=== PATIENT | female | born 1995 ===

== ENCOUNTER 2021-11-07 18:52 | Emergency (ER) | payer OTHER, SELFPAY ==
[2021-11-07 19:34] VITALS: BP 131/85; PULSE 82; RESP 17; TEMP 36.9; O2SAT 100
--- NOTE | 2021-11-07 19:34 | PC.NURSE ---
covid swab sent to lab
[2021-11-07 19:36] LABS: Add Urine Microscopic? YES; Appearance Urine Clear (Clear); Bilirubin Urine Negative (Negative); Blood Urine 1+ (Negative); Glucose Urine UA Negative (Negative); Ketones Urine Negative (Negative); Leukocyte Esterase Ur Negative LEU/UL (Negative); Nitrate Urine Negative (Negative); Protein Urine Negative (Negative); Specific Grav Ur <= 1.005 (1.010-1.020); Urobilinogen Urine 0.2 mg/dL (0.2-1.0); pH Urine 6.5 (5.0-8.0)
[2021-11-07 19:37] LABS: Color Urine Colorless (Yellow)
[2021-11-07 19:48] LABS: Basophils Absolute Auto 0.05 K/mm3 (0.00-0.10); Eosinophils Absolute Auto 0.07 K/mm3 (0.02-0.50); Eosinophils Percent Auto 1.4 % (1.0-6.0); Hematocrit 39.6 % (35.0-49.0); Hemoglobin 13.2 g/dL (12.0-15.0); Immature Granulocyte Absolute 0.01 K/mm3 (0.00-0.00); Immature Granulocyte Percent A 0.2 % (0.0-0.0); Lymphocytes Absolute Auto 1.52 K/mm3 (1.10-4.50); Lymphocytes Percent Auto 30.8 % (18.0-42.0); Mean Corpuscular HGB Conc 33.3 g/dL (32.0-36.0); Mean Corpuscular Hemoglobin 30.8 pg (27.0-31.0); Mean Corpuscular Volume 92.5 fL (78.0-102.0); Mean Platelet Volume 9.5 fl (9.2-11.8); Monocytes Percent Auto 8.1 % (2.0-11.0); Neutrophils Absolute Auto 2.9 K/mm3 (1.7-7.2); Neutrophils Percent Auto 58.5 % (50.0-70.0); Platelet Count Result 197 K/mm3 (150-420); Red Blood Count 4.28 M/mm3 (4.20-5.40); Red Cell Distribution Width 12.5 % (11.6-14.4); White Blood Count 4.9 K/mm3 (4.8-10.8)
[2021-11-07 19:53] LABS: RBC Urine None seen /hpf (0-2); Squamous Epithelial Cell Urine Rare /hpf (Few)
[2021-11-07 20:04] LABS: Alanine Aminotransferase 19 U/L (14-59); Albumin Level 4.4 g/dL (3.4-5.0); Alkaline Phosphatase 48 U/L (46-116); Anion Gap 11 mmol/L (8-16); Aspartate Amino Transferase 12 U/L (15-37); Bilirubin,Total 1.5 mg/dL (0.00-1.00); Blood Urea Nitrogen 9 mg/dL (7-18); Calcium 9.1 mg/dL (8.5-10.1); Carbon Dioxide 28 mmol/L (21-32); Chloride 102 mmol/L (98-108); Estimated CRCL calculation 71 ml/min; Estimated Glomerular Filt Rate > 60; Glucose 112 mg/dL (70-99); Magnesium 2.3 mg/dL (1.8-2.4); Osmolality Calculated 291 mOsm/kg (285-295); Potassium 3.5 mmol/L (3.5-5.1); Sodium 141 mmol/L (136-145)
--- NOTE | 2021-11-07 20:06 | ED.GENADULT ---
HPI - General Adult General Chief complaint: Allergic Reaction Stated complaint: allergic reaction Source: patient and RN notes reviewed Mode of arrival: ambulatory Limitations: no limitations History of Present Illness HPI narrative: Patient states that last week she had gone to another hospital and been diagnosed with the urinary tract infection. She said that she began having some problems with the antibiotic Macrobid almost immediately. She thought she was having allergic reaction 2 days ago she went back to the emergency room was given some hydroxyzine stop the antibiotic at that time they did a urinalysis which did not show evidence of anymore urinary tract infection. Patient is continued to have some chills, feels like she has generalized confusion, and some abdominal fullness. MD complaint: Medication reaction Onset (ago): day(s) (1) Treatments prior to arrival: other ( Benadryl) Related Data Home Medications Medication Instructions Recorded Confirmed hydroxyzine HCl 50 mg PO BID 11/07/21 11/07/21 Allergies Allergy/AdvReac Type Severity Reaction Status Date / Time nitrofurantoin Allergy Mild Itching Verified 11/07/21 19:45 azithromycin Allergy Unknown Skin Verified 11/07/21 19:44 Reaction ibuprofen Allergy Unknown Skin Verified 11/07/21 19:44 Reaction sulfite Allergy Unknown Skin Verified 11/07/21 19:44 Reaction Review of Systems Review of Systems: All systems reviewed & are unremarkable except as noted in HPI and below Respiratory: Respiratory: Denies cough and Denies dyspnea Gastrointestinal: Gastrointestinal: Denies diarrhea, Denies nausea and Denies vomiting Genitourinary: Genitourinary: Denies nocturia and Denies dysuria PMFSH Surgical History Surgical History (Updated 11/07/21 @ 20:08 by Robin Franco MD) History of section Social History Social History (Updated 11/07/21 @ 20:08 by Robin Franco MD) Smoking status: Never smoker Alcohol intake: current Alcohol use details: Occasional Substance use: never Exam Const: General: healthy appearing, no acute distress and alert Nutritional Appearance: well nourished and thin Orientation/consciousness: patient oriented x3 Other: Nurse in room during examination. HENMT: Head: normal to inspection Ears: external ears normal General nose exam: Normal external nose present Mouth: Yes moist mucous membranes Eyes: Conjunctivae: conjunctivae normal Pupils: Equal, round and reactive pupils present EOM: EOMs intact bilaterally Neck: Neck: normal visual inspection Resp: Effort & Inspection: normal respiratory effort Auscultation: clear to auscultation bilaterally Cardio: Rate: regular rate Rhythm: regular rhythm GI: GI Palp: Yes Soft to palpation and Yes Tenderness to palpation present (GI) ( Mild tenderness in the lower abdomen no rebound no guarding.) Auscultation: normal bowel sounds Back/Spine/Pelvis: Back: no CVA tenderness Cervical Spine: cervical ROM normal Thoracic/Lumbar Spine: thoraco-lumbar ROM normal Skin: General skin exam: normal color Rashes: no rashes Neuro: General: patient oriented x3, moves all extremities, no meningeal signs, no focal motor deficits and CN's II-XI intact bilaterally Speech: normal speech Gait exam (Neuro): Normal gait present Extrem: General: normal to inspection and no clubbing, cyanosis or edema Psych: Appearance: grossly normal and well kempt Mental Status: mental status grossly normal Affect: normal affect Attitude: cooperative Thought content: Yes Normal thought content present Course Vital Signs Vital signs: Vital Signs Temperature 36.9 C 11/07/21 19:34 Pulse Rate 82 11/07/21 19:34 Respiratory Rate 17 11/07/21 19:34 Blood Pressure 131/85 11/07/21 19:34 Pulse Oximetry 100 11/07/21 19:34 Temperature 36.9 C 11/07/21 19:34 Pulse Rate 75 11/07/21 20:58 Respiratory Rate 17 11/07/21 20:58 Blood Pressure 126/84 0
[2021-11-07 20:09] LABS: SARS-CoV-2 RNA PCR Positive (Negative)
[2021-11-07 20:12] LABS: CRP < 0.5 mg/dL (0.0-0.9)
[2021-11-07 20:58] VITALS: BP 126/84; PULSE 75; RESP 17; O2SAT 100
== END 2021-11-07 21:00 | disposition home or self-care (01) ==
PROVIDERS: Emergency Provider Emergency Medicine
DX: U07.1 COVID-19 (principal)
CPT/HCPCS: 36415; 80053; 81001; 83605; 83735; 85025; 86140; 99282; 99283; C9803; U0003; U0005

== ENCOUNTER 2024-10-06 14:41 | Emergency (ER) | payer OTHER, SELFPAY ==
[2024-10-06 14:43] VITALS: BP 127/80; PULSE 71; RESP 20; TEMP 36.9; O2SAT 100
[2024-10-06 14:58] VITALS: PULSE 66; RESP 20; O2SAT 99
[2024-10-06 15:00] VITALS: PULSE 69; RESP 20; O2SAT 100
[2024-10-06 15:01] VITALS: BP 110/71; PULSE 74; RESP 21; O2SAT 100
--- NOTE | 2024-10-06 15:09 | ED_ITS ---
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 The patient has been having increased anxiety over the last few hours and worries about throwing her into SVT. Currently heart rate is 71 with a blood pressure 127/80 otherwise there is no chest pain no shortness of breath no palpitations no fever chills. complaint: anxiety Onset (ago): hour(s) Severity: moderate Quality: intermittent Related Data Home Medications ?Medication ?Instructions ?Recorded ?Confirmed ?Last Taken ?Type hydroxyzine HCl 50 mg tablet 50 mg PO BID 11/07/21 11/07/21 11/07/21 08:00 History Allergies Allergy/AdvReac Type Severity Reaction Status Date / Time nitrofurantoin Allergy Mild Itching Verified 11/07/21 19:45 azithromycin Allergy Unknown Skin Verified 11/07/21 19:44 Reaction ibuprofen Allergy Unknown Skin Verified 11/07/21 19:44 Reaction sulfite Allergy Unknown Skin Verified 11/07/21 19:44 Reaction Review of Systems Review of Systems: All systems reviewed & are unremarkable except as noted in HPI and below PMFSH Surgical History Surgical History History of section Social History Social History Smoking status: Never smoker Alcohol intake: current Alcohol use details: Occasional Substance use: never Substance use type: does not use Exam Const: General: healthy appearing Nutritional Appearance: well nourished Orientation/consciousness: patient oriented x3 Limitations: no limitations HENMT: Head: normal to inspection Neck: Neck: normal visual inspection, no lymphadenopathy and no meningeal signs Chest: Chest palpation & inspection: normal inspection of the chest Resp: Effort & Inspection: normal respiratory effort Auscultation: clear to auscultation bilaterally Cardio: Rate: regular rate Rhythm: regular rhythm GI: GI Palp: Yes Soft to palpation Auscultation: normal bowel sounds Neuro: General: patient oriented x3, moves all extremities and no meningeal signs Extrem: General: normal to inspection Psych: Affect: Anxious affect present Course Course Emergency Course: patient with history of SVT currently in sinus rhythm with heart rate of 71 feels anxious and administered a dose of 0.5mg PO Xanax. Vital Signs Vital signs: Vital Signs Temperature 36.9 C 10/06/24 14:43 Pulse Rate 71 10/06/24 14:43 Respiratory Rate 20 10/06/24 14:43 Blood Pressure 127/80 10/06/24 14:43 Pulse Oximetry 100 10/06/24 14:43 Oxygen Delivery Room Air 10/06/24 14:43 Temperature 36.9 C 10/06/24 14:43 Pulse Rate 71 10/06/24 14:43 Respiratory Rate 20 10/06/24 14:43 Blood Pressure 127/80 10/06/24 14:43 Pulse Oximetry 100 10/06/24 14:43 Oxygen Delivery Room Air 10/06/24 14:43 Critical Care Time Critical Care Time Critical Care Time: No Discharge Plan Discharge Clinical Impression: Acute anxiety Patient Disposition: Home, Self-Care Condition: Stable Instructions: Antibiotic Form, Anxiety (ED) Additional Instructions: Advised medication as prescribed and follow with primary within a week for further evaluation and treatment. Patient Language: Maltese Prescriptions: New alprazolam [Xanax] 0.5 mg tablet 0.5 mg PO BID PRN (Reason: anxiety) Qty: 20 0RF No Action hydroxyzine HCl 50 mg Tablet 50 mg PO BID Follow-up/Referrals: UNKNOWN,DOCTOR [Primary Care Provider] - Time of Disposition: 15:14
[2024-10-06 15:16] VITALS: BP 118/66; PULSE 66; RESP 17
[2024-10-06 15:17] VITALS: PULSE 72; RESP 14; O2SAT 100
[2024-10-06] MEDS: ALPRAZolam (*CRX) 0.5 MG TABLET PO (15:18)
[2024-10-07 00:06] LABS: Glucose Point of Care 89 mg/dl (65-105)
--- OUTSIDE RECORDS SUMMARY | 2024-10-13 22:40 | XMS_ITS | Encounter Summary ---
Author Organization [facility] Address [address] [place] [address]. [place], [place] [address] [place] [address] Care Team Providers Care Aviation Project Manager Name Role Phone Oscar Edwards MD Primary Care Provider [phone] Encounter Details Date Type Department Care Team (Latest Contact Info) Description 06/10/2024 Travel Social History Tobacco Use Types Packs/Day Years Used Date Smoking Tobacco: Never Smokeless Tobacco: Never Comments:counseled by Dr Jimena trujillo Alcohol Use Standard Drinks/Week Comments Never 0 (1 standard drink = 0.6 oz pur e alcohol) PHQ-2 Answer Date Recorded Patient Health Questionnaire-2 Score 0 04/11/2023 Comments No Sex and Gender Information Value Date Recorded Sex Assigned at Not on file Legal Sex Female 5:53 PM CLOSING SPECIALIST Gender Identity Not on file Sexual Orientation Not on file documented as of this encounter Plan of Treatment Upcoming Encounters Date Type Department Care Team (Late st Contact Info) Description 11/02/2024 8:00 AM CLOSING SPECIALIST Office Visit [facility] Multispecialty Care - [place] [address] [address] [place] [address] Oscar Edwards MD [address] [place] [address] 06/25/2025 9:00 AM CDT [facility] [address] [address] Elisha Kim PA 3 [facility] [address] [place] [address] documented as of this encounter Visit Diagnoses Not on filedocumented in this encounter Additional Health Concerns Infection Onset Date Last Indicated Resolved Time COVID-19 Rule Out 06/10/2024 06/10/2024 06/10/2024 11:58 AM CDT COVID-19 Confirmed 06/10/2024 06/10/2024 12:32 AM CDT Assessment Noted Time PHQ-9 Depression Total Score: 0 04/11/20 23 2:41 PM CDT documented as of this encounter Care Teams Aviation Project Manager Relationship Specialty Start Date End Date Oscar Edwards MD [address] [facility] [address] [place] [address] PCP - General INTERNAL MEDICINE 04/28/22 documented as of this encounter
--- OUTSIDE RECORDS SUMMARY | 2024-10-13 22:40 | XMS_ITS | Encounter Summary ---
Author Organization [facility] Address [address] [place] [address]. [place], [place] [address] [place] [address] Care Team Providers Care Patron Attendant Name Role Phone Oscar Edwards MD Primary Care Provider [phone] Reason for Visit * Reason Onset Date Comments Appointment Request 04/02/2024 Encounter Details Date Type Department Care Team (Late st Contact Info) Description 04/02/2024 Telephone [facility] Multispecialty Care - [place] [address] [address] [place] [address] Oscar Edwards MD [address] [place] [address] [address] [place] [address] Appointment Request Social History Tobacco Use Types Packs/Day Years Used Date Smoking Tobacco: Never Smokeless Tobacco: Never Comments:counseled by Dr Jimena trujillo Alcohol Use Standard Drinks/Week Comments Never 0 (1 standard drink = 0.6 oz pur e alcohol) PHQ-2 Answer Date Recorded Patient Health Questionnaire-2 Score 0 04/11/2023 Comments Yes Sex and Gender Information Value Date Recorded Sex Assigned at Not on file 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 You at [facility] with HCG Levels checked first and that doctor has no opening, she would like to be seen today. documented in this encounter Plan of Treatment Upcoming Encounters Date Type Department Care Team (Late st Contact Info) Description 11/02/2024 8:00 AM INSTRUCTOR TRAINER CANINE SERVICE Office Visit [facility] Multispecialty Care - [place] [address] [address] [address] [place] [address] Oscar Edwards MD [address] [address] 06/25/2025 9:00 AM CDT Office Visit [facility], [address] [place] [address] Elisha Kim PA [address] [facility] [address] [place] [address] documented as of this encounter Visit Diagnoses Not on filedocumented in this encounter Additional Health Concerns Assessment Noted Time PHQ-9 Depression Total Score: 0 04/11/20 23 2:41 PM CDT documented as of this encounter Care Teams Patron Attendant Relationship Specialty Start Date End Date Oscar Edwards MD [address] [place] [address] PCP - General INTERNAL MEDICINE 04/28/22 documented as of this encounter
--- OUTSIDE RECORDS SUMMARY | 2024-10-13 22:40 | XMS_ITS | Encounter Summary ---
Author Organization [facility] Address [address] [place] [address]. [place], [place] [address] [place] [address] Care Team Providers Care School Coordinator Name Role Phone Oscar Edwards MD Primary Care Provider Encounter Details Date Type Department Care Team (Late st Contact Info) Description 05/09/2024 MyCKIHEITAIt Message Enc [facility] Medical [facility] Multispecialty Care - [place] [address] [address] [place], [place] [id number] Oscar Edwards MD [address] [place] [address] [address] [place], [place] [id number] U.T.I Social History Tobacco Use Types Packs/Day Years [...] on file Legal Sex Female 5:53 PM BELTING CUTTER Gender Identity Not on file Sexual Orientation Not on file documented as of this encounter Progress Notes * Karyn Naranjo MA - 05/09/2024 1:15 PM CDTFrom: Opal Swenson To: Dr. Oscar Edwards Sent: 05/09/2024 11:16 AM CDT Subject: U.T.I Hello, I finished my 3 day antibiotics for a UTI and am still feeling some burning pain this morning when peeing.. Thank you, Opal [phone] documented in this encounter Plan of Treatment Upcoming Encounters Date Type Department Care Team (Late st Contact Info) Description 11/02/2024 8:00 AM BELTING CUTTER Office Visit [facility] Multispecialty Care - [place] [address] [address] [address] [place] [address] Oscar Edwards MD [address] [place] [address] 06/25/2025 9:00 AM CDT Office Visit [facility] [address] [place] [address] Elisha Kim PA 3 [facility] [address] [place] [address] documented as of this encounter Visit Diagnoses Not on filedocumented in this encounter Additional Health Concerns Infection Onset Date Last Indicated Resolved Time COVID-19 Rule Out 06/10/2024 06/10/2024 06/10/2024 11:58 AM CDT COVID-19 Confirmed 06/10/2024 06/10/2024 12:32 AM CDT Assessment Noted Time PHQ-9 Depression Total Score: 0 04/11/20 23 2:41 PM CDT documented as of this encounter Care Teams School Coordinator Relationship Specialty Start Date End Date Oscar Edwards MD [address] [place] [address] PCP - General INTERNAL MEDICINE 04/28/22 documented as of this encounter
--- OUTSIDE RECORDS SUMMARY | 2024-10-13 22:40 | XMS_ITS | Encounter Summary ---
Author Organization [facility] Address [address] [place] [address]. [place], [place] [address] [place] [address] Care Team Providers Care Machine Tool Technology Instructor Name Role Phone Oscar Edwards MD Primary Care Provider [phone] Reason for Visit * Reason Onset Date Comments Follow Up Call 04/29/2023 Encounter Details Date Type Department Care Team (Late st Contact Info) Description 04/29/2023 Telephone [facility] Multispecialty Care - [place] [address] [address] [place] [address] Oscar Edwards MD [address] [place] [address] [address] [place], [place] [id number] Follow Up Call Social History Tobacco Use Types Packs/Day Years [...] on file Legal Sex Female 5:53 PM DOOR ATTENDANT Gender Identity Not on file Sexual Orientation Not on file documented as of this encounter Progress Notes * Oscar Edwards MD - 04/29/2023 5:01 PM CDT Please call and schedule patient around May 29 2023 for your annual physical. Please come fasting during that visit. Thanks. documented in this encounter Plan of Treatment Upcoming Encounters Date Type Department Care Team (Late st Contact Info) Description 11/02/2024 8:00 AM DOOR ATTENDANT Office Visit [facility] Multispecialty Care - [place] [address] [address] [place] [address] [place] [address] [place] [address] 06/25/2025 9:00 AM CDT Office Visit [facility], [address] [place] [address] Elisha Kim PA 3 [facility] [address] [place] [address] documented as of this encounter Visit Diagnoses Not on filedocumented in this encounter Additional Health Concerns Assessment Noted Time PHQ-9 Depression Total Score: 0 04/11/20 23 2:41 PM CDT documented as of this encounter Care Teams Machine Tool Technology Instructor Relationship Specialty [place] [address] [place] [address] PCP - General INTERNAL MEDICINE 04/28/22 documented as of this encounter
--- OUTSIDE RECORDS SUMMARY | 2024-10-13 22:40 | XMS_ITS | Encounter Summary ---
Author Organization [facility] Address [address] [place] [address]. [place], [place] [address] [place] [address] Care Team Providers Care R Programmer Name Role Phone Oscar Edwards MD Primary Care Provider [phone] Encounter Details Date Type Department Care Team (Latest Contact Info) Description 04/11/2023 Travel Social History Tobacco Use Types Packs/Day [...] on file Legal Sex Female 5:53 PM CYLINDER DYER Gender Identity Not on file Sexual Orientation Not on file documented as of this encounter Plan of Treatment Upcoming Encounters Date Type Department Care Team (Late st Contact Info) Description 11/02/2024 8:00 AM CYLINDER DYER Office Visit [facility] Multispecialty Care - [place] [address] [address] [address] [place] [address] Oscar Edwards MD [address] [place] [address] 06/25/2025 9:00 AM CDT Office Visit [facility], [address] [address] Elisha Kim PA [address] [facility] [address] [place] [address] documented as of this encounter Visit Diagnoses Not on filedocumented in this encounter Additional Health Concerns Assessment Noted Time PHQ-9 Depression Total Score: 0 04/11/20 23 2:41 PM CDT documented as of this encounter Care Teams R Programmer Relationship Specialty Start Date End Date Oscar Edwards MD [address] [facility] [address] [place] [address] PCP - General INTERNAL MEDICINE 04/28/22 documented as of this encounter
--- OUTSIDE RECORDS SUMMARY | 2024-10-13 22:40 | XMS_ITS | Encounter Summary ---
Author Organization [facility] Address [address] [place] [address]. [place], [place] [id number] [place] [address] Care Team Providers Care Ip Technology Transactions Attorney Name Role Phone Oscar Edwards MD Primary Care Provider [phone] Reason for Visit * Reason Comments Supraventricular Tachycardia * Consultation (Routine) - Closed Specialty Diagnoses / Procedures Referred By Ethel marquis Referred To Contact HEART & VASCULAR CARE / Cardiology Diagnoses SVT (supraventricular tachycardia) ([facility]) Procedures OFFICE/OUTPT VISIT,NEW,LEVL III OFFICE/OUTPT VISIT,NEW,LEVL IV OFFICE/OUTPT VISIT,NEW,LEVL V OFFICE/OUTPT VISIT,EST,LEVL III OFFICE/OUTPT VISIT,EST,LEVL IV OFFICE/OUTPT VISIT,EST,LEVL V Oscar Edwards MD [address] [facility] [address] [place] [address] Phone: tel: fax: [facility], [address] [address] Phone: tel: fax: Referral ID Status Reason Start Date Expiration Date V isits Requested Visits Authorized [id number] Closed Specialty Services 04/11/2023 05/11/2024 99 99 Encounter Details Date Type Department Care Team (Late st Contact Info) Description 06/02/2023 10:00 AM CDT Office Visit [facility], [facility] [address] [place], [place] [address] Jose Carlos Smith MD [facility]. 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 Gender Identity Not on file Sexual Orientation Not on file documented as of this encounter Last Filed Vital Signs Vital Sign Reading Time Taken Comments Blood Pressure 120/70 06/02/2023 10:14 AM CDT Pulse 69 06/02/2023 10:14 AM CDT Temperature - - Respiratory Rate - - Oxygen Saturation 100% 06/02/2023 10:14 AM CDT Inhaled Oxygen Concentration - - Weight 67.1 kg (148 lb) 06/02/2023 10:14 AM CDT Height 162.6 cm (5' 4 ) 06/02/2023 10:14 AM CDT Body Mass Index 25.4 06/02/2023 10:14 AM CDT documented in this encounter Progress Notes * Jose Carlos Smith MD - 06/02/2023 10:00 AM CDT Images from the original note were not included. [place], [place] [address] Cardiac Electrophysiology History and Physical Examination Patient name: Opal Monroy Referring Provider: Oscar Edwards MD Primary Care Provider: OSCAR EDWARDS MD Reason for Consultation: Reason for consultation diagnosis: SVT Chief Complaint: Palpitations History of Present Illness Opal Monroy is a 28-year-old female with a history of palpitations. She reports she has had events of palpitations about once a year. She reports she usually lays down and it resolves. She hadtried calling workers' compensation mediator and she did valsalva which resolved her last events. This was about 2 months. She has had symptoms since she was 7 years old but they usually spontaneously resolved. She did not goto the ER at this time. She has never needed ER visits for this. She feels light headedness, short of breath, and anxious with it. She notes usually events are very short (less than 10 minutes). She reports she even has had them during athletic events but after resting they resolve. She has no family history of arrhythmias. Sometimes she will cough and it will go away. Assessment and Plan Mrs. Monroy is a 28-year-old female here today for evaluation of palpitations. Palpitations: She has symptoms consistent with SVT. ECG shows no evidence of pre-excitation. We areawaiting her 30 day MCT for review, but without symptoms I suspect this will be unremarkable. Her recent echo showed no evidence of structural or valvular heart disease. Her symptoms are random and not frequent and self limiting. She is not feeling they have a great impact on her quality of life atpresent. I reviewed options of watchful waiting, an EP study and ablation, vs medical therapy. For now she will plan watchful waiting but if she has worsening symptoms she will let me know and we cango forward with an EP study and possible ablation. She understands to use vagal maneuvers to terminate events. We reviewed the EP study procedure and ablation procedure today and risks associated. Ifrohan continues watchful waiting we will follow up in a year. History Review of Systems Constitutional: Negative. HENT: Negative. Eyes: Negative. Respiratory: Negative. Cardiovascular: Negative. Gastrointestinal: Negative. Genitourinary: Negative. Musculoskeletal: Negative. Skin: Negative. Neurological: Negative. Endo/Heme/Allergies: Negative. Psychiatric/Behavioral: Negative. Current Problems: Patient Active Problem List Diagnosis Anxiety Depression Past Medical History: Past Medical History: Diagnosis Date Anxiety Depression Past Surgical History: Past Surgical History: Procedure Laterality Date SECTION Social History: Social History Tobacco Use Smoking status: Never Smokeless tobacco: Never Tobacco comments: counseled by Dr Edwards Vaping Use Vaping Use: Never used Substance Use Topics Alcohol use: Never Drug use: Never Family History: Family History Problem Relation Name Age of Onset No Known Problems Mother No Known Problems Father Allergies: Allergies Allergen Reactions Macrobid [Nitrofurantoin] Shortness of Breath bruising Z-Taras [Azithromycin] Other (see comment) Itchy hands, dizzy, generalized not feeling well Buspar [Buspirone] Other (see comment) Cold sweats, difficulty breathing Ibuprofen Hives Dexamethasone Eyes Water & Itch and Itching Current Medications: Patient's Medications New Prescriptions No medications on file Previous Medications No medications on file Modified Medications No medications on file Discontinued Medications AZELASTINE (ASTELIN) 0.1 % NASAL SPRAY 1 spray by Nasal route 2 (two) times daily. Use in each nostril as directed DICLOFENAC SODIUM (VOLTAREN) 1 % GEL Apply 4 g topically 4 (four) times daily. FLUTICASONE PROPIONATE (FLONASE) 50 MCG/ACT NASAL SPRAY 1 spray by Each Nostril route daily. Okay to substitute per insurance. Physical Exam Filed Vitals: 06/02/23 1014 BP: 120/70 Pulse: 69 SpO2: 100% Weight: 67.1 kg (148 lb) Height: 5' 4 (1.626 m) Physical Exam: In general, Ms. Monroy sitting in a chair in no acute distress. Appears stated age. Mucous membranes moist. No oropharyngeal exudates. Sclera anicteric. Neck is supple. Normal carotid upstroke. No carotid bruits. JVP is not elevated at 90 degrees. Cardiac exam reveals a regular rate and rhythm. Normal S1 and S2 without murmurs, rubs, gallops. Radial pulses are 2+. Lungs clear to auscultation bilaterally without wheezes, rales, or rhonchi. Abdomen is soft, nontender, and non distended with normoactive bowel sounds. There is no guarding or rebound tenderness. No abdominal bruit.There are no skin lesions or significant ecchymosis. No lower extremity edema. Her mood is normal with a normal affect and she is alert and oriented x 3. Relevant Data Reviewed: Labs: Lab Results Component Value Date/Time NA 139 07/26/2022 02:50 PM K 3.8 07/26/2022 02:50 PM CR 0.70 07/26/2022 02:50 PM AST 19 07/26/2022 02:50 PM ALT 20 07/26/2022 02:50 PM HGB 11.6 (L) 07/26/2022 02:50 PM HCT 35.5 (L) 07/26/2022 02:50 PM PLT 268 07/26/2022 02:50 PM WBC 7.4 07/26/2022 02:50 PM TSH 1.044 05/28/2022 08:22 AM Echo: 05/16/23: The left ventricular size is normal. The left ventricular systolic function is normal. Estimated left ventricular ejection fraction is 55-60%. Left ventricular diastolic function is normal. Wall motion appears normal in all segments. The right ventricular size is normal. Right ventricular systolic function is normal. No significant valvular abnormalities. EKG: NSR, RSR' Other Imaging: MD [facility] Cardiac Electrophysiology ; ext. 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 Office Visit [facility] - [place] [address] [address] [place] [address] Oscar Edwards MD [address] [place] [address] [address] [place] [address] 06/25/2025 9:00 AM CDT Office Visit [facility], [place] [address] [place] [address] Elisha Kim PA 3 [facility] [address] [place] [address] documented as of this encounter Procedures Procedure Name Priority Date/Time Associated Diagnosis Comments ELECTROCARDIOGRAM (NON MIDMARK ACQUIRED) Routine 06/02/2023 10:20 AM CDT SVT (supraventricular tachycardia) documented in this encounter Results * ELECTROCARDIOGRAM (06/02/2023 10:20 AM CDT) 06/02/2023 10:2 0 AM CDT Narrative [facility] - 06/02/2023 3:57 PM CDT ?[facility] [place] ? Test Date: ?2023-06-02 Pat Name: ? OPAL MONROY ? Department: ?? 112 ? Room: ? Gender: ? Female ? Cop: ?? : ?1995 ? Requested By: JOSE CARLOS SMITH Order Number: [id number] ?Reading MD: ?? Jose Carlos Smith ? Measurements Intervals ?[place] ? Rate: ? 66 ? P: ?69 GA: ? 139 ?QRS: ?57 QRSD: ? 104 ?T: ?34 QT: ? 375 ? QTc: ?394 ? Interpretive Statements SINUS RHYTHM WITH SINUS ARRHYTHMIA INCOMPLETE RIGHT BUNDLE BRANCH BLOCK MODERATE T-WAVE ABNORMALITY, CONSIDER ANTERIOR ISCHEMIA Procedure Note Jose Carlos Smith MD - 06/02/2023 [facility] Test Date: 2023-06-02 Pat Name: OPAL MONROY Department: 112 Room: Gender: Female Cop: : 1995 Requested By: JOSE CARLOS SMITH Order Number: [id number] Honey ANN: Jose Carlos Smith Measurements Intervals [place] Rate: 66 P: 69 GA: 139 QRS: 57 QRSD: 104 T: 34 QT: 375 QTc: 394 Interpretive Statements SINUS RHYTHM WITH SINUS ARRHYTHMIA INCOMPLETE RIGHT BUNDLE BRANCH BLOCK MODERATE T-WAVE ABNORMALITY, CONSIDER ANTERIOR ISCHEMIA us Jose Carlos Smith MD PROCEDURES-ORDERABLE NO JENA RGE Final Result [facility] documented in this encounter Visit Diagnoses Diagnosis SVT (supraventricular tachycardia) ([facility]/HCC)- Primary Other specified cardiac dysrhythmias documented in this encounter Additional Health Concerns Assessment Noted Time PHQ-9 Depression Total Score: 0 04/11/20 23 2:41 PM CDT documented as of this encounter Care Teams Ip Technology Transactions Attorney Relationship Specialty Start Date End Date Oscar Edwards MD [address] [address] PCP - General INTERNAL MEDICINE 04/28/22 documented as of this encounter
--- OUTSIDE RECORDS SUMMARY | 2024-10-13 22:40 | XMS_ITS | Encounter Summary ---
Author Organization [facility] Address [address] [place] [address]. [place], [place] [id number] [place] [address] Care Team Providers Care Mothers Helper Name Role Phone Oscar Edwards MD Primary Care Provider [phone] Encounter Details Date Type Department Care Team (Late Contact Info) Description 07/23/2022 [employer] [facility] [address] [place], [place] [id number] [employer], [facility] Provider Lab Social History Tobacco Use Types Packs/Day Years Used Date Smoking Tobacco: Never Smokeless Tobacco: Never Comments:counseled by Dr Jimena trujillo Alcohol Use Standard Drinks/Week Comments Never 0 (1 standard drink = 0.6 oz pur e alcohol) PHQ-2 Answer Date Recorded PHQ-2 Score - If the patient scores above 3, please move on to questions 3-9 2 06/25/2022 Comments No Sex and Gender Information Value Date Recorded Sex Assigned at Not on file 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 Office Visit [facility] - [place] [address] [address] [place] [address] Oscar Edwards MD [address] [facility] [address] [place] [address] 06/25/2025 9:00 AM CDT [facility] [place] [address] [place] [address] Elisha Kim PA 3 [facility] [address] [place], [place] [id number] documented as of this encounter Visit Diagnoses Not on filedocumented in this encounter Additional Health Concerns Infection Onset Date Last Indicated Resolved Time COVID-19 Rule Out 07/29/2022 07/29/2022 07/29/2022 9:34 PM CDT COVID-19 Rule Out 06/10/2024 06/10/2024 06/10/2024 11:58 AM CDT COVID-19 Confirmed 06/10/2024 06/10/2024 12:32 AM CDT Assessment Noted Time PHQ-9 Depression Total Score: 20 022 2:50 PM CDT documented as of this encounter Care Teams Mothers Helper Relationship Specialty Start Date End Date Oscar Edwards MD [facility] [address] PCP - General INTERNAL MEDICINE 04/28/22 documented as of this encounter
--- OUTSIDE RECORDS SUMMARY | 2024-10-13 22:40 | XMS_ITS | Encounter Summary ---
Author Organization [facility] Address [address] [place] [address]. [place], [place] [id number] [place] [address] Care Team Providers Care Finisher Accordion Name Role Phone Oscar Edwards MD Primary Care Provider [phone] Reason for Visit * Reason Comments Anxiety Depression Medication Pt is taking Buspar and it is making her to have night sweats and feeling nervous Encounter Details Date Type Department Care Team (Latest Contact Info) Description 09/07/2022 7:00 AM LOOSE HAND PACKER Office Visit [facility] - [place] [address] [address] [place], [place] [phone] Oscar Edwards MD [address] [place] [address] Anxiety; Depression; Medication (Pt is taking Buspar and it is making her to have night sweats and feeling nervous) Social History Tobacco Use Types Packs/Day Years Used Date Smoking Tobacco: Never Smokeless Tobacco: Never Tobacco Cessation:Counseling Given: Yes Comments:counseled by Dr Edwards Alcohol Use Standard Drinks/Week Comments Never 0 (1 standard drink = 0.6 oz pur e alcohol) PHQ-2 Answer Date Recorded PHQ-2 Score - If the patient scores above 3, please move on to questions 3-9 0 09/07/2022 Comments No Sex and Gender Information Value Date Recorded Sex Assigned at Not on file Legal Sex Female 5:53 PM LOOSE HAND PACKER Gender Identity Not on file Sexual Orientation Not on file COVID-19 Exposure Response Date Recorded In the last 10 days, have yo u been in contact with someone who was confirmed or suspected to have Coronavirus/COVID-19? No / Unsure 09/07/2022 6:50 AM LOOSE HAND PACKER documented as of this encounter Last Filed Vital Signs Vital Sign Reading Time Taken Comments Blood Pressure 108/82 09/07/2022 7:03 AM LOOSE HAND PACKER Pulse 82 09/07/2022 7:03 AM LOOSE HAND PACKER Temperature 37.4 ??C (99.3 ??F) 09/07/2022 7:03 AM CS T Respiratory Rate 18 09/07/2022 7:03 AM LOOSE HAND PACKER Oxygen Saturation 100% 09/07/2022 7:03 AM LOOSE HAND PACKER Inhaled Oxygen Concentration - - Weight 56.4 kg (124 lb 6.4 oz) 09/07/2022 7:03 A M LOOSE HAND PACKER Height 167.6 cm (5' 6 ) 09/07/2022 7:03 AM LOOSE HAND PACKER Body Mass Index 20.08 09/07/2022 7:03 AM LOOSE HAND PACKER documented in this encounter Patient Instructions * Patient Instructions* Oscar Edwards MD - 09/07/2022 7:00 AM LOOSE HAND PACKER Follow up in about 4 weeks for your next visit. Please take medications as directed. Please follow up with therapy: call [phone] to follow up on this referral. E HAND PACKER * Attachments The following attachments cannot be sent through Care Everywhere. * Panic Disorder Discharge Instructions (Sudanese) documented in this encounter Progress Notes * Oscar Edwards MD - 09/07/2022 7:00 AM CSTSummary: Follow-up notes Images from the original note were not included. Internal Medicine Outpatient Progress Note CC: Anxiety, Depression, and Medication (Pt is taking Buspar and it is making her to have night sweats and feeling nervous) HPI: Opal Swenson is a 27-year-old female who presents for follow-up for panic attack and uncontrolled generalized anxiety disorder with major depression. Patient has been seen on a couple of occasions for concerns about uncontrolled major depression with generalized anxiety disorder. Recent concerns for panic attack as patient was concerned about having cold sweats and difficulty breathing and a feeling as though there was something in her throat. Advised to discontinue BuSpar as this was a new medication recently started. Patient was encouraged to continue with fluoxetine and to go to the emergency room to be evaluated. Patient tells me she didnot go the ER however is feeling much better since discontinuing Buspar. She is currently on 40 mg daily of fluoxetine. Her symptoms are currently not optimally controlled. Previously was using clonazepam 0.5 mg daily for panic attacks however this was weaned off. She has a referral to therapy. Shecurrently does not follow routinely with psychiatry. Problem List Patient Active Problem List Diagnosis ??? Anxiety ??? Depression Past Medical History: Diagnosis Date ??? Anxiety ??? Depression Past Surgical History: Procedure Laterality Date ??? SECTION Family History Problem Relation Name Age of Onset ??? No Known Problems Mother ??? No Known Problems Father Social History Tobacco Use ??? Smoking status: Never ??? Smokeless tobacco: Never ??? Tobacco comments: counseled by Dr Edwards Vaping Use ??? Vaping Use: Never used Substance Use Topics ??? Alcohol use: Never ??? Drug use: Never Medications: Outpatient Medications Marked as Taking for the 09/07/22 encounter (Office Visit) with Oscar Edwards MD Medication Sig Dispense Refill ??? azelastine (ASTELIN) 0.1 % nasal spray 1 spray by Nasal route 2 (two) times daily. Use in each nostril as directed 30 mL 1 ??? FLUoxetine (PROZAC) 20 MG capsule Take 1 capsule (20 mg total) by mouth daily. Taking 60 mg total. 90 capsule 1 ??? FLUoxetine (PROZAC) 40 MG capsule Take 1 capsule (40 mg total) by mouth daily. Taking 60 mg total. 90 capsule 1 ??? fluticasone propionate (FLONASE) 50 MCG/ACT nasal spray 1 spray by Each Nostril route daily. Okay to substitute per insurance. 16 g 1 Allergies: Allergies Allergen Reactions ??? Macrobid [Nitrofurantoin] Shortness of Breath bruising ??? Z-Taras [Azithromycin] Other (see comment) Itchy hands, dizzy, generalized not feeling well ??? Buspar [Buspirone] Other (see comment) Cold sweats, difficulty breathing ??? Ibuprofen Hives ? ? Dexamethasone Eyes Water & Itch and Itching Review of Systems Constitutional: Negative for chills, diaphoresis, fever, malaise/fatigue and weight loss. HENT: Negative. Eyes: Negative. Respiratory: Negative. Cardiovascular: Negative for chest pain, palpitations, orthopnea, claudication, leg swelling and PND. Gastrointestinal: Negative. Genitourinary: Negative. Musculoskeletal: Negative. Psychiatric/Behavioral: Negative for depression, hallucinations, memory loss, substance abuse and suicidal ideas. The patient is nervous/anxious. The patient does not have insomnia. Objective: Filed Vitals: 09/07/22 0703 BP: 108/82 Pulse: 82 Resp: 18 Temp: 99.3 ??F (37.4 ??C) TempSrc: Temporal SpO2: 100% Weight: 56.4 kg (124 lb 6.4 oz) Height: 5' 6 (1.676 m) Body mass index is 20.08 kg/m??. General alert, cooperative, no distress HEENT EOM's intact. Oral mucosa normal. Nasal septum is midline. Neck Supple, symmetrical, trachea midline, no adenopathy, no thyromegaly, no JVD. Lungs No acute respiratory distress, no accessory muscle use, symmetric motion of the chest wall, lungs are clear to auscultation bilaterally, no wheezes or rales. Heart Regular rate and regular rhythm. S1, S2 normal. No murmurs. No rubs, clicks, or gallops. Abdomen Soft, non-tender, non-distended. Bowel sounds normal. No masses. No hepatomegaly appreciated. Extremities Extremities atraumatic, no cyanosis, 2+ pedal pulses, no edema Skin Skin color, texture, turgor normal. No rashes or lesions appreciated. Neurologic No focal deficits, motor strength is grossly normal and symmetric Psych Anxious but pleasant and calm MSK No synovitis, no bony tenderness, no joint effusions Lymph No cervical or supraclavicular adenopathy Assessment and Plan: Encounter Diagnose(s) ICD-10-CM ICD-9-CM SNOMED CT(R) 1. Severe episode of recurrent major depressive disorder, without psychotic features (CMS/HCC) F33.2 296.33 SEVERE RECURRENT MAJOR DEPRESSION WITHOUT PSYCHOTIC FEATURES FLUoxetine (PROZAC) 40 MG capsule FLUoxetine (PROZAC) 20 MG capsule 2. CHARLA (generalized anxiety disorder) F41.1 300.02 GENERALIZED ANXIETY DISORDER FLUoxetine (PROZAC)40 MG capsule FLUoxetine (PROZAC) 20 MG capsule 3. Panic attacks F41.0 300.01 PANIC ATTACK 1. Severe episode of recurrent major depressive disorder, without psychotic features (CMS/HCC) - not optimally controlled; has since discontinued Buspar and feeling much better - I personally reviewed PHQ-9 and CHARLA-7 scores with patient today and explained the meaning of patient's scores to patient. Patient is currently uncontrolled. I counseled for about 3 minutes on strategies including stress management, sleep hygiene, balanced diet, regular physical activity includingaerobic exercise, weight reduction, activity pacing, maintenance of overall health lifestyle, medication compliance and the need for close follow up. Comorbidities including depression, anxiety currently being managed. Active nonpharmacological therapies including supervised and graded exercise program as well as cognitive behavioral interventions discussed as well. Based on patient scores today,I have discussed with patient the plan as outlined below. - continue FLUoxetine (PROZAC) 40 MG capsule; Take 1 capsule (40 mg total) by mouth daily. Taking 60 mg total. Dispense: 90 capsule; Refill: 1 - add FLUoxetine (PROZAC) 20 MG capsule; Take 1 capsule (20 mg total) by mouth daily. Taking 60 mg total. Dispense: 90 capsule; Refill: 1 - follow up in 4 weeks 2. CHARLA (generalized anxiety disorder) - not optimally controlled; has since discontinued Buspar and feeling much better - I personally reviewed PHQ-9 and CHRALA-7 scores with patient today and explained the meaning of patient's scores to patient. Patient is currently uncontrolled. I counseled for about 3 minutes on strategies including stress management, sleep hygiene, balanced diet, regular physical activity includingaerobic exercise, weight reduction, activity pacing, maintenance of overall health lifestyle, medication compliance and the need for close follow up. Comorbidities including depression, anxiety currently being managed. Active nonpharmacological therapies including supervised and graded exercise program as well as cognitive behavioral interventions discussed as well. Based on patient scores today,I have discussed with patient the plan as outlined below. - continue FLUoxetine (PROZAC) 40 MG capsule; Take 1 capsule (40 mg total) by mouth daily. Taking 60 mg total. Dispense: 90 capsule; Refill: 1 - add FLUoxetine (PROZAC) 20 MG capsule; Take 1 capsule (20 mg total) by mouth daily. Taking 60 mg total. Dispense: 90 capsule; Refill: 1 - follow up in 4 weeks 3. Panic attacks - no longer having any episodes since discontinuing Buspar; close follow up Counseling given: Yes Tobacco comments: counseled by Dr Edwards I spent 30 minutes today reviewing the patient's medical record, obtaining history, performing an exam, ordering medications, tests, and/or procedures, documenting in the medical record, referring and/or communicating with other health care providers, counseling and educating the patient, reviewingand communicating test results and coordinating care. Side effects and less common but more severe adverse effects of recommended medical therapies were explained to the patient. Follow up office visit in 1 month. Requested MyChart or telephone follow up prn if symptoms change,worsen, or persist, or if side effect of treatment is experienced. DRAGON: This dictation was at least in part performed using [employer] and there may be some inherent flaws in this inspector wire products due to the nature of this program. Oscar Edwards MD Internal Medicine [facility], [facility]. E HAND PACKER documented in this encounter Plan of Treatment Upcoming Encounters Date Type Department Care Team (Late st Contact Info) Description 11/02/2024 8:00 AM LOOSE HAND PACKER Office Visit [facility] Multispecialty Care - [place] [address] [address] [place] [address] Oscar Edwards MD [address] [place] [address] 06/25/2025 9:00 AM CDT Office Visit [facility], [place] [address] [place], [place] [phone] Elisha Kim PA 3 [facility] [address] [place], [place] [phone] documented as of this encounter Visit Diagnoses Diagnosis Severe episode of recurrent major depressive disorder, without psychotic features ([facility])- Primary CHARLA (generalized anxiety disorder) Generalized anxiety disorder Panic attacks Panic disorder without agoraphobia documented in this encounter Additional Health Concerns Assessment Noted Time PHQ-9 Depression Total Score: 20 022 2:50 PM CDT documented as of this encounter Care Teams Finisher Accordion Relationship Specialty Start Date End Date Oscar Edwards MD [address] [address] PCP - General INTERNAL MEDICINE 04/28/22 documented as of this encounter
--- OUTSIDE RECORDS SUMMARY | 2024-10-13 22:40 | XMS_ITS | Encounter Summary ---
Author Organization [facility] Address [address] [place] [address]. [place], [place] [phone] [place] [address] Care Team Providers Care Bait Packer Name Role Phone Oscar Edwards MD Primary Care Provider [phone] Reason for Visit * Reason Comments Allied Health Visit Patient is here for a redraw Encounter Details Date Type Department Care Team (Latest Contact Info) Description 07/26/2022 3:00 PM CDT Allied Health/Nurse Visit [facility] Multispecialty Care - [place] [address] [address] [place], [place] [phone] Oscar Edwards MD [address] [place] [address] [address] [place], [place] [phone] Allied Health Visit (Patient is here for a redraw) Social History Tobacco Use Types Packs/Day Years [...] on file 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 No / Unsure 07/26/2022 2:28 PM CDT documented as of this encounter Progress Notes * Joan Macedo MA - 07/26/2022 3:00 PM CDT Patient is here for a lab draw documented in this encounter Plan of Treatment Upcoming Encounters Date Type Department Care Team (Late st Contact Info) Description 11/02/2024 8:00 AM POULTRY FARM LABORER Office Visit [facility] Multispecialty Care - [place] [address] [place] [address] [address] [place], [place] [phone] Oscar Edwards MD [address] [facility] [address] [place] [address] 06/25/2025 9:00 AM CDT Office Visit [facility] [place] [address] [place], [place] [phone] Elisha Kmi PA 3 [facility] [address] [place], [place] [phone] documented as of this encounter Procedures Procedure Name Priority Date/Time Associated Diagnosis Comments COMPREHENSIVE METABOLIC PANEL Routine 07/26/2022 2:50 PM CDT Hyperbilirubinemia CBC W/DIFF AUTOMATED Routine 07/26/2022 2:50 PM CDT Hyperbilirubinemia documented in this encounter Results * (ABNORMAL) COMPREHENSIVE METABOLIC PANEL (07/26/2022 2:50 PM CDT) SODIUM S/P/B 139 136 - 145 MMOL/L 07/26/2022 9:07 PM CDT [facility] SARAH TOLUCA POTASSIUM S/P/B 3.8 3.5 - 5.1 MMOL/L 07/26/2022 9:07 PM CDT [facility] CHLORIDE S/P/B 102 98 - 107 MMOL/L 07/26/2022 9:07 PM CDT -[facility] CO2 24.7 21 - 32 MMOL/L 07/26/2022 9:07 PM CDT -[facility] GLUCOSE 84 70 - 99 MG/DL 07/26/2022 9:07 PM CDT -[facility] BUN 7 7 - 18 MG/DL 07/26/2022 9:07 PM CDT [facility] CREATININE S/P/B 0.70 0.55 - 1.02 MG/DL 07/26/2022 9:07 PM T -[facility] CALCIUM S/P/B 8.9 8.4 - 10.5 MG/DL 07/26/2022 9:07 PM T [facility] BILIRUBIN TOTAL S/P/B 1.1(H) 0.2 - 1.0 MG/DL 07/26/2022 9:07 PM T [facility] ALKALINE PHOSPHATASE S/P/B 44 37 - 98 U/L 07/26/2022 9:07 PM CDT [facility] AST 19 15 - 37 U/L 07/26/2022 9:07 PM CDT -[facility] ALT 20 14 - 59 U/L 07/26/2022 9:07 PM CDT [facility] TOTAL PROTEIN S/P/B 7.5 6.4 - 8.2 G/DL 07/26/2022 9:07 PM T [facility] ALBUMIN S/P/B 4.4 3.4 - 5.0 G/DL 07/26/2022 9:07 PM T [facility] ANION GAP 12.3 5 - 15 MMOL/L 07/26/2022 9:07 PM CDT [facility] Comment:REFERENCE RANGE NOT ESTABLISHED OSMOLALITY (CALC) 285 MOSM/KG 10/10/2 022 9:07 PM CDT [facility] Comment:REFERENCE RANGE NOT ESTABLISHED GFR ESTIMATE >90 >90 ML/MIN/1. 73 M2 07/26/2022 9:07 PM CDT [facility] GFR NOTES GFR REFERENCE S: 07/26/2022 9:07 PM CDT [facility] Comment: THE ESTIMATED GFR IS CALCULATED USING THE 2020 CKD-EPI EQUATION. THE FOLLOWING CATEGORIES FOR GRADING RENAL FUNCTION ARE RECOMMENDED BY THE INTERNATIONAL SOCIETY OF NEPHROLOGY (KDIGO 2012 CLINICAL PRACTICE GUIDELINE). G1,NORMAL OR HIGH: >89 ml/min/1.73 m2 G2,MILDLY DECREASED: 60-89 ml/min/1.73 m2 G3A,MILDLY TO MODERATELY DECREASED: 45-59 ml/min/1.73 m2 G3B,MODERATELY TO SEVERELY DECREASED: 30-44 ml/min/1.73 m2 G4,SEVERELY DECREASED: 15-29 ml/min/1.73 m2 G5,KIDNEY FAILURE: <15 ml/min/1.73 m2 07/26/2022 2:50 PM CDT Oscar Edwards MD LABORATORY Final Result [facility] [address] [place] [address], * (ABNORMAL) CBC W/DIFF AUTOMATED (07/26/2022 2:50 PM CDT) WBC 7.4 4.0 - 10.8 x10'3/uL 07/26/2022 7:19 PM CDT [facility] RBC 4.26 4.10 - 5.40 x10'6/uL 07/26/2022 7:19 PM CDT [facility] HGB 11.6(L) 12.0 - 16.0 G/DL 07/26/2022 7:19 PM CDT [facility] HCT 35.5(L) 36.0 - 47.0 % 07/26/2022 7:19 PM CDT [facility] MCV 83.3 78.0 - 100.0 FL 07/26/2022 7:19 PM CDT [facility] MCH 27.2 27.0 - 31.0 PG 07/26/2022 7:19 PM CDT [facility] MCHC 32.7(L) 33.0 - 36.0 G/DL 07/26/2022 7:19 PM CDT [facility] RDW 14.0 11.5 - 14.5 % 07/26/2022 7:19 PM CDT [facility] PLT 268 150 - 350 x10'3/uL 07/26/2022 7:19 PM CDT [facility] MPV 9.6 7.4 - 10.4 FL 07/26/2022 7:19 PM CDT [facility] DIFFERENTIAL TYPE AUTOMATED DIFFERENTIAL 07/26/2022 7:20 PM CDT [facility] NEUTROPHILS % 68.8 % 07/26/2022 7:20 PM CDT [facility] LYMPHOCYTES % 25.4 % 07/26/2022 7:20 PM CDT [facility] MONOCYTES % 4.7 % 07/26/2022 7:20 PM CDT [facility] EOSINOPHILS % 0.5 % 07/26/2022 7:20 PM CDT [facility] BASOPHILS % 0.5 % 07/26/2022 7:20 PM CDT [facility] IMMATURE GRANS % 0.1 % 07/26/2022 7:20 PM CDT [facility] ABS. NEUTROPHILS 5.09 1.60 - 8.30 x10'3/uL 07/26/2022 7:20 PM CDT [facility] ABS. LYMPHOCYTES 1.88 0.80 - 4.70 x10'3/uL 07/26/2022 7:20 PM CDT [facility] ABS. MONOCYTES 0.35 0.00 - 1.50 x10'3/uL 07/26/2022 7:20 PM CDT -[facility] ABS. EOSINOPHILS 0.04 0.00 - 0.40 x10'3/uL 07/26/2022 7:20 PM CDT [facility] ABS. BASOPHILS 0.04 0.00 - 0.20 x10'3/uL 07/26/2022 7:20 PM CDT [facility] ABS. IMMATURE GRANULOCYTES 0.01 0.00 - 0.03 x10'3/uL 07/26/2022 7:20 PM CDT [facility] 07/26/2022 2:50 PM CDT Oscar Edwards MD LABORATORY Final Result Performing Organization Address City/State/[facility] Co de Phone Number [facility] [address] [place] [address], documented in this encounter Visit Diagnoses Diagnosis Hyperbilirubinemia- Primary Jaundice, unspecified, not of documented in this encounter Additional Health Concerns Assessment Noted Time PHQ-9 Depression Total Score: 022 2:50 PM CDT documented as of this encounter Care Teams Bait Packer Relationship Specialty Start Date End Date Oscar Edwards MD [address] [facility] [address] [place] [address] PCP - General INTERNAL MEDICINE 04/28/22 documented as of this encounter
--- OUTSIDE RECORDS SUMMARY | 2024-10-13 22:40 | XMS_ITS | Encounter Summary ---
Author Organization [facility] Address [address] [place] [address]. [place] [address] [place] [address] Care Team Providers Care Facility Rehab Director Name Role Phone Oscar Edwards MD Primary Care Provider [phone] Reason for Referral * Imaging (Emergency) - New Request Specialty Diagnoses / Procedures Referred By Ethel marquis Referred To Contact RADIOLOGY Procedures US OB TRANSVAG Tushar Mckay NP [address] [place] [address] Phone: tel: fax: Referral ID Status Reason Start Date Expiration Date V isits Requested Visits Authorized [id number] New Request 04/01/2024 04/01/2025 1 1 Reason for Visit * Reason Comments Vaginal Bleeding Encounter Details Date Type Department Care Team (Late st Contact Info) Description 04/01/2024 2:12 PM CDT - 04/01/2024 5:48 PM CDT Emergency [facility] Emergency Room [place], [place] [id number] Tushar Mckay NP [address] [place] [address] Vaginal Bleeding Discharge Disposition: Home or Self Care (Routine Discharge) Social History Tobacco Use Types Packs/Day Years [...] on file Legal Sex Female 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 Gender Identity Not on file Sexual Orientation Not on file documented as of this encounter Last Filed Vital Signs Vital Sign Reading Time Taken Comments Blood Pressure 104/72 04/01/2024 5:40 PM CDT Pulse 74 04/01/2024 5:40 PM CDT Temperature 36.8 ??C (98.3 ??F) 04/01/2024 1:43 PM CD T Respiratory Rate 16 04/01/2024 5:40 PM CDT Oxygen Saturation 100% 04/01/2024 5:40 PM CDT Inhaled Oxygen Concentration - - Weight 66.4 kg (146 lb 6.2 oz) 04/01/2024 1:43 P M CDT Height 167.6 cm (5' 6 ) 04/01/2024 1:43 PM CDT Body Mass Index 23.63 04/01/2024 1:43 PM CDT documented in this encounter Discharge Instructions * Discharge Instructions* Tushar Mckay NP - 04/01/2024 5:44 PM CDT Today you were seen in the emergency room for vaginal bleeding. Your hCG level was 1433. Your transvaginal ultrasound shows an intrauterine with a large subchorionic hemorrhage. This increases your risk for miscarriage. I recommend that you follow-up with [facility] in the next 24 to 48 hourswithout fail for repeat serial hCG testing. If your vaginal bleeding worsens, have worsened pain, or develop a fever please immediately return to the emergency room * Attachments The following attachments cannot be sent through Care Everywhere. * Bleeding In Early (Montenegrin) * Bleeding With (Montenegrin) * Threatened Miscarriage Discharge Instructions (Montenegrin) documented in this encounter ED Notes * Connie Jiang RN - 04/01/2024 4:30 PM CDT Pt returned from US at this time * Rachel Yo RN - 04/01/2024 4:00 PM CDT Pt transported to ultrasound * Tushar Mckay NP - 04/01/2024 1:50 PM CDT [place], [place] ER/CC Encounter Chief Complaint Chief Complaint Patient presents with Vaginal Bleeding History of Present Illness Patient ambulatory to the emergency room with complaints of vaginal bleeding. Patient states that she believes that she is approximately 6 weeks . Has not been seen by [facility]. Has not had confirmed intrauterine . States that this morning she noticed some pink spotting which is progressively darkened and now has small blood clots. State describes blood clots as marble sized. Does endorse some abdominal cramping. States feels similar to her period. Vaginal Bleeding Associated symptoms: abdominal pain Associated symptoms: no dyspareunia, no dysuria, no nausea and no vaginal discharge Medical History ALLERGIES: Review of patient's allergies indicates: Allergen Reactions Macrobid [Nitrofurantoin] Shortness of Breath bruising Z-Taras [Azithromycin] Other (see comment) Itchy hands, dizzy, generalized not feeling well Buspar [Buspirone] Other (see comment) Cold sweats, difficulty breathing Ibuprofen Hives Dexamethasone Eyes Water & Itch and Itching MEDICATIONS: Prior to Admission medications Not on File PAST MEDICAL HISTORY: Past Medical History: Diagnosis Date Anxiety Depression SVT (supraventricular tachycardia) ([facility]) PAST SURGICAL HISTORY: Past Surgical History: Procedure Laterality Date SECTION FAMILY HISTORY: Family History Problem Relation Name Age of Onset No Known Problems Mother No Known Problems Father SOCIAL HISTORY: Social History Tobacco Use Smoking status: Never Smokeless tobacco: Never Tobacco comments: counseled by Dr Edwards Vaping Use Vaping status: Never Used Substance Use Topics Alcohol use: Never Drug use: Never Review of Systems Review of Systems Constitutional: Negative. HENT: Negative. Eyes: Negative. Respiratory: Negative. Cardiovascular: Negative. Gastrointestinal: Positive for abdominal pain. Negative for abdominal distention, anal bleeding, blood in stool, constipation, diarrhea, nausea, rectal pain and vomiting. Endocrine: Negative. Genitourinary: Positive for vaginal bleeding. Negative for decreased urine volume, difficulty urinating, dyspareunia, dysuria, enuresis, flank pain, frequency, genital sores, hematuria, menstrual problem, pelvic pain, urgency, vaginal discharge and vaginal pain. Musculoskeletal: Negative. Skin: Negative. Allergic/Immunologic: Negative. Neurological: Negative. Hematological: Negative. Psychiatric/Behavioral: Negative. Physical Exam Filed Vitals: 04/01/24 1343 04/01/24 1500 04/01/24 1530 04/01/24 1740 BP: 102/80 108/66 107/61 104/72 Pulse: 87 83 80 74 Resp: 16 14 16 Temp: 98.3 ??F (36.8 ??C) TempSrc: Temporal SpO2: 100% 100% 100% 100% Weight: 66.4 kg (146 lb 6.2 oz) Height: 1.676 m (5' 6 ) Physical Exam Vitals and nursing note reviewed. Constitutional: General: She is not in acute distress. Appearance: Normal appearance. She is not ill-appearing or toxic-appearing. HENT: Head: Normocephalic and atraumatic. Right Ear: External ear normal. Left Ear: External ear normal. Nose: Nose normal. Mouth/Throat: Mouth: Mucous membranes are moist. Eyes: Extraocular Movements: Extraocular movements intact. Pupils: Pupils are equal, round, and reactive to light. Cardiovascular: Rate and Rhythm: Normal rate. Pulmonary: Effort: Pulmonary effort is normal. Breath sounds: Normal breath sounds. Abdominal: General: There is no distension. Palpations: Abdomen is soft. Musculoskeletal: General: No swelling or tenderness. Normal range of motion. Cervical back: Normal range of motion and neck supple. Skin: General: Skin is warm and dry. Capillary Refill: Capillary refill takes less than 2 seconds. Neurological: General: No focal deficit present. Mental Status: She is alert and oriented to person, place, and time. Psychiatric: Mood and Affect: Mood normal. Behavior: Behavior normal. Diagnostic Studies / Procedures ELECTROCARDIOGRAMS: No results found for this visit on 04/01/24. LABORATORY STUDIES: Results for orders placed or performed during the hospital encounter of 04/01/24 CBC W/DIFF AUTOMATED Result Value Ref Range WBC 7.11 4.5 - 11.0 x10'3/uL RBC 4.54 4.20 - 5.40 x10'6/uL HGB 12.8 12.0 - 16.0 G/DL HCT 39.1 38.0 - 48.0 % MCV 86.1 81.0 - 99.0 FL MCH 28.2 27.0 - 31.0 PG MCHC 32.7 32.0 - 36.0 G/DL RDW 13.2 11.5 - 14.5 % PLT 216 130 - 400 x10'3/uL MPV 9.8 9.3 - 12.2 FL DIFFERENTIAL TYPE AUTOMATED DIFFERENTIAL NEUTROPHILS 73.2 % LYMPHOCYTES 19.0 % MONOCYTES 6.2 % EOSINOPHILS 0.7 % BASOPHILS 0.6 % IMMATURE GRANS 0.3 % ABS. NEUTROPHILS 5.21 1.80 - 7.70 x10'3/uL ABS. LYMPHOCYTES 1.35 1.00 - 4.80 x10'3/uL ABS. MONOCYTES 0.44 0.24 - 0.86 x10'3/uL ABS. EOSINOPHILS 0.05 0.04 - 0.36 x10'3/uL ABS. BASOPHILS 0.04 0.01 - 0.08 x10'3/uL ABS. IMMATURE GRANULOCYTES 0.02 0.00 - 0.49 x10'3/uL COMPREHENSIVE METABOLIC PANEL Result Value Ref Range GLUCOSE 90 70 - 99 MG/DL BUN 8 7 - 18 MG/DL CREATININE S/P/B 0.75 0.55 - 1.02 MG/DL SODIUM S/P/B 139 136 - 145 MMOL/L POTASSIUM S/P/B 3.8 3.5 - 5.1 MMOL/L CHLORIDE S/P/B 109 (H) 100 - 108 MMOL/L CO2 26.1 21 - 32 MMOL/L CALCIUM S/P/B 8.6 8.5 - 10.1 MG/DL BILIRUBIN TOTAL S/P/B 1.4 (H) 0.2 - 1.2 MG/DL TOTAL PROTEIN S/P/B 7.2 6.4 - 8.2 G/DL ALBUMIN S/P/B 4.0 3.4 - 5.0 G/DL AST 15 15 - 37 U/L ALT 19 14 - 55 U/L ALKALINE PHOSPHATASE S/P/B 45 (L) 50 - 136 U/L ANION GAP 3.9 (L) 5 - 15 MMOL/L BUN CREATININE RATIO 10.7 6 - 26 A/G RATIO 1.2 1.0 - 2.0 RATIO GFR ESTIMATE >90 >90 ML/MIN/1.73 M2 URINALYSIS Result Value Ref Range Specimen Type URINE CLEAN CATCH COLOR (U) LIGHT YELLOW TRANSPARENCY CLEAR SPECIFIC GRAVITY (U) 1.008 1.001 - 1.030 U PH 6.5 5.0 - 9.0 LEUKOCYTES (U) NEGATIVE NEGATIVE NITRITES NEGATIVE NEGATIVE PROTEIN RANDOM (U) NEGATIVE <30 MG/DL GLUCOSE (U) NORMAL NORMAL MG/DL KETONES (U) NEGATIVE NEGATIVE MG/DL UROBILINOGEN NORMAL NORMAL MG/DL BILIRUBIN (U) NEGATIVE NEGATIVE MG/DL BLOOD (U) 3+ (A) NEGATIVE MUCUS RARE /LPF WBC/HPF 3 <6 /HPF RBC/HPF 5 <6 /HPF BACTERIA (U) RARE (A) NONE /HPF SQUAMOUS EPITHELIALS RARE /HPF HCG QUANTITATIVE SERUM Result Value Ref Range HCG QUANTITATIVE 1,433 MIU/ML BLOOD TYPING, ABO AND RH Result Value Ref Range ABO/RH A POSITIVE POCT urine Result Value Ref Range URINE HCG TEST POSITIVE (A) Internal Control: VALID IMAGING STUDIES US OB TRANSVAG Final Result by User, [id number] (04/01 1710) EXAMINATION: US OB TRANSVAG HISTORY: Vaginal bleeding DATE: 04/01/2024 4:01 PM COMPARISON: None TECHNIQUE: Sonographic evaluation of the pelvis via transvaginal approach FINDINGS: Uterus measures 9.2 x 5.4 x 6.6 cm. No uterine mass identified. There is a round fluid collection with decidual reaction in the endometrium consistent with early gestational sac, without yolk sac or pole. Mean sac diameter is 0.45 cm corresponding to estimated gestation age 5 weeks, 2 days, estimated due date 11/30/2024. This is less than expected by reported LMP date (10 weeks, 5 days), correlate clinically. There is a subchorionic hemorrhage, large correlation with gestational sac size (2.5 x 1.9 x 0.5 cm). Of note, the gestational sac appears mobile within the endometrium. This may be associated with higher risk of early failure. Recommend clinical follow-up with repeat beta-hCG testing and short-term follow-up imaging as clinically indicated. Cervix appears grossly unremarkable. Right ovary measures 3.0 x 1.8 x 1.7 cm and the left ovary measures 4.1 x 2.8 x 2.5 cm. There is a simple left ovarian cyst measuring 2.1 cm. No solid ovarian mass or adnexal gestational sac. No evidence of ovarian torsion. There is a small amount free pelvic fluid. IMPRESSION: 1. There is a small intrauterine gestational sac without yolk sac or pole. 2. Estimated gestational age by ultrasound 5 weeks, 2 days. 3. Large subchorionic hemorrhage. 4. Gestational sac appears mobile within the endometrium. 5. Recommend clinical correlation/follow-up, as above. 6. Free pelvic fluid. Referred By: Interpreted By: Celio Newell MD, 04/01/2024 4:56 PM ED Course / Medical Decision Making MDM Number of Diagnoses or Management Options Diagnosis management comments: I have spoken to the patient about signs and symptoms. Patient awarethat I have recommended serum lab work, testing. Patient comfortable with this plan. Transvaginal ultrasound contingent on hCG. Patient's serum lab work show no anemia. No metabolic derangement. Patient is Rh+. hCG 1433. Transvaginal ultrasound reveals small intrauterine gestational sac without yolk or pole estimated gestational age 5 weeks 2 days. There is a large subchorionic hemorrhage. These findings were discussed with the patient. She is aware that this puts her at risk for possible miscarriage. I have recommended following up with [facility] without fail for serial hCG and possible repeat transvaginal ultrasound Amount and/or Complexity of Data Reviewed Clinical lab tests: reviewed Tests in the radiology section of CPT??: reviewed Risk of Complications, Morbidity, and/or Mortality Presenting problems: moderate Diagnostic procedures: moderate Management options: moderate Patient Progress Patient progress: stable Medications - No data to display Clinical Impression Intrauterine (HHS/HCC) (Primary) Subchorionic hemorrhage (HHS/HCC) Threatened miscarriage (HHS/HCC) There are no discharge medications for this patient. Disposition: Discharge Follow-Up: Oscar Edwards MD [address] [address] Janel You, DO 1 [facility] [address] Tushar Mckay NP 04/01/2024 Tushar Mckay NP 04/01/24 1745 Cosigned by David Diaz MD at 04/04/2024 6:06 AM CDT * Angela Chan RN - 04/01/2024 1:46 PM CDT Patient to triage with c/o vaginal bleeding and cramping. with LMP January 15. Positive pregnancytest was March 14. Unsure of exact dates at this time but believes about 6 weeks. documented in this encounter Plan of Treatment Upcoming Encounters Date Type Department Care Team (Late st Contact Info) Description 11/02/2024 8:00 AM TAX COLLECTION COORDINATOR Office Visit [facility] [place] [address] [address] [place] [address] Oscar Edwards MD [address] [address] 06/25/2025 9:00 AM CDT Office Visit [facility] [place] [address] [place], [place] [id number] Elisha Kim PA 3 [facility] [address] [place], [place] [phone] documented as of this encounter Procedures Procedure Name Priority Date/Time Associated Diagnosis Comments US OB TRANSVAG STAT 04/01/2024 4:34 PM CDT HC URINALYSIS AUTO W/O MICRO STAT 04/01/2024 2:35 PM CDT COMPREHENSIVE METABOLIC PANEL STAT 04/01/2024 2:35 PM CDT HCG QUANT (SERUM)-CHORIONIC GONADOTROPIN STAT 04/01/2024 2:35 PM CDT HC BLOOD TYPING ABO STAT 04/01/2024 2 :35 PM CDT CBC W/DIFF AUTOMATED STAT 04/01/2024 2:35 PM CDT POCT URINE (BACK OFFICE) STAT 04/01/2024 2:29 PM CDT documented in this encounter Results * US OB TRANSVAG (04/01/2024 4:34 PM CDT) Anatomical Region Laterality Modality Abdomen, Pelvis Ultrasound 04/01/2024 4:56 PM CDT Impressions 04/01/2024 5:09 PM CDT IMPRESSION: 1. ??There is a small intrauterine gestational sac without yolk sac or pole. 2. ??Estimated gestational age by ultrasound 5 weeks, 2 days. 3. ??Large subchorionic hemorrhage. 4. ??Gestational sac appears mobile within the endometrium. 5. ??Recommend clinical correlation/follow-up, as above. 6. ??Free pelvic fluid. Referred By: ?? Interpreted By: Celio Newell MD, 04/01/2024 4:56 PM Narrative 04/01/2024 5:09 PM CDT EXAMINATION: US OB TRANSVAG HISTORY: Vaginal bleeding DATE: 04/01/2024 4:01 PM COMPARISON: None TECHNIQUE: Sonographic evaluation of the pelvis via transvaginal approach FINDINGS: Uterus measures 9.2 x 5.4 x 6.6 cm. ??No uterine mass identified. ??There is a round fluid collection with decidual reaction in the endometrium consistent with early gestational sac, without yolk sac or pole. ??Mean sac diameter is 0.45 cm corresponding to estimated gestation age 5 weeks, 2 days, estimated due date 11/30/2024. ??This is less than expected by reported LMP date (10 weeks, 5 days), correlate clinically. ??There is a subchorionic hemorrhage, large correlation with gestational sac size (2.5 x 1.9 x 0.5 cm). ??Of note, the gestational sac appears mobile within the endometrium. ??This may be associated with higher risk of early failure. ??Recommend clinical follow-up with repeat beta-hCG testing and short-term follow-up imaging as clinically indicated. ??Cervix appears grossly unremarkable. Right ovary measures 3.0 x 1.8 x 1.7 cm and the left ovary measures 4.1 x 2.8 x 2.5 cm. ??There is a simple left ovarian cyst measuring 2.1 cm. ??No solid ovarian mass or adnexal gestational sac. ??No evidence of ovarian torsion. ??There is a small amount free pelvic fluid. Procedure Note Celio Newell MD - 04/01/2024 EXAMINATION: US OB TRANSVAG HISTORY: Vaginal bleeding DATE: 04/01/2024 4:01 PM COMPARISON: None TECHNIQUE: Sonographic evaluation of the pelvis via transvaginalapproach FINDINGS: Uterus measures 9.2 x 5.4 x 6.6 cm. No uterine mass identified.There is a round fluid collection with decidual reaction in theendometrium consistent with early gestational sac, without yolk sac orfetal pole. Mean sac diameter is 0.45 cm corresponding to estimatedgestation age 5 weeks, 2 days, estimated due date 11/30/2024. This is lessthan expected by reported LMP date (10 weeks, 5 days), correlateclinically. There is a subchorionic hemorrhage, large correlation withgestational sac size (2.5 x 1.9 x 0.5 cm). Of note, the gestational sacappears mobile within the endometrium. This may be associated with higherrisk of early failure. Recommend clinical follow-up with repeatbeta-hCG testing and short-term follow-up imaging as clinically indicated.Cervix appears grossly unremarkable. Right ovary measures 3.0 x 1.8 x 1.7 cm and the left ovary measures 4.1 x2.8 x 2.5 cm. There is a simple left ovarian cyst measuring 2.1 cm. Nosolid ovarian mass or adnexal gestational sac. No evidence of ovariantorsion. There is a small amount free pelvic fluid. IMPRESSION: 1. There is a small intrauterine gestational sac without yolk sac orfetal pole. 2. Estimated gestational age by ultrasound 5 weeks, 2 days. 3. Large subchorionic hemorrhage. 4. Gestational sac appears mobile within the endometrium. 5. Recommend clinical correlation/follow-up, as above. 6. Free pelvic fluid. Referred By: Interpreted By: Celio Newell MD, 04/01/2024 4:56 PM Tushar Mckay NP ULTRASOUND Final Result * BLOOD TYPING, ABO AND RH (04/01/2024 2:35 PM CDT) Pathologist [facility] ABO/RH A POSITIVE 04/01/2024 3:05 PM CDT [facility] 04/01/2024 2:35 PM CDT Tushar Mckay NP BLOOD BANK TEST ORDERABLES Fin al Result [facility] [address] [place] [address], * HCG QUANTITATIVE SERUM (04/01/2024 2:35 PM CDT) HCG QUANTITATIVE 1,433 MIU/ML 04/01/20 3:19 PM CDT [facility] Comment: WEEKS OF ? REFERENCE RANGES Non- female ?< or = 2 ? 0.2 - 1 ? 5 - 50 ? 1 - 2 ? 50 - 500 ? 2 - 3 ? 100 - 5000 ? 3 - 4 ? 500 - 10,000 ? 4 - 5 ? 1000 - 50,000 ? 5 - 6 ? 10,000 - 100,000 ? 6 - 8 ? 15,000 - 200,000 ? 2 - 3 MONTHS ?10,000 - 100,000 04/01/2024 2:35 PM CDT Tushar Mckay [facility] LABORATORY Final Result Performing Organization Address City/State/[facility] de Phone Number [facility] [address] [place] [id number], * (ABNORMAL) URINALYSIS (04/01/2024 2:35 PM CDT) SPECIMEN TYPE URINE CLEAN CATCH 04/01/2024 2:25 PM CDT [facility] COLOR (U) LIGHT YELLOW 04/01/2024 2:41 PM CDT [facility] TRANSPARENCY CLEAR 04/01/2024 2:41 PM CDT [facility] SPECIFIC GRAVITY (U) 1.008 1.001 - 1.030 04/01/2024 2:41 PM CDT [facility] U PH 6.5 5.0 - 9.0 04/01/2024 2:41 PM CDT [facility] LEUKOCYTES (U) NEGATIVE NEGATIVE 04/01/2024 2:41 PM CDT [facility] NITRITES NEGATIVE NEGATIVE 04/01/2024 2:41 PM CDT [facility] PROTEIN RANDOM (U) NEGATIVE <30 MG/DL 04/01/2024 2:41 PM CDT [facility] GLUCOSE (U) NORMAL NORMAL MG/DL 04/01/2024 2:41 PM CDT [facility] KETONES MG/DL (U) NEGATIVE NEGATIVE MG/DL 04/01/2024 2:41 PM CDT [facility] UROBILINOGEN NORMAL NORMAL MG/DL 04/01/2024 2:41 PM CDT [facility] BILIRUBIN (U) NEGATIVE NEGATIVE MG/DL 04/01/2024 2:41 PM CDT [facility] BLOOD (U) 3+(A) NEGATIVE 04/01/2024 2:41 PM CDT [facility] MUCUS RARE /LPF 04/01/2024 2:41 PM CDT [facility] WBC/HPF 3 <6 /HPF 04/01/2024 2:41 PM CDT [facility] RBC/HPF 5 <6 /HPF 04/01/2024 2:41 PM CDT [facility] BACTERIA (U) RARE(A) NONE /HPF 04/01/2024 2:41 PM CDT [facility] SQUAMOUS EPITHELIALS RARE /HPF 04/01/2024 2:41 PM CDT [facility] URINE SPECIMEN OBTAINED BY CLEAN CATCH PROCEDURE / Unknown 04/01/2024 2:35 PM CDT us Tushar Mckay [employer] MACHINE [employer]ER URINE ORDERABLES Final Result [facility] [address] [place] [address], * (ABNORMAL) COMPREHENSIVE METABOLIC PANEL (04/01/2024 2:35 PM CDT) [facility] GLUCOSE 90 70 - 99 MG/DL 04/01/2024 3:04 PM CDT [facility] BUN 8 7 - 18 MG/DL 04/01/2024 3:04 PM CDT [facility] CREATININE S/P/B 0.75 0.55 - 1.02 MG/DL 04/01/2024 3:04 PM CDT [facility] SODIUM S/P/B 139 136 - 145 MMOL/L 04/01/2024 3:04 PM CDT [facility] POTASSIUM S/P/B 3.8 3.5 - 5.1 MMOL/L 04/01/2024 3:04 PM CDT [facility] CHLORIDE S/P/B 109(H) 100 - 108 MMOL/L 04/01/2024 3:04 PM CDT [facility] CO2 26.1 21 - 32 MMOL/L 04/01/2024 3:04 PM CDT [facility] CALCIUM S/P/B 8.6 8.5 - 10.1 MG/DL 04/01/2024 3:04 PM CDT [facility] BILIRUBIN TOTAL S/P/B 1.4(H) 0.2 - 1.2 MG/DL 04/01/2024 3:04 PM CDT [facility] Comment: THIS ASSAY IS NOT RECOMMENDED FOR PATIENTS UNDERGOING TREATMENT WITH ELTROMBOPAG DUE TO THE POTENTIAL FOR FALSELY ELEVATED RESULTS. TOTAL PROTEIN S/P/B 7.2 6.4 - 8.2 G/DL 04/01/2024 3:04 PM CDT [facility] ALBUMIN S/P/B 4.0 3.4 - 5.0 G/DL 04/01/2024 3:04 PM CDT [facility] AST 15 15 - 37 U/L 04/01/2024 3:04 PM CDT [facility] ALT 19 14 - 55 U/L 04/01/2024 3:04 PM CDT [facility] ALKALINE PHOSPHATASE S/P/B 45(L) 50 - 136 U/L 04/01/2024 3:04 PM CDT [facility] ANION GAP 3.9(L) 5 - 15 MMOL/L 04/01/2024 3:04 PM CDT [facility] BUN CREATININE RATIO 10.7 6 - 26 04/01/2024 3:04 PM CDT [facility] A/G RATIO 1.2 1.0 - 2.0 RATIO 04/01/2024 3:04 PM CDT [facility] GFR ESTIMATE >90 >90 ML/MIN/1.7 3 M2 04/01/2024 3:04 PM CDT [facility] Comment: NOTE: eGFR is not calculated for patients <18 years of age. This is an estimated GFR calculation using the new CKD EPI creatinine equation without race and so does not require a correction factor for race. This estimated GFR should not be used for calculating drug doses. 04/01/2024 2:35 PM CDT us Tushar Mckay NP LABORATORY Final Result [facility] [address] [place] [address], [place] [phone] * CBC W/DIFF AUTOMATED (04/01/2024 2:35 PM CDT) WBC 7.11 4.5 - 11.0 x10'3/uL 04/01/2024 2:42 PM CDT [facility] RBC 4.54 4.20 - 5.40 x10'6/uL 04/01/2024 2:42 PM CDT [facility] HGB 12.8 12.0 - 16.0 G/DL 04/01/2024 2:42 PM CDT [facility] HCT 39.1 38.0 - 48.0 % 04/01/2024 2:42 PM CDT [facility] MCV 86.1 81.0 - 99.0 FL 04/01/2024 2:42 PM CDT [facility] MCH 28.2 27.0 - 31.0 PG 04/01/2024 2:42 PM CDT [facility] MCHC 32.7 32.0 - 36.0 G/DL 04/01/2024 2:42 PM CDT [facility] RDW 13.2 11.5 - 14.5 % 04/01/2024 2:42 PM CDT [facility] PLT 216 130 - 400 x10'3/uL 04/01/2024 2:42 PM CDT [facility] MPV 9.8 9.3 - 12.2 FL 04/01/2024 2:42 PM CDT [facility] DIFFERENTIAL TYPE AUTOMATED DIFFERENTIAL 04/01/2024 2:42 PM CDT [facility] NEUTROPHILS % 73.2 % 04/01/2024 2:42 PM CDT [facility] LYMPHOCYTES % 19.0 % 04/01/2024 2:42 PM CDT [facility] MONOCYTES % 6.2 % 04/01/2024 2:42 PM CDT [facility] EOSINOPHILS 0.7 % 04/01/2024 2:42 PM CDT [facility] BASOPHILS 0.6 % 04/01/2024 2:42 PM CDT [facility] IMMATURE GRANS % 0.3 % 04/01/20 2:42 PM CDT [facility] ABS. NEUTROPHILS 5.21 1.80 - 7.70 x10'3/uL 04/01/2024 2:42 PM CDT [facility] ABS. LYMPHOCYTES 1.35 1.00 - 4.80 x10'3/uL 04/01/2024 2:42 PM CDT [facility] ABS. MONOCYTES 0.44 0.24 - 0.86 x10'3/uL 04/01/2024 2:42 PM CDT [facility] [facility] LAB ABS. EOSINOPHILS 0.05 0.04 - 0.36 x10'3/uL 04/01/2024 2:42 PM CDT [facility] ABS. BASOPHILS 0.04 0.01 - 0.08 x10'3/uL 04/01/2024 2:42 PM CDT [facility] LAB ABS. IMMATURE GRANULOCYTES 0.02 0.00 - 0.49 x10'3/uL 04/01/2024 2:42 PM CDT [facility] 04/01/2024 2:35 PM CDT us Tushar Mckay NP LABORATORY Final Result [facility] [address] [place] [address], * (ABNORMAL) POCT urine (04/01/2024 2:29 PM CDT) URINE HCG TEST POSITIVE(A ) Internal Control: VALID us Tushar Mckay NP POINT OF CARE TEST ORDERABLES Final Result documented in this encounter Visit Diagnoses Diagnosis Intrauterine (HHS/HCC)- Primary state, incidental Subchorionic hemorrhage (HHS/HCC) Other antepartum hemorrhage, unspecified as to episode of care Threatened miscarriage (HHS/HCC) Threatened , unspecified as to episode of care documented in this encounter Additional Health Concerns Assessment Noted Time PHQ-9 Depression Total Score: 0 04/11/20 23 2:41 PM CDT documented as of this encounter Care Teams Facility Rehab Director Relationship Specialty Start Date End Date Oscar Edwards MD [address] [address] PCP - General INTERNAL MEDICINE 04/28/22 documented as of this encounter
--- OUTSIDE RECORDS SUMMARY | 2024-10-13 22:40 | XMS_ITS | Encounter Summary ---
Author Organization [facility] Address Formerly [facility], [facility] [place] [address] [place] [address] Care Team Providers Care Plant Supervisor Name Role Phone Oscar Edwards MD Primary Care Provider [phone] Reason for Referral * Imaging (Emergency) - Closed Specialty Diagnoses / Procedures Referred By Ethel marquis Referred To Contact RADIOLOGY Diagnoses Acute pain of right knee Procedures MRI KNEE RT WO CON MRI KNEE RT WO CON Oscar Edwards MD [address] [address] Phone: tel: fax: Referral ID Status Reason Start Date Expiration Date Visits Re quested Visits Authorized [id number] Closed 09/15/2022 09/15/2023 1 1 X RAY DEVELOPER Reason for Visit * Reason Comments Knee Pain Right knee, with khoa e edema, having trouble bearing weight and standing for long periods of time Encounter Details Date Type Department Care Team (Latest Contact Info) Description 09/15/2022 7:40 AM X RAY DEVELOPER Office Visit [facility] Multispecialty Care - [place] [address] [address] [place] [address] Oscar Edwards MD [address] [address] Knee Pain (Right knee, with some edema, having trouble bearing weight and standing for long periods of time) Social History Tobacco Use Types Packs/Day Years [...] on file Legal Sex Female 5:53 PM X RAY DEVELOPER Gender Identity Not on file Sexual Orientation Not on file COVID-19 Exposure Response Date Recorded In the last 10 days, have yo u been in contact with someone who was confirmed or suspected to have Coronavirus/COVID-19? No / Unsure 09/15/2022 7:52 AM X RAY DEVELOPER documented as of this encounter Last Filed Vital Signs Vital Sign Reading Time Taken Comments Blood Pressure 119/75 09/15/2022 7:59 AM X RAY DEVELOPER Pulse 74 09/15/2022 7:59 AM X RAY DEVELOPER Temperature 36.3 ??C (97.4 ??F) 09/15/2022 7:59 AM CS T Respiratory Rate 18 09/15/2022 7:59 AM X RAY DEVELOPER Oxygen Saturation 100% 09/15/2022 7:59 AM X RAY DEVELOPER Inhaled Oxygen Concentration - - Weight 55.8 kg (123 lb) 09/15/2022 7:59 AM X RAY DEVELOPER Height 167.6 cm (5' 6 ) 09/15/2022 7:59 AM X RAY DEVELOPER Body Mass Index 19.85 09/15/2022 7:59 AM X RAY DEVELOPER documented in this encounter Progress Notes * Oscar Edwards MD - 09/15/2022 7:40 AM CSTSummary: Acute visit notes Images from the original note were not included. Internal Medicine Outpatient Progress Note CC: Knee Pain (Right knee, with some edema, having trouble bearing weight and standing for long periods of time) HPI: Opal Swenson is a 27-year-old female who presents for right knee pain that started a week agoafter patient accidentally twisted the right knee while climbing over a baby gate. She was carryingher toddler during that time. She did not hear any popping sounds but experienced a severe medial right knee pain which was excruciating in nature. Patient rated her pain as 10/10. She had difficultyambulating at the moment. She tried icing and resting the right knee however the next day, patient noticed pain was unbearable and went to the emergency room to be evaluated. An x-ray of the right knee done was unremarkable. Patient does not like to take NSAIDs and has not been using Tylenol with minimal improvement. She was also given tramadol however patient is concerned about side effects and not taking the pill. We discussed the use of Voltaren gel and spacing out when she takes her antidepressants and tramadol. Patient is agreeable to plan. Currently ambulating with crutches. Denies any r ecent falls. During the episode, patient denies any falls at that time as well. Today she rates herpain a 7/10. No numbness or tingling down the lower extremities. No swelling of the right lower extremity. She comes to today's visit with her and toddler. Problem List Patient Active Problem List Diagnosis [...] Outpatient Medications Marked as Taking for the 09/15/22 encounter (Office Visit) with Oscar Edwards MD Medication Sig Dispense Refill ??? azelastine (ASTELIN) 0.1 % nasal spray 1 spray by Nasal route 2 (two) times daily. Use in each nostril as directed 30 mL 1 ??? diclofenac sodium (VOLTAREN) 1 % gel Apply 4 g topically 4 (four) times daily. 150 g 1 ??? FLUoxetine (PROZAC) 20 MG capsule [...] and PND. Gastrointestinal: Negative. Genitourinary: Negative. Musculoskeletal: Positive for joint pain. Negative for back pain, falls, myalgias and neck pain. Neurological: Negative. Objective: Filed Vitals: 09/15/22 0759 BP: 119/75 Pulse: 74 Resp: 18 Temp: 97.4 ??F (36.3 ??C) TempSrc: Temporal SpO2: 100% Weight: 55.8 kg (123 lb) Height: 5' 6 (1.676 m) Body mass index is 19.85 kg/m??. General alert, cooperative, no distress HEENT [...] strength is grossly normal and symmetric Psych Normal mood and affect MSK right knee joint with very mild swelling notable on the medial aspect of the right knee. Tenderto touch. Difficulty with flexion and extension of the right knee joint. No warmth or erythema appreciated. Patient limping with ambulation. She did not bring her crutches today to her visit. Lymph No cervical or supraclavicular adenopathy Assessment and Plan: Encounter Diagnose(s) ICD-10-CM ICD-9-CM SNOMED CT(R) 1. Acute pain of right knee M25.561 719.46 PAIN OF KNEE REGION MRI KNEE RT WO CON MRI KNEE RT WO CON diclofenac sodium (VOLTAREN) 1 % gel 1. Acute pain of right knee - MRI KNEE RT WO CON; Future - MRI KNEE RT WO CON - diclofenac sodium (VOLTAREN) 1 % gel; Apply 4 g topically 4 (four) times daily. Dispense: 150 g; Refill: 1 -Difficulty with flexion and extension during exam. Mild to moderate tenderness on palpation of themedial aspect of the right knee joint. Patient limping with ambulation. Hip pain at today's visit is about 7/10. Patient encouraged to space out taking her antidepressants with her tramadol to limit drug interaction. Patient will continue with resting, icing and elevation of the affected limb. A stat MRI has been ordered and further recommendations pending results. She can continue with Tylenol and tramadol as directed. No NSAIDs for now given allergy-hives. Counseling given: Yes Tobacco comments: counseled by [...] medical therapies were explained to the patient. Requested MyChart or telephone follow up prn if symptoms change, worsen, or persist, or if side effect of treatment is experienced. DRAGON: This dictation was at least in part performed using [employer] and there may be some inherent flaws in this bar assistant due to the nature of this program. Oscar Edwards MD Internal Medicine [facility], [facility]. X RAY DEVELOPER documented in this encounter Plan of Treatment Upcoming Encounters Date Type Department Care Team (Late st Contact Info) Description 11/02/2024 8:00 AM X RAY DEVELOPER Office Visit [facility] Medical Group Multispecialty Care - [place] [id number] [facility] [address] [place] [address] Oscar Edwards MD 1188 [facility] [address] [place] [address] 06/25/2025 9:00 AM CDT Office Visit [facility] THREE [facility], [place] [place] [address] Elisha Kim PA 3 [facility] [address] [place] [address] documented as of this encounter Results * MRI KNEE RT WO CON (09/17/2022 8:52 AM X RAY DEVELOPER) Anatomical Region Laterality Modality Knee Magnetic Resonan ce 09/17/2022 9:10 AM X RAY DEVELOPER Impressions 09/17/2022 9:18 AM X RAY DEVELOPER IMPRESSION: 1. Partial-thickness insertional tearing of the abductor rosy tendon. 2. Small popliteal cyst. Ordered By: OSCAR EDWARDS Interpreted By: Adriel Armendariz DO, 09/17/2022 9:10 AM Narrative 09/17/2022 9:18 AM X RAY DEVELOPER EXAMINATION: MRI right knee without contrast EXAM DATE/TIME: 09/17/2022 8:19 AM REASON FOR EXAM: ??Right knee pain after twisting injury on September 09 with anterior and medial knee pain ?? COMPARISON: None. TECHNIQUE: Mutiplanar, multisequence MRI of the right knee was obtained without intravenous contrast. FINDINGS: MENISCI: The medial and lateral menisci are intact. LIGAMENTS: The anterior and posterior cruciate ligaments are intact. The medial collateral ligament is intact. The iliotibial band, lateral collateral ligament proper, biceps femoris tendon, and popliteus tendon are intact. ARTICULAR SURFACES AND BONE: There is no marrow signal abnormality to suggest acute fracture or contusion. There is mild thinning of articular cartilage in the posterior weightbearing zone of the lateral tibial plateau. Articular cartilage in the medial compartment and the lateral femoral condyle is preserved. There is mild to moderate thinning of articular cartilage along the patellar apex. EXTENSOR MECHANISM: The distal quadriceps and patellar tendons are intact. No evidence is seen to suggest gross disruption of the medial or lateral patellar retinacula. ADDITIONAL FINDINGS: There is fluid surrounding the distal insertional fibers of the abductor rosy tendon, reflecting partial thickness insertional tearing. There is associated mild edema in the superior portion of the popliteal fossa. There is trace joint fluid that extends posteromedially into a small popliteal cyst. Procedure Note Adriel Armendariz, DO - 09/17/2022 EXAMINATION: MRI right knee without contrast EXAM DATE/TIME: 09/17/2022 8:19 AM REASON FOR EXAM: Right knee pain after twisting injury on September 09with anterior and medial knee pain COMPARISON: None. TECHNIQUE: Mutiplanar, multisequence MRI of the right knee was obtainedwithout intravenous contrast. FINDINGS: MENISCI: The medial and lateral menisci are intact. LIGAMENTS: The anterior and posterior cruciate ligaments are intact. The medialcollateral ligament is intact. The iliotibial band, lateral collateralligament proper, biceps femoris tendon, and popliteus tendon are intact. ARTICULAR SURFACES AND BONE: There is no marrow signal abnormality to suggest acute fracture orcontusion. There is mild thinning of articular cartilage in the posteriorweightbearing zone of the lateral tibial plateau. Articular cartilage inthe medial compartment and the lateral femoral condyle is preserved. Thereis mild to moderate thinning of articular cartilage along the patellarapex. EXTENSOR MECHANISM: The distal quadriceps and patellar tendons are intact. No evidence is seento suggest gross disruption of the medial or lateral patellarretinacula. ADDITIONAL FINDINGS: There is fluid surrounding the distal insertional fibers of the abductormagnus tendon, reflecting partial thickness insertional tearing. There isassociated mild edema in the superior portion of the popliteal fossa.There is trace joint fluid that extends posteromedially into a smallpopliteal cyst. IMPRESSION: 1. Partial-thickness insertional tearing of the abductor rosy tendon. 2. Small popliteal cyst. Ordered By: OSCAR EDWARDS Interpreted By: Adriel Armendariz DO, 09/17/2022 9:10 AM Oscar Edwards MD MRI Final Result documented in this encounter Visit Diagnoses Diagnosis Acute pain of right knee- Primary Acute pain of right knee documented in this encounter Additional Health Concerns Assessment Noted Time PHQ-9 Depression Total Score: 20 022 2:50 PM CDT documented as of this encounter Care Teams Plant Supervisor Relationship Specialty Start Date End Date Oscar Edwards MD [address] [address] PCP - General INTERNAL MEDICINE 04/28/22 documented as of this encounter
--- OUTSIDE RECORDS SUMMARY | 2024-10-13 22:40 | XMS_ITS | Encounter Summary ---
Author Organization [facility] Address [address] [place] [address]. [place], [place] [address] [place] [address] Care Team Providers Care Registered Midwife Name Role Phone Oscar Edwards MD Primary Care Provider [phone] Reason for Visit * Reason Onset Date Comments Holter Monitor 04/22/2023 * Imaging (Routine) - Closed Specialty Diagnoses / Procedures Referred By Contac t Referred To Contact Diagnoses SVT (supraventricular tachycardia) ([facility]HCC [facility]) Postural dizziness with presyncope Procedures CLINIC - OUTPATIENT EVENT RECORDER (ECG) UP TO 30 DAYS COMPLETE (Holter) Oscar Edwards MD 1188 [facility] [address] [place] [address] Phone: tel: fax: [facility] [address] [address] Phone: tel: fax: Referral ID Status Reason Start Date Expiration Date Visits Re quested Visits Authorized [id number] Closed 04/12/2023 04/12/2024 1 1 Encounter Details Date Type Department Care Team (Late st Contact Info) Description 04/22/2023 6:45 AM CDT Telephone [facility] THREE [facility], [address] [address] Oscar Edwards MD 1181 [facility] [address] [place] [address] Holter Monitor Social History Tobacco Use Types Packs/Day Years [...] on file Legal Sex Female 5:53 PM 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 Charges will be reversed upon returnof device to [facility] [phone] Ext [phone]. Thank You. * Therese Prasad Safety Belt Installer - 04/22/2023 3:32 PM CDTSummary: SHIPPED MAIL 30d EM / SVT / DR EDWARDS / TO READ / add indira - tw 30 DAYS SHIPPED BRIDGE AND ELECTRODES SENT [id number] / [id number] RETURN [id number] documented in this encounter Plan of Treatment Upcoming Encounters Date Type Department Care Team (Late st Contact Info) Description 11/02/2024 8:00 AM NEWSPAPER ILLUSTRATOR Office Visit [facility] Medical Group Multispecialty Care - [place] [address] [address] [place] [address] Oscar Edwards MD 1188 [facility] [address] [place] [address] 06/25/2025 9:00 AM CDT Office Visit [facility] THREE [facility], [address] [place] [address] Elisha Kim PA 3 [facility] [address] [place] [address] documented as of this encounter Procedures Procedure Name Priority Date/Time Associated Diagnosis Comments EVENT RECORDER (ECG) UP TO 30 DAYS COMPLETE Routine 06/10/2023 1:02 PM CDT SVT (supraventricular tachycardia) Postural dizziness with presyncope documented in this encounter Results * CLINIC - OUTPATIENT EVENT RECORDER (ECG) UP TO 30 DAYS COMPLETE (Holter) (06/10/2023 1:02 PM CDT) Impressions [facility] - 06/10/2023 1:02 PM CDT [place], [place] ??[address] MOBILE CARDIAC OFFICE SUPPORT REPORT Patient Name: Opal Swenson : 1995 Shift Supervisor Film Processing Date: 04/23/2023 End Date: 05/22/2020. Performed At: ??[place], [place] Interpreting Environmental Service Aide: ?? Angel Gutiérrez MD PCP: OSCAR EDWARDS MD Ordering Provider:OSCAR EDWARDS MD INDICATION: Supraventricular tachycardia DURATION OF MONITORIN days NUMBER OF TRANSMISSIONS: 79 (13 auto transmissions, 66 manual, 0 periodic) INTERPRETATION: A 30-day mobile cardiac turn out analyzed. Interpretable data was 16 days, 23 hours and 47 minutes (58% of monitoring period). The baseline rhythm was normal sinus rhythm. There was not atrial fibrillation or atrial flutter observed. . A minimum heart rate was 46 bpm on 04/24/2023 at 4:38 AM. A maximum heart rate in sinus rhythm was 149 bpm on 05/07/2023 at 11:39 AM. There were no pauses observed. The manual triggered episodes for shortness of breath and feeling faint generally correlated with sinus rhythm. ??Events for palpitations and increase in cough and also correlate with sinus rhythm. ??The auto triggered episodes were for sinus bradycardia, premature ventricular contractions, premature supraventricular contractions, sinus tachycardia, and brief nonsustained supraventricular runs. ??The overall ventricular ectopy burden was low at less than 1% of total QRS complexes. CONCLUSION: 30-day mobile cardiac telemetry was with symptom correlation to generally sinus rhythm. ??There were no sustained arrhythmias observed. Interpreting Environmental Service Aide: ?? Dr. Angel Gutiérrez us Oscar Edwards MD CV VASCULAR ORDERABLES Final Res ult [facility] documented in this encounter Visit Diagnoses Diagnosis SVT (supraventricular tachycardia) (CMS/HCC HHS/HCC) Other specified cardiac dysrhythmias Postural dizziness with presyncope documented in this encounter Additional Health Concerns Assessment Noted Time PHQ-9 Depression Total Score: 0 04/11/20 23 2:41 PM CDT documented as of this encounter Care Teams Registered Midwife Relationship Specialty Start Date End Date Oscar Edwards MD [address] [facility] [address] [place] [address] PCP - General INTERNAL MEDICINE 04/28/22 documented as of this encounter
--- OUTSIDE RECORDS SUMMARY | 2024-10-13 22:40 | XMS_ITS | Encounter Summary ---
Author Organization [facility] Address [address] [place] [address]. [place], [place] [address] [place] [address] Care Team Providers Care Tip Cementer Name Role Phone Oscar Edwards MD Primary Care Provider [phone] Reason for Visit * Reason Onset Date Comments Reschedule 10/13/2022 Encounter Details Date Type Department Care Team (Late st Contact Info) Description 10/13/2022 Telephone [facility] Medical [facility] Multispecialty Care - [place] [address] [address] [place] [address] Oscar Edwards MD [address] [place] [address] [address] [place], [place] [id number] Reschedule Social History Tobacco Use Types Packs/Day Years [...] on file Legal Sex Female 5:53 PM SEAT COVERER Gender Identity Not on file Sexual Orientation Not on file COVID-19 Exposure Response Date Recorded In the last 10 days, have yo u been in contact with someone who was confirmed or suspected to have Coronavirus/COVID-19? No / Unsure 09/17/2022 7:33 AM SEAT COVERER documented as of this encounter Progress Notes * Dede Cruz - 10/13/2022 8:36 AM CST Called pt and no answer and pt vm is full will try to call back tomorrow COVERER documented in this encounter Plan of Treatment Upcoming Encounters Date Type Department Care Team (Late st Contact Info) Description 11/02/2024 8:00 AM SEAT COVERER Office Visit [facility] Medical Group Multispecialty Care [place] [address] [address] [place] [address] Oscar Edwards MD [address] [place] [address] 06/25/2025 9:00 AM CDT [facility] [place] [address] [place] [address] Elisha Kim PA 3 [facility] [address] [place] [address] documented as of this encounter Visit Diagnoses Not on filedocumented in this encounter Additional Health Concerns Assessment Noted Time PHQ-9 Depression Total Score: 20 022 2:50 PM CDT documented as of this encounter Care Teams Tip Cementer Relationship Specialty Start Date End Date Oscar Edwards MD [address] [place] [address] PCP - General INTERNAL MEDICINE 04/28/22 documented as of this encounter
--- OUTSIDE RECORDS SUMMARY | 2024-10-13 22:40 | XMS_ITS | Encounter Summary ---
Author Organization [facility] Address [address] [place] [address]. 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 No / Unsure 07/21/2022 2:06 PM CDT documented as of this encounter Medications at Time of Discharge amoxicillin (AMOXIL) 875 MG tabletIndication s:Acute maxillary sinusitis, recurrence not specified Take 1 tablet (875 mg total) by mouth 2 (two) times daily for 5 days. 10 tablet 07/21/2022 2 azelastine (ASTELIN) 0.1 % nasal sprayIndications :Acute maxillary sinusitis, recurrence not specified 1 spray by Nasal route 2 (two) times daily. Use in each nostril as directed 30 mL 1 07/21/2022 3 clonazePAM (KLONOPIN) 0.5 MG tabletIndication s:CHARLA (generalized anxiety disorder) Take 1 tablet (0.5 mg total) by mouth daily as needed for Anxiety. FOR ANXIETY 10 tablet 06/25/2022 2 FLUoxetine (PROZAC) 40 MG capsuleIndicatio ns:Severe episode of recurrent major depressive disorder, without psychotic features ([facility]/HCC [facility]/HCC),CHARLA (generalized anxiety disorder) Take 1 capsule (40 mg total) by mouth daily. 30 capsule 3 06/25/2022 2 fluticasone propionate (FLONASE) 50 MCG/ACT nasal sprayIndications :Acute maxillary sinusitis, recurrence not specified 1 spray by Each Nostril route daily. Okay to substitute per insurance. 16 g 1 07/22/2022 3 documented as of this encounter Plan of Treatment Upcoming Encounters Date Type Department Care Team (Late st Contact Info) Description 11/02/2024 8:00 AM VALVE PIPE IRRIGATOR Office Visit [facility] [place] [address] [place] [address] [address] [place] [address] [place] [address] [place] [address] [address] [place] [address] 06/25/2025 9:00 AM CDT [facility] [address] [address] Elisha Kim PA [address] [facility] [address] [place] [address] documented as of this encounter Procedures Procedure Name Priority Date/Time Associated Diagnosis Comments RETICULOCYTE CT, AUTO Routine 07/22/2022 9:49 AM CDT Abnormal urine color Hyperbilirubinemia documented in this encounter Results * RETICULOCYTE CT, AUTO (07/22/2022 9:49 AM CDT) RETICULOCYTE COUNT 0.8 0.8 - 2.1 % 07/22/2022 10:30 AM CDT [facility] ABSOLUTE RETICULOCYTE 0.04 0.02 - 0.10 x10'6/uL 07/22/2022 10:30 AM CDT [facility] IMMATURE RETIC FRACTION 6.9 3.0 - 15.9 % 07/22/2022 10:30 AM CDT [facility] RETIC HGB 28.9 28.0 - 35.0 PG 07/22/2022 10:30 AM CDT [facility] 07/22/2022 9:49 AM CDT Oscar Edwards MD LABORATORY Final Result [facility] [address] [facility] [address], documented in this encounter Visit Diagnoses Diagnosis Abnormal urine color Other urinary problems Hyperbilirubinemia Jaundice, unspecified, not of documented in this encounter Additional Health Concerns Assessment Noted Time PHQ-9 Depression Total Score: 20 022 2:50 PM CDT documented as of this encounter Care Teams Photonics Engineering Technician Relationship Specialty Start Date End Date Oscar Edwards MD [address] [facility] [address] [place] [address] PCP - General INTERNAL MEDICINE 04/28/22 documented as of this encounter
--- OUTSIDE RECORDS SUMMARY | 2024-10-13 22:40 | XMS_ITS | Encounter Summary ---
Author Organization [facility] Address [address] [place] [address]. [place], [place] [address] [place] [address] Care Team Providers Care Provider Relations Consultant Name Role Phone Oscar Edwards MD Primary Care Provider [phone] Reason for Visit * Reason Onset Date Comments Record Request 05/31/2022 Encounter Details Date Type Department Care Team (Late st Contact Info) Description 05/31/2022 Telephone [facility] Care - [place] [address] [address] [place] [address] Oscar Edwards MD [address] [place] [address] [address] [place], [place] [id number] Record Request Social History Tobacco Use Types Packs/Day Years Used Date Smoking Tobacco: Never Smokeless Tobacco: Never Comments:counseled by Dr Jimena trujillo Alcohol Use Standard Drinks/Week Comments Never 0 (1 standard drink = 0.6 oz pur e alcohol) PHQ-2 Answer Date Recorded PHQ-2 Score - If the patient scores above 3, please move on to questions 3-9 0 05/28/2022 Comments No Sex and Gender Information Value Date Recorded Sex Assigned at Not on file Legal Sex Female 5:53 PM RESOURCE MANAGER Gender Identity Not on file Sexual Orientation Not on file COVID-19 Exposure Response Date Recorded In the last 10 days, have yo u been in contact with someone who was confirmed or suspected to have Coronavirus/COVID-19? No / Unsure 05/28/2022 7:50 AM CDT documented as of this encounter Progress Notes * Jennifer Giron MA - 06/01/2022 12:25 PM CDT Received and sent to PCP * Jennifer Giron MA - 05/31/2022 2:59 PM CDT I have faxed [facility] for Tdap documented in this encounter Plan of Treatment Upcoming Encounters Date Type Department Care Team (Late st Contact Info) Description 11/02/2024 8:00 AM RESOURCE MANAGER Office Visit [facility] - [place] [address] [address] [place] [address] Oscar Edwards MD [address] [place] [address] 06/25/2025 9:00 AM CDT Office Visit [facility] [address] [place] [address] Elisha Kim PA 3 [facility] [address] [place] [address] documented as of this encounter Visit Diagnoses Not on filedocumented in this encounter Additional Health Concerns Assessment Noted Time PHQ-9 Depression Total Score: 20 022 2:50 PM CDT documented as of this encounter Care Teams Provider Relations Consultant Relationship Specialty Start Date End Date Oscar Edwards MD [address] [place] [address] PCP - General INTERNAL MEDICINE 04/28/22 documented as of this encounter
--- OUTSIDE RECORDS SUMMARY | 2024-10-13 22:40 | XMS_ITS | Encounter Summary ---
Author Organization [facility] Address [address] [place] [address]. [place] [address] [place] [address] Care Team Providers Care Turn Sewer Name Role Phone Oscar Edwards MD Primary Care Provider [phone] Reason for Visit * Reason Comments Exposure Coronavirus (Covid-19) Encounter Details Date Type Department Care Team (Latest Contact Info) Description 06/10/2024 11:38 AM CDT - 06/10/2024 12:18 PM T Hospital Encounter [facility] [address] [place], [place] [id number] Regan Cueto PA [address] [place] [address] Exposure Coronavirus (Covid-19) Discharge Disposition: Home or Self Care (Routine [...] on file Legal Sex Female 5:53 PM 411 DIRECTORY ASSISTANCE OPERATOR Gender Identity Not on file Sexual Orientation Not on file documented as of this encounter Last Filed Vital Signs Vital Sign Reading Time Taken Comments Blood Pressure 106/85 06/10/2024 11:42 AM CDT Pulse 86 06/10/2024 11:42 AM CDT Temperature 36.9 ??C (98.5 ??F) 06/10/2024 11:42 AM C DT Respiratory Rate 18 06/10/2024 11:42 AM CDT Oxygen Saturation 100% 06/10/2024 11:42 AM CDT Inhaled Oxygen Concentration - - Weight 68 kg (150 lb) 06/10/2024 11:42 AM CDT Height 167.6 cm (5' 6 ) 06/10/2024 11:42 AM CDT Body Mass Index 24.21 06/10/2024 11:42 AM CDT documented in this encounter Discharge Instructions * Discharge Instructions* CODY Vieyra - 06/10/2024 12:17 PM CDT Please self quarantine yourself and any close contacts for at least 5 days from day of onset. Treat your symptoms with plenty of rest, hydration (lots of water) and tylenol or motrin for fever and body aches. You can be around others on day 6 (since onset of symptoms) AND you haven't had a fever for at least 24hrs (without fever reducing medication) AND your other symptoms are improving You should wear a mask around others for day 6-10. With COVID: Most people do well with COVID (especially if up to date on vaccinations). If you feel worse especially if you feel short of breath (cannot walk to bathroom without feeling very winded) then please return to the ER. https://www.cdc.gov/coronavirus/2019-ncov/index.html * Attachments The following attachments cannot be sent through Care Everywhere. * COVID-19 Discharge Instructions (Malaysian) documented in this encounter Medications at Time of Discharge vitamin, low iron, 27-0.8 MG tablet Take 1 tablet by mouth daily. documented as of this encounter ED Notes * CODY Vieyra - 06/10/2024 11:51 AM CDT [place] HISTORICAL INFORMATION Primary Care Doctor: OSCAR EDWARDS MD Patient information was obtained primarily from the patient, nursing notes, History/Exam limitations: None Provider at Bedside Date/Time Event User Comments 06/10/24 1151 Provider at Bedside Assessing Patient REGAN CUETO -- CHIEF COMPLAINT Exposure Coronavirus (Covid-19) HPI Opal Swenson is a 29-year-old female who presents to the [facility] care for fever, stuffy and rhinorrhea x 3 days. Pt's son had covid recently. PAST MEDICAL HISTORY Past Medical History: Diagnosis Date Anxiety Depression SVT (supraventricular tachycardia) ([facility]/HCC [facility]) Negative unless otherwise noted SURGICAL HISTORY Past Surgical History: Procedure Laterality Date SECTION Negative unless otherwise noted CURRENT MEDICATIONS No current facility-administered medications for this encounter. Current Outpatient Medications: vitamin, low iron, 27-0.8 MG tablet, Take 1 tablet by mouth daily., Disp: , Rfl: ALLERGIES Review of patient's allergies indicates: Allergen Reactions Macrobid [Nitrofurantoin] Shortness of Breath bruising Z-Taras [Azithromycin] Other (see comment) Itchy hands, dizzy, generalized not feeling well Buspar [Buspirone] Other (see comment) Cold sweats, difficulty breathing Ibuprofen Hives Dexamethasone Eyes Water & Itch and Itching FAMILY HISTORY Family History Problem Relation Name Age of Onset No Known Problems Mother No Known Problems Father SOCIAL HISTORY Social History Tobacco Use Smoking status: Never Smokeless tobacco: Never Tobacco comments: counseled by Dr Edwards Vaping Use Vaping status: Never Used Substance Use Topics Alcohol use: Never Drug use: Never Negative unless otherwise noted REVIEW OF SYSTEMS See HPI. All other systems reviewed and negative PHYSICAL EXAM VITAL SIGNS: Filed Vitals: 06/10/24 1142 BP: 106/85 Pulse: 86 Resp: 18 Temp: 98.5 ??F (36.9 ??C) TempSrc: Oral SpO2: 100% Weight: 68 kg (150 lb) Height: 1.676 m (5' 6 ) Constitutional: Well developed, Well nourished, No acute distress, Non-toxic appearance. HENT: Normocephalic, Atraumatic, Bilateral external ears normal, Oropharynx moist, No oral exudates, Nose normal. Eyes: PERRL, EOMI, Conjunctiva normal, No discharge. Neck- Normal range of motion, No tenderness, Supple, No stridor. Respiratory: Normal breath sounds, No respiratory distress. Cardiovascular: Normal heart rate, Normal rhythm GI: nd Musculoskeletal: Intact distal pulses, No edema, No tenderness, No cyanosis, No clubbing. Good range of motion in all major joints. No tenderness to palpation or major deformities noted Back- No tenderness. Integument: Warm, Dry, No erythema, No rash. Lymphatic: No lymphadenopathy noted. Neurologic: Alert & oriented x 3 Psychiatric: Affect normal, Judgment normal, Mood normal. Pulse Oximetry Interpretation Saturation: 100% Oxygen Delivery: room air Interpretation: normal Laboratory tests ordered and reviewed: Results for orders placed or performed during the hospital encounter of 06/10/24 RAPID STREP A Specimen: THROAT Result Value Ref Range Specimen Type THROAT RAPID STREP TEST NEGATIVE NEGATIVE CORONAVIRUS (COVID 19) Specimen: NASAL Result Value Ref Range CORONAVIRUS SARS COV 2 RNA POSITIVE (AA) NEGATIVE Specimen Type NASAL ED COURSE & MEDICAL DECISION MAKING Pertinent Labs & Imaging studies reviewed. (See chart for details) Pt presents with flu or flu like virus, possibly COVID. Pt would like to swabbed so a swab was performed. Pt looks well; afebrile and nontoxic looking. Cardiopulmonary exam benign. The rest of physical exam is also benign. Vital signs grossly within normal limits. Pt ambulated in the department without significant desaturation thus I consider discharge disposition reasonable. We discussed symptomatic tx of symptoms including anti-pyretics and hydration. During my encounter I used personal protective equipment. I spoke with pt about return precautions including increasing dyspnea uncontrollable fever or change in mental status. ? Disposition Discussion: Diagnostic tests were reviewed and questions answered. Diagnosis, care plan and treatment options were discussed. The patient understand instructions and will follow up as directed. DATE: 06/10/2024 3:52 PM PATIENT: Opal Swenson Discharge Clinical Impressions: SNOMED CT(R) 1. COVID-19 COVID-19 Discharge Medication List as of 06/10/2024 12:17 PM CODY Vieyra PA 06/10/24 1552 Cosigned by Jackie Cisneros MD at 06/18/2024 9:45 PM CDT * Miquel Ramos RN - 06/10/2024 11:41 AM CDT Patient to with c/o fever, stuffy/runny nose, cough, onset 3 days ago. Son had covid a week ago. documented in this encounter Plan of Treatment Upcoming Encounters Date Type Department Care Team (Late st Contact Info) Description 11/02/2024 8:00 AM 411 DIRECTORY ASSISTANCE OPERATOR Office Visit [facility] Care - [place] [address] [address] [place] [address] [place] [address] [place] [address] [address] [place] [address] 06/25/2025 9:00 AM CDT Office Visit [facility] [address] [place], [place] [phone] Elisha Kim PA 3 [facility] [address] [place] [address] documented as of this encounter Procedures Procedure Name Priority Date/Time Associated Diagnosis Comments CORONAVIRUS (COVID 19) STAT 06/10/2024 11:45 AM CDT RAPID STREP A STAT 06/10/2024 11:45 AM CDT documented in this encounter Results * (ABNORMAL) CORONAVIRUS (COVID 19) (06/10/2024 11:45 AM CDT) CORONAVIRUS SARS COV 2 RNA POSITIVE( AA) NEGATIVE 06/10/2024 11:58 AM CDT [facility] Comment: THE ID NOW COVID-19 2.0 TEST HAS BEEN AUTHORIZED BY THE FDA UNDER EAU FOR USE BY AUTHORIZED LABORATORIES. PERFORMED BY NUCLEIC ACID AMPLIFICATION FOR MOLECULAR QUALITATIVE DETECTION OF SARS-COV-2. Successful Call: C19M called 06/10/2024 11:58 AM to REGAN CUETO PA ( /REGAN CUETO PA) by [phone]. SPECIMEN TYPE NASAL 06/10/2024 11:46 AM CDT [facility] NASAL STRUCTURE / Unknown 06/10/2024 11:45 AM CDT us Regan ROSS MICROBIOLOGY - GENERAL [place] [address], * RAPID STREP A (06/10/2024 11:45 AM CDT) SPECIMEN TYPE THROAT 06/10/2024 11:46 AM CDT [facility] RAPID STREP TEST NEGATIVE NEGATIVE 06/10/2024 11:57 AM CDT [facility] STRUCTURE OF ANTERIOR PORTION OF NECK / Unknown 06/10/2024 11:45 AM CDT us Regan ROSS MICROBIOLOGY - GENERAL ORD [place] [address], documented in this encounter Visit Diagnoses Diagnosis COVID-19- Primary documented in this encounter Additional Health Concerns Infection Onset Date Last Indicated Resolved Time COVID-19 Rule Out 06/10/2024 06/10/2024 06/10/2024 11:58 AM CDT COVID-19 Confirmed 06/10/2024 06/10/2024 12:32 AM CDT Assessment Noted Time PHQ-9 Depression Total Score: 0 04/11/20 23 2:41 PM CDT documented as of this encounter Care Teams Turn Sewer Relationship Specialty Start Date End Date Oscar Edwards MD [address] [address] PCP - General INTERNAL MEDICINE 04/28/22 documented as of this encounter
--- OUTSIDE RECORDS SUMMARY | 2024-10-13 22:40 | XMS_ITS | Encounter Summary ---
Author Organization [facility] Address [address] [place] [address]. [place], [place] [address] [place] [address] Care Team Providers Care Coping Machine Operator Name Role Phone Oscar Edwards MD Primary Care Provider [phone] Encounter Details Date Type Department Care Team (Latest Contact Info) Description 11/01/2023 Travel Social History Tobacco Use Types Packs/Day [...] on file Legal Sex Female 5:53 PM BOOTH MANAGER Gender Identity Not on file Sexual Orientation Not on file documented as of this encounter Plan of Treatment Upcoming Encounters Date Type Department Care Team (Late st Contact Info) Description 11/02/2024 8:00 AM BOOTH MANAGER Office Visit [facility] - [place] [address] [address] [place] [address] Oscar Edwards MD [address] [place] [address] 06/25/2025 9:00 AM CDT [facility] [address] [address] Elisha Kim PA [address] [facility] [address] [place] [address] documented as of this encounter Visit Diagnoses Not on filedocumented in this encounter Additional Health Concerns Assessment Noted Time PHQ-9 Depression Total Score: 0 04/11/20 23 2:41 PM CDT documented as of this encounter Care Teams Coping Machine Operator Relationship Specialty Start Date End Date Oscar Edwards MD [address] [facility] [address] [place] [address] PCP - General INTERNAL MEDICINE 04/28/22 documented as of this encounter
--- OUTSIDE RECORDS SUMMARY | 2024-10-13 22:40 | XMS_ITS | Encounter Summary ---
Author Organization [facility] Address [address] [place] [address]. [place] [address] [place] [address] Care Team Providers Care Senior Center Director Name Role Phone Oscar Edwards MD Primary Care Provider [phone] Encounter Details Date Type Department Care Team (Latest Contact Info) Description 09/11/2022 Scan HEALTH INFO SRVCS Scanned, Doc Med Group Social History Tobacco Use Types Packs/Day Years [...] on file Legal Sex Female 5:53 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 PULLER Gender Identity Not on file Sexual Orientation Not on file COVID-19 Exposure Response Date Recorded In the last 10 days, have yo u been in contact with someone who was confirmed or suspected to have Coronavirus/COVID-19? No / Unsure 09/17/2022 7:33 AM WAREHOUSE PULLER documented as of this encounter Plan of Treatment Upcoming Encounters Date Type Department Care Team (Late st Contact Info) Description 11/02/2024 8:00 AM WAREHOUSE PULLER Office Visit [facility] Mult[facility]pec[facility] Care - [address] [place] [address] Oscar Edwards MD [address] [facility] [address] [place] [address] 06/25/2025 9:00 AM CDT Office Visit [facility] [place] [place] [address] Elisha Kim PA 3 [facility] [address] [place] [address] documented as of this encounter Visit Diagnoses Not on filedocumented in this encounter Additional Health Concerns Assessment Noted Time PHQ-9 Depression Total Score: 20 022 2:50 PM CDT documented as of this encounter Care Teams Senior Center Director Relationship Specialty Start Date End Date Oscar Edwards MD [address] [facility] [address] [place] [address] PCP - General INTERNAL MEDICINE 04/28/22 documented as of this encounter
--- OUTSIDE RECORDS SUMMARY | 2024-10-13 22:40 | XMS_ITS | Clinical Summary ---
Author Organization [facility] Address [address] [place] [address]. [place] [address] [place] [address] Care Team Providers Care Scarfer Name Role Phone Oscar Edwards MD Primary Care Provider [phone] Allergies Active Allergy Reactions Criticality Noted Date Comments Buspirone Other (see comment) 09/07/2022 Cold sweats, difficulty breathing Dexamethasone Eyes Water & Itch,Itching Low 01/25/2022 Ibuprofen Hives 11/04/2021 Nitrofurantoin Shortness of Breath High 01/22/2022 bruising Azithromycin Other (see comment) High 11/04/2021 Itchy hands, dizzy, generalized not feeling well Medications vitamin, low iron, 27-0.8 MG tablet Take 1 tablet by mouth daily. Active Active Problems Problem Noted Date Diagnosed Date Anxiety Depression Encounters Date Type Department Care Team Description 10/06/2024 Scan HEALTH INFO SRVCS Scanned, [facility] Lab (SCAN) from Last 3 Months Immunizations Name Administration Dates Next Due Dtap (Acel-Immune) 03/21/1998 Dtp (Generic) 1993,1993,1993 Dtp/Hib (Tetramune) 04/26/1994 Fluzone 6 Months+ Quad (0.5 mL Prefilled Syringe) 11/01/2023,08/24/2022 HPV4 (Gardasil) 01/06/2011,08/24/2010,05/18/2010 Hepatitis B Pediatric 1993,1993,1993 Hib (Generic) 1993,1993,1993 MMR (MMRII) 03/21/1998,04/26/1994 Meningococcal (Generic) 05/10/2007 Polio Opv (Generic) 03/21/1998, 4,1993,03/20 Tdap (Adacel) 11/06/2020 Tdap (Generic) 05/10/2007 Family History Medical History Relation Comments No Known Problems Father No Known Problems Mother Relation Status Comments Father Mother Social History Tobacco Use Types Packs/Day Years [...] on file Legal Sex Female 5:53 PM WATER PUMP SERVICER Gender Identity Not on file Sexual Orientation Not on file Last Filed Vital Signs Vital Sign Reading Time Taken Comments Blood Pressure 124/72 06/19/2024 9:03 AM CDT Pulse 74 06/19/2024 9:03 AM CDT Temperature 36.9 ??C (98.5 ??F) 06/10/2024 11:42 AM C DT Respiratory Rate 18 06/10/2024 11:42 AM CDT Oxygen Saturation 99% 06/19/2024 9:03 AM CDT Inhaled Oxygen Concentration - - Weight 69.1 kg (152 lb 6.4 oz) 06/19/2024 9:03 A M CDT Height 167.6 cm (5' 6 ) 06/19/2024 9:03 AM CDT Body Mass Index 24.6 06/19/2024 9:03 AM CDT Plan of Treatment Upcoming Encounters Date Type Department Care Team (Late st Contact Info) Description 11/02/2024 8:00 AM WATER PUMP SERVICER Office Visit [facility] Multispecialty Care - [place] [address] [address] [address] [place] [address] [place] [address] [place] [address] [address] [place] [address] 06/25/2025 9:00 AM CDT Office Visit [facility] THREE [facility], [place] [place] [address] Elisha Kim PA 3 [facility] [address] [place], [place] [address] Health Maintenance Due Date Last Done Comments COVID-19 Vaccine ( season) 2024 Influenza Adult (#1) 2024 11/01/2023, 08/24/20 Annual Physical 11/01/2024 11/01/2023, 05/28/2022 Cervical Cancer Screening Pap Smear (Age 21 to 29) Every 3 Years 06/25/2025 06/25/2022 Cervical Cancer Screening 06/25/2025 DTaP, Tdap and Td Vaccines (7 - Td or Tdap) 11/06/2030 11/06/2020, 05/10/2007, 03/21/1998, Additional history exists Hepatitis B Vaccines Completed 1993, 1993, 1993 Meningococcal Vaccine Aged Out 05/10/2007 No brigitte karely eligible based on patient's age to complete this topic HPV Vaccines Completed 01/06/2011, 05/2010, 05/18/2010 Hepatitis C Completed 05/28/2022 Pneumococcal Vaccine: Pediatrics (0 to 5 Years) and At-Risk Patients (6 to 64 Years) Aged Out No longer eligible based on patient's age to complete this topic RSV Immunizations Under 20 Months Aged Out No longer eligible based on patient's age to complete this topic Procedures Procedure Name Priority Date/Time Associated Diagnosis Comments OUTSIDE LAB (SCAN ORDER) 10/06/2024 CYTOPATH CERV/VAG THIN LAYER Routine 06/25/2022 7:46 AM CDT HEPATITIS C ANTIBODY Routine 05/28/2022 8:22 AM CDT Annual physical exam General medical exam Encounter for hepatitis C screening test for low risk patient from Last 3 Months or Most Recently Relevant to Health Maintenance Results * OUTSIDE LAB (SCAN ORDER) (10/06/2024) 10/06/2024 us [facility] Scanned SCANNING Final Resu lt * Cytopath Cerv/Vag Thin Layer (06/25/2022 7:46 AM CDT) THIN PREP PAP ? [facility] ?[address] ?[place] [address] ? Department of Pathology ? Pathology Report ? CERVICAL/VAGINAL PAP SMEAR REPORT Name: OPAL MONROY ? Age: 3 1995 (Age: 27) ?Location: [facility] Sex: F ?Collected Date: 06/25/2022 Hospital #: [id number] ?Date Received: 06/28/2022 Date Reported: 06/30/2022 Provider: OSCAR EDWARDS MD INTERPRETATION CERVICAL/ENDOCERVI BHAVESH: ? SATISFACTORY FOR EVALUATION. ENDOCERVICAL/TRANS FORMATION ZONE COMPONENT ABSENT. ? NEGATIVE FOR INTRAEPITHELIAL LESION OR MALIGNANCY. Electronically Signed Out By MOISÉS Chaves (ASCP) CLINICAL HISTORY Z12.4 SCREENING PAP TEST ThinPrep Pap Test with HR HPV testing in patient > 21 years with ASC-US diagnosis. Date of Last Menstrual Period: ? 06/14/22 Menstrual Status: Regular SPECIMEN SUBMITTED CERVICAL/ENDOCERVI BHAVESH ?Specimen Received:1 Thin Prep Vial, Image Assisted Pap (SMD) ? Please note: The Pap smear is not a diagnostic test. ??It is a screening test. ??Negative results on combined screening (Pap test and HPV-DNA) have a high negative predictive value (99.1-100 percent) for cervical cancer. ??The pap test is not effective in detecting cervical adenocarcinoma. [facility] 06/25/2022 7:46 AM CDT 06/28/2022 7:46 AM CDT Comment:CERVICAL/ENDOCERVICA L us Oscar Edwards MD PATHOLOGY/CYTOLOGY ORDERABLES Fi nal Result [facility] [address] [place] [address], * HEPATITIS C ANTIBODY (05/28/2022 8:22 AM CDT) HEPATITIS C AB NON-REACTI VE NON-REACT ROXANE 05/28/2022 6:27 PM CDT [facility] Comment: ANTIBODIES TO HCV NOT DETECTED. DOES NOT EXCLUDE THE POSSIBILITY OF EXPOSURE TO HCV. 05/28/2022 8:22 AM CDT Oscar Edwards MD LABORATORY Final Result [facility] [address] [place] [address], [place] [phone] [id number] from Last 3 Months or Most Recently Relevant to Health Maintenance Insurance [employer] Care Teams Scarfer Relationship Specialty Start Date End Date Oscar Edwards MD [address] [facility] [address] [place] [address] PCP - General INTERNAL MEDICINE 04/28/22
--- OUTSIDE RECORDS SUMMARY | 2024-10-13 22:40 | XMS_ITS | Encounter Summary ---
Author Organization [facility] Address [address] [place] [address]. [place], [place] [address] [place] [address] Care Team Providers Care Lift Driver Name Role Phone Oscar Edwards MD Primary Care Provider [phone] Reason for Visit * Reason Onset Date Comments Medication 07/22/2022 Encounter Details Date Type Department Care Team (Late st Contact Info) Description 07/22/2022 Telephone [facility] Medical Group Multispecialty Care - [place] [address] [address] [address] [place] [address] Oscar Edwards MD [address] [place] [address] [address] [place], [place] [phone] Medication Social History Tobacco Use Types Packs/Day Years [...] on file Legal Sex Female 5:53 PM CLINICAL DATA ASSOCIATE Gender Identity Not on file Sexual Orientation [...] st Contact Info) Description 11/02/2024 8:00 AM CLINICAL DATA ASSOCIATE Office Visit [facility] Medical [facility] Multispecialty Care - [place] [address] [address] [address] [place] [address] Oscar Edwards MD [address] [address] 06/25/2025 9:00 AM CDT Office Visit [facility] [address] [facility], [address] [place] [address] Elisha Kim PA 3 [facility] [address] [place] [address] documented as of this encounter Visit Diagnoses Diagnosis Acute maxillary sinusitis, recurrence not specified- Primary documented in this encounter Additional Health Concerns Assessment Noted Time PHQ-9 Depression Total Score: 20 022 2:50 PM CDT documented as of this encounter Care Teams Lift Driver Relationship Specialty Start Date End Date Oscar Edwards MD [address] [place] [address] PCP - General INTERNAL MEDICINE 04/28/22 documented as of this encounter
--- OUTSIDE RECORDS SUMMARY | 2024-10-13 22:40 | XMS_ITS | Encounter Summary ---
Author Organization [facility] Address [address] [place] [address]. [place], [place] [address] [place] [address] Care Team Providers Care Housemaid Name Role Phone Oscar Edwards MD Primary Care Provider [phone] Reason for Referral * Imaging (Routine) - Closed Specialty Diagnoses / Procedures Referred By Contyas t Referred To Contact Diagnoses SVT (supraventricular tachycardia) ([facility]) Postural dizziness with presyncope Procedures CLINIC - OUTPATIENT EVENT RECORDER (ECG) UP TO 30 DAYS COMPLETE (Holter) Oscar Edwards MD [address] [facility] [address] [place] [address] Phone: tel: fax: [facility] [place] [facility] [address] [address] Phone: tel: fax: Referral ID Status Reason Start Date Expiration Date Visits Re quested Visits Authorized [id number] Closed 04/12/2023 04/12/2024 1 1 Encounter Details Date Type Department Care Team (Late st Contact Info) Description 04/12/2023 Orders Only [facility] THREE [facility], [address] [address] Oscar Edwards MD [address] [address] Social History Tobacco Use Types Packs/Day Years [...] on file 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 Gender Identity Not on file Sexual Orientation Not on file documented as of this encounter Plan of Treatment Upcoming Encounters Date Type Department Care Team (Late st Contact Info) Description 11/02/2024 8:00 AM SIGNWRITER Office Visit [facility] Multispecialty Care - [place] [address] [address] [place] [address] Oscar Edwards MD [address] [place] [address] 06/25/2025 9:00 AM CDT Office Visit [facility], [address] [place] [address] Elisha Kim PA 3 [facility] [address] [place] [address] documented as of this encounter Results * CLINIC - OUTPATIENT EVENT RECORDER (ECG) UP TO 30 DAYS COMPLETE (Holter) (06/10/2023 1:02 PM CDT) Impressions [facility] - 06/10/2023 1:02 PM CDT [place], [place] ??[address] MOBILE CARDIAC PRE BILLING CLINICIAN REPORT Patient Name: Opal Swenson : 1995 Translator Interpreter Date: 04/23/2023 End Date: 05/22/2020. Performed At: ??[facility], [place], [place] Interpreting Reduction Furnace Operator Helper: ?? Angel Gutiérrez MD PCP: OSCAR EDWARDS MD Ordering Provider:OSCAR EDWARDS MD INDICATION: Supraventricular tachycardia DURATION OF MONITORIN days NUMBER OF TRANSMISSIONS: 79 (13 auto transmissions, 66 manual, 0 periodic) INTERPRETATION: A 30-day mobile cardiac slot floor attendant analyzed. Interpretable data was 16 days, 23 [...] ??There were no sustained arrhythmias observed. Interpreting Reduction Furnace Operator Helper: ?? Dr. Angel Gutiérrez us Oscar Edwards MD CV VASCULAR ORDERABLES Final Res ult [facility] documented in this encounter Visit Diagnoses Diagnosis SVT (supraventricular tachycardia) ([facility])- Primary Other specified cardiac dysrhythmias Postural dizziness with presyncope SVT (supraventricular tachycardia) ([facility]) Other specified cardiac dysrhythmias Postural dizziness with presyncope documented in this encounter Additional Health Concerns Assessment Noted Time PHQ-9 Depression Total Score: 0 04/11/20 23 2:41 PM CDT documented as of this encounter Care Teams Housemaid Relationship Specialty Start Date End Date Oscar Edwards MD 1188 [facility] [address] [place] [address] PCP - General INTERNAL MEDICINE 04/28/22 documented as of this encounter
--- OUTSIDE RECORDS SUMMARY | 2024-10-13 22:40 | XMS_ITS | Encounter Summary ---
Author Organization [facility] Address [address] [place] [address]. 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 No / Unsure 07/29/2022 4:08 PM CDT documented as of this encounter Plan of Treatment Upcoming Encounters Date Type Department Care Team (Late Contact Info) Description 11/02/2024 8:00 AM CRIPPLE WORKER Office Visit [facility] [place] [address] [place] [address] [address] [place] [address] Oscar Edwards MD 1188 [facility] [address] [place] [address] 06/25/2025 9:00 AM CDT Office Visit [facility] [facility] [place] [place] [address] Elisha Kim PA 3 [facility] [address] [place] [address] documented as of this encounter Visit Diagnoses [...] documented as of this encounter Care Teams Ear Specialist Relationship Specialty Start Date End Date Oscar Edwards MD [facility] [address] [address] PCP - General INTERNAL MEDICINE 04/28/22 documented as of this encounter
--- OUTSIDE RECORDS SUMMARY | 2024-10-13 22:40 | XMS_ITS | Encounter Summary ---
Author Organization [facility] Address [address] [place] [address]. [place], [place] [address] [place] [address] Care Team Providers Care Underground Conduit Installer Name Role Phone Oscar Edwards MD Primary Care Provider Reason for Visit * Reason Onset Date Comments MRI/CT Orders 09/15/2022 Encounter Details Date Type Department Care Team (Late st Contact Info) Description 09/15/2022 Telephone [facility] Group Multispecialty Care - [place] [address] [address] [place] [address] Oscar Edwards MD [address] [place] [address] 157 [place] [address] MRI/CT Orders Social History Tobacco Use Types Packs/Day Years [...] file Legal Sex Female 5:53 PM POULTRY DEBEAKER Gender Identity Not on file Sexual Orientation Not on file COVID-19 Exposure Response Date Recorded In the last 10 days, have yo u been in contact with someone who was confirmed or suspected to have Coronavirus/COVID-19? No / Unsure 09/15/2022 7:52 AM POULTRY DEBEAKER documented as of this encounter Progress Notes * Mirtha Whitney MA - 09/15/2022 8:41 AM CST Pt's vmbox full on mobile phone. LVM on pt's home # of stat mri knee appt on Monday 09/17 at 745am, arrive 730am at [facility]. Provided radiology ph# [phone] if pt needs to r/s due to transportation. Requested pt to call/send [employer] message confirming she recvd my message. TRY DEBEAKER documented in this encounter Plan of Treatment Upcoming Encounters Date Type Department Care Team (Late st Contact Info) Description 11/02/2024 8:00 AM POULTRY DEBEAKER Office Visit [facility] Group Multispecialty Care - [place] [address] [address] [place] [address] Oscar Edwards MD [address] [place] [address] 06/25/2025 9:00 AM CDT Office Visit [facility] THREE [facility], [place] [place] [address] Elisha Kim PA 3 [facility] [address] [place] [address] documented as of this encounter Visit Diagnoses Not on filedocumented in this encounter Additional Health Concerns Assessment Noted Time PHQ-9 Depression Total Score: 20 022 2:50 PM CDT documented as of this encounter Care Teams Underground Conduit Installer Relationship Specialty Start Date End Date Oscar Edwards MD [address] [place] [address] PCP - General INTERNAL MEDICINE 04/28/22 documented as of this encounter
--- OUTSIDE RECORDS SUMMARY | 2024-10-13 22:40 | XMS_ITS | Encounter Summary ---
Author Organization [facility] Address [address] [place] [address]. [place], [place] [address] [place] [address] Care Team Providers Care Analytic Manager Name Role Phone Oscar Edwards MD Primary Care Provider [phone] Encounter Details Date Type Department Care Team (Latest Contact Info) Description 04/03/2024 [employer] [facility] [place] [place] [address] Oscar Edwards MD [address] [place] [address] SUBMARINE CABLE EQUIPMENT TECHNICIAN Pelvic Ultrasound Social History Tobacco Use Types Packs/Day Years [...] on file Legal Sex Female 5:53 PM THIRD LOADER Gender Identity Not on file Sexual Orientation Not on file documented as of this encounter Plan of Treatment Upcoming Encounters Date Type Department Care Team (Late st Contact Info) Description 11/02/2024 8:00 AM THIRD LOADER [facility] - [address] [place] [address] Oscar Edwards MD 1188 [facility] 157 [place] [address] 06/25/2025 9:00 AM CDT Office Visit [facility] THREE [facility], [address] [place] [address] Elisha Kim PA 3 [facility] [address] [place] [address] documented as of this encounter Visit Diagnoses Not on filedocumented in this encounter Additional Health Concerns Infection Onset Date Last Indicated Resolved Time COVID-19 Rule Out 06/10/2024 06/10/2024 06/10/2024 11:58 AM CDT COVID-19 Confirmed 06/10/2024 06/10/2024 12:32 AM CDT Assessment Noted Time PHQ-9 Depression Total Score: 0 04/11/20 23 2:41 PM CDT documented as of this encounter Care Teams Analytic Manager Relationship Specialty Start Date End Date Oscar Edwards MD 1188 [facility] [address] [place] [address] PCP - General INTERNAL MEDICINE 04/28/22 documented as of this encounter
--- OUTSIDE RECORDS SUMMARY | 2024-10-13 22:40 | XMS_ITS | Encounter Summary ---
Author Organization [facility] Address [address] [place] [address]. [place], [place] [address] [place] [address] Care Team Providers Care Corporate Driver Name Role Phone Oscar Edwards MD Primary Care Provider [phone] Reason for Visit * Reason Onset Date Comments Medication 07/22/2022 Encounter Details Date Type Department Care Team (Late st Contact Info) Description 07/22/2022 Telephone [facility] Group Multispecialty Care - [place] [address] [address] [place] [address] Oscar Edwards MD [address] [place] [address] [address] [place], [place] [id number] Medication Social History Tobacco Use Types Packs/Day [...] on file Legal Sex Female 5:53 PM VP PRODUCTION Gender Identity Not on file Sexual Orientation Not on file COVID-19 Exposure Response Date Recorded In the last 10 days, have yo u been in contact with someone who was confirmed or suspected to have Coronavirus/COVID-19? No / Unsure 07/21/2022 2:06 PM CDT documented as of this encounter Progress Notes * Oscar Edwards MD - 07/22/2022 7:42 PM CDT Mometasone nasal spray sent. documented in this encounter Plan of Treatment Upcoming Encounters Date Type Department Care Team (Late st Contact Info) Description 11/02/2024 8:00 AM VP PRODUCTION Office Visit [facility] Group Multispecialty Care - [place] [address] [address] [place] [address] Oscar Edwards MD [address] [address] 06/25/2025 9:00 AM CDT Office Visit [facility] [facility] [place] [address] [place] [address] Elisha Kim PA 3 [facility] [address] [place] [address] documented as of this encounter Visit Diagnoses Diagnosis Acute maxillary sinusitis, recurrence not specified- Primary documented in this encounter Additional Health Concerns Assessment Noted Time PHQ-9 Depression Total Score: 20 022 2:50 PM CDT documented as of this encounter Care Teams Corporate Driver Relationship Specialty [place] [address] [place] [address] PCP - General INTERNAL MEDICINE 04/28/22 documented as of this encounter
--- OUTSIDE RECORDS SUMMARY | 2024-10-13 22:40 | XMS_ITS | Encounter Summary ---
Author Organization [facility] Address [address] [place] [address]. [place], [place] [address] [place] [address] Care Team Providers Care Field Checker Name Role Phone Oscar Edwards MD Primary Care Provider [phone] Reason for Visit * Reason Onset Date Comments Medication Problem 07/22/2022 Encounter Details Date Type Department Care Team (Late st Contact Info) Description 07/22/2022 Telephone [facility] Medical Group Multispecialty Care - [place] [address] [address] [place] [address] Oscar Edwards MD [address] [place] [address] [address] [place], [place] [id number] Medication Problem Social History Tobacco Use Types Packs/Day Years [...] on file 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 No / Unsure 07/21/2022 2:06 PM CDT documented as of this encounter Progress Notes * Mirtha Whitney MA - 07/22/2022 3:05 PM CDT [facility] Fluticasone 50mcg nasal spray is not covered by patient ins plan. Preferred alternative is Mometasone. Message sent to pcp to review and change if appropriate documented in this encounter Plan of Treatment Upcoming Encounters Date Type Department Care Team (Late st Contact Info) Description 11/02/2024 8:00 AM SHEAR OPERATOR Office Visit [facility] Medical Group Multispecialty Care - [place] [address] [address] [place] [address] Oscar Edwards MD [address] [place] [address] 06/25/2025 9:00 AM CDT Office Visit [facility] [facility] [place] [address] [place], [place] [phone] Elisha Kim PA 3 [facility] [address] [place] [address] documented as of this encounter Visit Diagnoses Not on filedocumented in this encounter Additional Health Concerns Assessment Noted Time PHQ-9 Depression Total Score: 20 022 2:50 PM CDT documented as of this encounter Care Teams Field Checker Relationship Specialty Start Date End Date Oscar Edwards MD [address] [place] [id number] PCP - General INTERNAL MEDICINE 04/28/22 documented as of this encounter
--- OUTSIDE RECORDS SUMMARY | 2024-10-13 22:40 | XMS_ITS | Encounter Summary ---
Author Organization [facility] Address [address] [place] [address]. [place], [place] [id number] [place] [id number] Care Team Providers Care Layer Up Name Role Phone Oscar Edwards MD Primary Care Provider Encounter Details Date Type Department Care Team (Latest Contact Info) Description 04/02/2024 - 04/02/2024 11:59 PM T Hospital Encounter [facility] [address] [place] [address] [place] [address] [address] [place], [place] [id number] Discharge Disposition: Home or Self Care (Routine [...] on file Legal Sex Female 5:53 PM INDOOR LANDSCAPER/GARDENER Gender Identity Not on file Sexual Orientation Not on file documented as of this encounter Plan of Treatment Upcoming Encounters Date Type Department Care Team (Late st Contact Info) Description 11/02/2024 8:00 AM INDOOR LANDSCAPER/GARDENER Office Visit [facility] [place] [address] [place] [address] [address] [place] [address] Oscar Edwards MD [address] [facility] [address] [place] [address] 06/25/2025 9:00 AM CDT Office Visit Jasiel Meehan-[place] [facility] [place] [address] [place] [address] Elisha Kim PA [address] [facility] [address] [place] [address] documented as of this encounter Visit Diagnoses Not on filedocumented in this encounter Additional Health Concerns Assessment Noted Time PHQ-9 Depression Total Score: 0 04/11/20 23 2:41 PM CDT documented as of this encounter Care Teams Layer Up Relationship Specialty Start Date End Date Oscar Edwards MD [address] [facility] [address] [place] [address] PCP - General INTERNAL MEDICINE 04/28/22 documented as of this encounter
--- OUTSIDE RECORDS SUMMARY | 2024-10-13 22:40 | XMS_ITS | Encounter Summary ---
Author Organization [facility] Address [address] [place] [address]. [place], [place] [address] [place] [id number] Care Team Providers Care Senior Linux Engineer Name Role Phone Oscar Edwards MD Primary Care Provider [phone] Reason for Referral * Consultation (Routine) - Closed Specialty Diagnoses / Procedures Referred By Ethel marquis Referred To Contact OBGYN Diagnoses Women's annual routine gynecological examination Procedures OFFICE/OUTPATIENT NEW LOW MDM 30-44 MINUTES OFFICE/OUTPT VISIT,NEW,LEVL IV OFFICE/OUTPT VISIT,NEW,LEVL V OFFICE/OUTPT VISIT,EST,LEVL III OFFICE/OUTPT VISIT,EST,LEVL IV OFFICE/OUTPT VISIT,EST,LEVL V Oscar Edwards MD [address] [address] Phone: tel: fax: [place] [address] Phone: tel: fax: Referral ID Status Reason Start Date Expiration Date V isits Requested Visits Authorized [id number] Closed Specialty Services 11/01/2023 11/30/2024 99 99 TRUCTION OR LEAK GANG LABORER Reason for Visit * Reason Comments Physical Encounter Details Date Type Department Care Team (Late Contact Info) Description 11/01/2023 9:00 AM CONSTRUCTION OR LEAK GANG LABORER Office Visit [facility] Multispecialty Care - [place] [address] [facility] [address] [place] [address] Oscar Edwards MD [address] [facility] [address] [place] [address] Physical Social History Tobacco Use Types Packs/Day Years [...] on file Legal Sex Female 5:53 PM CONSTRUCTION OR LEAK GANG LABORER Gender Identity Not on file Sexual Orientation Not on file documented as of this encounter Last Filed Vital Signs Vital Sign Reading Time Taken Comments Blood Pressure 118/80 11/01/2023 9:26 AM CONSTRUCTION OR LEAK GANG LABORER Pulse 89 11/01/2023 9:26 AM CONSTRUCTION OR LEAK GANG LABORER Temperature 36.9 ??C (98.5 ??F) 11/01/2023 9:26 AM CS T Respiratory Rate 16 11/01/2023 9:26 AM CONSTRUCTION OR LEAK GANG LABORER Oxygen Saturation - - Inhaled Oxygen Concentration - - Weight 65.8 kg (145 lb) 11/01/2023 9:26 AM CONSTRUCTION OR LEAK GANG LABORER Height 162.6 cm (5' 4 ) 11/01/2023 9:26 AM CONSTRUCTION OR LEAK GANG LABORER Body Mass Index 24.89 11/01/2023 9:26 AM CONSTRUCTION OR LEAK GANG LABORER documented in this encounter Patient Instructions * Patient Instructions* Oscar Edwards MD - 11/01/2023 9:00 AM CONSTRUCTION OR LEAK GANG LABORER Follow up in one year for your physical- come fasting. See me sooner if needed for an acute visit. TRUCTION OR LEAK GANG LABORER * Attachments The following attachments cannot be sent through Care Everywhere. * Yearly Physical for Adults (Zambian) documented in this encounter Progress Notes * Oscar Edwards MD - 11/01/2023 9:00 AM CSTSummary: Annual physical notes Images from the original note were not included. ANNUAL PHYSICAL NOTES Encounter Date: 11/01/2023 Chief Complaint: 28-year-old female presents for Physical . The patient is being seen for a health maintenance evaluation. She has a history of supraventricular tachycardia for which patient has undergone a cardiac event monitor and an echocardiogram. Resultsshowed normal left ventricular size with left ventricular systolic function normal with ejection fraction of 55 to 60%. The left ventricular diastolic function was also normal. Wall motion normal in a ll segments. No valvular abnormalities reported.. Currently follows with cardiology. Her next appointment with cardiology is in May 2024. Currently patient reports she is doing well with no concerns at this time. She did have an episode where she needed to perform the Valsalva maneuver in July 2023 and symptoms resolved immediately. No chest pain or shortness of breath. Fasting for labs today. No chronic fatigue. She also has underlining depression with generalized anxiety disorder. Previously was on fluoxetineand has been off medications since November 2022. Currently patient not on any medications. Doing well. No suicidal thoughts or intentions to harm. She comes to today's visit with her and son. She is planning on getting again and working towards it. No concerns at this time. She is interested in establishing with a PATIENT FINANCIAL SERVICES COORDINATOR. Up-to-date with her Pap smear. General Health: good Dental Health: Sees dentist regularly Vision Health: Wears glasses Hearing Health: No hearing problems Immunizations Needed: Influenza and COVID Weight: Normal BMI Body mass index is 24.89 kg/m??. Physical Activity: Acitve lifestyle Cervical Cancer Screening: up to date Breast Cancer Screening: none Colorectal Cancer Screening: None Metabolic Screening: Patient needs to be screened today. HCV Screening: done PHQ-9 Screening Score: PHQ-9: 09/07/2022 7:33 AM 04/11/2023 2:41 PM PHQ2/PHQ 9 DEPRESSION SCREEN QUESTIONAIRE Little interest or pleasure in doing things Not at all Feeling down, depressed, or hopeless Not at all Patient Health Questionnaire-2 Score 0 Trouble falling or staying asleep, or sleeping too much Not at all Feeling tired or having little energy Not at all Poor appetite or overeating Not at all Feeling bad about yourself - or that you are a failure or have let yourself or your family down Notat all Trouble concentrating on things, such as reading the newspaper or watching television Not at all Moving or speaking so slowly that other people could have noticed? Or the opposite - being so fidgety or restless that you have been moving around a lot more than usual. Not at all Thoughts that you would be better off or hurting yourself in some way Not at all Patient Health Questionnaire-9 Score 0 LITTLE INTEREST OR PLEASURE IN DOING THINGS 0-Not at All FEELING DOWN, DEPRESSSED,OR HOPELESS 0-Not at All PHQ2 DEPRESSION TOTAL SCORE 0 IF YOU CHECKED OFF ANY PROBLEMS Somewhat difficult CHARLA-7 (Generalized Anxiety Disorder) Screening 09/07/2022 7:00 AM 04/11/2023 2:41 PM CHARLA-7 Feeling nervous, anxious, or on edge 0 Not being able to stop or control worrying 0 Worrying too much about different things 0 Trouble relaxing 0 Being so restless that it is hard to sit still 0 Becoming easily annoyed or irritable 0 Feeling afraid as if something awful might happen 0 CHARLA-7 Total Score 0 Feeling nervous, anxious and on edge 2 - more than half the days Not being able to stop or control worrying 2 - more than half the days Worrying too much about different things 2 - more than half the days Trouble Relaxing 2 - more than half the days Being so restless that it's hard to sit still 2 - more than half the days Becoming easily annoyed or irritable 2 - more than half the days Feeling afraid as if something awful might happen 3 - nearly every day Total Score 15 If you checked off any problems, how difficult have those problems made it for you to do your work take care of things at home or get along with other people? very difficult Smoking Status: History Smoking Status Never Smokeless Tobacco Never Patient does not meet criteria for Low Dose CT screening Sleep Apnea Risk Factors: None Review of Systems Constitutional: Negative for activity change, appetite change, chills, fatigue, fever and unexpected weight change. HENT: Negative for congestion, hearing loss, mouth sores, postnasal drip, rhinorrhea, sinus pressure, sinus pain, sore throat, tinnitus and voice change. Eyes: Negative for pain, discharge, redness, itching and visual disturbance. Respiratory: Negative for cough, chest tightness, shortness of breath and wheezing. Cardiovascular: Negative for chest pain, palpitations and leg swelling. Gastrointestinal: Negative for abdominal distention, abdominal pain, blood in stool, constipation, diarrhea, nausea and vomiting. Genitourinary: Negative for decreased urine volume, difficulty urinating, dysuria, flank pain, frequency, hematuria and urgency. Musculoskeletal: Negative for arthralgias, back pain, gait problem, joint swelling and myalgias. Skin: Negative for pallor, rash and wound. Neurological: Negative for dizziness, tremors, syncope, weakness, light- headedness and headaches. Hematological: Negative for adenopathy. Does not bruise/bleed easily. Psychiatric/Behavioral: Negative for agitation, behavioral problems, confusion, decreased concentration, dysphoric mood, hallucinations, self-injury, sleep disturbance and suicidal ideas. The patientis not nervous/anxious and is not hyperactive. Patient Active Problem List Diagnosis Anxiety Depression Past Medical History: Diagnosis Date Anxiety Depression Past Surgical History: Procedure Laterality Date SECTION Family History Problem Relation Name Age of Onset No Known Problems Mother No Known Problems Father Social History Socioeconomic History Marital status: Spouse name: Not on file Number of children: Not on file Years of education: Not on file Highest education level: Not on file Occupational History Not on file Tobacco Use Smoking status: Never Smokeless tobacco: Never Tobacco comments: counseled by Dr Edwards Vaping Use Vaping Use: Never used Substance and Sexual Activity Alcohol use: Never Drug use: Never Sexual activity: Yes Partners: Male control/protection: None Other Topics Concern Not on file Social History Narrative Not on file Social Determinants of Health Financial Resource Strain: Not on file Food Insecurity: Not on file Transportation Needs: Not on file Physical Activity: Not on file Stress: Not on file Social Connections: Not on file Intimate Partner Violence: Not on file Housing Stability: Not on file Immunization History Administered Date(s) Administered Dtap (Acel-Immune) 03/21/1998 Dtp (Generic) 1993, 1993, 1993 Dtp/Hib (Tetramune) 04/26/1994 Fluzone 6 Months+ Quad (0.5 mL Prefilled Syringe) 08/24/2022 HPV4 (Gardasil) 05/18/2010, 08/24/2010, 01/06/2011 Hepatitis B Pediatric 1993, 1993, 1993 Hib (Generic) 1993, 1993, 1993 MMR (MMRII) 04/26/1994, 03/21/1998 Meningococcal (Generic) 05/10/2007 Polio Opv (Generic) 1993, 1993, 04/26/1994, 03/21/1998 Tdap (Adacel) 11/06/2020 Tdap (Generic) 05/10/2007 No current outpatient medications on file. No current facility-administered medications for this visit. No current outpatient medications on file prior to visit. No current facility-administered medications on file prior to visit. Review of patient's allergies indicates: Allergen Reactions Macrobid [Nitrofurantoin] Shortness of Breath bruising Z-Taras [Azithromycin] Other (see comment) Itchy hands, dizzy, generalized not feeling well Buspar [Buspirone] Other (see comment) Cold sweats, difficulty breathing Ibuprofen Hives Dexamethasone Eyes Water & Itch and Itching Objective: Filed Vitals: 11/01/23 0926 BP: 118/80 Pulse: 89 Resp: 16 Temp: 98.5 ??F (36.9 ??C) TempSrc: Temporal Weight: 65.8 kg (145 lb) Height: 1.626 m (5' 4 ) Physical Exam Vitals and nursing note reviewed. Constitutional: General: She is not in acute distress. Appearance: She is not ill-appearing, toxic-appearing or diaphoretic. HENT: Head: Normocephalic and atraumatic. Right Ear: Tympanic membrane, ear canal and external ear normal. There is no impacted cerumen. Left Ear: Tympanic membrane, ear canal and external ear normal. There is no impacted cerumen. Nose: Nose normal. Mouth/Throat: Mouth: Mucous membranes are moist. Pharynx: Oropharynx is clear. No oropharyngeal exudate. Eyes: General: No scleral icterus. Right eye: No discharge. Left eye: No discharge. Conjunctiva/sclera: Conjunctivae normal. Pupils: Pupils are equal, round, and reactive to light. Neck: Thyroid: No thyromegaly. Vascular: No carotid bruit or JVD. Trachea: No tracheal deviation. Cardiovascular: Rate and Rhythm: Normal rate and regular rhythm. Pulses: Normal pulses. Heart sounds: Normal heart sounds. No murmur heard. Pulmonary: Effort: Pulmonary effort is normal. No respiratory distress. Breath sounds: Normal breath sounds. No stridor. No wheezing or rales. Chest: Chest wall: No tenderness. Abdominal: General: Bowel sounds are normal. There is no distension. Palpations: Abdomen is soft. There is no mass. Tenderness: There is no abdominal tenderness. There is no right CVA tenderness, left CVA tenderness, guarding or rebound. Hernia: No hernia is present. Musculoskeletal: General: No swelling, tenderness, deformity or signs of injury. Normal range of motion. Cervical back: Normal range of motion and neck supple. No rigidity or tenderness. Right lower leg: No edema. Left lower leg: No edema. Lymphadenopathy: Cervical: No cervical adenopathy. Skin: Coloration: Skin is not jaundiced or pale. Findings: No bruising, erythema, lesion or rash. Neurological: Mental Status: She is alert and oriented to person, place, and time. Cranial Nerves: No cranial nerve deficit. Sensory: No sensory deficit. Motor: No weakness or abnormal muscle tone. Coordination: Coordination normal. Gait: Gait is intact. Gait normal. Deep Tendon Reflexes: Reflexes are normal and symmetric. Reflexes normal. Psychiatric: Mood and Affect: Mood and affect normal. Behavior: Behavior normal. Thought Content: Thought content normal. Cognition and Memory: Memory normal. Judgment: Judgment normal. Assessment & Plan: Opal was seen today for physical. Diagnoses and all orders for this visit: Annual physical exam - Patient past medical, surgical, family history and social history updated. Allergies, immunizations and medications updated. Also did discuss healthy lifestyle including exercising, dietary changes and safe sexual practices as well as safe habits common to patient age group including wearing seat belt when transporting in a vehicle and limiting alcohol and avoiding smoking/second hand smoking. Patient will set up [employer] [facility] [employer]. Patient will fax over any remaining outside records that would be relevant to care provided. - URINALYSIS AUTO DIP - HEMOGLOBIN, GLYCOSYLATED; Future - TSH W/REFLEX; Future - LIPID PANEL; Future - COMPREHENSIVE METABOLIC PANEL; Future - CBC W/DIFF AUTOMATED; Future - VENIPUNC ARM DRAW General medical exam - Patient past medical, surgical, family history and social history updated. Allergies, immunizations and medications updated. Also did discuss healthy lifestyle including exercising, dietary changes and safe sexual practices as well as safe habits common to patient age group including wearing seat belt when transporting in a vehicle and limiting alcohol and avoiding smoking/second hand smoking. Patient will set up MyChart. Patient will fax over any remaining outside records that would be relevant to care provided. - URINALYSIS AUTO DIP - HEMOGLOBIN, GLYCOSYLATED; Future - TSH W/REFLEX; Future - LIPID PANEL; Future - COMPREHENSIVE METABOLIC PANEL; Future - CBC W/DIFF AUTOMATED; Future - VENIPUNC ARM DRAW Screening for diabetes mellitus - HEMOGLOBIN, GLYCOSYLATED; Future Screening for hyperlipidemia - LIPID PANEL; Future Screening for hypothyroidism - TSH W/REFLEX; Future Anxiety -No concerns. Doing well off medications. Monitor Severe episode of recurrent major depressive disorder, without psychotic features (HHS/HCC) (CMS/HCC) -No concerns. Doing well off medications. Monitor SVT (supraventricular tachycardia) -No concerns at this time. Not on any medications. Close follow-up with cardiology. Need for immunization against influenza - [53090] FLU VACC QUAD 6 MONTHS+ 0.5 ML (SINGLE DOSE SYRINGE FLUZONE, FLUARIX, FLULAVAL OR SINGLE DOSE VIAL FLUZONE) Women's annual routine gynecological examination - Ambulatory referral to Obstetrics/Gynecology (OTHER) I personally spent a total of 30 minutes on the day of the encounter. This includes eyhn-cl-aiyv and rcx-qmno-va-face time I provided on the day of the encounter & excludes time spent performing separately reportable services. DRAGON: This dictation was at least in part performed using [employer] and there may be some inherent flaws in this anode worker due to the nature of this program. MD Oscar NICHOLS MD Internal Medicine [facility], [facility]. TRUCTION OR LEAK GANG LABORER documented in this encounter Plan of Treatment Upcoming Encounters Date Type Department Care Team (Late st Contact Info) Description 11/02/2024 8:00 AM CONSTRUCTION OR LEAK GANG LABORER Office Visit [facility] Medical [facility] Multispecialty Care - [place] [address] [address] [place] [address] Oscar Edwards MD [address] [place] [address] [address] [place] [address] 06/25/2025 9:00 AM CDT Office Visit [facility] [place] [address] [place] [address] Elisha Kim PA [address] [facility] [address] [place] [address] Scheduled Referrals Name Type Priority Associated Diagnoses Orde r Schedule Ambulatory referral to Obstetrics/Gynecology (OTHER) Referral Routine Women's annual routine gynecological examination Ordered: 11/01/2023 documented as of this encounter Procedures Procedure Name Priority Date/Time Associated Diagnosis Comments TSH W/REFLEX Routine 11/01/2023 9:54 AM CONSTRUCTION OR LEAK GANG LABORER Annual physical exam General medical exam Screening for hypothyroidism HEMOGLOBIN, GLYCOSYLATED Routine 11/01/2023 9:54 AM CONSTRUCTION OR LEAK GANG LABORER Annual physical exam General medical exam Screening for diabetes mellitus COMPREHENSIVE METABOLIC PANEL Routine 11/01/2023 9:54 AM CONSTRUCTION OR LEAK GANG LABORER Annual physical exam General medical exam LIPID PANEL Routine 11/01/2023 9:54 AM CONSTRUCTION OR LEAK GANG LABORER Annual physical exam General medical exam Screening for hyperlipidemia CBC W/DIFF AUTOMATED Routine 11/01/2023 9:54 AM CONSTRUCTION OR LEAK GANG LABORER Annual physical exam General medical exam VENIPUNC ARM DRAW Routine 11/01/2023 9:4 3 AM CONSTRUCTION OR LEAK GANG LABORER Annual physical exam General medical exam URINALYSIS AUTO DIP Routine 11/01/2023 Annual physical exam General medical exam documented in this encounter Results * (ABNORMAL) CBC W/DIFF AUTOMATED (11/01/2023 9:54 AM CONSTRUCTION OR LEAK GANG LABORER) [facility] WBC 4.59 4.00 - 10.80 x10'3/uL 11/01/2023 3:54 PM CONSTRUCTION OR LEAK GANG LABORER [facility] RBC 4.63 4.10 - 5.40 x10'6/uL 11/01/2023 3:54 PM [facility] HGB 12.7 12.0 - 16.0 G/DL 11/01/2023 3:54 PM [facility] HCT 39.8 36.0 - 47.0 % 11/01/2023 3:54 PM [facility] MCV 86.0 78.0 - 100.0 FL 11/01/2023 3:54 PM [facility] MCH 27.4 27.0 - 31.0 PG 11/01/2023 3:54 PM [facility] MCHC 31.9(L) 33.0 - 36.0 G/DL 11/01/2023 3:54 PM [facility] RDW 14.4 11.5 - 14.5 % 11/01/2023 3:54 PM [facility] PLT 223 150 - 350 x10'3/uL 11/01/2023 3:54 PM [facility] MPV 10.8(H) 7.4 - 10.4 FL 11/01/2023 3:54 PM [facility] DIFFERENTIAL TYPE AUTOMATED DIFFERENTIAL 11/01/2023 3:54 PM [facility] NEUTROPHILS % 63.3 % 11/01/2023 3:54 PM [facility] LYMPHOCYTES % 26.8 % 11/01/2023 3:54 PM [facility] MONOCYTES % 8.3 % 11/01/2023 3:54 PM [facility] EOSINOPHILS % 0.7 % 11/01/2023 3:54 PM [facility] BASOPHILS % 0.7 % 11/01/2023 3:54 PM [facility] IMMATURE GRANS % 0.2 % 11/01/2023 3:54 PM [facility] ABS. NEUTROPHILS 2.91 1.60 - 8.30 x10'3/uL 11/01/2023 3:54 PM CONSTRUCTION OR LEAK GANG LABORER [facility] ABS. LYMPHOCYTES 1.23 0.80 - 4.70 x10'3/uL 11/01/2023 3:54 PM CONSTRUCTION OR LEAK GANG LABORER [facility] ABS. MONOCYTES 0.38 0.00 - 1.50 x10'3/uL 11/01/2023 3:54 PM CONSTRUCTION OR LEAK GANG LABORER [facility] ABS. EOSINOPHILS 0.03 0.00 - 0.40 x10'3/uL 11/01/2023 3:54 PM CONSTRUCTION OR LEAK GANG LABORER [facility] ABS. BASOPHILS 0.03 0.00 - 0.20 x10'3/uL 11/01/2023 3:54 PM CONSTRUCTION OR LEAK GANG LABORER [facility] ABS. IMMATURE GRANULOCYTES 0.01 0.00 - 0.03 x10'3/uL 11/01/2023 3:54 PM [facility] 11/01/2023 9:54 AM CONSTRUCTION OR LEAK GANG LABORER Oscar Edwards MD LABORATORY Final Result [facility] [address] [place] [address], * (ABNORMAL) COMPREHENSIVE METABOLIC PANEL (11/01/2023 9:54 AM CONSTRUCTION OR LEAK GANG LABORER) [facility] Signature SODIUM S/P/B 138 136 - 145 MMOL/L 11/01/2023 4:29 PM [facility] POTASSIUM S/P/B 4.0 3.5 - 5.1 MMOL/L 11/01/2023 4:29 PM [facility] CHLORIDE S/P/B 103 98 - 107 MMOL/L 11/01/2023 4:29 PM [facility] CO2 26.3 21 - 32 MMOL/L 11/01/2023 4:29 PM [facility] GLUCOSE 84 70 - 99 MG/DL 11/01/2023 4:29 PM [facility] BUN 11 7 - 18 MG/DL 11/01/2023 4:29 PM [facility] CREATININE S/P/B 0.77 0.55 - 1.02 MG/DL 11/01/2023 4:29 PM [facility] CALCIUM S/P/B 9.1 8.4 - 10.5 MG/DL 11/01/2023 4:29 PM [facility] BILIRUBIN TOTAL S/P/B 1.6(H) 0.2 - 1.0 MG/DL 11/01/2023 4:29 PM [facility] ALKALINE PHOSPHATASE S/P/B 40 37 - 98 U/L 11/01/2023 4:29 PM [facility] AST 13(L) 15 - 37 U/L 11/01/2023 4:29 PM [facility] ALT 17 14 - 59 U/L 11/01/2023 4:29 PM [facility] TOTAL PROTEIN S/P/B 7.2 6.4 - 8.2 G/DL 11/01/2023 4:29 PM [facility] ALBUMIN S/P/B 4.1 3.4 - 5.0 G/DL 11/01/2023 4:29 PM [facility] ANION GAP 8.7 5 - 15 MMOL/L 11/01/2023 4:29 PM [facility] Comment:REFERENCE RANGE NOT ESTABLISHED OSMOLALITY (CALC) 285 MOSM/KG 024 4:29 PM [facility] Comment:REFERENCE RANGE NOT ESTABLISHED GFR ESTIMATE >90 >90 ML/MIN/1. 73 M2 11/01/2023 4:29 PM [facility] GFR NOTES GFR REFERENCE S: 11/01/2023 4:29 PM [facility] Comment: THE ESTIMATED GFR IS CALCULATED USING [...] ml/min/1.73 m2 G5,KIDNEY FAILURE: <15 ml/min/1.73 m2 11/01/2023 9:54 AM CONSTRUCTION OR LEAK GANG LABORER Oscar Edwards MD LABORATORY Final Result [facility] [address] [place] [address], * LIPID PANEL (11/01/2023 9:54 AM CONSTRUCTION OR LEAK GANG LABORER) CHOLESTEROL 183 <200 MG/DL 11/01/2023 4:29 PM CONSTRUCTION OR LEAK GANG LABORER [facility] TRIGLYCERIDES 53 <150 MG/DL 11/01/2023 4:29 PM [facility] HDL 73 >40 MG/DL 11/01/2023 4:29 PM CONSTRUCTION OR LEAK GANG LABORER [facility] LDL-C 99 <100 MG/DL 11/01/2023 4:29 PM [facility] VLDL CALCULATION 11 5 - 28 MG/DL 11/01/2023 4:29 PM [facility] CHOL/HDL RATIO 2.5 0.0 - 4.0 11/01/2023 4:29 PM CONSTRUCTION OR LEAK GANG LABORER [facility] LDL/HDL 1.4 0.41 - 2.13 11/01/2023 4:29 PM [facility] NON HDL CHOLESTEROL 110 <140 MG/DL 11/01/2023 4:29 PM CONSTRUCTION OR LEAK GANG LABORER [facility] 11/01/2023 9:54 AM CONSTRUCTION OR LEAK GANG LABORER Oscar Edwards MD LABORATORY Final Result Performing Organization Address City/[facility]/ZIP Co de Phone Number [facility] [address] [place] [address], [place] [phone] * TSH W/REFLEX (11/01/2023 9:54 AM CONSTRUCTION OR LEAK GANG LABORER) TSH 2.870 0.358 - 3.740 uIU/ML 11/01/2023 4:29 PM CONSTRUCTION OR LEAK GANG LABORER [facility] 11/01/2023 9:54 AM CONSTRUCTION OR LEAK GANG LABORER Oscar Edwards MD LABORATORY Final Result Performing Organization Address [facility] Co de Phone Number [place] [id number] [place] [address], [place] [phone] * HEMOGLOBIN, GLYCOSYLATED (11/01/2023 9:54 AM CONSTRUCTION OR LEAK GANG LABORER) HGB A1C 4.6 4.5 - 6.2 % 11/01/2023 4:28 PM CONSTRUCTION OR LEAK GANG LABORER [facility] ESTIMATED AVG GLUCOSE 85 74 - 106 MG/DL 11/01/2023 4:28 PM CONSTRUCTION OR LEAK GANG LABORER [facility] 11/01/2023 9:54 AM CONSTRUCTION OR LEAK GANG LABORER Oscar Edwards MD LABORATORY Final Result Performing Organization Address [facility]/ZIP Co de Phone Number [facility] [address] [place] [address], * (ABNORMAL) URINALYSIS AUTO DIP (11/01/2023) COLOR (U) YELLOW YELLOW MG[address], [place] TRANSPARENCY CLEAR CLEAR MG[address], [place] GLUCOSE (U) NEGATIVE NEGATIVE MG/DL MG[address], [place] BILIRUBIN (U) NEGATIVE NEGATIVE MG-[address], [place] KETONES MG/DL (U) NEGATIVE NEGATIVE MG/DL MG-[address], [place] SPECIFIC GRAVITY (U) 1.025 1.001 - 1.035 MG-[address], [place] BLOOD (U) TRACE (Non Hemolyzed, Intact)(A) NEGATIVE MG-[address], [place] U PH 6.0 5.0 - 9.0 MG-[address], [place] PROTEIN (U) NEGATIVE NEGATIVE mg/dL MG-[address], [place] UROBILINOGEN 0.2 0.2 - 1.0 EU/dL = mg/dL MG-[address], [place] NITRITES NEGATIVE NEGATIVE MG/DL MG-[address], [place] LEUKOCYTES (U) NEGATIVE NEGATIVE MG-[address], [place] URINE SPECIMEN OBTAINED BY CLEAN CATCH PROCEDURE / Unknown 11/01/2023 Oscar Edwards MD URINE ORDERABLES Final Result [address], [facility] [address] [place] [address], documented in this encounter Visit Diagnoses Diagnosis Annual physical exam- Primary Routine general medical examination at a health care facility General medical exam Unspecified general medical examination Screening for diabetes mellitus Screening for hyperlipidemia Screening for lipoid disorders Screening for hypothyroidism Screening for thyroid disorder Anxiety Anxiety state, unspecified Severe episode of recurrent major depressive disorder, without psychotic features ([facility] HHS/HCC) SVT (supraventricular tachycardia) ([facility] HHS/[facility]) Other specified cardiac dysrhythmias Need for immunization against influenza Need for prophylactic vaccination and inoculation against influenza Women's annual routine gynecological examination documented in this encounter Additional Health Concerns Assessment Noted Time PHQ-9 Depression Total Score: 0 04/11/20 23 2:41 PM CDT documented as of this encounter Care Teams Senior Linux Engineer Relationship Specialty Start Date End Date Oscar Edwards MD [address] [facility] [address] [place] [address] PCP - General INTERNAL MEDICINE 04/28/22 documented as of this encounter
--- OUTSIDE RECORDS SUMMARY | 2024-10-13 22:40 | XMS_ITS | Encounter Summary ---
Author Organization [facility] Address [address] [place] [address]. [place], [place] [address] [place] [address] Care Team Providers Care Route Clerk Name Role Phone Oscar Edwards MD Primary Care Provider [phone] Reason for Referral * Consultation (Routine) - Closed Specialty Diagnoses / Procedures Referred By Ethel marquis Referred To Contact PSYCHOLOGY Diagnoses Severe episode of recurrent major depressive disorder, without psychotic features ([facility]/HCC [facility]) CHARLA (generalized anxiety disorder) Procedures OFFICE/OUTPT VISIT,NEW,LEVL III OFFICE/OUTPT VISIT,NEW,LEVL IV OFFICE/OUTPT VISIT,NEW,LEVL V OFFICE/OUTPT VISIT,EST,LEVL III OFFICE/OUTPT VISIT,EST,LEVL IV OFFICE/OUTPT VISIT,EST,LEVL V Oscar Edwards MD [address] [facility] [address] [place] [address] Phone: tel: fax: [facility] [address] [place] [address] Phone: tel: fax: Referral ID Status Reason Start Date Expiration Date V isits Requested Visits Authorized [id number] Closed Specialty Services 08/24/2022 09/23/2023 99 99 TRIC SYSTEM OPERATOR Reason for Visit * Reason Comments Anxiety Depression Encounter Details Date Type Department Care Team (Latest Contact Info) Description 08/24/2022 3:00 PM ELECTRIC SYSTEM OPERATOR Office Visit [facility] Multispecialty Care - [place] [address] [facility] [address] [place] [address] Oscar Edwards MD [address] [facility] [address] [place] [address] Anxiety; Depression Social History Tobacco Use Types Packs/Day Years Used Date Smoking Tobacco: Never Smokeless Tobacco: Never Tobacco Cessation:Counseling Given: Yes Comments:counseled by Dr Edwards Alcohol Use Standard Drinks/Week Comments Never 0 (1 standard drink = 0.6 oz pur e alcohol) PHQ-2 Answer Date Recorded PHQ-2 Score - If the patient scores above 3, please move on to questions 3-9 0 08/24/2022 Comments No Sex and Gender Information Value Date Recorded Sex Assigned at Not on file Legal Sex Female 5:53 PM ELECTRIC SYSTEM OPERATOR Gender Identity Not on file Sexual Orientation Not on file COVID-19 Exposure Response Date Recorded In the last 10 days, have yo u been in contact with someone who was confirmed or suspected to have Coronavirus/COVID-19? No / Unsure 08/24/2022 2:28 PM ELECTRIC SYSTEM OPERATOR documented as of this encounter Last Filed Vital Signs Vital Sign Reading Time Taken Comments Blood Pressure 101/73 08/24/2022 2:34 PM ELECTRIC SYSTEM OPERATOR Pulse 70 08/24/2022 2:34 PM ELECTRIC SYSTEM OPERATOR Temperature 36.9 ??C (98.4 ??F) 08/24/2022 2:34 PM CS T Respiratory Rate 18 08/24/2022 2:34 PM ELECTRIC SYSTEM OPERATOR Oxygen Saturation 99% 08/24/2022 2:34 PM ELECTRIC SYSTEM OPERATOR Inhaled Oxygen Concentration - - Weight 54.9 kg (121 lb) 08/24/2022 2:34 PM ELECTRIC SYSTEM OPERATOR Height 167.6 cm (5' 6 ) 08/24/2022 2:34 PM ELECTRIC SYSTEM OPERATOR Body Mass Index 19.53 08/24/2022 2:34 PM ELECTRIC SYSTEM OPERATOR documented in this encounter Patient Instructions * Patient Instructions* Oscar Edwards MD - 08/24/2022 3:00 PM ELECTRIC SYSTEM OPERATOR Follow up in 6 weeks for your next visit. TRIC SYSTEM OPERATOR * Attachments The following attachments cannot be sent through Care Everywhere. * Generalized Anxiety Disorder Discharge Instructions (Guatemalan) documented in this encounter Progress Notes * Oscar Edwards MD - 08/24/2022 3:00 PM CSTSummary: Follow up notes Images from the original note were not included. Internal Medicine Outpatient Progress Note CC: Anxiety and Depression HPI: Opal Swenson is a 27-year-old female who presents for follow-up for major depression and generalized anxiety disorder as well as panic attacks. Patient was seen on 06/25/2022 for follow-up for major depression and generalized anxiety disorder. ??During that visit, concerns for improving symptoms however not optimally controlled at that time. ??Her??doses of medications was adjusted and patient currently on fluoxetine 40 mg daily. ??She is nolonger using the clonazepam.??She currently does not follow routinely with therapy or with psychiatry. ??Currently reports her symptoms are getting better but finds herself worrying very often. ??No suicidal thoughts or ideations. ??Denies any concerns for juan, delusions or hallucinations. PHQ-9: Over the last two weeks, how often have you been bothered by any of the following problems? 06/25/2022 08/24/2022 LITTLE INTEREST OR PLEASURE IN DOING THINGS 1-Several Days 0-Not at All FEELING DOWN, DEPRESSSED,OR HOPELESS 1-Several Days 0-Not at All PHQ2 DEPRESSION TOTAL SCORE 2 0 TROUBLE FALLING OR STAYING ASLEEP OR SLEEPING TOO MUCH - - FEELING TIRED OR HAVING LITTLE ENERGY - - POOR APPETITE OR OVEREATING - - FEELING BAD ABOUT YOURSELF - - TROUBLE CONCENTRATING ON THINGS - - MOVING OR SPEAKING SO SLOWLY THAT OTHER PEOPLE COULD HAVE NOTICED - - THOUGHTS THAT YOU WOULD BE BETTER OFF - - DEPRESSION SCREENING TOTAL SCORE - - IF YOU CHECKED OFF ANY PROBLEMS - Somewhat difficult CHARLA-7 (Generalized Anxiety Disorder) Screening CHARLA-7 06/25/2022 08/24/2022 Feeling nervous, anxious and on edge 2 - more than half the days 1 - several days Not being able to stop or control worrying 2 - more than half the days 1 - several days Worrying too much about different things 2 - more than half the days 1 - several days Trouble Relaxing 1 - several days 1 - several days Being so restless that it's hard to sit still 1 - several days 1 - several days Becoming easily annoyed or irritable 0 - not at all 1 - several days Feeling afraid as if something awful might happen 2 - more than half the days 2 - more than half the days Total Score 10 8 If you checked off any problems, how difficult have those problems made it for you to do your work take care of things at home or get along with other people? somewhat difficult somewhat difficult Problem List There is no problem list on file for this patient. Past Medical History: Diagnosis Date ??? Anxiety ??? Depression Past Surgical History: Procedure Laterality Date ??? SECTION Family History Problem Relation Name Age of Onset ??? No Known Problems Mother ??? No Known Problems Father Social History Tobacco Use ??? Smoking status: Never Smoker ??? Smokeless tobacco: Never Used ??? Tobacco comment: counseled by Dr Edwards Vaping Use ??? Vaping Use: Never used Substance Use Topics ??? Alcohol use: Never ??? Drug use: Never Medications: Outpatient Medications Marked as Taking for the 08/24/22 encounter (Office Visit) with Oscar Edwards MD Medication Sig Dispense Refill ??? azelastine (ASTELIN) 0.1 % nasal spray 1 spray by Nasal route 2 (two) times daily. Use in each nostril as directed 30 mL 1 ??? busPIRone (BUSPAR) 15 MG tablet Take 1 tablet (15 mg total) by mouth 2 (two) times daily. 30 tablet 0 ??? [START ON 09/07/2022] busPIRone (BUSPAR) 30 MG tablet Take 1 tablet (30 mg total) by mouth 2 (two) times daily. 60 tablet 2 ??? FLUoxetine (PROZAC) 40 MG capsule Take 1 capsule (40 mg total) by mouth daily. 90 capsule 1 ??? fluticasone propionate (FLONASE) 50 MCG/ACT nasal spray 1 spray by Each Nostril route daily. Okay to substitute per insurance. 16 g 1 Allergies: Allergies Allergen Reactions ??? Macrobid [Nitrofurantoin] Shortness of Breath bruising ??? Z-Taras [Azithromycin] Other (see comment) Itchy hands, dizzy, generalized not feeling well ??? Ibuprofen Hives ? ? Dexamethasone Eyes Water & Itch and Itching Review of Systems Constitutional: Negative for chills, diaphoresis, fever, malaise/fatigue and weight loss. HENT: Negative. Eyes: Negative. Respiratory: Negative. Cardiovascular: Negative for chest pain, palpitations, orthopnea, claudication, leg swelling and PND. Gastrointestinal: Negative. Genitourinary: Negative. Musculoskeletal: Negative. Neurological: Negative. Psychiatric/Behavioral: Negative for depression, hallucinations, memory loss, substance abuse and suicidal ideas. The patient is nervous/anxious. The patient does not have insomnia. Objective: Filed Vitals: 08/24/22 1434 BP: 101/73 Pulse: 70 Resp: 18 Temp: 98.4 ??F (36.9 ??C) TempSrc: Temporal SpO2: 99% Weight: 54.9 kg (121 lb) Height: 5' 6 (1.676 m) Body mass index is 19.53 kg/m??. General alert, cooperative, no distress HEENT [...] is grossly normal and symmetric Psych Normal affect MSK No synovitis, no bony tenderness, no joint effusions Lymph No cervical or supraclavicular adenopathy Assessment and Plan: Encounter Diagnose(s) ICD-10-CM ICD-9-CM SNOMED CT(R) 1. Need for immunization against influenza Z23 V04.81 NEEDS INFLUENZA IMMUNIZATION [67188] FLU VACCQUAD 6 MONTHS+ 0.5 ML (SINGLE DOSE SYRINGE FLUZONE, FLUARIX, FLULAVAL OR SINGLE DOSE VIAL FLUZONE) 2. Severe episode of recurrent major depressive disorder, without psychotic features (CMS/HCC) F33.2 296.33 SEVERE RECURRENT MAJOR DEPRESSION WITHOUT PSYCHOTIC FEATURES Ambulatory Referral to Psychology FLUoxetine (PROZAC) 40 MG capsule 3. CHARLA (generalized anxiety disorder) F41.1 300.02 GENERALIZED ANXIETY DISORDER busPIRone (BUSPAR) 15 MG tablet busPIRone (BUSPAR) 30 MG tablet Ambulatory Referral to Psychology FLUoxetine (PROZAC) 40 MG capsule 1. Need for immunization against influenza - [85762] FLU VACC QUAD 6 MONTHS+ 0.5 ML (SINGLE DOSE SYRINGE FLUZONE, FLUARIX, FLULAVAL OR SINGLE DOSE VIAL FLUZONE) 2. Severe episode of recurrent major depressive disorder, without psychotic features (CMS/HCC) - controlled - I personally reviewed PHQ-9 and CHARLA-7 scores with patient today and explained the meaning of patient's scores to patient. Patient is currently controlled. I counseled for about 3 minutes on strategies including stress management, sleep hygiene, balanced diet, regular physical activity including aerobic exercise, weight reduction, activity pacing, maintenance of overall health lifestyle, medication compliance and the need for close follow up. Comorbidities including depression, anxiety currently being managed. Active nonpharmacological therapies including supervised and graded exercise program as well as cognitive behavioral interventions discussed as well. Based on patient scores today, Ihave discussed with patient the plan as outlined below. - Ambulatory Referral to Psychology - continue FLUoxetine (PROZAC) 40 MG capsule; Take 1 capsule (40 mg total) by mouth daily. Dispense: 90 capsule; Refill: 1 3. CHARLA (generalized anxiety disorder) - improving but not controlled; still continues to struggle with worrying - I personally reviewed PHQ-9 and CHARLA-7 [...] patient the plan as outlined below. - add busPIRone (BUSPAR) 15 MG tablet; Take 1 tablet (15 mg total) by mouth 2 (two) times daily. Dispense: 30 tablet; Refill: 0 -add busPIRone (BUSPAR) 30 MG tablet; Take 1 tablet (30 mg total) by mouth 2 (two) times daily. Dispense: 60 tablet; Refill: 2 - Ambulatory Referral to Psychology -continue FLUoxetine (PROZAC) 40 MG capsule; Take 1 capsule (40 mg total) by mouth daily. Dispense:90 capsule; Refill: 1 - follow up in 6 weeks. Counseling given: Yes Comment: counseled by Dr Edwards I spent 30 [...] was at least in part performed using [employer] and there may be some inherent flaws in this trust evaluation supervisor due to the nature of this program. Oscar Edwards MD Internal Medicine [facility], [facility]. TRIC SYSTEM OPERATOR documented in this encounter Plan of Treatment Upcoming Encounters Date Type Department Care Team (Late st Contact Info) Description 11/02/2024 8:00 AM ELECTRIC SYSTEM OPERATOR Office Visit [facility] Medical Group Multispecialty Care - [place] [address] [address] [place] [address] Oscar Edwards MD [address] [place] [address] [address] [place] [address] 06/25/2025 9:00 AM CDT Office Visit [facility] [address] Elisha Kim PA 3 [facility] [address] [place] [address] Scheduled Referrals Name Type Priority Associated Diagnoses Orde r Schedule Ambulatory Referral to Psychology Referral Routine Severe episode of recurrent major depressive disorder, without psychotic features ([facility]) CHARLA (generalized anxiety disorder) Ordered: 08/24/2022 documented as of this encounter Visit Diagnoses Diagnosis Need for immunization against influenza- Primary Need for prophylactic vaccination and inoculation against influenza Severe episode of recurrent major depressive disorder, without psychotic features ([facility]) CHARLA (generalized anxiety disorder) Generalized anxiety disorder documented in this encounter Additional Health Concerns Assessment Noted Time PHQ-9 Depression Total Score: 20 022 2:50 PM CDT documented as of this encounter Care Teams Route Clerk Relationship Specialty Start Date End Date Oscar Edwards MD [address] [address] PCP - General INTERNAL MEDICINE 04/28/22 documented as of this encounter
--- OUTSIDE RECORDS SUMMARY | 2024-10-13 22:40 | XMS_ITS | Encounter Summary ---
Author Organization [facility] Address [address] [place] [address]. [place], [place] [address] [place] [address] Care Team Providers Care Utility Sales Representative Name Role Phone Oscar Edwards MD Primary Care Provider [phone] Reason for Referral * Imaging (Emergency) - Closed Specialty Diagnoses / Procedures Referred By Ethel marquis Referred To Contact RADIOLOGY Diagnoses Acute pain of right knee Procedures MRI KNEE RT WO CON MRI KNEE RT WO CON Oscar Edwards MD [address] [address] Phone: tel: fax: Referral ID Status Reason Start Date Expiration Date Visits Re quested Visits Authorized [id number] Closed 09/15/2022 09/15/2023 1 1 ICULTURAL INTERNSHIP Reason for Visit * Imaging (Emergency) - Closed Specialty Diagnoses / Procedures Referred By Ethel marquis Referred To Contact RADIOLOGY Diagnoses Acute pain of right knee Procedures MRI KNEE RT WO CON MRI KNEE RT WO CON Oscar Edwards MD [address] [facility] [address] [place] [address] Phone: tel: fax: Referral ID Status Reason Start Date Expiration Date Visits Re quested Visits Authorized [id number] Closed 09/15/2022 09/15/2023 1 1 Encounter Details Date Type Department Care Team (Latest Contact Info) Description 09/17/2022 7:34 AM MULTICULTURAL INTERNSHIP - 09/17/2022 11:59 PM MULTICULTURAL INTERNSHIP Hospital Encounter [facility] [address] [place] [address] Oscar Edwards MD [address] [facility] [address] [place], [place] [id number] Discharge Disposition: Home or Self Care (Routine [...] on file Legal Sex Female 5:53 PM MULTICULTURAL INTERNSHIP Gender Identity Not on file Sexual Orientation Not on file COVID-19 Exposure Response Date Recorded In the last 10 days, have yo u been in contact with someone who was confirmed or suspected to have Coronavirus/COVID-19? No / Unsure 09/17/2022 7:33 AM MULTICULTURAL INTERNSHIP documented as of this encounter Medications at Time of Discharge azelastine (ASTELIN) 0.1 % nasal sprayIndications :Acute maxillary sinusitis, recurrence not specified 1 spray by Nasal route 2 (two) times daily. Use in each nostril as directed 30 mL 1 07/21/2022 3 diclofenac sodium (VOLTAREN) 1 % gelIndications:A cute pain of right knee Apply 4 g topically 4 (four) times daily. 150 g 1 09/15/2022 3 FLUoxetine (PROZAC) 20 MG capsuleIndicatio ns:Severe episode of recurrent major depressive disorder, without psychotic features (CMS/HCC HHS/HCC),CHARLA (generalized anxiety disorder) Take 1 capsule (20 mg total) by mouth daily. Taking 60 mg total. 90 capsule 1 09/07/2022 3 FLUoxetine (PROZAC) 40 MG capsuleIndicatio ns:Severe episode of recurrent major depressive disorder, without psychotic features (CMS/HCC HHS/HCC),CHARLA (generalized anxiety disorder) Take 1 capsule (40 mg total) by mouth daily. Taking 60 mg total. 90 capsule 1 09/07/2022 3 fluticasone propionate (FLONASE) 50 MCG/ACT nasal sprayIndications :Acute maxillary sinusitis, recurrence not specified 1 spray by Each Nostril route daily. Okay to substitute per insurance. 16 g 1 07/22/2022 3 documented as of this encounter Plan of Treatment Upcoming Encounters Date Type Department Care Team (Late st Contact Info) Description 11/02/2024 8:00 AM MULTICULTURAL INTERNSHIP Office Visit [facility] Multispecialty Care - [place] [address] [address] [place] [address] Oscar Edwards MD [address] [facility] [address] [place] [address] 06/25/2025 9:00 AM CDT Office Visit [facility] [address] [place], [place] [phone] Elisha Kim PA 3 [facility] [address] [place], [place] [id number] documented as of this encounter Procedures Procedure Name Priority Date/Time Associated Diagnosis Comments MRI KNEE RT WO CON STAT 09/17/2022 8: 52 AM MULTICULTURAL INTERNSHIP Acute pain of right knee documented in this encounter Results * MRI KNEE RT WO CON (09/17/2022 8:52 AM MULTICULTURAL INTERNSHIP) Anatomical Region Laterality Modality Knee Magnetic Resonan ce 09/17/2022 9:10 AM MULTICULTURAL INTERNSHIP Impressions 09/17/2022 9:18 AM MULTICULTURAL INTERNSHIP IMPRESSION: 1. Partial-thickness insertional tearing of the abductor rosy tendon. 2. Small popliteal cyst. Ordered By: OSCAR EDWARDS Interpreted By: Adriel Armendariz DO, 09/17/2022 9:10 AM Narrative 09/17/2022 9:18 AM MULTICULTURAL INTERNSHIP EXAMINATION: MRI right knee without contrast EXAM [...] a small popliteal cyst. Procedure Note Adriel Armendariz DO - 09/17/2022 EXAMINATION: MRI right knee [...] By: Adriel Armendariz DO, 09/17/2022 9:10 AM us Oscar Edwards MD MRI Final Result documented in this encounter Visit Diagnoses Diagnosis Acute pain of right knee documented in this encounter Additional Health Concerns Assessment Noted Time PHQ-9 Depression Total Score: 20 022 2:50 PM CDT documented as of this encounter Care Teams Utility Sales Representative Relationship Specialty Start Date End Date Oscar Edwards MD [address] [facility] [address] [place] [address] PCP - General INTERNAL MEDICINE 04/28/22 documented as of this encounter
--- OUTSIDE RECORDS SUMMARY | 2024-10-13 22:40 | XMS_ITS | Encounter Summary ---
Author Organization [facility] Address [address] [place] [address]. [place], [place] [address] [place] [address] Care Team Providers Care Hone Operator Name Role Phone Oscar Edwards MD Primary Care Provider [phone] Encounter Details Date Type Department Care Team (Latest Contact Info) Description 08/24/2022 Travel Social History Tobacco Use Types Packs/Day [...] on file Legal Sex Female 5:53 PM IDENTITY MANAGEMENT CONSULTANT Gender Identity Not on file Sexual Orientation Not on file COVID-19 Exposure Response Date Recorded In the last 10 days, have yo u been in contact with someone who was confirmed or suspected to have Coronavirus/COVID-19? No / Unsure 08/24/2022 2:28 PM IDENTITY MANAGEMENT CONSULTANT documented as of this encounter Plan of Treatment Upcoming Encounters Date Type Department Care Team (Late st Contact Info) Description 11/02/2024 8:00 AM IDENTITY MANAGEMENT CONSULTANT Office Visit [facility] Multispecialty Care - [place] [address] [address] [place] [address] Oscar Edwards MD [address] [place] [address] [address] [place] [address] 06/25/2025 9:00 AM CDT Office [facility] [address] [place] [address] Elisha Kim PA 3 [facility] [address] [place] [address] documented as of this encounter Visit Diagnoses Not on filedocumented in this encounter Additional Health Concerns Assessment Noted Time PHQ-9 Depression Total Score: 20 022 2:50 PM CDT documented as of this encounter Care Teams Hone Operator Relationship Specialty Start Date End Date Oscar Edwards MD [address] [facility] [address] [place] [address] PCP - General INTERNAL MEDICINE 04/28/22 documented as of this encounter
--- OUTSIDE RECORDS SUMMARY | 2024-10-13 22:40 | XMS_ITS | Encounter Summary ---
Author Organization [facility] Address [address] [place] [address]. [place], [place] [address] [place] [address] Care Team Providers Care Public Relations Consultant Name Role Phone Oscar Edwards MD Primary Care Provider [phone] Encounter Details Date Type Department Care Team (Latest Contact Info) Description 04/01/2024 Travel Social History Tobacco Use Types Packs/Day [...] on file Legal Sex Female 5:53 PM REGIONAL SALES TRAINER Gender Identity Not on file Sexual Orientation Not on file documented as of this encounter Plan of Treatment Upcoming Encounters Date Type Department Care Team (Late st Contact Info) Description 11/02/2024 8:00 AM REGIONAL SALES TRAINER Office Visit [facility] Multispecialty Care - [place] [address] [address] [place] [address] Oscar Edwards MD [address] [place] [address] 06/25/2025 9:00 AM CDT [facility] [address] [address] Elisha Kim PA 3 [facility] [address] [place] [address] documented as of this encounter Visit Diagnoses Not on filedocumented in this encounter Additional Health Concerns Assessment Noted Time PHQ-9 Depression Total Score: 0 04/11/20 23 2:41 PM CDT documented as of this encounter Care Teams Public Relations Consultant Relationship Specialty Start Date End Date Oscar Edwards MD [address] [facility] [address] [place] [address] PCP - General INTERNAL MEDICINE 04/28/22 documented as of this encounter
--- OUTSIDE RECORDS SUMMARY | 2024-10-13 22:40 | XMS_ITS | Encounter Summary ---
Author Organization [facility] Address [address] [place] [address]. [place], [place] [address] [place] [address] Care Team Providers Care Catheter Finisher And Inspector Name Role Phone Oscar Edwards MD Primary Care Provider [phone] Reason for Visit * Reason Comments Follow Up Dysuria Pt states it still b urns while urinating after completing Bactrim for 3 days Encounter Details Date Type Department Care Team (Latest Contact Info) Description 05/09/2024 1:00 PM CDT Telemedicine [facility] Medical Group Multispecialty Care - [place] [address] [address] [place], [place] [id number] Oscar Edwards MD [address] [place] [id number] Follow Up; Dysuria (Pt states it still moya while urinating after completing Bactrim for 3 days) Social History Tobacco Use Types Packs/Day Years [...] on file Legal Sex Female 5:53 PM FUEL MANAGEMENT 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 Gender Identity Not on file Sexual Orientation Not on file documented as of this encounter Last Filed Vital Signs Vital Sign Reading Time Taken Comments Blood Pressure 120/80 05/09/2024 1:10 PM CDT Pulse - - Temperature - - Respiratory Rate - - Oxygen Saturation - - Inhaled Oxygen Concentration - - Weight 68 kg (150 lb) 05/09/2024 1:10 PM CDT Height 167.6 cm (5' 6 ) 05/09/2024 1:10 PM CDT Body Mass Index 24.21 05/09/2024 1:10 PM CDT documented in this encounter Progress Notes * Oscar Edwards MD - 05/09/2024 1:00 PM CDTSummary: Acute visit notes TELE- VISIT NOTES Reason for Visit: Follow Up and Dysuria (Pt states it still moya while urinating after completing Bactrim for 3 days) History of Present Illness: Opal Swenson is a 29-year-old female here for telemedicine visit for concerns about ongoing urinary symptoms. According to patient, his symptoms started a couple of days ago which caused her to go to the urgent care to be seen. Initially was given cephalexin however due to urine culture showing Enterobacter cloacae complex which was resistant to initial antibiotic, antibiotic was subsequently changed to Bactrim. She has since completed 3 days of Bactrim with noimprovement. She was only given a 3-day supply. He will has ongoing pain with urination. No longer having blood in the urine. Denies any lower abdominal cramping. No flank pain or fever or chills. Comes in to discuss. Given that she recently had urine culture done, we will not get urine culture again at this time. She will complete a total of 7 days of antibiotics. Noted problem list as noted below. Patient Active Problem List Diagnosis Anxiety Depression I introduced and identified myself, received verbal consent from the patient to proceed with this video visit and made the patient aware that the same confidentiality and computer information systems instructor practices apply. The patient joined the video visit from Home. I completed the virtual visit from Office. The following clinical staff helped with this visit MA: Karyn Dc Total Time Spent in Minutes: 30 ROS: Review of Systems Constitutional: Negative for activity [...] stool, constipation, diarrhea, nausea and vomiting. Genitourinary: Positive for dysuria, frequency and urgency. Negative for decreased urine volume, difficulty urinating, flank pain and hematuria. Musculoskeletal: Negative for arthralgias, back pain, gait problem, joint swelling and myalgias. Skin: Negative for pallor, rash and wound. Neurological: Negative for dizziness, tremors, syncope, weakness, light- headedness and headaches. Hematological: Negative for adenopathy. Does not bruise/bleed easily. Psychiatric/Behavioral: Negative for agitation, behavioral problems, confusion, decreased concentration, hallucinations and sleep disturbance. The patient is not hyperactive. Medications: Current Outpatient Medications: vitamin, low iron, 27-0.8 MG tablet, Take 1 tablet by mouth daily., Disp: , Rfl: sulfamethoxazole-trimethoprim (BACTRIM DS) 800-160 MG tablet, Take 1 tablet by mouth 2 (two) times daily for 4 days., Disp: 8 tablet, Rfl: 0 cephALEXin (KEFLEX) 500 MG capsule, Take 1 capsule (500 mg total) by mouth 2 (two) times daily for 7 days. (Patient not taking: Reported on 05/09/2024), Disp: 14 capsule, Rfl: 0 Review of patient's allergies indicates: Allergen Reactions Macrobid [Nitrofurantoin] Shortness of Breath bruising Z-Taras [Azithromycin] Other (see comment) Itchy hands, dizzy, generalized not feeling well Buspar [Buspirone] Other (see comment) Cold sweats, difficulty breathing Ibuprofen Hives Dexamethasone Eyes Water & Itch and Itching Past Medical History: Diagnosis Date Anxiety Depression SVT (supraventricular tachycardia) ([facility]) Past Surgical History: Procedure Laterality Date SECTION Social History Socioeconomic History Marital status: Tobacco Use Smoking status: Never Smokeless tobacco: Never Tobacco comments: counseled by Dr Edwards Vaping Use Vaping status: Never Used Substance and Sexual Activity Alcohol use: Never Drug use: Never Sexual activity: Yes Partners: Male control/protection: None Family History Problem Relation Name Age of Onset No Known Problems Mother No Known Problems Father Family Status Relation Name Status Mother (Not Specified) Father (Not Specified) No partnership data on file Physical examination limited as visit done virtually. Diagnoses/Impression: 1. Acute cystitis without hematuria sulfamethoxazole-trimethoprim (BACTRIM DS) 800-160 MG tablet DISCONTINUED: sulfamethoxazole-trimethoprim (BACTRIM DS) 800-160 MG tablet DISCONTINUED: sulfamethoxazole-trimethoprim (BACTRIM DS) 800-160 MG tablet DISCONTINUED: sulfamethoxazole-trimethoprim (BACTRIM DS) 800-160 MG tablet 1. Acute cystitis without hematuria - sulfamethoxazole-trimethoprim (BACTRIM DS) 800-160 MG tablet; Take 1 tablet by mouth 2 (two) times daily for 4 days. Dispense: 8 tablet; Refill: 0 -Still with ongoing symptoms. Has since completed 3 days of antibiotics. Will give a total of 7 days of antibiotics at this time. Urine culture came back positive for enterobacteria cloacae. Sensitive to Bactrim. - Patient with +UA. No signs of pyelonephritis. Will treat with broad spectrum antibiotics and await sensitivities. Told if symptoms do not improve in 2-3 days to please return to clinic and if signsof pyelonephritis to please return to clinic. Orders Placed This Encounter DISCONTD: sulfamethoxazole-trimethoprim (BACTRIM DS) 800-160 MG tablet DISCONTD: sulfamethoxazole-trimethoprim (BACTRIM DS) 800-160 MG tablet DISCONTD: sulfamethoxazole-trimethoprim (BACTRIM DS) 800-160 MG tablet sulfamethoxazole-trimethoprim (BACTRIM DS) 800-160 MG tablet I personally spent a total of 30 minutes on the day of the encounter. This includes jqqe-tc-nwly and cok-svyg-uo-face time I provided on the day of the encounter & excludes time spent performing separately reportable services. OSCAR EDWARDS MD Referring Provider: No ref. provider found PCP: OSCAR EDWARDS MD documented in this encounter Plan of Treatment Upcoming Encounters Date Type Department Care Team (Late st Contact Info) Description 11/02/2024 8:00 AM FUEL MANAGEMENT HANDLER Office Visit [facility] Medical Group Multispecialty [address] [place] [address] Oscar Edwards MD [address] [address] 06/25/2025 9:00 AM CDT [facility] [facility], [address] [place] [address] Elisha Kim PA 3 [facility] [address] [place] [address] documented as of this encounter Visit Diagnoses Diagnosis Acute cystitis without hematuria- Primary Acute cystitis documented in this encounter Additional Health Concerns Assessment Noted Time PHQ-9 Depression Total Score: 0 04/11/20 23 2:41 PM CDT documented as of this encounter Care Teams Catheter Finisher And Inspector Relationship Specialty Start Date End Date Oscar Edwards MD [address] [place] [address] PCP - General INTERNAL MEDICINE 04/28/22 documented as of this encounter
--- OUTSIDE RECORDS SUMMARY | 2024-10-13 22:40 | XMS_ITS | Encounter Summary ---
Author Organization [facility] Address [address] [place] [address]. [place], [place] [address] [place] [address] Care Team Providers Care Zipper Setter Chainstitch Name Role Phone Oscar Edwards MD Primary Care Provider [phone] Encounter Details Date Type Department Care Team (Latest Contact Info) Description 09/17/2022 Travel Social History Tobacco Use Types Packs/Day [...] on file Legal Sex Female 5:53 PM PRIMARY CLASS TEACHER Gender Identity Not on file Sexual Orientation Not on file COVID-19 Exposure Response Date Recorded In the last 10 days, have yo u been in contact with someone who was confirmed or suspected to have Coronavirus/COVID-19? No / Unsure 09/17/2022 7:33 AM PRIMARY CLASS TEACHER documented as of this encounter Plan of Treatment Upcoming Encounters Date Type Department Care Team (Late st Contact Info) Description 11/02/2024 8:00 AM PRIMARY CLASS TEACHER Office Visit [facility] Medical Group Multispecialty Care - [place] [address] [address] [place] [address] Oscar Edwards MD [address] [place] [address] [address] [place] [address] 06/25/2025 9:00 AM CDT Office Visit [facility], [address] [place] [address] Elisha Kim PA 3 [facility] [address] [place] [address] documented as of this encounter Visit Diagnoses Not on filedocumented in this encounter Additional Health Concerns Assessment Noted Time PHQ-9 Depression Total Score: 20 022 2:50 PM CDT documented as of this encounter Care Teams Zipper Setter Chainstitch Relationship Specialty Start Date End Date Oscar Edwards MD [address] [facility] [address] [place] [address] PCP - General INTERNAL MEDICINE 04/28/22 documented as of this encounter
--- OUTSIDE RECORDS SUMMARY | 2024-10-13 22:40 | XMS_ITS | Encounter Summary ---
Author Organization [facility] Address [address] [place] [address]. [place], [place] [address] [place] [address] Care Team Providers Care Survey Research Professor Name Role Phone Oscar Edwards MD Primary Care Provider [phone] Encounter Details Date Type Department Care Team (Latest Contact Info) Description 06/02/2023 Travel Social History Tobacco Use Types Packs/Day [...] on file Legal Sex Female 5:53 PM DIRECTOR EDUCATION Gender Identity Not on file Sexual Orientation Not on file documented as of this encounter Plan of Treatment Upcoming Encounters Date Type Department Care Team (Late st Contact Info) Description 11/02/2024 8:00 AM DIRECTOR EDUCATION Office Visit [facility] Medical Group Multispecialty Care - [place] [address] [address] [place] [address] Oscar Edwards MD [address] [place] [address] 06/25/2025 9:00 AM CDT [facility] [address] [address] Elisha Kim PA 3 [facility] [address] [place] [address] documented as of this encounter Visit Diagnoses Not on filedocumented in this encounter Additional Health Concerns Assessment Noted Time PHQ-9 Depression Total Score: 0 04/11/20 23 2:41 PM CDT documented as of this encounter Care Teams Survey Research Professor Relationship Specialty Start Date End Date Oscar Edwards MD 118[address] [facility] [address] [place] [address] PCP - General INTERNAL MEDICINE 04/28/22 documented as of this encounter
--- OUTSIDE RECORDS SUMMARY | 2024-10-13 22:40 | XMS_ITS | Encounter Summary ---
Author Organization [facility] Address [address] [place] [address]. [place], [place] [address] [place] [address] Care Team Providers Care Wood Ski Maker Name Role Phone Oscar Edwards MD Primary Care Provider Encounter Details Date Type Department Care Team (Latest Contact Info) Description 09/15/2022 Travel Social History Tobacco Use Types Packs/Day [...] on file Legal Sex Female 5:53 PM ENERGY AND SUSTAINABILITY MANAGER Gender Identity Not on file Sexual Orientation Not on file COVID-19 Exposure Response Date Recorded In the last 10 days, have yo u been in contact with someone who was confirmed or suspected to have Coronavirus/COVID-19? No / Unsure 09/15/2022 7:52 AM ENERGY AND SUSTAINABILITY MANAGER documented as of this encounter Plan of Treatment Upcoming Encounters Date Type Department Care Team (Late st Contact Info) Description 11/02/2024 8:00 AM ENERGY AND SUSTAINABILITY MANAGER Office Visit [facility] Medical Group Multispecialty Care - [place] [address] [address] [place] [address] Oscar Edwards MD [address] [place] [address] [address] [place] [address] 06/25/2025 9:00 AM CDT Office Visit [facility], [address] [place] [address] Elisha Kim PA 3 [facility] [address] [place] [address] documented as of this encounter Visit Diagnoses Not on filedocumented in this encounter Additional Health Concerns Assessment Noted Time PHQ-9 Depression Total Score: 20 022 2:50 PM CDT documented as of this encounter Care Teams Wood Ski Maker Relationship Specialty Start Date End Date Oscar Edwards MD [address] [facility] [address] [place] [address] PCP - General INTERNAL MEDICINE 04/28/22 documented as of this encounter
--- OUTSIDE RECORDS SUMMARY | 2024-10-13 22:40 | XMS_ITS | Encounter Summary ---
Author Organization [facility] Address [address] [place] [address]. [place], [place] [address] [place] [address] Care Team Providers Care Analytical Chemistry Teacher Name Role Phone Oscar Edwards MD Primary Care Provider [phone] Reason for Referral * Consultation (Urgent) - Closed Specialty Diagnoses / Procedures Referred By Ethel marquis Referred To Contact ORTHOPAEDICS Diagnoses Injury of right knee, initial encounter Procedures OFFICE/OUTPT VISIT,NEW,LEVL III OFFICE/OUTPT VISIT,NEW,LEVL IV OFFICE/OUTPT VISIT,NEW,LEVL V OFFICE/OUTPT VISIT,EST,LEVL III OFFICE/OUTPT VISIT,EST,LEVL IV OFFICE/OUTPT VISIT,EST,LEVL V Oscar Edwards MD [address] [facility] [address] [place] [address] Phone: tel: fax: Jose Gurrola MD [address] [place] [address] Phone: tel: fax: Referral ID Status Reason Start Date Expiration Date V isits Requested Visits Authorized [id number] Closed Specialty Services 09/17/2022 10/19/2023 100 100 LLERY DESIGNER Reason for Visit * Reason Onset Date Comments Referral 09/17/2022 Encounter Details Date Type Department Care Team (Late st Contact Info) Description 09/17/2022 [facility]phone [facility] Department - [place] [address] [address] [place] [address] Oscar Edwards MD 118[address] [facility] [address] [place] [address] Referral Social History Tobacco Use Types Packs/Day Years [...] on file Legal Sex Female 5:53 PM JEWELLERY DESIGNER Gender Identity Not on file Sexual Orientation Not on file COVID-19 Exposure Response Date Recorded In the last 10 days, have yo u been in contact with someone who was confirmed or suspected to have Coronavirus/COVID-19? No / Unsure 09/17/2022 7:33 AM JEWELLERY DESIGNER documented as of this encounter Progress Notes * Oscar Edwards MD - 09/17/2022 7:22 PM CST I called and updated patient about MRI right knee done showing partial-thickness insertional tearing of the abductor rosy tendon. Urgent referral placed for patient to discuss next steps in management. Will hold off referral to physical therapy until patient sees orthopedics. For now, patient will use knee brace, rest, ice and elevation and avoid putting pressure on the right knee joint by using crutches. She cannot use NSAIDs due to adverse side effects. She will use Tylenol in the meantime for any pain. All questions answered. Oscar Edwards MD Internal Medicine [facility]. LLERY DESIGNER documented in this encounter Plan of Treatment Upcoming Encounters Date Type Department Care Team ([facility] Contact Info) Description 11/02/2024 8:00 AM JEWELLERY DESIGNER [facility] Emergency Department - [place] [address] [address] [place] [address] Oscar Edwards MD [address] [address] 06/25/2025 9:00 AM CDT Office Visit [facility] THREE [facility], [address] [place] [address] Eilsha Kim PA 3 [facility] [address] [place] [address] Scheduled Referrals Name Type Priority Associated Diagnoses Orde r Schedule Ambulatory referral to Orthopedics ([facility]) Referral Routine Injury of right knee, initial encounter Ordered: 09/17/2022 documented as of this encounter Visit Diagnoses Diagnosis Injury of right knee, initial encounter- Primary documented in this encounter Additional Health Concerns Assessment Noted Time PHQ-9 Depression Total Score: 20 022 2:50 PM CDT documented as of this encounter Care Teams Analytical Chemistry Teacher Relationship Specialty Start Date End Date Oscar Edwards MD [address] [place] [address] PCP - General INTERNAL MEDICINE 04/28/22 documented as of this encounter
--- OUTSIDE RECORDS SUMMARY | 2024-10-13 22:40 | XMS_ITS | Encounter Summary ---
Author Organization [facility] Address [address] [place] [address]. [place] [address] [place] [address] Care Team Providers Care Radon Inspector Name Role Phone Oscar Edwards MD Primary Care Provider [phone] Reason for Visit * Reason Comments Follow Up 1 year svt Encounter Details Date Type Department Care Team (Late st Contact Info) Description 06/19/2024 9:00 AM CDT Office Visit [facility] brigitte [facility] [address] [place], [place] [id number] Jose Carlos Smith MD [facility]. 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 Gender Identity Not on file Sexual Orientation Not on file documented as of this encounter Last Filed Vital Signs Vital Sign Reading Time Taken Comments Blood Pressure 124/72 06/19/2024 9:03 AM CDT Pulse 74 06/19/2024 9:03 AM CDT Temperature - - Respiratory Rate - - Oxygen Saturation 99% 06/19/2024 9:03 AM CDT Inhaled Oxygen Concentration - - Weight 69.1 kg (152 lb 6.4 oz) 06/19/2024 9:03 A M CDT Height 167.6 cm (5' 6 ) 06/19/2024 9:03 AM CDT Body Mass Index 24.6 06/19/2024 9:03 AM CDT documented in this encounter Progress Notes * Jose Carlos Smith MD - 06/19/2024 9:00 AM CDT Images from the original note were not included. [place], [place] [address] Cardiac Electrophysiology Outpatient Progress Note Patient name: Opal Monroy Primary Care Provider: OSCAR EDWARDS MD Chief Complaint: SVT follow up History of Present Illness Opal Monroy is a 29-year-old female with a history of palpitations. She reports she has had events of palpitations about once a year. She reports she usually lays down and it resolves. She hadtried calling mixing machine attendant and she did valsalva which resolved her last events. This was about 2 months. She has had symptoms since she was 7 years old but they usually spontaneously resolved. She reports about 4 events since her last visit here. They usually resolve after 15 minutes with vagal maneuvers. She is fatigued afterwards. She has had no ER visits. Assessment and Plan Mrs. Monroy is a 29-year-old female here today for follow up evaluation of palpitations. Palpitations: She has symptoms consistent with SVT. ECG shows no evidence of pre-excitation. Most recent monitoring last year without evidence of sustained arrhythmias at that time. No ER visits at present but symptoms a little more frequent. I did again review option of catheter ablation as a means for more definitive treatment and for improvement of quality of life. She will continue to contemplate this. For now continue watchful waiting. She will follow up in on year. History Review of Systems Constitutional: Negative. HENT: Negative. Eyes: Negative. Respiratory: Negative. Cardiovascular: Negative. Gastrointestinal: Negative. Genitourinary: Negative. Musculoskeletal: Negative. Skin: Negative. Neurological: Negative. Endo/Heme/Allergies: Negative. Psychiatric/Behavioral: Negative. Current Problems: Patient Active Problem List Diagnosis Anxiety Depression Past Medical History: Past Medical History: Diagnosis Date Anxiety Depression SVT (supraventricular tachycardia) ([facility]) Past Surgical History: Past Surgical History: Procedure Laterality Date SECTION Social History: Social History Tobacco Use Smoking status: Never Smokeless tobacco: Never Tobacco comments: counseled by Dr Edwards Vaping Use Vaping status: Never Used Substance Use Topics Alcohol use: Never Drug use: Never Family History: Family History Problem Relation Name Age of Onset No Known Problems Mother No Known Problems Father Allergies: Review of patient's allergies indicates: Allergen Reactions Macrobid [Nitrofurantoin] Shortness of Breath bruising Z-Taras [Azithromycin] Other (see comment) Itchy hands, dizzy, generalized not feeling well Buspar [Buspirone] Other (see comment) Cold sweats, difficulty breathing Ibuprofen Hives Dexamethasone Eyes Water & Itch and Itching Current Medications: Patient's Medications New Prescriptions No medications on file Previous Medications VITAMIN, LOW IRON, 27-0.8 MG TABLET Take 1 tablet by mouth daily. Modified Medications No medications on file Discontinued Medications No medications on file Physical Exam Filed Vitals: 06/19/24 0903 BP: 124/72 Pulse: 74 SpO2: 99% Weight: 69.1 kg (152 lb 6.4 oz) Height: 1.676 m (5' 6 ) Physical Exam: In general, Ms. Monroy sitting [...] Lab Results Component Value Date/Time NA 139 04/01/2024 02:35 PM K 3.8 04/01/2024 02:35 PM CR 0.75 04/01/2024 02:35 PM AST 15 04/01/2024 02:35 PM ALT 19 04/01/2024 02:35 PM HGB 12.8 04/01/2024 02:35 PM HCT 39.1 04/01/2024 02:35 PM PLT 216 04/01/2024 02:35 PM WBC 7.11 04/01/2024 02:35 PM TSH 2.870 11/01/2023 09:54 AM Echo: 05/16/23: The left ventricular size is normal. The left ventricular systolic function is normal. Estimated left ventricular ejection fraction is 55-60%. Left ventricular diastolic function is normal. Wall motion appears normal in all segments. The right ventricular size is normal. Right ventricular systolic function is normal. No significant valvular abnormalities. EKG: NSR, short KS Other Imaging: MD [facility] Cardiac Electrophysiology ; ext. [id number] 06/19/2024 9:27 AM documented in this encounter Plan of Treatment Upcoming Encounters Date Type Department Care Team (Late st Contact Info) Description 11/02/2024 8:00 AM APPLIANCE FIXER Office Visit [facility] Multispecialty Care - [place] [address] [address] [place] [address] Oscar Edwards MD [address] [place] [address] [address] [place] [address] 06/25/2025 9:00 AM CDT Office Visit [facility] THREE [facility], [place] [address] [place] [address] Elisha Kim PA 3 [facility] [address] [place] [address] documented as of this encounter Procedures Procedure Name Priority Date/Time Associated Diagnosis Comments ELECTROCARDIOGRAM (NON MIDMARK ACQUIRED) Routine 06/19/2024 9:09 AM CDT SVT (supraventricular tachycardia) ([facility]CC [facility]/HCC) documented in this encounter Results * ELECTROCARDIOGRAM (06/19/2024 9:09 AM CDT) 06/19/2024 9:09 AM CDT Narrative [facility] - 06/19/2024 10:38 PM CDT ?[facility] ? Test Date: ?2024-06-19 Pat Name: ? OPAL MONROY ? Department: ?? 112 ? Room: ? Gender: ? Female ? Manager Quality: ?? : ?1995 ? Requested By: JOSE CARLOS SMITH Order Number: [id number] ?Reading MD: ?? Jose Carlos Smith ? Measurements Intervals ?[place] ? Rate: ? 75 ? P: ?70 KS: ? 117 ?QRS: ?74 QRSD: ? 100 ?T: ?9 QT: ? 364 ? QTc: ?409 ? Interpretive Statements SINUS RHYTHM WITH SHORT KS INTERVAL NONSPECIFIC T-WAVE ABNORMALITY Procedure Note Jose Carlos Smith MD - 06/19/2024 [facility] Test Date: 2024-06-19 Pat Name: OPAL MONROY Department: 112 Room: Gender: Female Manager Quality: : 1995 Requested By: JOSE CARLOS SMITH Order Number: [id number] Honey ANN: Jose Carlos Smith Measurements Intervals [place] Rate: 75 P: 70 KS: 117 QRS: 74 QRSD: 100 T: 9 QT: 364 QTc: 409 Interpretive Statements SINUS RHYTHM WITH SHORT KS INTERVAL NONSPECIFIC T-WAVE ABNORMALITY Jose Carlos Smith MD PROCEDURES-ORDERABLE NO JENA RGE Final Result [facility] documented in this encounter Visit Diagnoses Diagnosis SVT (supraventricular tachycardia) ([facility])- Primary Other specified cardiac dysrhythmias documented in this encounter Additional Health Concerns Infection Onset Date Last Indicated Resolved Time COVID-19 Confirmed 06/10/2024 06/10/2024 4 12:32 AM CDT Assessment Noted Time PHQ-9 Depression Total Score: 0 04/11/20 23 2:41 PM CDT documented as of this encounter Care Teams Radon Inspector Relationship Specialty Start Date End Date Oscar Edwards MD [address] [facility] [address] [place] [address] PCP - General INTERNAL MEDICINE 04/28/22 documented as of this encounter
--- OUTSIDE RECORDS SUMMARY | 2024-10-13 22:40 | XMS_ITS | Encounter Summary ---
Author Organization [facility] Address [address] [place] [address]. [place], [place] [id number] [place] [address] Care Team Providers Care Electrical Line Mechanic Name Role Phone Oscar Edwards MD Primary Care Provider [phone] Reason for Visit * Reason Onset Date Comments Referral 08/05/2022 Encounter Details Date Type Department Care Team (Late st Contact Info) Description 08/05/2022 Telephone [facility] Medical Group Multispecialty Care - [place] [address] [address] [place] [address] Oscar Edwards MD [address] [place] [address] [address] [place], [place] [id number] Referral Social History Tobacco Use Types Packs/Day [...] file Legal Sex Female 5:53 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 No / Unsure 07/29/2022 4:08 PM CDT documented as of this encounter Progress Notes * Oscar Edwards MD - 08/05/2022 9:24 AM CDT Patient was recently seen at [facility] ER for RSV bronchitis, otitis media and cerumen impaction. Advised to follow up with PCP in one week for reevaluation. She already has a follow up appointment. Oscar Edwards MD Internal Medicine [facility] Medical [facility]. documented in this encounter Plan of Treatment Upcoming Encounters Date Type Department Care Team (Late st Contact Info) Description 11/02/2024 8:00 AM DIRECTOR STATE PHARMACY Office Visit [facility] Multispecialty Care - [place] [address] [address] [place] [address] Oscar Edwards MD [address] [place] [address] 06/25/2025 9:00 AM CDT Office Visit [facility] [facility] [place] [address] [place] [address] Elisha Kim PA 3 [facility] [address] [place] [address] documented as of this encounter Visit Diagnoses Not on filedocumented in this encounter Additional Health Concerns Assessment Noted Time PHQ-9 Depression Total Score: 20 022 2:50 PM CDT documented as of this encounter Care Teams Electrical Line Mechanic Relationship Specialty Start Date End Date Oscar Edwards MD [address] [place] [address] [address] [place] [address] PCP - General INTERNAL MEDICINE 04/28/22 documented as of this encounter
--- OUTSIDE RECORDS SUMMARY | 2024-10-13 22:40 | XMS_ITS | Encounter Summary ---
Author Organization [facility] Address [address] [place] [address]. [place], [place] [phone] [address] Care Team Providers Care Commercial Mortgage Broker Name Role Phone Oscar Edwards MD Primary Care Provider [phone] Encounter Details Date Type Department Care Team (Latest Contact Info) Description 12/05/2023 Travel Social History Tobacco Use Types Packs/Day [...] file Legal Sex Female 5:53 PM ELECTRIC RANGE ASSEMBLER Gender Identity Not on file Sexual Orientation Not on file documented as of this encounter Plan of Treatment Upcoming Encounters Date Type Department Care Team (Late st Contact Info) Description 11/02/2024 8:00 AM ELECTRIC RANGE ASSEMBLER Office Visit [facility] Medical Group Multispecialty Care - [place] [address] [address] [place] [address] Oscar Edwards MD [address] [place] [address] 06/25/2025 9:00 AM CDT [facility] [address] [address] Elisha Kim PA 3 [facility] [address] [place] [address] documented as of this encounter Visit Diagnoses Not on filedocumented in this encounter Additional Health Concerns Assessment Noted Time PHQ-9 Depression Total Score: 0 04/11/20 23 2:41 PM CDT documented as of this encounter Care Teams Commercial Mortgage Broker Relationship Specialty Start Date End Date Oscar Edwards MD [address] [facility] [address] [place] [address] PCP - General INTERNAL MEDICINE 04/28/22 documented as of this encounter
--- OUTSIDE RECORDS SUMMARY | 2024-10-13 22:40 | XMS_ITS | Encounter Summary ---
Author Organization [facility] Address [address] [place] [address]. [place], [place] [address] [place] [address] Care Team Providers Care Agricultural Research Engineer Name Role Phone Oscar Edwards MD Primary Care Provider [phone] Encounter Details Date Type Department Care Team (Latest Contact Info) Description 07/26/2022 Travel Social History Tobacco Use Types Packs/Day [...] on file Legal Sex Female 5:53 PM SECURITY OFFICER SUPERVISOR Gender Identity Not on file Sexual Orientation [...] st Contact Info) Description 11/02/2024 8:00 AM SECURITY OFFICER SUPERVISOR Office Visit [facility] Medical [facility] Multispecialty Care - [place] [address] [address] [place] [address] Oscar Edwards MD [address] [place] [address] [address] [place] [address] 06/25/2025 9:00 AM CDT Office Visit [facility] THREE [facility], [place] [address] [place] [address] Elisha Kim PA 3 [facility] [address] [place] [address] documented as of this encounter Visit Diagnoses Not on filedocumented in this encounter Additional Health Concerns Assessment Noted Time PHQ-9 Depression Total Score: 20 022 2:50 PM CDT documented as of this encounter Care Teams Agricultural Research Engineer Relationship Specialty Start Date End Date Oscar Edwards MD [address] [facility] [address] [place] [address] PCP - General INTERNAL MEDICINE 04/28/22 documented as of this encounter
--- OUTSIDE RECORDS SUMMARY | 2024-10-13 22:40 | XMS_ITS | Encounter Summary ---
Author Organization [facility] Address [address] [place] [address]. 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 [address] [place] [address] documented as of this encounter Visit Diagnoses Not on filedocumented in this encounter Additional Health Concerns Infection Onset Date Last Indicated Resolved Time COVID-19 Rule Out 06/10/2024 06/10/2024 06/10/2024 11:58 AM CDT COVID-19 Confirmed 06/10/2024 06/10/2024 12:32 AM CDT Assessment Noted Time PHQ-9 Depression Total Score: 20 022 2:50 PM CDT documented as of this encounter Care Teams Margarine Maker Relationship Specialty Start Date End Date Oscar Edwards MD [address] [place] [address] PCP - General INTERNAL MEDICINE 04/28/22 documented as of this encounter
--- OUTSIDE RECORDS SUMMARY | 2024-10-13 22:40 | XMS_ITS | Encounter Summary ---
Author Organization [facility] Address [address] [place] [address]. [place], [place] [address] [place] [address] Care Team Providers Care Expander Name Role Phone Oscar Edwards MD Primary Care Provider [phone] Reason for Visit * Reason Onset Date Comments Follow Up Call 06/03/2023 Encounter Details Date Type Department Care Team (Late st Contact Info) Description 06/03/2023 Telephone [facility] Medical Group Multispecialty Care - [place] [address] [address] [place] [address] Oscar Edwards MD [address] [place] [address] [address] [place] [address] Follow Up Call Social History Tobacco Use [...] on file Legal Sex Female 5:53 PM ROSE GRADING SUPERVISOR Gender Identity Not on file Sexual Orientation Not on file documented as of this encounter Progress Notes * Oscar Edwards MD - 06/03/2023 6:00 AM CDT Kindly call and schedule patient for her annual physical- please encourage her to come fasting thanks. documented in this encounter Plan of Treatment Upcoming Encounters Date Type Department Care Team (Late st Contact Info) Description 11/02/2024 8:00 AM ROSE GRADING SUPERVISOR Office Visit [facility] Medical Group Multispecialty Care - [place] [address] [address] [place] [address] Oscar Edwards MD [address] [address] 06/25/2025 9:00 AM CDT Office Visit [facility] THREE [facility], [place] [address] [place] [address] Elisha Kim PA 3 [facility] [address] [place] [address] documented as of this encounter Visit Diagnoses Not on filedocumented in this encounter Additional Health Concerns Assessment Noted Time PHQ-9 Depression Total Score: 0 04/11/20 23 2:41 PM CDT documented as of this encounter Care Teams Expander Relationship Specialty [place] [address] [place] [address] PCP - General INTERNAL MEDICINE 04/28/22 documented as of this encounter
--- OUTSIDE RECORDS SUMMARY | 2024-10-13 22:40 | XMS_ITS | Encounter Summary ---
Author Organization [facility] Address [address] [place] [address]. [place], [place] [address] [place] [address] Care Team Providers Care Adolescent Coordinator Name Role Phone Oscar Edwards MD Primary Care Provider [phone] Encounter Details Date Type Department Care Team (Latest Contact Info) Description 06/25/2022 Travel Social History Tobacco Use Types Packs/Day [...] on file Legal Sex Female 5:53 PM ELL TEACHER Gender Identity Not on file Sexual Orientation Not on file COVID-19 Exposure Response Date Recorded In the last 10 days, have yo u been in contact with someone who was confirmed or suspected to have Coronavirus/COVID-19? No / Unsure 06/25/2022 2:08 PM CDT documented as of this encounter Plan of Treatment Upcoming Encounters Date Type Department Care Team (Late st Contact Info) Description 11/02/2024 8:00 AM ELL TEACHER Office Visit [facility] Medical Group Multispecialty Care - [place] [address] [address] [place] [address] Oscar Edwards MD [address] [place] [address] [address] [place] [address] 06/25/2025 9:00 AM CDT Office Visit [facility] [place] [address] [facility], [place] [address] [place] [address] Elisha Kim PA 3 [facility] [address] [place] [address] documented as of this encounter Visit Diagnoses Not on filedocumented in this encounter Additional Health Concerns Assessment Noted Time PHQ-9 Depression Total Score: 20 022 2:50 PM CDT documented as of this encounter Care Teams Adolescent Coordinator Relationship Specialty Start Date End Date Oscar Edwards MD [address] [facility] [address] [place] [address] PCP - General INTERNAL MEDICINE 04/28/22 documented as of this encounter
--- OUTSIDE RECORDS SUMMARY | 2024-10-13 22:40 | XMS_ITS | Encounter Summary ---
Author Organization [facility] Address [address] [place] [address]. [place] [address] [place] [address] Care Team Providers Care Material Handler 2Nd Shift Name Role Phone Oscar Edwards MD Primary Care Provider [phone] Reason for Visit * Reason Comments Urinary Symptoms Encounter Details Date Type Department Care Team (Latest Contact Info) Description 05/04/2024 5:25 PM CDT - 05/04/2024 5:56 PM CDT Hospital Encounter [facility] [address] [place] [address] Jeri Carmen, DIVISION SALES MANAGER [address] [place] [address] Urinary Symptoms Discharge Disposition: Home or Self Care (Routine [...] on file Legal Sex Female 5:53 PM WELDER/FABRICATOR Gender Identity Not on file Sexual Orientation Not on file documented as of this encounter Last Filed Vital Signs Vital Sign Reading Time Taken Comments Blood Pressure 120/81 05/04/2024 5:30 PM CDT Pulse 73 05/04/2024 5:30 PM CDT Temperature 36.3 ??C (97.3 ??F) 05/04/2024 5:30 PM CD T Respiratory Rate 16 05/04/2024 5:30 PM CDT Oxygen Saturation 100% 05/04/2024 5:30 PM CDT Inhaled Oxygen Concentration - - Weight 68 kg (150 lb) 05/04/2024 5:30 PM CDT Height 167.6 cm (5' 6 ) 05/04/2024 5:30 PM CDT Body Mass Index 24.21 05/04/2024 5:30 PM CDT documented in this encounter Discharge Instructions * Discharge Instructions* DIAN Munguia - 05/04/2024 5:49 PM CDT Make sure you are drinking plenty of fluids. Avoid sugary drinks and excessive caffeine. I have sent your urine to the lab for a culture. If it grows back a bacteria that is not covered bythe antibiotic we have given you, we will call you and change her antibiotic at that time. * Attachments The following attachments cannot be sent through Care Everywhere. * Urinary Tract Infection Discharge Instructions, Adult (Greenlandic) documented in this encounter Medications at Time of Discharge vitamin, low iron, 27-0.8 MG tablet Take 1 tablet by mouth daily. cephALEXin (KEFLEX) 500 MG capsule Take 1 capsule (500 mg total) by mouth 2 (two) times daily for 7 days. 14 capsule 05/04/2024 05/11/2024 sulfamethoxazole- trimethoprim (BACTRIM DS) 800-160 MG tablet Take 1 tablet by mouth 2 (two) times daily for 3 days. 6 tablet 05/06/2024 05/09/2024 documented as of this encounter ED Notes * DIAN Munguia - 05/04/2024 5:36 PM CDT Chief Complaint Chief Complaint Patient presents with Urinary Symptoms History of Present Illness 29 y/o female with concerns for UTI. Pt with acute onset of dysuria, frequency, urgency. And blood in urine no fever, no back pain. Medical History ALLERGIES: Review of patient's allergies indicates: Allergen Reactions Macrobid [Nitrofurantoin] Shortness of Breath bruising Z-Taras [Azithromycin] Other (see comment) Itchy hands, dizzy, generalized not feeling well Buspar [Buspirone] Other (see comment) Cold sweats, difficulty breathing Ibuprofen Hives Dexamethasone Eyes Water & Itch and Itching MEDICATIONS: Prior to Admission medications Medication Sig Start Date End Date Taking? Authorizing Provider vitamin, low iron, 27-0.8 MG tablet Take 1 tablet by mouth daily. Yes Default History Genericprovider cephALEXin (KEFLEX) 500 MG capsule Take 1 capsule (500 mg total) by mouth 2 (two) times daily for 7days. 05/04/24 05/11/24 DIAN Munguia PAST MEDICAL HISTORY: Past Medical History: Diagnosis Date Anxiety Depression SVT (supraventricular tachycardia) ([facility]) PAST SURGICAL HISTORY: Past Surgical History: Procedure [...] Review of Systems Review of Systems Constitutional: Negative for chills, fatigue and fever. HENT: Negative. Respiratory: Negative. Cardiovascular: Negative. Gastrointestinal: Positive for abdominal pain. Negative for constipation, diarrhea, nausea and vomiting. Endocrine: Negative. Genitourinary: Positive for dysuria, frequency, hematuria and urgency. Negative for decreased urinevolume, difficulty urinating and flank pain. Psychiatric/Behavioral: Negative. Physical Exam Filed Vitals: 05/04/24 1730 BP: 120/81 Pulse: 73 Resp: 16 Temp: 97.3 ??F (36.3 ??C) TempSrc: Tympanic SpO2: 100% Weight: 68 kg (150 lb) Height: 1.676 m (5' 6 ) Physical Exam Vitals and nursing note reviewed. Constitutional: Appearance: Normal appearance. She is normal weight. Cardiovascular: Rate and Rhythm: Normal rate. Pulmonary: Effort: Pulmonary effort is normal. Abdominal: Tenderness: There is no right CVA tenderness or left CVA tenderness. Neurological: Mental Status: She is alert and oriented to person, place, and time. Sensory: No sensory deficit. Psychiatric: Mood and Affect: Mood normal. Behavior: Behavior normal. Diagnostic Studies / Procedures ELECTROCARDIOGRAMS: No results found for this visit on 05/04/24. LABORATORY STUDIES: Results for orders placed or performed during the hospital encounter of 05/04/24 URINALYSIS AUTO DIP Result Value Ref Range Specimen Type URINE CLEAN CATCH COLOR (U) YELLOW TRANSPARENCY CLEAR SPECIFIC GRAVITY (U) 1.020 1.001 - 1.030 U PH 7.0 5.0 - 9.0 LEUKOCYTES (U) MODERATE (A) NEGATIVE NITRITES NEGATIVE NEGATIVE PROTEIN RANDOM (U) NEGATIVE <30 MG/DL GLUCOSE (U) NEGATIVE NEGATIVE MG/DL KETONES (U) NEGATIVE NEGATIVE MG/DL UROBILINOGEN 0.2 (A) NEGATIVE MG/DL BILIRUBIN (U) NEGATIVE NEGATIVE MG/DL BLOOD (U) LARGE (A) NEGATIVE POCT urine Result Value Ref Range URINE HCG TEST NEGATIVE Internal Control: VALID IMAGING STUDIES No orders to display ED Course / Medical Decision Making Medical Decision Making Amount and/or Complexity of Data Reviewed Labs: ordered. Decision-making details documented in ED Course. Details: Urinalysis with leukocytes. Positive blood. Urine sent for culture. Discussion of management or test interpretation with external provider(s): Reviewed findings with the patient. And will start on antibiotics today. Encourage drinking lots of fluids. Risk OTC drugs. Prescription drug management. Risk Details: I have discussed today's findings with the patient and/or parent/guardian and provided information regarding the likely diagnosis. Information has been given regarding their treatment, follow up and concerning symptoms for which they should seek urgent or emergent attention. I have exp ressed the the importance of seeking attention should there be any new, or worsening symptoms or persistence of their condition. The patient is stable at discharge and has verbalized understanding ofthese instructions. ED Course as of 05/04/241803May 04, 2024 1748 LEUKOCYTES (U)(!): MODERATE [MB] 1748 BLOOD (U)(!): LARGE [MB] 1748 URINE HCG TEST: NEGATIVE [MB] ED Course User Index [MB] DIAN Munguia Clinical Impression Acute cystitis with hematuria (Primary) Disposition: Discharge Jeri Arndt DIAN Carmen 05/04/24 1804 Cosigned by Jackie Cisneros MD at 05/12/2024 2:39 PM CDT * Johanna Mills RN - 05/04/2024 5:27 PM CDT Pt to CC with complaint of hematuria, urinary frequency, urgency and low abdominal pressure. Onset 1200 today. documented in this encounter Plan of Treatment Upcoming Encounters Date Type Department Care Team (Late st Contact Info) Description 11/02/2024 8:00 AM WELDER/FABRICATOR Office Visit [facility] - [place] [address] [address] [place] [address] Oscar Edwards MD [address] [place] [address] [address] [place] [address] 06/25/2025 9:00 AM CDT Office Visit [facility] [place] [place], [place] [id number] Elisha Kim PA 3 [facility] [address] [place] [address] documented as of this encounter Procedures Procedure Name Priority Date/Time Associated Diagnosis Comments POCT URINE (BACK OFFICE) STAT 05/04/2024 5:45 PM CDT URINE BACTERIA CULTURE STAT 05/04/2024 5:40 PM CDT URINALYSIS AUTO DIP STAT 05/04/2024 5 :32 PM CDT documented in this encounter Results * POCT urine (05/04/2024 5:45 PM CDT) URINE HCG TEST NEGATIVE Internal Control: VALID Jeri Arndt Kermit DIVISION SALES MANAGER POINT OF CARE TEST ORDER JUNIE Final Result * (ABNORMAL) CULTURE URINE (05/04/2024 5:40 PM CDT) SPEC DESCRIPTION URINE CLEAN CATCH 05/04/2024 5:[address] [facility] SPECIAL REQUESTS NO SPECIAL REQUEST 05/04/2024 5:[address] [facility] CULTURE RESULT 50,000-100, 000 COL/ML ENTEROBACTE R CLOACAE COMPLEX (A) 05/06/2024 7:39 AM CDT [facility] URINE SPECIMEN OBTAINED BY CLEAN CATCH PROCEDURE / Unknown 05/04/2024 5:40 PM CDT 05/04/2024 7:13 PM CDT Narrative Organism Antibiotic Method Susceptibility Enterobacter cloacae complex CEFTRIAXONE YOBANY (VITEK) <=1: Sensitive Enterobacter cloacae complex CEFTAZIDIME YOBANY (VITEK) <=1: Sensitive Enterobacter cloacae complex CEFAZOLIN YOBANY (VITEK) >=64: Resistant Enterobacter cloacae complex NITROFURANTOIN YOBANY (VITEK ) 64: Intermediate Comment:INTERMEDIATE Enterobacter cloacae complex GENTAMICIN YOBANY (VITEK) <=1: Sensitive Enterobacter cloacae complex LEVOFLOXACIN YOBANY (VITEK) <=0.12: Sensitive Enterobacter cloacae complex PIPRACIL/TAZO YOBANY (VITEK) <=4: Sensitive Enterobacter cloacae complex TRIMETH-SULFAMETH. YOBANY (V ITEK) <=20: Sensitive Jeri Arndt Kermit DIVISION SALES MANAGER MICROBIOLOGY - GENERAL O RDERABLES Final Result [facility] [address] [place] [address], [place] [phone] [facility] [address] [place] [address], [place] * (ABNORMAL) URINALYSIS AUTO DIP (05/04/2024 5:32 PM CDT) SPECIMEN TYPE URINE CLEAN CATCH 05/04/2024 5:[address] [facility] COLOR (U) YELLOW 05/04/2024 5:[address] [facility] TRANSPARENCY CLEAR 05/04/2024 5:[address] [facility] SPECIFIC GRAVITY (U) 1.020 1.001 - 1.030 05/04/2024 5:[address] [facility] U PH 7.0 5.0 - 9.0 05/04/2024 5:[address] [facility] LEUKOCYTES (U) MODERATE(A) NEGATIVE 5:[address] [facility] NITRITES NEGATIVE NEGATIVE 05/04/2024 5:[address] [facility] PROTEIN RANDOM (U) NEGATIVE <30 MG/DL 05/04/2024 5:[address] [facility] GLUCOSE (U) NEGATIVE NEGATIVE MG/DL 05/04/2024 5:[address] [facility] KETONES MG/DL (U) NEGATIVE NEGATIVE MG/DL 05/04/2024 5:[address] [facility] UROBILINOGEN 0.2(A) NEGATIVE MG/DL 05/04/2024 5:[address] [facility] BILIRUBIN (U) NEGATIVE NEGATIVE MG/DL 05/04/2024 5:[address] [facility] BLOOD (U) LARGE(A) NEGATIVE 05/04/2024 5:[address] [facility] URINE SPECIMEN OBTAINED BY CLEAN CATCH PROCEDURE / Unknown 05/04/2024 5:32 PM CDT us Jeri Carmen DIVISION SALES MANAGER URINE ORDERABLES Final R esult [facility] [place] [address], documented in this encounter Visit Diagnoses Diagnosis Acute cystitis with hematuria- Primary Acute cystitis documented in this encounter Additional Health Concerns Assessment Noted Time PHQ-9 Depression Total Score: 0 04/11/20 23 2:41 PM CDT documented as of this encounter Care Teams Material Handler 2Nd Shift Relationship Specialty Start Date End Date Oscar Edwards MD [address] [facility] [address] [place] [address] PCP - General INTERNAL MEDICINE 04/28/22 documented as of this encounter
--- OUTSIDE RECORDS SUMMARY | 2024-10-13 22:40 | XMS_ITS | Encounter Summary ---
Author Organization [facility] Address [address] [place] [address]. 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 INSTALLER Gender Identity Not on file Sexual Orientation Not on file documented as of this encounter Plan of Treatment Upcoming Encounters Date Type Department Care Team (Late st Contact Info) Description 11/02/2024 8:00 AM AIRCRAFT DE ICER INSTALLER Office Visit [facility] - [place] [address] [address] [address] [place] [address] Oscar Edwards MD [address] [place] [address] 06/25/2025 9:00 AM CDT [facility] [address] [address] Elisha Kim PA 3 [facility] [address] [place] [address] documented as of this encounter Visit Diagnoses Not on filedocumented in this encounter Additional Health Concerns Assessment Noted Time PHQ-9 Depression Total Score: 0 04/11/20 23 2:41 PM CDT documented as of this encounter Care Teams Teletype Operator Relationship Specialty Start Date End Date Oscar Edwards MD [address] [facility] [address] [place] [address] PCP - General INTERNAL MEDICINE 04/28/22 documented as of this encounter
--- OUTSIDE RECORDS SUMMARY | 2024-10-13 22:40 | XMS_ITS | Encounter Summary ---
Author Organization [facility] Address [address] [place] [address]. [place], [place] [address] [place] [address] Care Team Providers Care Adjunct Writing Instructor Name Role Phone Oscar Edwards MD Primary Care Provider Reason for Visit * Reason Onset Date Comments Information 04/04/2024 Encounter Details Date Type Department Care Team (Late st Contact Info) Description 04/04/2024 Telephone [facility] - [place] [address] [address] [place] [address] Oscar Edwards MD [address] [place] [address] [address] [place], [place] [id number] Information Social History Tobacco Use Types Packs/Day Years [...] on file Legal Sex 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 Pt v/u states she will call back if bleeding gets worse, ot is following with OB * Karyn Naranjo MA - 04/04/2024 9:05 AM CDT ----- Message from Dr. Oscar Edwards sent at 04/03/2024 6:33 PM CDT ----- Please call and update patient. Beta-hCG levels dropping significantly. Down from 1433 to 450 and most likely patient aborting at this time. I will have her discuss with her SPEECH WRITER. I called to update patient on results but there was no response. documented in this encounter Plan of Treatment Upcoming Encounters Date Type Department Care Team (Late st Contact Info) Description 11/02/2024 8:00 AM ORDINARY SEAMAN Office Visit [facility] - [place] [address] [address] [place] [address] Oscar Edwards MD [address] [address] 06/25/2025 9:00 AM CDT Office Visit [facility] [place] [address] [place] [address] Elisha Kim PA 3 [facility] [address] [place] [address] documented as of this encounter Visit Diagnoses Not on filedocumented in this encounter Additional Health Concerns Assessment Noted Time PHQ-9 Depression Total Score: 0 04/11/20 23 2:41 PM CDT documented as of this encounter Care Teams Adjunct Writing Instructor Relationship Specialty [place] [address] [place] [address] PCP - General INTERNAL MEDICINE 04/28/22 documented as of this encounter
--- OUTSIDE RECORDS SUMMARY | 2024-10-13 22:40 | XMS_ITS | Encounter Summary ---
Author Organization [facility] Address [address] [place] [address]. 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 Encounter Details Date Type Department Care Team (Latest Contact Info) Description 06/25/2022 2:30 PM CDT Office Visit [facility] - [place] [address] [address] [place] [address] Oscar Edwards MD [address] [place] [address] Anxiety; Depression; Poultry Cleaner Exam Social History Tobacco Use Types Packs/Day Years [...] on file 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 No / Unsure 06/25/2022 2:08 PM CDT documented as of this encounter Last Filed Vital Signs Vital Sign Reading Time Taken Comments Blood Pressure 91/50 06/25/2022 2:21 PM CDT Pulse 79 06/25/2022 2:21 PM CDT Temperature 37.4 ??C (99.3 ??F) 06/25/2022 2:21 PM CD T Respiratory Rate 18 06/25/2022 2:21 PM CDT Oxygen Saturation 97% 06/25/2022 2:21 PM CDT Inhaled Oxygen Concentration - - Weight 56.7 kg (125 lb) 06/25/2022 2:21 PM CDT Height 167.6 cm (5' 6 ) 06/25/2022 2:21 PM CDT Body Mass Index 20.18 06/25/2022 2:21 PM CDT documented in this encounter Patient Instructions * Patient Instructions* Oscar Edwards MD - 06/25/2022 2:30 PM CDT Follow up in 8 weeks for your medication. * Attachments The following attachments cannot be sent through Care Everywhere. * Anxiety Discharge Instructions, Adult (Irish) documented in this encounter Progress Notes * Oscar Edwards MD - 06/25/2022 2:30 PM CDTAddended by: OSCAR EDWARDS on: 06/25/2022 11:35 PM Modules accepted: Orders * Oscar Edwards MD - 06/25/2022 2:30 PM CDTSummary: Follow-up notes Images from the original note were not included. Internal Medicine Outpatient Progress Note CC: Anxiety, Depression, and Poultry Cleaner Exam Opal Swenson is a 27-year-old White or female who presents for follow-up for major depression and generalized anxiety disorder and for Pap smear. Patient's last Pap smear was done one year ago and results were negative. Currently sexually active. Denies any concerns for abnormal vaginal discharge, abnormal vaginal spotting or bleeding, lower abdominal cramping or fullness. Denies any concerns for sexually transmitted infections. Her last menstrual period was in 05/2022 Patient is also here for follow-up for major depression and generalized anxiety disorder. Her dose of medication was recently adjusted and patient currently on fluoxetine 20 mg daily with clonazepam 0.5 mg daily as needed and rarely using. Has been taking her medications as directed. She currently does not follow routinely with psychiatry or therapy. Reports her symptoms are getting better. Denies any concerns with suicidal ideations or intentions to harm. Her was recently admitted to the hospital and this has somewhat affected patient's mood lately however patient tells me she has noticed the fluoxetine is helping. PHQ-9: Over the last two weeks, how often have you been bothered by any of the following problems? 05/28/2022 06/25/2022 LITTLE INTEREST OR PLEASURE IN DOING THINGS 0-Not at All 1-Several Days FEELING DOWN, DEPRESSSED,OR HOPELESS 0-Not at All 1-Several Days PHQ2 DEPRESSION TOTAL SCORE 0 2 TROUBLE FALLING OR STAYING ASLEEP OR SLEEPING [...] - IF YOU CHECKED OFF ANY PROBLEMS Not difficult at all - CHARLA-7 (Generalized Anxiety Disorder) Screening CHARLA-7 05/28/2022 06/25/2022 Feeling nervous, anxious and on edge 1 - several days 2 - more than half the days Not being able to stop or control worrying 1 - several days 2 - more than half the days Worrying too much about different things 1 - several days 2 - more than half the days Trouble Relaxing 1 - several days 1 - several days Being so restless that it's hard to sit still 1 - several days 1 - several days Becoming easily annoyed or irritable 0 - not at all 0 - not at all Feeling afraid as if something awful might happen 1 - several days 2 - more than half the days Total Score 6 10 If you checked off any problems, how difficult have those problems made it for you to do your work take care of things at home or get along with other people? not difficult at all somewhat difficult Problem List There is no [...] Outpatient Medications Marked as Taking for the 06/25/22 encounter (Office Visit) with Oscar Edwards MD Medication Sig Dispense Refill ??? FLUoxetine (PROZAC) 40 MG capsule Take 1 capsule (40 mg total) by mouth daily. 30 capsule 3 Allergies: Allergies Allergen Reactions ??? Macrobid [Nitrofurantoin] [...] Genitourinary: Negative. Musculoskeletal: Negative. Neurological: Negative. Psychiatric/Behavioral: Positive for depression. Negative for hallucinations, memory loss, substance abuse and suicidal ideas. The patient is nervous/anxious. The patient does not have insomnia. Objective: Filed Vitals: 06/25/22 1421 BP: 91/50 Pulse: 79 Resp: 18 Temp: 99.3 ??F (37.4 ??C) TempSrc: Temporal SpO2: 97% Weight: 56.7 kg (125 lb) Height: 5' 6 (1.676 m) Body mass index is 20.18 kg/m??. General alert, cooperative, no distress HEENT [...] murmurs. No rubs, clicks, or gallops. Abdomen Genitourinary exam Soft, non-tender, non-distended. Bowel sounds normal. No masses. No hepatomegalyappreciated. BOTH GENITOURINARY EXAM AND BREAST EXAM DONE IN THE PRESENCE OF A VIRTUAL REALITY SPECIALIST- TALHA Hull. General: healthy Labia right: healthy Labia left: healthy Vagina: healthy and pink Cervix: healthy and pink with no tenderness or discharge Uterus: not palpable Adnexa right: no masses Adnexa left: no masses Extremities Extremities atraumatic, no cyanosis, 2+ pedal pulses, no edema Skin Skin color, texture, turgor normal. No rashes or lesions appreciated. Neurologic No focal deficits, motor strength is grossly normal and symmetric Psych Normal mood and affect MSK No synovitis, no bony tenderness, no joint effusions Lymph Breast exam No cervical or supraclavicular adenopathy Both breast of normal size and no skin changes. Right nipple significantly inverted more than the left breast. No nipple discharge. No breast lumps in all 4 quadrants. No erythema. No axillary lymph nodes. Assessment and Plan: Encounter Diagnose(s) ICD-10-CM ICD-9-CM SNOMED CT(R) 1. Screening for cervical cancer Z12.4 V76.2 CANCER CERVIX SCREENING STATUS Cytopath Cerv/Vag Thin Layer 2. Severe episode of recurrent major depressive disorder, without psychotic features (CMS/HCC) F33.2 296.33 SEVERE RECURRENT MAJOR DEPRESSION WITHOUT PSYCHOTIC FEATURES FLUoxetine (PROZAC) 40 MG capsule 3. CHARLA (generalized anxiety disorder) F41.1 300.02 GENERALIZED ANXIETY DISORDER FLUoxetine (PROZAC)40 MG capsule 4. Panic attack F41.0 300.01 PANIC ATTACK 1. Screening for cervical cancer - Cytopath Cerv/Vag Thin Layer; Future 2. Severe episode of recurrent major depressive disorder, without psychotic features (CMS/HCC) -Improving but not optimally controlled - Still not optimally controlled - I personally reviewed PHQ-9 and [...] with patient the plan as outlined below. -Increase to FLUoxetine (PROZAC) 40 MG capsule; Take 1 capsule (40 mg total) by mouth daily. Dispense: 30 capsule; Refill: 3 3. CHARLA (generalized anxiety disorder) -Still not optimally controlled - I personally reviewed PHQ-9 and [...] with patient the plan as outlined below. -Increase to FLUoxetine (PROZAC) 40 MG capsule; Take 1 capsule (40 mg total) by mouth daily. Dispense: 30 capsule; Refill: 3 -Follow-up in 8 weeks 4. Panic attack -Improving and patient requiring less of medication. Still need to dose adjustments and patient concerned about possibility of having panic attacks. For now, given that patient is undergoing lots of stressors with her recently admitted to the hospital, I will give her last round of clonazepam to use for panic attacks. -Clonazepam 0.5 mg to be used daily as needed for panic attacks Counseling given: Yes Comment: counseled by Dr Edwards I spent 30 minutes today reviewing the patient's medical record, obtaining history, performing an exam, ordering medications, tests, and/or procedures, documenting in the medical record, referring and/or communicating with other health care providers, counseling and educating the patient/family/caregiver, reviewing and communicating test results and coordination of care. Side effects and less common but more severe adverse effects of recommended medical therapies were explained to the patient. Follow up office visit in 2 months. Requested MyChart or telephone follow up prn if symptoms change, worsen, or persist, or if side effect of treatment is experienced. [place]ORON: This dictation was at least in part performed using [employer] speak and there may be some inherent flaws in this shake loader due to the nature of this program. Oscar Edwards MD Internal Medicine [facility]. documented in this encounter Plan of Treatment Upcoming Encounters Date Type Department Care Team (Late st Contact Info) Description 11/02/2024 8:00 AM SLIMER Office Visit [facility] Mult[facility]pecialty Care - [place] [address] [place] [address] [address] [place] [address] Oscar Edwards MD [address] [facility] [address] [place] [address] 06/25/2025 9:00 AM CDT Office Visit [facility], [place] [place] [address] Elisha Kim PA 3 [facility] [address] [place] [address] documented as of this encounter Visit Diagnoses Diagnosis Screening for cervical cancer- Primary Screening for malignant neoplasm of the cervix Severe episode of recurrent major depressive disorder, without psychotic features ([facility]/HCC [facility]) CHARLA (generalized anxiety disorder) Generalized anxiety disorder Panic attack Panic disorder without agoraphobia documented in this encounter Additional Health Concerns Assessment Noted Time PHQ-9 Depression Total Score: 20 022 2:50 PM CDT documented as of this encounter Care Teams Naphthalene Operator Helper Relationship Specialty Start Date End Date Oscar Edwards MD [address] [facility] [address] [place] [address] PCP - General INTERNAL MEDICINE 04/28/22 documented as of this encounter
--- OUTSIDE RECORDS SUMMARY | 2024-10-13 22:40 | XMS_ITS | Encounter Summary ---
Author Organization [facility] Address [address] [place] [address]. 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 Gender Identity Not on file Sexual Orientation Not on file documented as of this encounter Plan of Treatment Upcoming Encounters Date Type Department Care Team (Late st Contact Info) Description 11/02/2024 8:00 AM ASSISTANT MAINTENANCE MANAGER Office Visit [facility] Multispecialty Care - [place] [address] [address] [place] [address] Oscar Edwards MD [address] [place] [address] 06/25/2025 9:00 AM CDT [facility], [address] [address] Elisha Kim PA 3 [facility] [address] [place] [address] documented as of this encounter Visit Diagnoses Not on filedocumented in this encounter Additional Health Concerns Infection Onset Date Last Indicated Resolved Time COVID-19 Confirmed 06/10/2024 06/10/2024 4 12:32 AM CDT Assessment Noted Time PHQ-9 Depression Total Score: 0 04/11/20 23 2:41 PM CDT documented as of this encounter Care Teams Firmware Software Verification Engineer Relationship Specialty Start Date End Date Oscar Edwards MD [address] [facility] [address] [place] [address] PCP - General INTERNAL MEDICINE 04/28/22 documented as of this encounter
--- OUTSIDE RECORDS SUMMARY | 2024-10-13 22:40 | XMS_ITS | Encounter Summary ---
Author Organization [facility] Address [address] [place] [address]. 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 No / Unsure 06/25/2022 2:08 PM CDT documented as of this encounter Medications at Time of Discharge clonazePAM (KLONOPIN) 0.5 MG tabletIndications :CHARLA (generalized anxiety disorder) Take 1 tablet (0.5 mg total) by mouth daily as needed for Anxiety. FOR ANXIETY 10 tablet 06/25/2022 08/24/2022 FLUoxetine (PROZAC) 40 MG capsuleIndication s:Severe episode of recurrent major depressive disorder, without psychotic features ([facility]/HCC HHS/HCC),CHARLA (generalized anxiety disorder) Take 1 capsule (40 mg total) by mouth daily. 30 capsule 3 06/25/2022 08/24/2022 documented as of this encounter Plan of Treatment Upcoming Encounters Date Type Department Care Team (Late st Contact Info) Description 11/02/2024 8:00 AM SWITCH BOX INSTALLER Office Visit [facility] Multispecialty Care - [place] [address] [address] [place] [address] Oscar Edwards MD [address] [place] [address] [address] [place] [address] 06/25/2025 9:00 AM CDT Office Visit [facility] [facility], [place] [address] [place] [address] Elisha Kim PA 3 [facility] [address] [place] [address] documented as of this encounter Procedures Procedure Name Priority Date/Time Associated Diagnosis Comments CYTOPATH CERV/VAG THIN LAYER Routine 06/25/2022 7:46 AM CDT documented in this encounter Results * Cytopath Cerv/Vag Thin Layer (06/25/2022 7:46 AM CDT) THIN PREP PAP ? [facility] ?[address] ?[place] [address] ? Department of Pathology ? Pathology Report ? CERVICAL/VAGINAL PAP SMEAR REPORT Name: OPAL MONROY Sushma ? Age: 3 1995 (Age: 27) ?Location: [facility] Sex: F ?Collected Date: 06/25/2022 Hospital #: [id number] ?Date Received: 06/28/2022 Date Reported: 06/30/2022 Provider: [...] not effective in detecting cervical adenocarcinoma. [facility] 06/25/2022 7:46 AM CDT 06/28/2022 7:46 AM CDT Comment:CERVICAL/ENDOCERVICA L Oscar Edwards MD PATHOLOGY/CYTOLOGY ORDERABLES Fi nal Result [facility] [address] [place] [address], documented in this encounter Visit Diagnoses Diagnosis Screening for cervical cancer Screening for malignant neoplasm of the cervix documented in this encounter Additional Health Concerns Assessment Noted Time PHQ-9 Depression Total Score: 20 022 2:50 PM CDT documented as of this encounter Care Teams Clinical Nurse Manager Relationship Specialty Start Date End Date Oscar Edwards MD [address] [facility] [address] [place] [address] PCP - General INTERNAL MEDICINE 04/28/22 documented as of this encounter
--- OUTSIDE RECORDS SUMMARY | 2024-10-13 22:40 | XMS_ITS | Encounter Summary ---
Author Organization [facility] Address [address] [place] [address]. 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 Thank you. ITECTURAL JOB CAPTAIN documented in this encounter Plan of Treatment Upcoming Encounters Date Type Department Care Team (Late st Contact Info) Description 11/02/2024 8:00 AM ARCHITECTURAL JOB CAPTAIN Office Visit [facility] Multispecialty Care [place] [address] [address] [place] [address] Oscar Edwards MD [facility] [address] [address] 06/25/2025 9:00 AM CDT Office Visit [facility], [place] [place] [address] Elisha Kim PA 3 [facility] [address] [place] [address] documented as of this encounter Visit Diagnoses Not on filedocumented in this encounter Additional Health Concerns Assessment Noted Time PHQ-9 Depression Total Score: 20 022 2:50 PM CDT documented as of this encounter Care Teams Publicity Expert Relationship Specialty [place] [address] [place] [address] PCP - General INTERNAL MEDICINE 04/28/22 documented as of this encounter
--- OUTSIDE RECORDS SUMMARY | 2024-10-13 22:40 | XMS_ITS | Encounter Summary ---
Author Organization [facility] Address [address] [place] [address]. [place], [place] [id number] [place] [address] Care Team Providers Care Pie Chef Name Role Phone Oscar Edwards MD Primary Care Provider [phone] Reason for Visit * Reason Comments Urinary Problem Urine is green in co zacarias Sinus Problem Sinus pressure Other Feels shaky in the m orning; lack of appetite Encounter Details Date Type Department Care Team (Latest Contact Info) Description 07/21/2022 2:20 PM CDT Office Visit [facility] Multispecialty Care - [place] [address] [address] [place] [address] Oscar Edwards MD [address] [place] [id number] Urinary Problem (Urine is green in color); Sinus Problem (Sinus pressure); Other (Feels shaky in the morning; lack of appetite) Social History Tobacco Use Types Packs/Day Years [...] on file 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 No / Unsure 07/21/2022 2:06 PM CDT documented as of this encounter Last Filed Vital Signs Vital Sign Reading Time Taken Comments Blood Pressure 110/75 07/21/2022 2:15 PM CDT Pulse 89 07/21/2022 2:15 PM CDT Temperature 37.2 ??C (98.9 ??F) 07/21/2022 2:15 PM CD T Respiratory Rate 18 07/21/2022 2:15 PM CDT Oxygen Saturation 100% 07/21/2022 2:15 PM CDT Inhaled Oxygen Concentration - - Weight 54.9 kg (121 lb) 07/21/2022 2:15 PM CDT Height 167.6 cm (5' 6 ) 07/21/2022 2:15 PM CDT Body Mass Index 19.53 07/21/2022 2:15 PM CDT documented in this encounter Patient Instructions * Patient Instructions* Oscar Edwards MD - 07/21/2022 2:20 PM CDT Please follow up as planned during your next appointment. * Attachments The following attachments cannot be sent through Care Everywhere. * Stress (Ecuadorean) documented in this encounter Progress Notes * Oscar Edwards MD - 07/21/2022 2:20 PM CDTSummary: Acute visit note Images from the original note were not included. Internal Medicine Outpatient Progress Note CC: Urinary Problem (Urine is green in color), Sinus Problem (Sinus pressure), and Other (Feels shaky in the morning; lack of appetite) HPI: Opal Swenson is a 27-year-old female who presents for for an acute visit for concerns about recent change in urine color, sinus pressure and general fatigue. Patient tells me she recently started experiencing upper respiratory symptoms. Symptoms currently getting better though she still has ongoing congestion and postnasal drainage. No recent sick contacts. 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 She tells me her depression and anxiety are well controlled with her current dose of medication. She recently started taking a multivitamin as well to help with her symptoms. She is on fluoxetine 40 mg daily. She is unsure why her urine color has recently changed and concerned about the possibility of side effects of medication. Denies any flank pain, shortness of breath or abdominal cramping, no fever or chills or cough or sore throat. Patient concerned and wanted todiscuss at today's visit. 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 Though her anxiety and depression is controlled, patient feeling very fatigued and overwhelmed. Problem List There is no problem list [...] Outpatient Medications Marked as Taking for the 07/21/22 encounter (Office Visit) with Oscar Edwards MD Medication Sig Dispense Refill ??? amoxicillin (AMOXIL) 875 MG tablet Take 1 tablet (875 mg total) by mouth 2 (two) times daily for 5 days. 10 tablet 0 ??? azelastine (ASTELIN) 0.1 % nasal spray 1 spray by Nasal route 2 (two) times daily. Use in each nostril as directed 30 mL 1 ??? clonazePAM (KLONOPIN) 0.5 MG tablet Take 1 tablet (0.5 mg total) by mouth daily as needed for Anxiety. FOR ANXIETY 10 tablet 0 ??? FLUoxetine (PROZAC) 40 MG capsule Take 1 capsule (40 mg total) by mouth daily. 30 capsule 3 ??? fluticasone propionate (FLONASE) 50 MCG/ACT nasal spray 2 sprays by Nasal route daily. 16 g 5 Allergies: Allergies Allergen Reactions ??? Macrobid [Nitrofurantoin] Shortness of Breath bruising ??? Z-Taras [Azithromycin] Other (see comment) Itchy hands, dizzy, generalized not feeling well ??? Ibuprofen Hives ? ? Dexamethasone Eyes Water & Itch and Itching Review of Systems Constitutional: Negative for chills, diaphoresis, fever, malaise/fatigue (Fatigue mainly) and weight loss. HENT: Negative. Eyes: Negative. Respiratory: Negative. Cardiovascular: Negative for chest pain, palpitations, orthopnea, claudication, leg swelling and PND. Gastrointestinal: Negative. Genitourinary: Negative. Musculoskeletal: Negative. Neurological: Negative. Psychiatric/Behavioral: Negative. Objective: Filed Vitals: 07/21/22 1415 BP: 110/75 Pulse: 89 Resp: 18 Temp: 98.9 ??F (37.2 ??C) TempSrc: Temporal SpO2: 100% Weight: 54.9 kg (121 lb) Height: 5' 6 (1.676 m) Body mass index is 19.53 kg/m??. General alert, cooperative, no distress HEENT EOM's intact. Oral mucosa normal. Nasal septum is midline. Sclera clear. Neck Supple, symmetrical, trachea midline, no adenopathy, [...] sounds normal. No masses. No hepatomegaly appreciated. No flank tenderness. Extremities Extremities atraumatic, no cyanosis, 2+ pedal pulses, no edema Skin Skin color, texture, turgor normal. No rashes or lesions appreciated. Neurologic No focal deficits, motor strength is grossly normal and symmetric Psych Normal mood and affect MSK No synovitis, no bony tenderness, no joint effusions Lymph No cervical or supraclavicular adenopathy Assessment and Plan: Encounter Diagnose(s) ICD-10-CM ICD-9-CM SNOMED CT(R) 1. Abnormal urine color R39.89 791.9 URINE COLOR ABNORMAL URINALYSIS AUTO DIP CBC W/DIFF AUTOMATED RETICULOCYTE CT, AUTO COMPREHENSIVE METABOLIC PANEL COMPREHENSIVE METABOLIC PANEL CBC W/DIFF AUTOMATED 2. Acute maxillary sinusitis, recurrence not specified J01.00 461.0 ACUTE MAXILLARY SINUSITIS azelastine (ASTELIN) 0.1 % nasal spray fluticasone propionate (FLONASE) 50 MCG/ACT nasal spray amoxicillin (AMOXIL) 875 MG tablet 3. Hyperbilirubinemia E80.6 782.[address], AUTO 1. Abnormal urine color - URINALYSIS AUTO DIP - CBC W/DIFF AUTOMATED; Future - RETICULOCYTE CT, AUTO; Future - COMPREHENSIVE METABOLIC PANEL; Future -Patient with prior mildly elevated bilirubin on blood work done a couple of months ago. Her examination findings benign. Recently started taking a multivitamin which she bought online. I suspect patient's recent urine color change may be from medication rather than from hemolysis however will check labs above to be sure given his past history of elevated bilirubin. She also has fatigue and couldbe a combination of recently having to shoulder taking care of her very ill and stress fromwork. Patient reassured. I do not think the mild discoloration of her urine (light green) is from her fluoxetine. Most likely related to recent multivitamin. 2. Acute maxillary sinusitis, recurrence not specified -Symptoms have been ongoing for couple of weeks and patient feeling mildly fatigued; no concerns for COVID at this time -Use azelastine (ASTELIN) 0.1 % nasal spray; 1 spray by Nasal route 2 (two) times daily. Use in each nostril as directed Dispense: 30 mL; Refill: 1 -Alternate with fluticasone propionate (FLONASE) 50 MCG/ACT nasal spray; 2 sprays by Nasal route daily. Dispense: 16 g; Refill: 5 - amoxicillin (AMOXIL) 875 MG tablet; Take 1 tablet (875 mg total) by mouth 2 (two) times daily for5 days. Dispense: 10 tablet; Refill: 0 -Patient to maintain hydration and to ensure adequate rest. 3. Hyperbilirubinemia - RETICULOCYTE CT, AUTO; Future Counseling given: Yes Comment: counseled by Dr [...] was at least in part performed using Vittana and there may be some inherent flaws in this chemical machine tender due to the nature of this program. Oscar Edwards MD Internal Medicine [facility], [facility]. documented in this encounter Plan of Treatment Upcoming Encounters Date Type Department Care Team (Late st Contact Info) Description 11/02/2024 8:00 AM METAL DRILL PRESS OPERATOR Office Visit [facility] Medical Group Multispecialty Care - [place] [address] [address] [place] [address] Oscar Edwards MD [address] [place] [address] [address] [place] [address] 06/25/2025 9:00 AM CDT Office Visit [facility], [place] [place] [address] Elisha Kim PA [address] [facility] [address] [place] [address] documented as of this encounter Procedures Procedure Name Priority Date/Time Associated Diagnosis Comments URINALYSIS AUTO DIP Routine 07/21/2022 Abnormal urine color documented in this encounter Results * RETICULOCYTE CT, AUTO (07/22/2022 9:49 AM CDT) RETICULOCYTE COUNT 0.8 0.8 - 2.1 % 07/22/2022 10:30 AM CDT [facility] ABSOLUTE RETICULOCYTE 0.04 0.02 - 0.10 x10'6/uL 07/22/2022 10:30 AM CDT [facility] IMMATURE RETIC FRACTION 6.9 3.0 - 15.9 % 07/22/2022 10:30 AM CDT [facility] RETIC HGB 28.9 28.0 - 35.0 PG 07/22/2022 10:30 AM CDT [facility] 07/22/2022 9:49 AM CDT Oscar Edwards MD LABORATORY Final Result [facility] [address] [place] [address], [place] [phone] * URINALYSIS AUTO DIP (07/21/2022) COLOR (U) YELLOW MG-[address], [place] TRANSPARENCY CLEAR MG-[address], [place] GLUCOSE (U) NEGATIVE NEGATIVE MG/DL MG-[address], [place] BILIRUBIN (U) NEGATIVE NEGATIVE MG-[address], [place] KETONES MG/DL (U) NEGATIVE NEGATIVE MG/DL MG-[address], [place] SPECIFIC GRAVITY (U) 1.010 1.001 - 1.035 MG-[address], [place] BLOOD (U) TRACE (Hemolyzed) NEGATIVE MG-[address], [place] U PH 6.0 5.0 - 9.0 MG-[address], [place] PROTEIN (U) NEGATIVE NEGATIVE mg/dL MG-[address], [place] UROBILINOGEN 0.2 0.2 - 1.0 EU/dL = mg/dL MG-[address], [place] NITRITES NEGATIVE NEGATIVE MG/DL MG-[address], [place] LEUKOCYTES (U) NEGATIVE NEGATIVE MG-[address], [place] URINE SPECIMEN OBTAINED BY CLEAN CATCH PROCEDURE / Unknown 07/21/2022 Oscar Edwards MD URINE ORDERABLES Edited Result - Final [id number], [place] [address] [place] [address] [address] [place] [address], documented in this encounter Visit Diagnoses Diagnosis Abnormal urine color- Primary Other urinary problems Acute maxillary sinusitis, recurrence not specified Hyperbilirubinemia Jaundice, unspecified, not of documented in this encounter Additional Health Concerns Assessment Noted Time PHQ-9 Depression Total Score: 20 022 2:50 PM CDT documented as of this encounter Care Teams Pie Chef Relationship Specialty Start Date End Date Oscar Edwards MD [address] [facility] [address] [place] [address] PCP - General INTERNAL MEDICINE 04/28/22 documented as of this encounter
--- OUTSIDE RECORDS SUMMARY | 2024-10-13 22:40 | XMS_ITS | Encounter Summary ---
Author Organization [facility] Address [address] [place] [address]. 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 No / Unsure 07/29/2022 4:08 PM CDT documented as of this encounter Last Filed Vital Signs Vital Sign Reading Time Taken Comments Blood Pressure 119/91 07/29/2022 4:10 PM CDT Pulse 101 07/29/2022 4:10 PM CDT Temperature 36.9 ??C (98.5 ??F) 07/29/2022 4:10 PM CD T Respiratory Rate 22 07/29/2022 4:10 PM CDT Oxygen Saturation 99% 07/29/2022 4:10 PM CDT Inhaled Oxygen Concentration - - Weight 59 kg (130 lb) 07/29/2022 4:10 PM CDT Height 167.6 cm (5' 6 ) 07/29/2022 4:10 PM CDT Body Mass Index 20.98 07/29/2022 4:10 PM CDT documented in this encounter Medications at Time [...] 07/22/2022 3 documented as of this encounter ED Notes * Dede Oliver RN - 07/29/2022 4:13 PM CDT Pt presents to ER with c/o panic attack/SOB/non-productive cough. Pt tearful in triage, states three weeks ago they increased her Prozac from 20mg to 40mg. Pt states since then she has felt anxious, had a decreased appetite, and just wants to be alone. pt lives in an apartment with her and son. Pt denies any SI/HI. Pt had a rx for Klonopin PRN but is out. * DIAN Nash - 07/29/2022 4:10 PM CDT [place], [place] EMERGENCY DEPARTMENT ENCOUNTER Medical Screening Examination Chief Complaint : Panic Attack and Shortness Of Breath HPI : Opal Swenson is a 27-year-old female who presents *shortness of breath, having chest, states that she feels she could be having a panic attack, she is on daily fluoxetine and as needed clonazepam, though is out of this medicine and has not had it today. 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 No hemoptysis, but has had a cough Vital Signs: Filed Vitals: 07/29/221609 BP: (!) 119/91 Pulse: 101 Resp: 22 Temp: 98.5 ??F (36.9 ??C) TempSrc: Temporal SpO2: 99% Weight: 59 kg (130 lb) Height: 5' 6 (1.676 m) Physical exam: A brief physical exam was completed to facilitate/expedite patient care. Irizarry findings include: *Tearful, tachycardic, lungs clear to auscultation Plan: Labs & Imaging was ordered to facilitate patient care. and EKG was ordered to faciliate patient care. DIAN Nsah 07/29/221611 Cosigned by Vilma Camp MD at 07/29/2022 6:11 PM CDT documented in this encounter Plan of Treatment Upcoming Encounters Date Type Department Care Team (Late st Contact Info) Description 11/02/2024 8:00 AM ELECTRICAL INSTRUMENT REPAIRER Office Visit [facility] Medical Group Multispecialty Care - [place] [address] [address] [place] [address] Oscar Edwards MD [address] [facility] [address] [place] [address] 06/25/2025 9:00 AM CDT Office Visit [facility] [facility], [place] [address] [place], [place] [id number] Elisha Kim PA 3 [facility] [address] [place], [place] [id number] documented as of this encounter Visit Diagnoses Not on filedocumented in this encounter Active and Recently Administered Medications Times are shown in CDT. Scheduled Medication Order 07/27/2022 07/28/2022 07/29/2022 clonazePAM (klonoPIN) tablet 0.5 mg 0.5 mg, Oral, Once, 1 dose, On Marcy 07/29/22 at 1615, HAZARDOUS MEDICATION: wear single chemotherapy approved gloves. Do not open or split. If crushing, use approved closed-system crushing device for hazardous medications. 1615 (Canceled Entry - Provider: Automatic Discharge Provider - Comment: Automatically canceled at discontinue of medication order) documented in this encounter Additional Health Concerns Infection Onset Date Last Indicated Resolved Time COVID-19 Rule Out 07/29/2022 07/29/2022 07/29/2022 9:34 PM CDT Assessment Noted Time PHQ-9 Depression Total Score: 20 022 2:50 PM CDT documented as of this encounter Care Teams Bus Starter Relationship Specialty Start Date End Date Oscar Edwards MD [address] [facility] [address] [place] [address] PCP - General INTERNAL MEDICINE 04/28/22 documented as of this encounter
--- OUTSIDE RECORDS SUMMARY | 2024-10-13 22:40 | XMS_ITS | Encounter Summary ---
Author Organization [facility] Address [address] [place] [address]. 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 Medical Group Multispecialty Care - [place] [address] [address] [place] [address] Oscar Edwards MD [address] [place] [address] 06/25/2025 9:00 AM CDT [facility] [address] [address] Elisha Kim PA 3 [facility] [address] [place] [address] documented as of this encounter Visit Diagnoses Not on filedocumented in this encounter Additional Health Concerns Assessment Noted Time PHQ-9 Depression Total Score: 0 04/11/20 23 2:41 PM CDT documented as of this encounter Care Teams Sammying Machine Operator Relationship Specialty Start Date End Date Oscar Edwards MD [address] [facility] [address] [place] [address] PCP - General INTERNAL MEDICINE 04/28/22 documented as of this encounter
--- OUTSIDE RECORDS SUMMARY | 2024-10-13 22:40 | XMS_ITS | Encounter Summary ---
Author Organization [facility] Address [address] [place] [address]. 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 No / Unsure 09/07/2022 6:50 AM NEUROPHYSIOLOGIST documented as of this encounter Plan of Treatment Upcoming Encounters Date Type Department Care Team (Late st Contact Info) Description 11/02/2024 8:00 AM NEUROPHYSIOLOGIST Office Visit [facility] Multispecialty Care - [place] [address] [address] [place] [address] Oscar Edwards MD [address] [place] [address] [address] [place] [address] 06/25/2025 9:00 AM CDT Office [facility] [facility] [place] [address] [place] [address] Elisha Kim PA 3 [facility] [address] [place] [address] documented as of this encounter Visit Diagnoses Not on filedocumented in this encounter Additional Health Concerns Assessment Noted Time PHQ-9 Depression Total Score: 20 022 2:50 PM CDT documented as of this encounter Care Teams Manager Systems Relationship Specialty Start Date End Date Oscar Edwards MD [address] [facility] [address] [place] [address] PCP - General INTERNAL MEDICINE 04/28/22 documented as of this encounter
--- OUTSIDE RECORDS SUMMARY | 2024-10-13 22:40 | XMS_ITS | Encounter Summary ---
Author Organization [facility] Address [facility]. [place], [place] [address] [place] [address] Care Team Providers Care Filler Shredding Machine Loader Name Role Phone Oscar Edwards MD Primary Care Provider [phone] Reason for Visit * Imaging (Routine) - Closed Specialty Diagnoses / Procedures Referred By Ethel marquis Referred To Contact RADIOLOGY Diagnoses SVT (supraventricular tachycardia) ([facility]/HCC HHS/HCC) Postural dizziness with presyncope Procedures USE ECHOCARDIOGRAM W CON USE ECHOCARDIOGRAM Oscar Edwards MD [address] [address] Phone: tel: fax: Referral ID Status Reason Start Date Expiration Date Visits Re quested Visits Authorized [id number] Closed 05/16/2023 08/14/2023 1 1 Encounter Details Date Type Department Care Team (Latest Contact Info) Description 05/16/2023 9:52 AM CDT - 05/16/2023 11:59 PM CDT Hospital Encounter [facility] [place] [address] Oscar Edwards MD [address] [address] Discharge Disposition: Home or Self [...] on file Legal Sex 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 Taking 60 mg total. 90 capsule 1 09/07/2022 3 FLUoxetine (PROZAC) 40 MG capsuleIndicatio ns:Severe episode of recurrent major depressive disorder, without psychotic features ([facility] HHS/HCC),CHARLA (generalized anxiety disorder) Take 1 capsule [...] st Contact Info) Description 11/02/2024 8:00 AM ALUMINUM CONTAINER TESTER [facility] [address] [place] [address] Oscar Edwards MD [address] [facility] [address] [place] [address] 06/25/2025 9:00 AM CDT Office Visit [facility]iel [facility] [place] [address] [place] [address] Elisha Kim PA 3 [facility] [address] [place], [place] [id number] documented as of this encounter Procedures Procedure Name Priority Date/Time Associated Diagnosis Comments USE ECHOCARDIOGRAM W CON Routine 05/16/2023 11:48 AM CDT SVT (supraventricular tachycardia) Postural dizziness with presyncope documented in this encounter Results * USE ECHOCARDIOGRAM W CON (05/16/2023 11:48 AM CDT) Anatomical Region Laterality Modality NA Echocardiogram 05/16/2023 10:4 2 AM CDT Narrative 05/16/2023 10:25 PM CDT ?Echocardiography Report Pat.Name: ??OPAL MONROY ? Pat.ID: ?[id number] ? St.Date: ?? 05/16/2023 ? Refer.: ??[id number] VINNY MONGE ?EWDPROV ?EWDPROV Exam Time: 10:42:00 AM ? Study Type:ECHO WITH CARDIAC DOPPLER COMP ??Age: ??1995,28Y ? Sex: ? F ? BP: ?105/65 ?HR: ?55 bpm ? Sonogrphr: Walter Conklin RDCS ?Pat. Stat.:Outpatient ? Reason for Study:Supraventricular Tachycardia, Postural dizziness with pre-syncope Procedures: 2D, M-mode, Doppler, Color Flow, Definity was used to enhance endocardial definition. Intraveneous saline contrast was used to help determine presence of intracardiac shunting. Race: ?W ? ++++++++++++++++++++++++++++++++++++ SUMMARY: ++++++++++++++++++++++++++++++++++++ The left ventricular size is normal. The left ventricular systolic function is normal. Estimated left ventricular ejection fraction is 55-60%. Left ventricular diastolic function is normal. Wall motion appears normal in all segments. The right ventricular size is normal. Right ventricular systolic function is normal. No significant valvular abnormalities. ++++++++++++++++++++++++++++++++++++ FINDINGS: ++++++++++++++++++++++++++++++++++++ LV: ? The left ventricular size is normal. The left ventricular ?systolic function is normal. Estimated left ventricular ?ejection fraction is 55-60%. There is no left ventricular ?hypertrophy. Left ventricular diastolic function is normal. WM: ? Wall motion appears normal in all segments. RV: ? The right ventricular size is normal. Right ventricular ?systolic function is normal. IVS: ?No evidence of ventricular septal defect. LA: ? The left atrial volume is mildly increased (34- 41ml/M2). RA: ? Right atrial size is normal. IAS: ?Atrial septum appears intact. The agitated saline injection ?showed no clear evidence of shunting into the left atrium, ?consistent with no patent foramen ovale. CARLTON: ? No evidence of pericardial effusion. AO: ? Normal aortic root. PA: ? Estimated right atrial pressure of 3 mmHg. Unable to ?reliably quantitate pulmonary systolic pressure. SVn: ?Inferior vena cava is normal. Inferior vena cava shows >50% ?collapse with respiration consistent with normal right ?atrial pressure. AV: ? The aortic valve is trileaflet. No evidence of aortic valve ?stenosis. No evidence of aortic valve regurgitation. MV: ? Mild mitral regurgitation. No evidence of mitral stenosis. PV: ? No evidence of pulmonic valve stenosis. No evidence of ?pulmonic regurgitation. TV: ? A trace of tricuspid regurgitation. No evidence of tricuspid ?valve stenosis. ++++++++++++++++++++++++++++++++++++ MEASUREMENTS: ++++++++++++++++++++++++++++++++++++ ?DOPPLER LVOT ?? LVOTpkPG ? 6 mmHg ?LVOTmnPG ? 3 mmHg LVOTpkVel ?127 cm/s (70-110)+* LVOT SV ? 85 ml ?? LVOT TVI ?27.2 cm ? Right Atrium ?? RA Press ? 3 mmHg ?Burch's Disk ? 20 ? Pulmonary Veins ?? PVnpkVeld ? 63.6 cm/s ?PVnVs/Vd ? 0.8 ? PVnpkVels ? 53.4 cm/s ?PVn A Dur ?142 msec AV Forward Flow AV TVI ?29.1 cm ?AV pkPG ?7 mmHg AV pkVel ? 136 cm/s (100-170)+ Area (TVI) ?2.93 cm2 ??(3-5)* AV mnPG ?4 mmHg ?Area (Ronaldo) ?2.93 cm2 ??(3- 5)* MV Forward Flow MV DeTm ?190 msec ?MV pkE ?98.5 cm/s (60- 130) MV E/A ? 2.2 ? MV pkA ?43.9 cm/s PV Forward Flow PV pkVel ? 102 cm/s (60-90)+* PV AC ?222 msec PV pkPG ?4 mmHg ? TV Forward Flow TV pkE ?60.3 cm/s ? Lat E' ?? Lat e ? 19.1 cm/s ? Lat E/E' ?? Lat E/e ?5.2 ? Med E' ?? Med e ? 14.7 cm/s ? Med E/E' ?? Med E/e ?6.7 ? Aortic Valve ?? Aortic Valve Ve ??0.93 ? PV Antegrade Flow Acceleration Sl ?? 327 cm/s2 ? Right Ventricle ?? Right Ventricle ??13.4 cm/s ?2D Left Ventricle ?? LVIDd ? 4.56 cm ?? (3.6-5.2) LV ESV ?32.8 ml ?? LVIDs ? 2.84 cm ?? (2.3-3.9) LV ESV ?46.4 ml ?? LngAxd ?7.34 cm ?LVESV BP ?40.5 ml ?? LngAxd ?8.12 cm ?LV EF ? 59.3 % ?? LV EDV ?80.7 ml ?LV EF ? 58.5 % ?? LV EDV ? 113 ml ?LV EF BP ?59.5 % ?? LVEDV BP ? 100 ml ?LV SV ? 47.9 ml ?? LngAxs ?6.14 cm ?LV SV ? 65.5 ml ?? LngAxs ?6.61 cm ?LV SV BP ?59.5 ml ?? LVPW ?? LVPWd ?0.734 cm ? Right Ventricle ?? RVIDd ? 2.73 cm ?? (2.6-4.3) Right Ventricle ??28.2 mm ?? Right Ventricle ??29.4 mm ? Right and Left ??0.599 ? Major [place] ?76.1 mm ? Ventricular Septum ?? IVSd ? 0.681 cm ? Left Atrium ?? LA VOLBP ?36.1 ml ? Aorta ?? Ao Rtd ? 2.5 cm ? LVOT ?? LVOT ? 2 cm ?LVOTArea ?3.14 cm2 Ratios ?? IVS Inferior vena cava ?? IVC Diam ?12.6 mm ? RA Single Plane Right Atrium MO ??12.1 mm ? Right Atrium Sy ??8.98 cm2 Right Atrium Sy ??36.5 mm ? Right Atrium Sy ?18 ml ?MMODE TA ?? Tricuspid Annul ??18.7 mm ? <Electronic Signature> 05/16/2023 10:25 PM Dewayne Silverio M.D. Procedure Note Dewayne Silverio MD - 05/16/2023 Echocardiography Report Pat.Name: OPAL MONROY Pat.ID: [id number] .Date: 05/16/2023 Christopher.: [id number] VINNY NUEKI EWDPROV EWDPROV Exam Time: 10:42:00 AM Study Type:ECHO WITH CARDIAC DOPPLER COMP Age: 1 1995,28Y Sex: F BP: 105/65 HR: 55 bpm Sonogrphr: Walter Conklin [facility] Pat. Stat.:Outpatient Reason for Study:Supraventricular Tachycardia, Postural dizziness with pre-syncope Procedures: 2D, M-mode, Doppler, Color Flow, Definity was used to enhance endocardial definition. Intraveneous saline contrast was used to help determine presence of intracardiac shunting. Race: W ++++++++++++++++++++++++++++++++++++ SUMMARY: ++++++++++++++++++++++++++++++++++++ The left ventricular size is normal. The left ventricular systolic function is normal. Estimated left ventricular ejection fraction is 55-60%. Left ventricular diastolic function is normal. Wall motion appears normal in all segments. The right ventricular size is normal. Right ventricular systolic function is normal. No significant valvular abnormalities. ++++++++++++++++++++++++++++++++++++ FINDINGS: ++++++++++++++++++++++++++++++++++++ LV: The left ventricular size is normal. The left ventricular systolic function is normal. Estimated left ventricular ejection fraction is 55-60%. There is no left ventricular hypertrophy. Left ventricular diastolic function is normal. WM: Wall motion appears normal in all segments. RV: The right ventricular size is normal. Right ventricular systolic function is normal. IVS: No evidence of ventricular septal defect. LA: The left atrial volume is mildly increased (34- 41ml/M2). RA: Right atrial size is normal. IAS: Atrial septum appears intact. The agitated saline injection showed no clear evidence of shunting into the left atrium, consistent with no patent foramen ovale. CARLTON: No evidence of pericardial effusion. AO: Normal aortic root. PA: Estimated right atrial pressure of 3 mmHg. Unable to reliably quantitate pulmonary systolic pressure. SVn: Inferior vena cava is normal. Inferior vena cava shows >50% collapse with respiration consistent with normal right atrial pressure. AV: The aortic valve is trileaflet. No evidence of aortic valve stenosis. No evidence of aortic valve regurgitation. MV: Mild mitral regurgitation. No evidence of mitral stenosis. PV: No evidence of pulmonic valve stenosis. No evidence of pulmonic regurgitation. TV: A trace of tricuspid regurgitation. No evidence of tricuspid valve stenosis. ++++++++++++++++++++++++++++++++++++ MEASUREMENTS: ++++++++++++++++++++++++++++++++++++ DOPPLER LVOT LVOTpkPG 6 mmHg LVOTmnPG 3 mmHg LVOTpkVel 127 cm/s (70-110)+* LVOT SV 85 ml LVOT TVI 27.2 cm Right Atrium RA Press 3 mmHg Burch's Disk 20 Pulmonary Veins PVnpkVeld 63.6 cm/s PVnVs/Vd 0.8 PVnpkVels 53.4 cm/s PVn A Dur 142 msec AV Forward Flow AV TVI 29.1 cm AV pkPG 7 mmHg AV pkVel 136 cm/s (100-170)+ Area (TVI) 2.93 cm2 (3-5)* AV mnPG 4 mmHg Area (Ronaldo) 2.93 cm2 (3-5)* MV Forward Flow MV DeTm 190 msec MV pkE 98.5 cm/s (60-130) MV E/A 2.2 MV pkA 43.9 cm/s PV Forward Flow PV pkVel 102 cm/s (60-90)+* PV AC 222 msec PV pkPG 4 mmHg TV Forward Flow TV pkE 60.3 cm/s Lat E' Lat e 19.1 cm/s Lat E/E' Lat E/e 5.2 Med E' Med e 14.7 cm/s Med E/E' Med E/e 6.7 Aortic Valve Aortic Valve Ve 0.93 PV Antegrade Flow Acceleration Sl 327 cm/s2 Right Ventricle Right Ventricle 13.4 cm/s 2D Left Ventricle LVIDd 4.56 cm (3.6-5.2) LV ESV 32.8 ml LVIDs 2.84 cm (2.3-3.9) LV ESV 46.4 ml LngAxd 7.34 cm LVESV BP 40.5 ml LngAxd 8.12 cm LV EF 59.3 % LV EDV 80.7 ml LV EF 58.5 % LV EDV 113 ml LV EF BP 59.5 % LVEDV BP 100 ml LV SV 47.9 ml LngAxs 6.14 cm LV SV 65.5 ml LngAxs 6.61 cm LV SV BP 59.5 ml LVPW LVPWd 0.734 cm Right Ventricle RVIDd 2.73 cm (2.6-4.3) Right Ventricle 28.2 mm Right Ventricle 29.4 mm Right and Left 0.599 Major [place] 76.1 mm Ventricular Septum IVSd 0.681 cm Left Atrium LA VOLBP 36.1 ml Aorta Ao Rtd 2.5 cm LVOT LVOT 2 cm LVOTArea 3.14 cm2 Ratios IVS Inferior vena cava IVC Diam 12.6 mm RA Single Plane Right Atrium MO 12.1 mm Right Atrium Sy 8.98 cm2 Right Atrium Sy 36.5 mm Right Atrium Sy 18 ml MMODE TA Tricuspid Annul 18.7 mm <Electronic Signature> 05/16/2023 10:25 PM Dewayne Silverio M.D. Oscar Edwards MD ECHO Final Result documented in this encounter Visit Diagnoses Diagnosis SVT (supraventricular tachycardia) (CMS/HCC HHS/HCC) Other specified cardiac dysrhythmias Postural dizziness with presyncope documented in this encounter Administered Medications Inactive Administered Medications - up to 3 most recent administrations Medication Order MAR Action Action Date Dose Rate Site perflutren lipid microsphere (DEFINITY) injection 2 mL 2 mL, Intravenous, IMG once as needed, Contrast, 1 dose, Starting on Tue05/16/23 at 1125, Until Tue05/16/23 at 1125, Administer over 30-60 seconds. Follow with 10 mL saline flush. Given 05/16/2023 11:25 AM CDT 2 mLs documented in this encounter Additional Health Concerns Assessment Noted Time PHQ-9 Depression Total Score: 0 04/11/20 23 2:41 PM CDT documented as of this encounter Care Teams Filler Shredding Machine Loader Relationship Specialty Start Date End Date Oscar Edwards MD 118[address] [facility] [address] [place] [address] PCP - General INTERNAL MEDICINE 04/28/22 documented as of this encounter
--- OUTSIDE RECORDS SUMMARY | 2024-10-13 22:40 | XMS_ITS | Encounter Summary ---
Author Organization [facility] Address [address] [place] [address]. [place] [address] [place] [address] Care Team Providers Care Supervisor Fishing Name Role Phone Oscar Edwards MD Primary Care Provider [phone] Reason for Visit * Reason Comments Cough Fever Nausea Runny Nose Pt is not feeling we ll x 1 week Encounter Details Date Type Department Care Team (Latest Contact Info) Description 12/05/2023 2:40 PM HEAT SEALING MACHINE OPERATOR Office Visit [facility] Multispecialty Care - [address] [place] [address] Ana Laura Garcia, CORPORATE RELATIONS MANAGER [address] [facility], [address] [place] [address] Cough; Fever; Nausea; Runny Nose (Pt is not feeling well x 1 week) Social History Tobacco Use Types Packs/Day Years [...] on file Legal Sex Female 5:53 PM HEAT SEALING MACHINE OPERATOR Gender Identity Not on file Sexual Orientation Not on file documented as of this encounter Last Filed Vital Signs Vital Sign Reading Time Taken Comments Blood Pressure 114/73 12/05/2023 2:58 PM HEAT SEALING MACHINE OPERATOR Pulse 84 12/05/2023 2:58 PM HEAT SEALING MACHINE OPERATOR Temperature 37.4 ??C (99.3 ??F) 12/05/2023 2:58 PM CS T Respiratory Rate 18 12/05/2023 2:58 PM HEAT SEALING MACHINE OPERATOR Oxygen Saturation 100% 12/05/2023 2:58 PM HEAT SEALING MACHINE OPERATOR Inhaled Oxygen Concentration - - Weight 66.3 kg (146 lb 3.2 oz) 12/05/2023 2:58 P M HEAT SEALING MACHINE OPERATOR Height 162.6 cm (5' 4 ) 12/05/2023 2:58 PM HEAT SEALING MACHINE OPERATOR Body Mass Index 25.1 12/05/2023 2:58 PM HEAT SEALING MACHINE OPERATOR documented in this encounter Progress Notes * Ana Laura Garcia NP - 12/05/2023 2:40 PM CST Reason for Visit: Cough, Fever, Nausea, Wheezing , and Runny Nose (Pt is not feeling well today) History of Present Illness: URI-- reports sinus pressure, cough, n/c, ear pressure, fevers (highest 101), aches and nausea x 1 week. Last dose of tylenol was 1230 today. Lmp 11/11/23. ROS: Review of Systems Constitutional: Positive for chills, fever and malaise/fatigue. HENT: Positive for congestion, sinus pain and sore throat. Negative for ear pain. Respiratory: Positive for cough. Negative for sputum production, shortness of breath and wheezing. Cardiovascular: Negative for chest pain. Gastrointestinal: Positive for nausea. Negative for abdominal pain, diarrhea and vomiting. Genitourinary: Negative. Skin: Negative for rash. PHQ-9: 09/07/2022 7:33 AM 04/11/2023 2:41 PM [...] YOU CHECKED OFF ANY PROBLEMS Somewhat difficult Medications: Current Outpatient Medications: amoxicillin-clavulanate (AUGMENTIN) 875-125 MG tablet, Take 1 tablet (875 mg total) by mouth 2 (two) times daily for 10 days., Disp: 20 tablet, Rfl: 0 Review of patient's allergies indicates: [...] SECTION Social History Socioeconomic History Marital status: Social History Tobacco Use Smoking status: Never Smokeless tobacco: Never Tobacco comments: counseled by Dr Edwards Vaping Use Vaping Use: Never used Substance Use Topics Alcohol use: Never Drug use: Never Family History Problem Relation Name Age of Onset No Known Problems Mother No Known Problems Father Family Status Relation Name Status Mother (Not Specified) Father (Not Specified) Filed Vitals: 12/05/23 1458 BP: 114/73 Pulse: 84 Resp: 18 Temp: 99.3 ??F (37.4 ??C) TempSrc: Temporal SpO2: 100% Weight: 66.3 kg (146 lb 3.2 oz) Height: 1.626 m (5' 4 ) Physical Exam Vitals and nursing note reviewed. Constitutional: General: She is not in acute distress. Appearance: Normal appearance. She is not ill-appearing. HENT: Head: Normocephalic and atraumatic. Right Ear: Tympanic membrane and ear canal normal. Left Ear: Tympanic membrane and ear canal normal. Nose: Congestion present. Right sinus exhibits no maxillary sinus tenderness and no frontal sinus tenderness. Left sinus exhibits no maxillary sinus tenderness and no frontal sinus tenderness. Mouth/Throat: Mucous membranes are moist. Oropharynx is clear. Eyes: Conjunctiva/sclera: Conjunctivae normal. Cardiovascular: Rate and Rhythm: Normal rate and regular rhythm. Heart sounds: Normal heart sounds. Pulmonary: Effort: Pulmonary effort is normal. No respiratory distress. Breath sounds: Normal breath sounds. No wheezing. Musculoskeletal: Cervical back: Neck supple. Lymphadenopathy: Cervical: No cervical adenopathy. Skin: General: Skin is warm and dry. Coloration: Skin is not jaundiced. Neurological: Mental Status: She is alert. Psychiatric: Mood and Affect: Mood normal. Behavior: Behavior normal. Behavior is cooperative. Diagnoses/Impression: 1. Acute non-recurrent sinusitis, unspecified location amoxicillin-clavulanate (AUGMENTIN) 875-125 MG tablet Recommendations and Plan: 1. Acute non-recurrent sinusitis, unspecified location Recommend tylenol for any fever or pain, tea with honey, zyrtec or Claritin. You can also try an over the counter decongestant, but do not take products containing pseudoephedrine if you have high blood pressure. If you have high blood pressure try Coricidin HBP cough and cold, and drink plenty of water. - amoxicillin-clavulanate (AUGMENTIN) 875-125 MG tablet; Take 1 tablet (875 mg total) by mouth 2 (two) times daily for 10 days. Dispense: 20 tablet; Refill: 0 Follow up with your pcp if you do not improve. Any worsening symptoms, fever not relieved by medication, chest pain, or breathing problems, then go to ER. Patient and/or caregiver verbalized understanding. I personally spent a total of 15 minutes on the day of the encounter. This includes ykuh-rd-ectu and sem-fvjq-dr-face time I provided on the day of the encounter & excludes time spent performing separately reportable services. BRITTANI WOLF Referring Provider: No ref. provider found PCP: OSCAR EDWARDS MD SEALING MACHINE OPERATOR documented in this encounter Plan of Treatment Upcoming Encounters Date Type Department Care Team (Late st Contact Info) Description 11/02/2024 8:00 AM HEAT SEALING MACHINE OPERATOR Office Visit [facility] [place] [address] [address] [place] [address] Oscar Edwards MD [address] [address] 06/25/2025 9:00 AM CDT Office Visit [facility] [place] [address] [place] [address] Elisha Kim PA 3 [facility] [address] [place] [address] documented as of this encounter Visit Diagnoses Diagnosis Acute non-recurrent sinusitis, unspecified location- Primary documented in this encounter Additional Health Concerns Assessment Noted Time PHQ-9 Depression Total Score: 0 04/11/20 23 2:41 PM CDT documented as of this encounter Care Teams Supervisor Fishing Relationship Specialty Start Date End Date Oscar Edwards MD [address] [place] [address] PCP - General INTERNAL MEDICINE 04/28/22 documented as of this encounter
--- OUTSIDE RECORDS SUMMARY | 2024-10-13 22:40 | XMS_ITS | Encounter Summary ---
Author Organization [facility] Address [address] [place] [address]. 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 Gender Identity Not on file Sexual Orientation [...] st Contact Info) Description 11/02/2024 8:00 AM BOAT OAR MAKER Office Visit [facility] Multispecialty Care - [place] [address] [address] [place] [address] Oscar Edwards MD [address] [place] [address] [address] [place] [address] 06/25/2025 9:00 AM CDT Office Visit [facility]iel [facility] [place] [address] [place] [address] Elisha Kim PA 3 Health system [address] [place] [address] documented as of this encounter Visit Diagnoses Not on filedocumented in this encounter Additional Health Concerns Assessment Noted Time PHQ-9 Depression Total Score: 20 022 2:50 PM CDT documented as of this encounter Care Teams Industrial Security Analyst Relationship Specialty Start Date End Date Oscar Edwards MD [address] [facility] [address] [place] [address] PCP - General INTERNAL MEDICINE 04/28/22 documented as of this encounter
--- OUTSIDE RECORDS SUMMARY | 2024-10-13 22:40 | XMS_ITS | Encounter Summary ---
Author Organization [facility] Address [address] [place] [address]. [place], [place] [address] [place] [address] Care Team Providers Care Ct Technician Name Role Phone Oscar Edwards MD Primary Care Provider [phone] Reason for Visit * Reason Onset Date Comments Follow Up Call 09/01/2022 Encounter Details Date Type Department Care Team (Late st Contact Info) Description 09/01/2022 Telephone [facility] Medical Group Multispecialty Care - [place] [address] [address] [place] [address] Oscar Edwards MD [address] [place] [address] [address] [place] [address] Follow Up Call Social History [...] on file Legal Sex Female 5:53 PM CUFF SLITTER Gender Identity Not on file Sexual Orientation Not on file COVID-19 Exposure Response Date Recorded In the last 10 days, have yo u been in contact with someone who was confirmed or suspected to have Coronavirus/COVID-19? No / Unsure 08/24/2022 2:28 PM CUFF SLITTER documented as of this encounter Progress Notes * Oscar Edwards MD - 09/01/2022 12:41 PM CST I called and spoke to patient. She is feeling very nervous and feels there is something in her throat. I explained to patient to discontinue buspar and continue with Fluoxetine and to go to the ER ken seen. All questions answered. Oscar Edwards MD Internal Medicine [facility] Medical [facility], [facility]. SLITTER documented in this encounter Plan of Treatment Upcoming Encounters Date Type Department Care Team (Late st Contact Info) Description 11/02/2024 8:00 AM CUFF SLITTER Office Visit [facility] Multispecialty Care - [place] [address] [address] [place] [address] Oscar Edwards MD [address] [place] [address] 06/25/2025 9:00 AM CDT Office Visit [facility] [place] [place] [address] Elisha Kim PA 3 [facility] [address] [place] [address] documented as of this encounter Visit Diagnoses Not on filedocumented in this encounter Additional Health Concerns Assessment Noted Time PHQ-9 Depression Total Score: 20 022 2:50 PM CDT documented as of this encounter Care Teams Ct Technician Relationship Specialty [place] [address] [place] [address] PCP - General INTERNAL MEDICINE 04/28/22 documented as of this encounter
--- OUTSIDE RECORDS SUMMARY | 2024-10-13 22:40 | XMS_ITS | Encounter Summary ---
Author Organization [facility] Address [address] [place] [address]. [place], [place] [id number] [place] [address] Care Team Providers Care Chart Picker Name Role Phone Oscar Edwards MD Primary Care Provider [phone] Encounter Details Date Type Department Care Team (Latest Contact Info) Description 07/29/2022 Travel Social History Tobacco Use Types Packs/Day [...] on file Legal Sex Female 5:53 PM MEDICAL SPECIALIST Gender Identity Not on file Sexual [...] st Contact Info) Description 11/02/2024 8:00 AM MEDICAL SPECIALIST Office Visit [facility] Multispecialty Care - [address] [address] [address] [place] [address] Oscar Edwards MD [address] [place] [address] [address] [place] [address] 06/25/2025 9:00 AM CDT Office Visit [facility], [address] [place] [address] Elisha Kim PA 3 [facility] [address] [place] [address] documented as of this encounter Visit Diagnoses Not on filedocumented in this encounter Additional Health Concerns Infection Onset Date Last Indicated Resolved Time COVID-19 Rule Out 07/29/2022 07/29/2022 07/29/2022 9:34 PM CDT Assessment Noted Time PHQ-9 Depression Total Score: 20 022 2:50 PM CDT documented as of this encounter Care Teams Chart Picker Relationship Specialty Start Date End Date Oscar Edwards MD [address] [facility] [address] [place] [address] PCP - General INTERNAL MEDICINE 04/28/22 documented as of this encounter
--- OUTSIDE RECORDS SUMMARY | 2024-10-13 22:40 | XMS_ITS | Encounter Summary ---
Author Organization [facility] Address [address] [place] [address]. [place] [address] [place] [address] Care Team Providers Care Charge Loader Name Role Phone Oscar Edwards MD Primary Care Provider [phone] Encounter Details Date Type Department Care Team (Late st Contact Info) Description 05/31/2023 Orders Only [facility] [address] Lisa Valdez, [facility] Social History Tobacco Use Types Packs/Day Years [...] on file Legal Sex Female 5:53 PM PATHOLOGY SPECIALIST Gender Identity Not on file Sexual Orientation Not on file documented as of this encounter Plan of Treatment Upcoming Encounters Date Type Department Care Team (Late st Contact Info) Description 11/02/2024 8:00 AM PATHOLOGY SPECIALIST Office Visit [facility] Multispecialty Care - [address] [address] [address] [place] [address] Oscar Edwards MD [address] [place] [address] 06/25/2025 9:00 AM CDT Office [facility] [facility] [address] [place] [address] Elisha Kim PA 3 [facility] [address] [place] [address] documented as of this encounter Visit Diagnoses Not on filedocumented in this encounter Additional Health Concerns Assessment Noted Time PHQ-9 Depression Total Score: 0 04/11/20 23 2:41 PM CDT documented as of this encounter Care Teams Charge Loader Relationship Specialty Start Date End Date Oscar Edwards MD [address] [facility] [address] [place] [address] PCP - General INTERNAL MEDICINE 04/28/22 documented as of this encounter
--- OUTSIDE RECORDS SUMMARY | 2024-10-13 22:40 | XMS_ITS | Encounter Summary ---
Author Organization [facility] Address [address] [place] [address]. [place], [place] [address] [place] [address] Care Team Providers Care Copy Machine Operator Name Role Phone Oscar Edwards MD Primary Care Provider [phone] Encounter Details Date Type Department Care Team (Latest Contact Info) Description 08/04/2022 Scan HEALTH INFO SRVCS Scanned, Doc Med [...] on file Legal Sex Female 5:53 PM WELDING OPERATOR Gender Identity Not on file Sexual [...] st Contact Info) Description 11/02/2024 8:00 AM WELDING OPERATOR Office Visit [facility] Multispecialty Care - [address] [place] [address] Oscar Edwards MD [address] [facility] [address] [place] [address] 06/25/2025 9:00 AM CDT Office Visit [facility] [facility], [address] [place] [address] Elisha Kim PA 3 [facility] [address] [place] [address] documented as of this encounter Visit Diagnoses Not on filedocumented in this encounter Additional Health Concerns Assessment Noted Time PHQ-9 Depression Total Score: 20 022 2:50 PM CDT documented as of this encounter Care Teams Copy Machine Operator Relationship Specialty Start Date End Date Oscar Edwards MD [address] [facility] [address] [place] [address] PCP - General INTERNAL MEDICINE 04/28/22 documented as of this encounter
--- OUTSIDE RECORDS SUMMARY | 2024-10-13 22:40 | XMS_ITS | Encounter Summary ---
Author Organization [facility] Address [facility] [place] [address] [place] [address] Care Team Providers Care Engineering Intern Name Role Phone Oscar Edwards MD Primary Care Provider [phone] Reason for Referral * Imaging (Routine) - Pending Review Specialty Diagnoses / Procedures Referred By Ethel marquis Referred To Contact RADIOLOGY Diagnoses Amenorrhea Subchorionic hemorrhage of placenta in first trimester (HHS/HCC) Procedures US PELVIC NON OB COMP TA+TV Oscar Edwards MD [address] [place] [address] Phone: tel: fax: Referral ID Status Reason Start Date Expiration Date V isits Requested Visits Authorized [id number] Pending Review 04/02/2024 04/02/2025 1 1 Reason for Visit * Reason Comments ER F/U Vaginal bleeding and cramps Encounter Details Date Type Department Care Team (Latest Contact Info) Description 04/02/2024 4:20 PM CDT Office Visit [facility] Multispecialty Care - [address] [place] [address] Oscar Edwards MD [facility] [address] [address] ER F/U (Vaginal bleeding and cramps ) Social History Tobacco Use Types Packs/Day Years [...] on file Legal Sex Female 5:53 PM ALCOHOL AND DRUG 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 Gender Identity Not on file Sexual Orientation Not on file documented as of this encounter Last Filed Vital Signs Vital Sign Reading Time Taken Comments Blood Pressure 99/63 04/02/2024 4:33 PM CDT Pulse 85 04/02/2024 4:33 PM CDT Temperature 36.7 ??C (98.1 ??F) 04/02/2024 4:33 PM CD T Respiratory Rate 18 04/02/2024 4:33 PM CDT Oxygen Saturation 99% 04/02/2024 4:33 PM CDT Inhaled Oxygen Concentration - - Weight 66.9 kg (147 lb 6.4 oz) 04/02/2024 4:33 PM CDT Height 167.6 cm (5' 6 ) 04/02/2024 4:33 PM CDT Body Mass Index 23.79 04/02/2024 4:33 PM CDT documented in this encounter Patient Instructions * Patient Instructions* Oscar Edwards MD - 04/02/2024 4:20 PM CDT Follow up in November 02, 2024 for a physical * Attachments The following attachments cannot be sent through Care Everywhere. * Bleeding in Early Discharge Instructions (Mongolian) documented in this encounter Progress Notes * Oscar Edwards MD - 04/02/2024 4:20 PM CDTSummary: Acute visit notes Images from the original note were not included. Internal Medicine Outpatient Progress Note CC: ER F/U (Vaginal bleeding and cramps ) HPI: Opal Swenson is a 29-year-old female who presents for an acute visit for concerns about vaginal bleeding that started a few days ago. Patient is about 6 weeks and comes in today for follow-up and to have her beta-hCG levels checked. She did go to the emergency room after noticing spotting and vaginal bleeding that started yesterday. Symptoms associated with mild lower abdominal cramping. No urinary symptoms. No recent trauma or falls. Yet to get a pelvic ultrasound and already scheduled with PULMONARY FUNCTION TECHNICIAN tomorrow. Beta hCG levels checked. Already on vitamins. She reports she did pass out a huge clots yesterday and did bring pictures on her phone to show me. Here at today's visit with and son. No fever or chills. No recent infections. Problem List Patient Active Problem List Diagnosis Anxiety Depression Past Medical History: Diagnosis Date Anxiety Depression SVT (supraventricular tachycardia) ([facility]) Past Surgical History: Procedure Laterality Date SECTION Family History Problem Relation Name Age of Onset No Known Problems Mother No Known Problems Father Social History Tobacco Use Smoking status: Never Smokeless tobacco: Never Tobacco comments: counseled by Dr Edwards Vaping Use Vaping status: Never Used Substance Use Topics Alcohol use: Never Drug use: Never Medications: No outpatient medications have been marked as taking for the 04/02/24 encounter (Office Visit) with Oscar Edwards MD. Allergies: Review of patient's allergies indicates: Allergen [...] orthopnea, claudication, leg swelling and PND. Gastrointestinal: Positive for abdominal pain. Negative for blood in stool, constipation, diarrhea,heartburn, melena, nausea and vomiting. Genitourinary: Negative. Musculoskeletal: Negative. Neurological: Negative. Objective: Filed Vitals: 04/02/24 1633 BP: 99/63 Pulse: 85 Resp: 18 Temp: 98.1 ??F (36.7 ??C) TempSrc: Temporal SpO2: 99% Weight: 66.9 kg (147 lb 6.4 oz) Height: 1.676 m (5' 6 ) Body mass index is 23.79 kg/m??. General alert, cooperative, no distress HEENT [...] sounds normal. No masses. No hepatomegaly appreciated. Mild lower abdominal tenderness Extremities Extremities atraumatic, no cyanosis, 2+ pedal pulses, no edema Skin Skin color, texture, turgor normal. No rashes or lesions appreciated. Neurologic No focal deficits, motor strength is grossly normal and symmetric Psych Normal mood and affect MSK No synovitis, no bony tenderness, no joint effusions Lymph No cervical or supraclavicular adenopathy Assessment and Plan: Encounter Diagnose(s) ICD-10-CM SNOMED CT(R) 1. Amenorrhea N91.2 AMENORRHEA HCG QUANT (SERUM)-CHORIONIC GONADOTROPIN VENIPUNC ARM DRAW US PELVIC NON OB COMP TA+TV US PELVIC NON OB COMP TA+TV 2. Subchorionic hemorrhage of placenta in first trimester (HHS/HCC) O20.8 SUBCHORIONIC HEMATOMA HCGQUANT (SERUM)-CHORIONIC GONADOTROPIN VENIPUNC ARM DRAW US PELVIC NON OB COMP TA+TV US PELVIC NON OB COMP TA+TV 1. Amenorrhea - HCG QUANT (SERUM)-CHORIONIC GONADOTROPIN; Future - VENIPUNC ARM DRAW - US PELVIC NON OB COMP TA+TV; Future - US PELVIC NON OB COMP TA+TV 2. Subchorionic hemorrhage of placenta in first trimester (HHS/HCC) - HCG QUANT (SERUM)-CHORIONIC GONADOTROPIN; Future - VENIPUNC ARM DRAW - US PELVIC NON OB COMP TA+TV; Future - US PELVIC NON OB COMP TA+TV -She already has an appointment with PULMONARY FUNCTION TECHNICIAN and will be following up to get pelvic ultrasound done. -Bed rest -Continue vitamins -Further recommendations pending OB /PULMONARY FUNCTION TECHNICIAN appointment Counseling given: Yes Tobacco comments: counseled by Dr Edawrds I personally spent a total of 20 minutes on the day of the encounter. This includes tsis-vd-cahi and lnm-dndj-up-face time I provided on the day of the encounter & excludes time spent performing separately reportable services. Side effects and less common but more severe adverse effects of recommended medical therapies were explained to the patient. Follow up office visit in 7 months for physical. Requested MyChart or telephone follow up prn if symptoms change, worsen, or persist, or if side effect of treatment is experienced. DRAGON: This dictation was at least in part performed using Chemclin and there may be some inherent flaws in this haul cane brakeman due to the nature of this program. Oscar Edwards MD Internal Medicine [facility]. * Araceli Torres MA - 04/02/2024 4:20 PM CDT Patient informed of the message documented in this encounter Plan of Treatment Upcoming Encounters Date Type Department Care Team (Late st Contact Info) Description 11/02/2024 8:00 AM ALCOHOL AND DRUG COUNSELOR Office Visit [facility] Multispecialty Care - [address] [address] [address] [place] [address] Oscar Edwards MD [address] [place] [address] 06/25/2025 9:00 AM CDT Office Visit [facility] [facility], [address] [place] [address] Elisha Kim PA 3 [facility] [address] [place] [address] Scheduled Orders Name Type Priority Associated Diagnoses Orde r Schedule US PELVIC NON OB COMP TA+TV Ultrasound Routine Amenorrhea Subchorionic hemorrhage of placenta in first trimester (HHS/HCC) Expected: 04/02/2024, Expires: 04/02/2025 documented as of this encounter Procedures Procedure Name Priority Date/Time Associated Diagnosis Comments HCG QUANT (SERUM)-CHORIONIC GONADOTROPIN Routine 04/02/2024 4:47 PM CDT Amenorrhea Subchorionic hemorrhage of placenta in first trimester (HHS/HCC) VENIPUNC ARM DRAW Routine 04/02/2024 4:4 5 PM CDT Amenorrhea Subchorionic hemorrhage of placenta in first trimester (HHS/HCC) documented in this encounter Results * HCG QUANT (SERUM)-CHORIONIC GONADOTROPIN (04/02/2024 4:47 PM CDT) HCG QUANTITATIVE 450 MIU/ML 04/03/20 24 5:39 PM CDT [facility] Comment: <5 IS NEGATIVE 5-25 IS BORDERLINE >25 IS POSITIVE ASSAY PERFORMED BY CHEMILUMINESCENCE METHODOLOGY USING SIEMENS [employer] [facility]. PATIENT RESULTS DETERMINED BY ASSAYS USING DIFFERENT MANUFACTURERS FOR METHODS MAY NOT BE COMPARABLE. 04/02/2024 4:47 PM CDT Oscar Edwards MD LABORATORY Final Result [facility] [address] [place] [address], [id number] documented in this encounter Visit Diagnoses Diagnosis Amenorrhea- Primary Absence of menstruation Subchorionic hemorrhage of placenta in first trimester (HHS/HCC) documented in this encounter Additional Health Concerns Assessment Noted Time PHQ-9 Depression Total Score: 0 04/11/20 23 2:41 PM CDT documented as of this encounter Care Teams Engineering Intern Relationship Specialty Start Date End Date Oscar Edwards MD [address] [facility] [address] [place] [address] PCP - General INTERNAL MEDICINE 04/28/22 documented as of this encounter
--- OUTSIDE RECORDS SUMMARY | 2024-10-13 22:40 | XMS_ITS | Encounter Summary ---
Author Organization [facility] Address [address] [place] [address]. [place], [place] [address] [place] [address] Care Team Providers Care Catalyst Concentration Operator Name Role Phone Oscar Edwards MD Primary Care Provider [phone] Encounter Details Date Type Department Care Team (Latest Contact Info) Description 05/04/2024 Travel Social History Tobacco Use Types Packs/Day [...] on file Legal Sex Female 5:53 PM JOURNALIST Gender Identity Not on file Sexual Orientation Not on file documented as of this encounter Plan of Treatment Upcoming Encounters Date Type Department Care Team (Late st Contact Info) Description 11/02/2024 8:00 AM JOURNALIST Office Visit [facility] Multispecialty Care - [address] [address] [address] [place] [address] Oscar Edwards MD [address] [place] [address] 06/25/2025 9:00 AM CDT [facility] [place] [address] [address] Elisha Kim PA 3 [facility] [address] [place] [address] documented as of this encounter Visit Diagnoses Not on filedocumented in this encounter Additional Health Concerns Assessment Noted Time PHQ-9 Depression Total Score: 0 04/11/20 23 2:41 PM CDT documented as of this encounter Care Teams Catalyst Concentration Operator Relationship Specialty Start Date End Date Oscar Edwards MD [address] [facility] [address] [place] [address] PCP - General INTERNAL MEDICINE 04/28/22 documented as of this encounter
--- OUTSIDE RECORDS SUMMARY | 2024-10-13 22:40 | XMS_ITS | Encounter Summary ---
Author Organization [facility] Address [address] [place] [address]. [place], [place] [id number] [place] [address] Care Team Providers Care Stage Electrician Helper Name Role Phone Oscar Edwards MD Primary Care Provider [phone] Reason for Referral * Consultation (Routine) - Closed Specialty Diagnoses / Procedures Referred By Ethel marquis Referred To Contact HEART & VASCULAR CARE / Cardiology Diagnoses SVT (supraventricular tachycardia) ([facility]) Procedures OFFICE/OUTPT VISIT,NEW,LEVL III OFFICE/OUTPT VISIT,NEW,LEVL IV OFFICE/OUTPT VISIT,NEW,LEVL V OFFICE/OUTPT VISIT,EST,LEVL III OFFICE/OUTPT VISIT,EST,LEVL IV OFFICE/OUTPT VISIT,EST,LEVL V Oscar Edwards MD [address] [facility] [address] [place] [address] Phone: tel: fax: [facility], [address] [address] Phone: tel: fax: Referral ID Status Reason Start Date Expiration Date V isits Requested Visits Authorized [id number] Closed Specialty Services 04/11/2023 05/11/2024 99 99 Reason for Visit * Reason Comments Palpitations SVT - episode 5 days ago Anxiety Depression Encounter Details Date Type Department Care Team (Latest Contact Info) Description 04/11/2023 2:00 PM CDT Office Visit [facility] Multispecialty Care - [address] [place] [address] Oscar Edwards MD [address] [facility] [address] [place], [place] [id number] Palpitations (SVT - episode 5 days ago ); Anxiety; Depression Social History Tobacco Use Types [...] file 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 Sex Female 5:53 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 MATERIAL 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 Gender Identity Not on file Sexual Orientation Not on file documented as of this encounter Last Filed Vital Signs Vital Sign Reading Time Taken Comments Blood Pressure 109/77 04/11/2023 2:12 PM CDT Pulse 90 04/11/2023 2:12 PM CDT Temperature 37.3 ??C (99.1 ??F) 04/11/2023 2:12 PM CD T Respiratory Rate 16 04/11/2023 2:12 PM CDT Oxygen Saturation 100% 04/11/2023 2:12 PM CDT Inhaled Oxygen Concentration - - Weight 60.8 kg (134 lb) 04/11/2023 2:12 PM CDT Height 162.6 cm (5' 4 ) 04/11/2023 2:12 PM CDT Body Mass Index 23 04/11/2023 2:12 PM CDT documented in this encounter Patient Instructions * Patient Instructions* Oscar Edwards MD - 04/11/2023 2:00 PM CDT Follow up around May 29 2023 for your annual physical. Please come fasting during that visit. You will receive a call to burr picker your 30-day heart monitor. You will receive a call for an echocardiogram which is an ultrasound of your heart. You will also receive a call to see cardiology. * Attachments The following attachments cannot be sent through Care Everywhere. * Supraventricular tachycardia (SVT) (Surinamese) documented in this encounter Progress Notes * Oscar Edwards MD - 04/11/2023 2:00 PM CDTSummary: Acute visit notes Images from the original note were not included. Internal Medicine Outpatient Progress Note CC: Palpitations (SVT - episode 5 days ago ), Anxiety, and Depression HPI: Opal Swenson is a 28-year-old female who presents for an acute visit for concerns about recent supraventricular tachycardia. According to patient, she has known about this for most of her life.She would notice intermittently having very fast heart rate which will subside whenever she lay on the ground. She did recently have an episode 5 days ago at which time patient noticed significant palpitations associated with dizziness and lightheadedness however patient never passed out but had a near episode of feeling like she was about to pass out. Given persistent nature of symptoms despite trying to lay down, patient called EMS. EKG done confirmed sinus ventricular tachycardia. Patient recovered with Valsalva maneuver. Was advised to follow-up with PCP and here for follow-up. Has not had an episode since the last episode 5 days ago. Has never been worked up in the past. Patient with prior history of anxiety and depression. She tells me she has been off her fluoxetine since November 2022. She is doing well currently. Not following with therapy at this time and prefers to stay off medications at this time. Problem List Patient Active Problem List Diagnosis [...] have been marked as taking for the 04/11/23 encounter (Office Visit) with Oscar Edwards MD. [...] HENT: Negative. Eyes: Negative. Respiratory: Negative. Cardiovascular: Positive for palpitations. Negative for chest pain, orthopnea, claudication, leg swelling and PND. Gastrointestinal: Negative. Genitourinary: Negative. Musculoskeletal: Negative. Neurological: Negative. Psychiatric/Behavioral: Negative. Objective: Filed Vitals: 04/11/23 1412 BP: 109/77 Pulse: 90 Resp: 16 Temp: 99.1 ??F (37.3 ??C) TempSrc: Temporal SpO2: 100% Weight: 60.8 kg (134 lb) Height: 5' 4 (1.626 m) Body mass index is 23 kg/m??. General alert, cooperative, no distress HEENT [...] Encounter Diagnose(s) ICD-10-CM ICD-9-CM SNOMED CT(R) 1. SVT (supraventricular tachycardia) ([facility]) I47.1 427.89 SUPRAVENTRICULAR TACHYCARDIA EVENT MONITOR 30 DAYS Ambulatory referral to Cardiology, Adult ([facility]) USE 2D ECHO WO DOPPLER 2. Postural dizziness with presyncope R42 780.4 POSTURAL DIZZINESS EVENT MONITOR 30 DAYS R55 780.2 USE 2D ECHO WO DOPPLER 3. Anxiety F41.9 300.00 ANXIETY 4. Mild episode of recurrent major depressive disorder ([facility]) F33.0 296.31 RECURRENT MAJOR DEPRESSIVE EPISODES, MILD 1. SVT (supraventricular tachycardia) ([facility]) -Recently had an episode 5 days ago which resolved with Valsalva maneuver. This is longstanding forpatient and usually resolves with some form of maneuver however this last episode did not appear toimprove until patient reached out to EMS. EKG confirmed supraventricular tachycardia and patient here for follow-up. Symptoms were associated with a presyncopal episode. Work-up as below with close follow-up. She is hesitant to start medications at this time and we will follow-up closely. - EVENT MONITOR 30 DAYS; Future - Ambulatory referral to Cardiology, Adult ([facility]) - USE 2D ECHO WO DOPPLER; Future 2. Postural dizziness with presyncope - EVENT MONITOR 30 DAYS; Future - USE 2D ECHO WO DOPPLER; Future 3. Anxiety -Previously on fluoxetine and currently symptoms stable off medication. She has been off medications since November 2022. Close follow-up. 4. Mild episode of recurrent major depressive disorder ([facility]) -Previously on fluoxetine and currently symptoms stable off medication. She has been off medications since November 2022. Close follow-up. Counseling given: Yes Tobacco comments: counseled by Dr Edwards I personally spent a total of 30 minutes on the day of the encounter. This includes bwcy-qo-yxdl and zjv-wbke-id-face time I provided on the day of [...] if side effect of treatment is experienced. COLTON: This dictation was at least in part performed using [email or web address] and there may be some inherent flaws in this podiatric physician due to the nature of this program. Oscar Edwards MD Internal Medicine [facility], [facility]. documented in this encounter Plan of Treatment Upcoming Encounters Date Type Department Care Team (Late st Contact Info) Description 11/02/2024 8:00 AM WAREHOUSE MATERIAL HANDLER Office Visit [facility] Multispecialty Care - [place] [address] [address] [place] [address] Oscar Edwards MD [facility] [address] [address] 06/25/2025 9:00 AM CDT Office Visit [facility], [address] [place] [address] Elisha Kim PA 3 [facility] [address] [place], [place] [id number] Scheduled Referrals Name Type Priority Associated Diagnoses Orde r Schedule Ambulatory referral to Cardiology, Adult ([facility]) Referral Routine SVT (supraventricular tachycardia) Ordered: 04/11/2023 documented as of this encounter Visit Diagnoses Diagnosis SVT (supraventricular tachycardia) ([facility])- Primary Other specified cardiac dysrhythmias Postural dizziness with presyncope Anxiety Anxiety state, unspecified Mild episode of recurrent major depressive disorder ([facility]) documented in this encounter Additional Health Concerns Assessment Noted Time PHQ-9 Depression Total Score: 0 04/11/20 23 2:41 PM CDT documented as of this encounter Care Teams Stage Electrician Helper Relationship Specialty Start Date End Date Oscar Edwards MD [address] [place] [address] PCP - General INTERNAL MEDICINE 04/28/22 documented as of this encounter
--- OUTSIDE RECORDS SUMMARY | 2024-10-13 22:41 | XMS_ITS | Encounter Summary ---
Author Organization [facility] Address [address] [place] [address]. [place], [place] [id number] [place] [address] Care Team Providers Care Electronics Inspector Name Role Phone Oscar Edwards MD Primary Care Provider [phone] Encounter Details Date Type Department Care Team (Latest Contact Info) Description 04/28/2022 Travel Social History Tobacco Use Types Packs/Day Years Used Date Smoking Tobacco: Never Smokeless Tobacco: Never Comments:counseled by Dr Jimena trujillo Alcohol Use Standard Drinks/Week Comments Never 0 (1 standard drink = 0.6 oz pur e alcohol) PHQ-2 Answer Date Recorded PHQ-2 Score - If the patient scores above 3, please move on to questions 3-9 5 04/28/2022 Comments No Sex and Gender Information Value Date Recorded Sex Assigned at Not on file Legal Sex Female 5:53 PM MEDICAL ASSISTANT SUPERVISOR Gender Identity Not on file Sexual Orientation Not on file COVID-19 Exposure Response Date Recorded In the last 10 days, have yo u been in contact with someone who was confirmed or suspected to have Coronavirus/COVID-19? No / Unsure 04/28/2022 1:23 PM CDT documented as of this encounter Plan of Treatment Upcoming Encounters Date Type Department Care Team (Late st Contact Info) Description 11/02/2024 8:00 AM MEDICAL ASSISTANT SUPERVISOR Office Visit [facility] Multispecialty Care - [place] [address] [address] [place] [address] Oscar Edwards MD [address] [place] [address] [address] [place] [address] 06/25/2025 9:00 AM CDT Office Visit [facility] [facility] [place] [address] Elisha Kim PA 3 [facility] [address] [place] [address] documented as of this encounter Visit Diagnoses Not on filedocumented in this encounter Additional Health Concerns Assessment Noted Time PHQ-9 Depression Total Score: 20 022 2:50 PM CDT documented as of this encounter Care Teams Electronics Inspector Relationship Specialty Start Date End Date Oscar Edwards MD [address] [facility] [address] [place] [address] PCP - General INTERNAL MEDICINE 04/28/22 documented as of this encounter
--- OUTSIDE RECORDS SUMMARY | 2024-10-13 22:41 | XMS_ITS | Encounter Summary ---
Author Organization [facility] Address [address] [place] [address]. 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 Gender Identity Not on file Sexual Orientation Not on file documented as of this encounter Plan of Treatment Upcoming Encounters Date Type Department Care Team (Late st Contact Info) Description 11/02/2024 8:00 AM ADMISSIONS SUPERVISOR Office Visit [facility] Multispecialty Care - [place] [address] [address] [place] [address] Oscar Edwards MD [address] [place] [address] 06/25/2025 9:00 AM CDT Office Visit [facility] [facility], [address] [place] [address] Elisha Kim PA 3 [facility] [address] [place] [address] documented as of this encounter Visit Diagnoses Not on filedocumented in this encounter
--- OUTSIDE RECORDS SUMMARY | 2024-10-13 22:41 | XMS_ITS | Encounter Summary ---
Author Organization [facility] Address [address] [place] [address]. 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 No / Unsure 05/28/2022 7:50 AM CDT documented as of this encounter Plan of Treatment Upcoming Encounters Date Type Department Care Team (Late st Contact Info) Description 11/02/2024 8:00 AM PRODUCTION PROOFREADER Office Visit [facility] Multispecialty Care - [place] [address] [address] [place] [address] Oscar Edwards MD [address] [place] [address] [address] [place] [address] 06/25/2025 9:00 AM CDT Office Visit [facility] [facility], [address] [place] [address] Elisha Kim PA 3 [facility] [address] [place] [address] documented as of this encounter Visit Diagnoses Not on filedocumented in this encounter Additional Health Concerns Assessment Noted Time PHQ-9 Depression Total Score: 20 022 2:50 PM CDT documented as of this encounter Care Teams Elementary [employer] Principal Relationship Specialty Start Date End Date Oscar Edwards MD [address] [facility] [address] [place] [address] PCP - General INTERNAL MEDICINE 04/28/22 documented as of this encounter
--- OUTSIDE RECORDS SUMMARY | 2024-10-13 22:41 | XMS_ITS | Encounter Summary ---
Author Organization [facility] Address [address] [place] [address]. 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 No / Unsure 11/04/2021 10:47 PM HEAD OF TALENT MANAGEMENT documented as of this encounter Plan of Treatment Upcoming Encounters Date Type Department Care Team (Late st Contact Info) Description 11/02/2024 8:00 AM HEAD OF TALENT MANAGEMENT Office Visit [facility] Multispecialty Care - [place] [address] [address] [place] [address] [place] [address] [place] [address] [address] [place] [address] 06/25/2025 9:00 AM CDT Office Visit [facility] [facility], [address] [address] Elisha Kim PA 3 [facility] Suite [facility] [place] [address] documented as of this encounter Visit Diagnoses Not on filedocumented in this encounter
--- OUTSIDE RECORDS SUMMARY | 2024-10-13 22:41 | XMS_ITS | Encounter Summary ---
Author Organization [facility] - [facility] Address [address] [place] [address]. 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 No / Unsure 05/28/2022 7:50 AM CDT documented as of this encounter Last Filed Vital Signs Vital Sign Reading Time Taken Comments Blood Pressure 106/72 05/28/2022 7:55 AM CDT Pulse 77 05/28/2022 7:55 AM CDT Temperature 36.9 ??C (98.5 ??F) 05/28/2022 7:55 AM CD T Respiratory Rate 18 05/28/2022 7:55 AM CDT Oxygen Saturation 100% 05/28/2022 7:55 AM CDT Inhaled Oxygen Concentration - - Weight 56.2 kg (123 lb 12.8 oz) 05/28/2022 7:55 AM CDT Height 167.6 cm (5' 6 ) 05/28/2022 7:55 AM CDT Body Mass Index 19.98 05/28/2022 7:55 AM CDT documented in this encounter Patient Instructions * Patient Instructions* Oscar Edwards MD - 05/28/2022 8:00 AM CDT Follow up in 4 weeks for your pap. * Attachments The following attachments cannot be sent through Care Everywhere. * Generalized Anxiety Disorder Discharge Instructions (Mongolian) documented in this encounter Progress Notes * Oscar Edwards MD - 05/28/2022 8:00 AM CDTSummary: Annual physical notes Images from the original note were not included. ANNUAL PHYSICAL NOTES Encounter Date: 06/20/2022 Chief Complaint: 27-year-old female presents for Physical The patient is being seen for a health maintenance evaluation. Patient was seen about 4 weeks ago to establish care. During that visit, concerns for uncontrolled depression and anxiety as well as occasional panic attacks. Subsequently, patient was started on fluoxetine 10 mg daily for the first 2 weeks and dose increased to 20 mg daily. Patient tells me she has been compliant with taking her medications. Denies any unpleasant side effects from her dose of medication. She is here for follow-up and for his physical. She was also given a couple of clonazepam 0.5 mg to use as needed for panic attacks. Denies any concerns with suicidal ideations or intentionsto harm. She follows with therapist at [facility]. Does not follow with psychia try. She tells me she is feeling much better and is very pleased with the results of her medication. She is back to exercising and doing her arts and crafts and enjoys her daily activities. She did have a couple of panic attacks and had to use her clonazepam. General Health: good Dental Health: Sees dentist regularly Vision Health: Wears glasses Hearing Health: No hearing problems Immunizations Needed: COVID; she is getting us her TDAP dates Weight: Normal BMI Body mass index is 19.98 kg/m??. Physical Activity: Excersises regularly Cervical Cancer Screening: April 2021 Breast Cancer Screening: none Colorectal Cancer Screening: None Metabolic Screening: Patient needs to be screened today. HCV Screening: done PHQ-9 Screening Score: PHQ-9: Over the last two weeks, how often have you been bothered by any of the following problems? 04/28/2022 05/28/2022 LITTLE INTEREST OR PLEASURE IN DOING THINGS 3-Nearly every day 0-Not at All FEELING DOWN, DEPRESSSED,OR HOPELESS 2-More than half the days 0-Not at All PHQ2 DEPRESSION TOTAL SCORE 5 0 TROUBLE FALLING OR STAYING ASLEEP OR SLEEPING TOO MUCH 2-More than half the days - FEELING TIRED OR HAVING LITTLE ENERGY 3-Nearly every day - POOR APPETITE OR OVEREATING 2-More than half the days - FEELING BAD ABOUT YOURSELF 3-Nearly every day - TROUBLE CONCENTRATING ON THINGS 2-More than half the days - MOVING OR SPEAKING SO SLOWLY THAT OTHER PEOPLE COULD HAVE NOTICED 2-More than half the days - THOUGHTS THAT YOU WOULD BE BETTER OFF 1-Several Days - DEPRESSION SCREENING TOTAL SCORE 20 - IF YOU CHECKED OFF ANY PROBLEMS Extremely difficult Not difficult at all CHARLA-7 (Generalized Anxiety Disorder) Screening CHARLA-7 04/28/2022 05/28/2022 Feeling nervous, anxious and on edge 3 - nearly every day 1 - several days Not being able to stop or control worrying 3 - nearly every day 1 - several days Worrying too much about different things 3 - nearly every day 1 - several days Trouble Relaxing 3 - nearly every day 1 - several days Being so restless that it's hard to sit still 3 - nearly every day 1 - several days Becoming easily annoyed or irritable 3 - nearly every day 0 - not at all Feeling afraid as if something awful might happen 3 - nearly every day 1 - several days Total Score 21 6 If you checked off any problems, how difficult have those problems made it for you to do your work take care of things at home or get along with other people? extremely difficult not difficult at all Smoking Status: History Smoking Status ??? Never Smoker Smokeless Tobacco ??? Never Used Comment: counseled by Dr Edwards Patient does not meet criteria for Low [...] for arthralgias, back pain, gait problem, joint swelling, myalgias, neck pain and neck stiffness. Skin: Negative for color change, pallor, rash and wound. Neurological: Negative for dizziness, tremors, syncope, weakness, light- headedness and headaches. Hematological: Negative for adenopathy. Does not bruise/bleed easily. Psychiatric/Behavioral: Negative for agitation, behavioral problems, confusion, decreased concentration, dysphoric mood, hallucinations, self-injury, sleep disturbance and suicidal ideas. The patientis nervous/anxious. The patient is not hyperactive. There is no problem list on file for this patient. Past Medical History: Diagnosis Date ??? Anxiety ??? Depression Past Surgical History: Procedure Laterality Date ??? SECTION Family History Problem Relation Name Age of Onset ??? No Known Problems Mother ??? No Known Problems Father Social History Socioeconomic History ??? Marital status: Spouse name: Not on file ??? Number of children: Not on file ??? Years of education: Not on file ??? Highest education level: Not on file Occupational History ??? Not on file Tobacco Use ??? Smoking status: Never Smoker ??? Smokeless tobacco: Never Used ??? Tobacco comment: counseled by Dr Edwards Vaping Use ??? Vaping Use: Never used Substance and Sexual Activity ??? Alcohol use: Never ??? Drug use: Never ??? Sexual activity: Yes Partners: Male Other Topics Concern ??? Not on file Social History Narrative ??? Not on file Social Determinants of Health Financial Resource Strain: Not on file Food Insecurity: Not on file Transportation Needs: Not on file Physical Activity: Not on file Stress: Not on file Social Connections: Not on file Intimate Partner Violence: Not on file Housing Stability: Not on file Immunization History Administered Date(s) Administered ??? Dtap (Acel-Immune) 03/21/1998 ??? Dtp (Generic) 1993, 1993, 1993 ??? Dtp/Hib (Tetramune) 04/26/1994 ??? HPV4 (Gardasil) 05/18/2010, 08/24/2010, 01/06/2011 ??? Hepatitis B Pediatric 1993, 1993, 1993 ??? Hib (Generic) 1993, 1993, 1993 ??? MMR (MMRII) 04/26/1994, 03/21/1998 ??? Meningococcal (Generic) 05/10/2007 ??? Polio Opv (Generic) 1993, 1993, 04/26/1994, 03/21/1998 ??? Tdap (Adacel) 11/06/2020 ??? Tdap (Generic) 05/10/2007 Current Outpatient Medications Medication Sig Dispense Refill ??? clonazePAM (KLONOPIN) 0.5 MG tablet Take 1 tablet (0.5 mg total) by mouth daily as needed for Anxiety. FOR ANXIETY 20 tablet 0 ??? FLUoxetine (PROZAC) 10 MG capsule Take 1 capsule (10 mg total) by mouth daily. 90 capsule 1 ??? FLUoxetine (PROZAC) 20 MG capsule Take 1 capsule (20 mg total) by mouth daily. 90 capsule 1 No current facility-administered medications for this visit. No current outpatient medications on file prior to visit. No current facility-administered medications on file prior to visit. Allergies Allergen Reactions ??? Macrobid [Nitrofurantoin] Shortness of Breath bruising ??? Z-Taras [Azithromycin] Other (see comment) Itchy hands, dizzy, generalized not feeling well ??? Ibuprofen Hives ? ? Dexamethasone Eyes Water & Itch and Itching Objective: Filed Vitals: 05/28/22 0755 BP: 106/72 Pulse: 77 Resp: 18 Temp: 98.5 ??F (36.9 ??C) TempSrc: Temporal SpO2: 100% Weight: 56.2 kg (123 lb 12.8 oz) Height: 5' 6 (1.676 m) Physical Exam Vitals and nursing note reviewed. Constitutional: General: She is not in acute distress. Appearance: She is not ill-appearing, toxic-appearing or diaphoretic. HENT: Head: Normocephalic and atraumatic. Right Ear: Tympanic membrane, ear canal and external ear normal. Left Ear: Tympanic membrane, ear canal and external ear normal. Nose: Nose normal. No congestion. Mouth/Throat: Mouth: Mucous membranes are moist. Pharynx: Oropharynx is clear. No oropharyngeal exudate. Eyes: General: No scleral icterus. Right eye: No discharge. Left eye: No discharge. Conjunctiva/sclera: Conjunctivae normal. Pupils: Pupils are equal, round, and reactive to light. Neck: Thyroid: No thyromegaly. Vascular: No JVD. Trachea: No tracheal deviation. Cardiovascular: Rate and Rhythm: Normal rate and regular rhythm. Pulses: Normal pulses. Heart sounds: Normal heart sounds. No murmur heard. No friction rub. No gallop. Pulmonary: Effort: Pulmonary effort is normal. No respiratory distress. Breath sounds: Normal breath sounds. No stridor. No wheezing, rhonchi or rales. Chest: Chest wall: No tenderness. [...] Normal range of motion and neck supple. Right lower leg: No edema. Left lower leg: No edema. Lymphadenopathy: Cervical: No cervical adenopathy. Skin: General: Skin is warm. Coloration: Skin is not jaundiced or pale. [...] symmetric. Reflexes normal. Psychiatric: Mood and Affect: Affect normal. Thought Content: Thought content normal. Cognition and Memory: Memory normal. Judgment: Judgment normal. Comments: More lively today. Assessment & Plan: Opal was seen today [...] that would be relevant to care provided. Getting her TDAP dates. - CBC W/DIFF AUTOMATED; Future - COMPREHENSIVE METABOLIC PANEL; Future - TSH W/REFLEX; Future - LIPID PANEL; Future - HEPATITIS C ANTIBODY; Future - URINALYSIS, AUTO, COMPLETE - ALBUMIN URINE RANDOM - HEMOGLOBIN, GLYCOSYLATED; Future - VENIPUNC ARM DRAW - HEMOGLOBIN, GLYCOSYLATED - HEPATITIS C ANTIBODY - LIPID PANEL - TSH W/REFLEX - COMPREHENSIVE METABOLIC PANEL - CBC W/DIFF AUTOMATED General medical exam - Patient past medical, [...] would be relevant to care provided. - CBC W/DIFF AUTOMATED; Future - COMPREHENSIVE METABOLIC PANEL; Future - TSH W/REFLEX; Future - LIPID PANEL; Future - HEPATITIS C ANTIBODY; Future - URINALYSIS, AUTO, COMPLETE - ALBUMIN URINE RANDOM - HEMOGLOBIN, GLYCOSYLATED; Future - VENIPUNC ARM DRAW - HEMOGLOBIN, GLYCOSYLATED - HEPATITIS C ANTIBODY - LIPID PANEL - TSH W/REFLEX - COMPREHENSIVE METABOLIC PANEL - CBC W/DIFF AUTOMATED Screening for diabetes mellitus - URINALYSIS, AUTO, COMPLETE - ALBUMIN URINE RANDOM - HEMOGLOBIN, GLYCOSYLATED; Future - HEMOGLOBIN, GLYCOSYLATED Screening for hyperlipidemia - LIPID PANEL; Future - LIPID PANEL Screening for hypothyroidism - TSH W/REFLEX; Future - TSH W/REFLEX Encounter for hepatitis C screening test for low risk patient - HEPATITIS C ANTIBODY; Future - HEPATITIS C ANTIBODY Severe episode of recurrent major depressive disorder, without psychotic features (CMS/HCC) - Improving; will adjust her dose at this time with close follow up - I personally reviewed PHQ-9 and CHARLA-7 scores with patient today and explained the meaning of patient's scores to patient. Patient is currently improving. I counseled for about 3 minutes on [...] as well. Based on patient scores today, I geraldo chakraborty discussed with patient the plan as outlined below. - Continue FLUoxetine (PROZAC) 10 MG capsule; Take 1 capsule (10 mg total) by mouth daily. - Continue FLUoxetine (PROZAC) 20 MG capsule; Take 1 capsule (20 mg total) by mouth daily. - Follow up in 4 weeks CHARLA (generalized anxiety disorder) - Improving; will adjust her dose at this time with close follow up - I personally reviewed PHQ-9 and CHARLA-7 scores with patient today and explained the meaning of patient's scores to patient. Patient is currently improving. I counseled for about 3 minutes on [...] as well. Based on patient scores today, I geraldo chakraborty discussed with patient the plan as outlined below. - FLUoxetine (PROZAC) 10 MG capsule; Take 1 capsule (10 mg total) by mouth daily. - FLUoxetine (PROZAC) 20 MG capsule; Take 1 capsule (20 mg total) by mouth daily. - clonazePAM (KLONOPIN) 0.5 MG tablet; Take 1 tablet (0.5 mg total) by mouth daily as needed for Anxiety. FOR ANXIETY - Follow up in 4 weeks Panic attack - Still having intermittent episodes of panic attacks, hoping to wean her off with adjustment of her fluoxetine dose to 30 mg daily - Use clonazePAM (KLONOPIN) 0.5 MG tablet; Take 1 tablet (0.5 mg total) by mouth daily as needed for Anxiety. FOR ANXIETY - Controlled substance form signed today I spent 40 minutes today reviewing the patient's medical record, obtaining history, performing an exam, ordering medications, tests, and/or procedures, documenting in the medical record, referring and/or communicating with other health care providers, counseling and educating the patient/family/caregiver, reviewing and communicating test results and coordination of care. DRAGON: This dictation was at least in part performed using Tagora and there may be some inherent flaws in this group work program aide due to the nature of this program. MD Oscar NICHOLS MD Internal Medicine [facility], [facility]. 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 Office Visit [facility] Multispecialty Care - [address] [address] [address] [place] [address] Oscar Edwards MD [address] [place] [address] [address] [place] [address] 06/25/2025 9:00 AM CDT Office Visit Jasiel M[facility] [facility], [facility] [address] [place] [address] Elisha Kim PA [address] [facility] [address] [place] [address] documented as of this encounter Procedures Procedure Name Priority Date/Time Associated Diagnosis Comments TSH W/REFLEX Routine 05/28/2022 8:22 AM CDT Annual physical exam General medical exam Screening for hypothyroidism HEMOGLOBIN, GLYCOSYLATED Routine 05/28/2022 8:22 AM CDT Annual physical exam General medical exam Screening for diabetes mellitus COMPREHENSIVE METABOLIC PANEL Routine 05/28/2022 8:22 AM CDT Annual physical exam General medical exam LIPID PANEL Routine 05/28/2022 8:22 AM CDT Annual physical exam General medical exam Screening for hyperlipidemia HEPATITIS C ANTIBODY Routine 05/28/2022 8:22 AM CDT Annual physical exam General medical exam Encounter for hepatitis C screening test for low risk patient CBC W/DIFF AUTOMATED Routine 05/28/2022 8:22 AM CDT Annual physical exam General medical exam VENIPUNC ARM DRAW Routine 05/28/2022 8:1 1 AM CDT Annual physical exam General medical exam URINALYSIS, AUTO, COMPLETE Routine 05/28/2022 Annual physical exam General medical exam Screening for diabetes mellitus ALBUMIN URINE RANDOM W/CREATININE Routine 05/28/2022 Annual physical exam General medical exam Screening for diabetes mellitus documented in this encounter Results * HEMOGLOBIN, GLYCOSYLATED (05/28/2022 8:22 AM CDT) HGB A1C 5.1 4.5 - 6.2 % 05/28/2022 3:14 PM CDT -[facility] SHAILA SMITH ESTIMATED AVG GLUCOSE 100 74 - 106 MG/DL 05/28/2022 3:14 PM CDT [facility] [place] 05/28/2022 8:22 AM CDT Oscar Edwards MD LABORATORY Final Result Performing Organization Address City/[facility]/ZIP Co de Phone Number [facility] SARAH, [place] [address] [place] [address], [place] [phone] * HEPATITIS C ANTIBODY (05/28/2022 8:22 AM CDT) HEPATITIS C AB NON-REACTI VE NON-REACT ROXANE 05/28/2022 6:27 PM CDT [facility] Comment: ANTIBODIES TO HCV NOT DETECTED. DOES NOT EXCLUDE THE POSSIBILITY OF EXPOSURE TO HCV. 05/28/2022 8:22 AM CDT Oscar Edwards MD LABORATORY Final Result Performing Organization Address [facility] Co de Phone Number [facility] [address] [place] [address], [place] [phone] [id number] * LIPID PANEL (05/28/2022 8:22 AM CDT) CHOLESTEROL 166 <200 MG/DL 05/28/2022 3:16 PM CDT [facility] TRIGLYCERIDES 57 <150 MG/DL 05/28/2022 3:16 PM CDT [facility] HDL 67 >40 MG/DL 05/28/2022 3:16 PM CDT [facility] LDL-C 88 <100 MG/DL 05/28/2022 3:16 PM CDT [facility] VLDL CALCULATION 11 5 - 28 MG/DL 05/28/2022 3:16 PM CDT [facility] CHOL/HDL RATIO 2.5 0.0 - 4.0 05/28/2022 3:16 PM CDT [facility] LDL/HDL 1.3 0.41 - 2.13 05/28/2022 3:16 PM CDT [facility] NON HDL CHOLESTEROL 99 <140 MG/DL 05/28/2022 3:16 PM CDT [facility] 05/28/2022 8:22 AM CDT us Oscar Edwards MD LABORATORY Final Result Performing Organization Address City/[facility]/ZIP Co de Phone Number [facility] [address] [place] [address], [place] [phone] * TSH W/REFLEX (05/28/2022 8:22 AM CDT) TSH 1.044 0.358 - 3.740 uIU/ML 05/28/2022 3:16 PM CDT [facility] 05/28/2022 8:22 AM CDT us Oscar Edwards MD LABORATORY Final Result Performing Organization Address [facility] Co de Phone Number [id number] [place] [address], [place] [phone] * (ABNORMAL) COMPREHENSIVE METABOLIC PANEL (05/28/2022 8:22 AM CDT) SODIUM S/P/B 140 136 - 145 MMOL/L 05/28/2022 3:16 PM CDT [facility] POTASSIUM S/P/B 3.5 3.5 - 5.1 MMOL/L 05/28/2022 3:16 PM CDT [facility] CHLORIDE S/P/B 102 98 - 107 MMOL/L 05/28/2022 3:16 PM CDT [facility] CO2 28.7 21 - 32 MMOL/L 05/28/2022 3:16 PM CDT [facility] GLUCOSE 111(H) 70 - 99 MG/DL 05/28/2022 3:16 PM CDT [facility] BUN 8 7 - 18 MG/DL 05/28/2022 3:16 PM CDT -[facility] CREATININE S/P/B 0.78 0.55 - 1.02 MG/DL 05/28/2022 3:16 PM CDT [facility] [place] CALCIUM S/P/B 8.6 8.4 - 10.5 MG/DL 05/28/2022 3:16 PM T [facility] BILIRUBIN TOTAL S/P/B 1.4(H) 0.2 - 1.0 MG/DL 05/28/2022 3:16 PM CDT [facility] ALKALINE PHOSPHATASE S/P/B 43 37 - 98 U/L 05/28/2022 3:16 PM T [facility] AST 13(L) 15 - 37 U/L 05/28/2022 3:16 PM CDT [facility] ALT 17 14 - 59 U/L 05/28/2022 3:16 PM T [facility] TOTAL PROTEIN S/P/B 7.2 6.4 - 8.2 G/DL 05/28/2022 3:16 PM T [facility] ALBUMIN S/P/B 4.3 3.4 - 5.0 G/DL 05/28/2022 3:16 PM T [facility] ANION GAP 9.3 5 - 15 MMOL/L 05/28/2022 3:16 PM T [facility] Comment:REFERENCE RANGE NOT ESTABLISHED OSMOLALITY (CALC) 289 MOSM/KG 022 3:16 PM T [facility] Comment:REFERENCE RANGE NOT ESTABLISHED GFR ESTIMATE >90 >90 ML/MIN/1. 73 M2 05/28/2022 3:16 PM T [facility] GFR NOTES GFR REFERENCE S: 05/28/2022 3:16 PM T [facility] Comment: THE ESTIMATED GFR IS CALCULATED USING [...] ml/min/1.73 m2 G5,KIDNEY FAILURE: <15 ml/min/1.73 m2 05/28/2022 8:22 AM CDT Oscar Edwards MD LABORATORY Final Result [facility] [address] [place] [address], [place] [phone] * (ABNORMAL) CBC W/DIFF AUTOMATED (05/28/2022 8:22 AM CDT) WBC 3.3(L) 4.0 - 10.8 x10'3/uL 05/28/2022 2:35 PM CDT [facility] RBC 4.91 4.10 - 5.40 x10'6/uL 05/28/2022 2:35 PM CDT [facility] HGB 13.2 12.0 - 16.0 G/DL 05/28/2022 2:35 PM CDT [facility] HCT 41.1 36.0 - 47.0 % 05/28/2022 2:35 PM CDT [facility] MCV 83.7 78.0 - 100.0 FL 05/28/2022 2:35 PM CDT [facility] MCH 26.9(L) 27.0 - 31.0 PG 05/28/2022 2:35 PM CDT [facility] MCHC 32.1(L) 33.0 - 36.0 G/DL 05/28/2022 2:35 PM CDT [facility] RDW 13.5 11.5 - 14.5 % 05/28/2022 2:35 PM CDT -[facility] PLT 178 150 - 350 x10'3/uL 05/28/2022 2:35 PM CDT [facility] MPV 10.7(H) 7.4 - 10.4 FL 05/28/2022 2:35 PM CDT [facility] DIFFERENTIAL TYPE AUTOMATED DIFFERENTIAL 05/28/2022 2:35 PM CDT [facility] NEUTROPHILS % 60.1 % 05/28/2022 2:35 PM CDT [facility] LYMPHOCYTES % 30.6 % 05/28/2022 2:35 PM CDT [facility] MONOCYTES % 6.9 % 05/28/2022 2:35 PM CDT [facility] EOSINOPHILS % 0.9 % 05/28/2022 2:35 PM [facility] BAS[facility] % 1.5 % 05/28/2022 2:35 PM [facility] IMMATURE GRANS % 0.0 % 05/28/2022 2:35 PM CDT -[facility] ABS. NEUTROPHILS 2.00 1.60 - 8.30 x10'3/uL 05/28/2022 2:35 PM CDT [facility] ABS. LYMPHOCYTES 1.02 0.80 - 4.70 x10'3/uL 05/28/2022 2:35 PM [facility] ABS. MONOCYTES 0.23 0.00 - 1.50 x10'3/uL 05/28/2022 2:35 PM CDT [facility] ABS. EOSINOPHILS 0.03 0.00 - 0.40 x10'3/uL 05/28/2022 2:35 PM CDT [facility] ABS. BASOPHILS 0.05 0.00 - 0.20 x10'3/uL 05/28/2022 2:35 PM CDT [facility] ABS. IMMATURE GRANULOCYTES 0.00 0.00 - 0.03 x10'3/uL 05/28/2022 2:35 PM CDT [facility] 05/28/2022 8:22 AM CDT us Oscar Edwards MD LABORATORY Final Result Performing Organization Address City/[facility]/ZIP Co de Phone Number [facility] [address] [place] [address], [place] [phone] * ALBUMIN URINE RANDOM (05/28/2022) MICROALBUMIN (U) 10 MG- [address], [place] CREATININE RANDOM (U) 50 MG-[address], [place] MICROALB/CREAT <30 MG-[address], [place] Comment:normal URINE SPECIMEN / Unknown 05/28/2022 us Oscar Edwards MD URINE ORDERABLES Final Result Performing Organization Address [facility] Co de Phone Number -[phone], [place] [address] [place] [address], [place] [phone] * URINALYSIS, AUTO, COMPLETE (05/28/2022) COLOR (U) YELLOW MG[address], [place] TRANSPARENCY CLEAR MG-[address], [place] GLUCOSE (U) NEGATIVE NEGATIVE MG/DL MG-[address], [place] BILIRUBIN (U) NEGATIVE NEGATIVE MG-[address], [place] KETONES MG/DL (U) NEGATIVE NEGATIVE MG/DL MG-[address], [place] SPECIFIC GRAVITY (U) 1.020 1.001 - 1.035 MG-[address], [place] BLOOD (U) NEGATIVE NEGATIVE MG-[address], [place] U PH 7.0 5.0 - 9.0 MG-[address], [place] PROTEIN (U) NEGATIVE NEGATIVE mg/dL MG-[address], [place] UROBILINOGEN 0.2 0.2 - 1.0 EU/dL = mg/dL MG-[address], [place] NITRITES NEGATIVE NEGATIVE MG/DL MG-[address], [place] LEUKOCYTES (U) NEGATIVE NEGATIVE MG-[address], [place] URINE SPECIMEN OBTAINED BY CLEAN CATCH PROCEDURE / Unknown 05/28/2022 Oscar Edwards MD URINE ORDERABLES Final Result MG-[address], [place] [address] [facility] [address] [place] [address], [place] [phone] documented in this encounter Visit Diagnoses Diagnosis Annual physical exam- Primary Routine general medical examination at a health care facility General medical exam Unspecified general medical examination Screening for diabetes mellitus Screening for hyperlipidemia Screening for lipoid disorders Screening for hypothyroidism Screening for thyroid disorder Encounter for hepatitis C screening test for low risk patient Severe episode of recurrent major depressive disorder, without psychotic features ([facility]CC [facility]/HCC) CHARLA (generalized anxiety disorder) Generalized anxiety disorder Panic attack Panic disorder without agoraphobia documented in this encounter Additional Health Concerns Assessment Noted Time PHQ-9 Depression Total Score: 20 022 2:50 PM CDT documented as of this encounter Care Teams Mill Hand Relationship Specialty Start Date End Date Oscar Edwards MD [address] [facility] [address] [place] [address] PCP - General INTERNAL MEDICINE 04/28/22 documented as of this encounter
--- OUTSIDE RECORDS SUMMARY | 2024-10-13 22:41 | XMS_ITS | Encounter Summary ---
Author Organization [facility] Address [address] [place] [address]. [place] [address] [place] [address] Care Team Providers Care Drapery Head Former Name Role Phone None, Provider Primary Care Provider Unavaila ble Reason for Visit * Reason Comments Allergies Encounter Details Date Type Department Care Team (Late st Contact Info) Description 11/04/2021 10:02 PM BUILDING SERVICES TECHNICIAN - 11/05/2021 12:57 AM BUILDING SERVICES TECHNICIAN Emergency [facility] [place] [address] Ronn Plunkett MD [address] [place] [address] Allergies Discharge Disposition: Home or Self Care (Routine Discharge) Social History Tobacco Use Types Packs/Day Years Used Date Smoking Tobacco: Never Assessed Comments Unknown Sex and Gender Information Value Date Recorded Sex Assigned at Not on file Legal Sex Female 5:53 PM BUILDING SERVICES TECHNICIAN Gender Identity Not on file Sexual Orientation Not on file COVID-19 Exposure Response Date Recorded In the last month, have you been in contact with someone who was confirmed or suspected to have Coronavirus / COVID-19? No / Unsure 11/04/2021 10:47 PM BUILDING SERVICES TECHNICIAN documented as of this encounter Last Filed Vital Signs Vital Sign Reading Time Taken Comments Blood Pressure 113/83 11/04/2021 10:51 PM BUILDING SERVICES TECHNICIAN Pulse 89 11/04/2021 10:51 PM BUILDING SERVICES TECHNICIAN Temperature 36.9 ??C (98.4 ??F) 11/04/2021 10:[address] Respiratory Rate 16 11/04/2021 10:51 PM BUILDING SERVICES TECHNICIAN Oxygen Saturation 100% 11/04/2021 10:51 PM BUILDING SERVICES TECHNICIAN Inhaled Oxygen Concentration - - Weight 52.2 kg (115 lb) 11/04/2021 10:51 PM BUILDING SERVICES TECHNICIAN Height 167.6 cm (5' 6 ) 11/04/2021 10:51 PM BUILDING SERVICES TECHNICIAN Body Mass Index 18.56 11/04/2021 10:51 PM BUILDING SERVICES TECHNICIAN documented in this encounter Discharge Instructions * Attachments The following attachments cannot be sent through Care Everywhere. * Allergic Reaction ED (Tongan) * Dysuria Discharge Instructions, Adult (Tongan) documented in this encounter Medications at Time of Discharge fluconazole 150 MG tablet Take 150 mg by mouth once. 01/22/2022 hydrOXYzine 50 MG tablet Take 1 tablet (50 mg total) by mouth every 6 (six) hours as needed for Other (allergic reaction). 20 tablet 11/05/2021 11/15/2021 nitrofurantoin 100 MG capsule Take 100 mg by mouth 4 (four) times daily. 01/22/2022 documented as of this encounter ED Notes * Ronn Plunkett MD - 11/04/2021 11:23 PM CST eMERGENCY dEPARTMENT eNCOUnter CHIEF COMPLAINT Chief Complaint Patient presents with ??? Allergies HPI HPI Opal Swenson is a 26-year-old female who presents to the ER with a complaint of possible allergic reaction. Over the weekend the patient was diagnosed with urinary tract infection at another facility. She was started on Macrobid and fluconazole as she typically gets yeast infections from being on antibiotics. She states she still has some urinary discomfort and over the last several days has developed feeling of being clammy with some bruising to her legs and tingling to her extremities. She states she has a history of anxiety and she knows that she has been focusing on her symptoms butthinks that this is more than anxiety. No shortness of breath swelling in her throat and no hives. S he does not recall taking either of these medications in the past. No other complaints at this time. ALLERGIES Allergies Allergen Reactions ??? Z-Taras [Azithromycin] Other (see comment) Itchy hands, dizzy, generalized not feeling well ??? Ibuprofen Hives CURRENT MEDICATIONS Current Outpatient Medications Medication Sig ??? fluconazole 150 MG tablet Take 150 mg by mouth once. ??? hydrOXYzine 50 MG tablet Take 1 tablet (50 mg total) by mouth every 6 (six) hours as needed forOther (allergic reaction). ??? nitrofurantoin 100 MG capsule Take 100 mg by mouth 4 (four) times daily. PAST MEDICAL HISTORY Past Medical History: Diagnosis Date ??? Anxiety SURGICAL HISTORY Past Surgical History: Procedure Laterality Date ??? SECTION SOCIAL HISTORY Social History Socioeconomic History ??? Marital status: Spouse name: Not on file ??? Number of children: Not on file ??? Years of education: Not on file ??? Highest education level: Not on file Occupational History ??? Not on file Tobacco Use ??? Smoking status: Not on file Substance and Sexual Activity ??? Alcohol use: Not on file ??? Drug use: Not on file ??? Sexual activity: Not on file Other Topics Concern ??? Not on file Social History Narrative ??? Not on file Social Determinants of Health Financial Resource Strain: Not on file Food Insecurity: Not on file Transportation Needs: Not on file Physical Activity: Not on file Stress: Not on file Social Connections: Not on file Intimate Partner Violence: Not on file FAMILY HISTORY No family history on file. REVIEW OF SYSTEMS Review of Systems All other ROS negative unless noted above in HPI. PHYSICAL EXAM Physical Exam Filed Vitals: 11/04/21 2251 BP: 113/83 Pulse: 89 Resp: 16 Temp: 98.4 ??F (36.9 ??C) TempSrc: Temporal SpO2: 100% Weight: 52.2 kg (115 lb) Height: 5' 6 (1.676 m) The patient is a well developed and well nourished adult female in mild distress, alert and oriented. HEENT: PERRL, EOMI Throat without lesions, mucous membranes moist, no angioedema NECK: Supple without adenopathy or rigidity CHEST: Respirations are easy and unlabored EXT: No clubbing, cyanosis, edema NEURO: CN II-XII intact, no focal weakness SKIN: Scattered ecchymosis to both lower extremities no petechia and no urticaria EKG RADIOLOGY No orders to display LABS Results for orders placed or performed during the hospital encounter of 11/04/21 TEST URINE Result Value Ref Range PREG TEST NEGATIVE Specific Jennings (U) 1.010 URINALYSIS WI REFLEX TO CULTURE Specimen: URINE, VOIDED Result Value Ref Range COLOR (U) YELLOW TRANSPARENCY CLEAR Specific Jennings (U) 1.010 1.000 - 1.025 U PH 6.5 5.0 - 8.0 LEUKOCYTE ESTERASE NEGATIVE NEGATIVE NITRITES NEGATIVE NEGATIVE PROTEIN (U) NEGATIVE NEGATIVE URINE GLUCOSE NEGATIVE NEGATIVE U KETONES NEGATIVE NEGATIVE UROBILINOGEN 0.2 <1.0 EU/DL BILIRUBIN (U) NEGATIVE NEGATIVE BLOOD TRACE (A) NEGATIVE WBC/HPF 0-5 0 - 5 /HPF EPI/HPF RARE /LPF BACTERIA (URINE) TRACE /HPF CULTURE & SENSITIVITY INDICATED? NOT INDICATED CBC W/DIFF AUTOMATED Result Value Ref Range WBC 6.9 4.0 - 10.8 x10'3/uL RBC 4.95 4.10 - 5.40 x10'6/uL HGB 15.0 12.0 - 16.0 G/DL HCT 46.4 36.0 - 47.0 % MCV 93.7 78.0 - 100.0 FL MCH 30.3 27.0 - 31.0 PG MCHC 32.3 (L) 33.0 - 36.0 G/DL RDW 12.9 11.5 - 14.5 % PLT 244 150 - 350 x10'3/uL MPV 9.8 7.4 - 10.4 FL Differential Comment NORMAL REFERENCE RANGE NOT ESTABLISHED FOR THE PROPORTIONAL LEUKOCYTE DIFFERENTIAL. SEG NEUTROPHILS 77.8 % LYMPHOCYTES 15.6 % MONOCYTES 5.2 % EOSINOPHILS 0.6 % BASOPHILS 0.7 % IMMATURE GRANS 0.1 % NRBC 0.0 % ABS. NEUTROPHILS 5.35 1.60 - 8.30 x10'3/uL ABS. LYMPHOCYTES 1.07 0.80 - 4.70 x10'3/uL ABS. MONOCYTES 0.36 0.00 - 1.50 x10'3/uL ABS. EOSINOPHILS 0.04 0.00 - 0.40 x10'3/uL ABS. BASOPHILS 0.05 0.00 - 0.20 x10'3/uL ABS. IMMATURE GRANULOCYTES 0.01 0.00 - 0.03 x10'3/uL ABS. NUCLEATED RBC'S 0.00 0.00 x10'3/uL COMPREHENSIVE METABOLIC PANEL Result Value Ref Range SODIUM 142 136 - 145 MMOL/L POTASSIUM 3.6 3.5 - 5.1 MMOL/L CHLORIDE S/P/B 102 98 - 107 MMOL/L CO2 26.2 21.0 - 32.0 MMOL/L GLUCOSE 106 (H) 70 - 99 MG/DL BUN 7 6 - 24 MG/DL CREATININE S/P/B 0.75 0.55 - 1.02 MG/DL CALCIUM 8.9 8.4 - 10.5 MG/DL BILIRUBIN TOTAL S/P/B 1.5 (H) 0.2 - 1.0 MG/DL ALKALINE PHOSPHATASE S/P/B 63 37 - 98 U/L AST 15 15 - 37 U/L ALT 19 14 - 59 U/L TOTAL PROTEIN S/P/B 8.2 6.4 - 8.2 G/DL ALBUMIN S/P/B 5.0 3.4 - 5.0 G/DL ANION GAP 13.8 5.0 - 15.0 MMOL/L OSMOLALITY (CALC) 292 MOSM/KG eGFR Non-Afr. Amer. >90 >89 ML/MIN/1.73 M2 eGFR Afr. Amer. >90 >89 ML/MIN/1.73 M2 GFR NOTES GFR REFERENCES: ED MEDICATIONS Medications hydrOXYzine (ATARAX) tablet 50 mg (has no administration in time range) PROCEDURES Procedures CONSULTS: ED COURSE & MEDICAL DECISION MAKING MDM Work-up is unremarkable including urinalysis is negative. Definitely the patient should stop her antibiotic and fluconazole. Symptoms are somewhat atypical but likely are side effects of the medication so we will start her on some Atarax and she implied she would like to follow-up with Dr. Trujillo because her mother sees her. If she continues to have dysuria she will probably need gynecological evaluation. Meantime it appears that she stable for discharge on Atarax. FINAL IMPRESSION SNOMED CT(R) 1. Allergic reaction ALLERGIC REACTION 2. Dysuria DYSURIA Ольга Trujillo MD [address] [facility] [place] [phone] Schedule an appointment as soon as possible for a visit New Prescriptions HYDROXYZINE 50 MG TABLET Take 1 tablet (50 mg total) by mouth every 6 (six) hours as needed for Other (allergic reaction). Ronn Plunkett MD 11/05/21 0045 DING SERVICES TECHNICIAN * Radha Pacheco RN - 11/04/2021 10:39 PM CST Pt diagnosed with UTI Tuesday, started on nitrofurantoin, has taken BID since Tuesday as Rxed however notices it makes her feel bad - unexplained bruising, hands clammy, legs tinglingly, dizziness,nausea, heart racing. Also took one dose of fluconazole Tuesday for the first time. Symptoms started day one and have progressively gotten worse. DING SERVICES TECHNICIAN documented in this encounter Plan of Treatment Upcoming Encounters Date Type Department Care Team (Late st Contact Info) Description 11/02/2024 8:00 AM BUILDING SERVICES TECHNICIAN Office Visit [facility] Multispecialty Care - [place] [address] [address] [place] [address] Oscar Edwards MD [address] [facility] [address] [place] [address] 06/25/2025 9:00 AM CDT [facility] [address] [place], [place] [id number] Elisha Kim PA [address] [facility] [address] [place], [place] [id number] documented as of this encounter Procedures Procedure Name Priority Date/Time Associated Diagnosis Comments COMPREHENSIVE METABOLIC PANEL STAT 11/05/2021 12:06 AM BUILDING SERVICES TECHNICIAN CBC W/DIFF AUTOMATED STAT 11/05/2021 12:06 AM BUILDING SERVICES TECHNICIAN URINALYSIS WI REFLEX TO CULTURE STAT 11/04/2021 11:37 PM BUILDING SERVICES TECHNICIAN TEST URINE STAT 11/04/2021 11:37 PM BUILDING SERVICES TECHNICIAN documented in this encounter Results * (ABNORMAL) COMPREHENSIVE METABOLIC PANEL (11/05/2021 12:06 AM BUILDING SERVICES TECHNICIAN) SODIUM S/P/B 142 136 - 145 MMOL/L 11/05/2021 12:28 AM [facility] POTASSIUM S/P/B 3.6 3.5 - 5.1 MMOL/L 11/05/2021 12:28 AM [facility] CHLORIDE S/P/B 102 98 - 107 MMOL/L 11/05/2021 12:28 AM [facility] CO2 26.2 21.0 - 32.0 MMOL/L 11/05/2021 12:28 AM [facility] GLUCOSE 106(H) 70 - 99 MG/DL 11/05/2021 12:28 AM [facility] Comment: FASTING GLUCOSE 100 TO 125 MG/DL IS CONSISTENT WITH IMPAIRED FASTING GLUCOSE. FASTING GLUCOSE >125 MG/DL IS CONSISTENT WITH DIABETES. RANDOM GLUCOSE >200 MG/DL WITH HYPERGLYCEMIC SYMPTOMS IS CONSISTENT WITH DIABETES. PER ADA GUIDELINES BUN 7 6 - 24 MG/DL 11/05/2021 12:28 AM [facility] CREATININE S/P/B 0.75 0.55 - 1.02 MG/DL 11/05/2021 12:28 AM [facility] CALCIUM S/P/B 8.9 8.4 - 10.5 MG/DL 11/05/2021 12:28 AM [facility] BILIRUBIN TOTAL S/P/B 1.5(H) 0.2 - 1.0 MG/DL 11/05/2021 12:28 AM [facility] Comment: THIS ASSAY IS NOT RECOMMENDED FOR PATIENTS UNDERGOING TREATMENT WITH ELTROMBOPAG DUE TO THE POTENTIAL FOR FALSELY ELEVATED RESULTS. ALKALINE PHOSPHATASE S/P/B 63 37 - 98 U/L 11/05/2021 12:28 AM [facility] AST 15 15 - 37 U/L 11/05/2021 12:28 AM [facility] ALT 19 14 - 59 U/L 11/05/2021 12:28 AM [facility] TOTAL PROTEIN S/P/B 8.2 6.4 - 8.2 G/DL 11/05/2021 12:28 AM [facility] ALBUMIN S/P/B 5.0 3.4 - 5.0 G/DL 11/05/2021 12:28 AM [facility] ANION GAP 13.8 5.0 - 15.0 MMOL/L 11/05/2021 12:28 AM [facility] OSMOLALITY (CALC) 292 MOSM/KG 022 12:28 AM [facility] Comment:REFERENCE RANGE NOT ESTABLISHED EGFR NON-AFR. AMER. >90 >89 ML/MIN/1. 73 M2 11/05/2021 12:28 AM BUILDING SERVICES TECHNICIAN [facility] EGFR AFR. AMER. >90 >89 ML/MIN/1. 73 M2 11/05/2021 12:28 AM [facility] GFR NOTES GFR REFERENCE S: 11/05/2021 12:28 AM [facility] Comment: THE ESTIMATED GFR IS CALCULATED USING THE 2009 CKD-EPI EQUATION. THE FOLLOWING CATEGORIES FOR GRADING RENAL FUNCTION ARE RECOMMENDED BY THE INTERNATIONAL SOCIETY OF NEPHROLOGY (KDIGO 2012 CLINICAL PRACTICE GUIDELINE). G1,NORMAL OR HIGH: >89 ml/min/1.73 m2 G2,MILDLY DECREASED: 60-89 ml/min/1.73 m2 G3A,MILDLY TO MODERATELY DECREASED: 45-59 ml/min/1.73 m2 G3B,MODERATELY TO SEVERELY DECREASED: 30-44 ml/min/1.73 m2 G4,SEVERELY DECREASED: 15-29 ml/min/1.73 m2 G5,KIDNEY FAILURE: <15 ml/min/1.73 m2 11/05/2021 12:0 6 AM BUILDING SERVICES TECHNICIAN us Ronn Plunkett MD LABORATORY Final Result [facility] [address] [place] [address], * (ABNORMAL) CBC W/DIFF AUTOMATED (11/05/2021 12:06 AM BUILDING SERVICES TECHNICIAN) WBC 6.9 4.0 - 10.8 x10'3/uL 11/05/2021 12:15 AM [facility] RBC 4.95 4.10 - 5.40 x10'6/uL 11/05/2021 12:15 AM [facility] HGB 15.0 12.0 - 16.0 G/DL 11/05/2021 12:15 AM [facility] HCT 46.4 36.0 - 47.0 % 11/05/2021 12:15 AM [facility] MCV 93.7 78.0 - 100.0 FL 11/05/2021 12:15 AM [facility] MCH 30.3 27.0 - 31.0 PG 11/05/2021 12:15 AM [facility] MCHC 32.3(L) 33.0 - 36.0 G/DL 11/05/2021 12:15 AM [facility] RDW 12.9 11.5 - 14.5 % 11/05/2021 12:15 AM [facility] PLT 244 150 - 350 x10'3/uL 11/05/2021 12:15 AM [facility] MPV 9.8 7.4 - 10.4 FL 11/05/2021 12:15 AM [facility] DIFFERENTIAL COMMENT NORMAL REFERENCE RANGE NOT ESTABLISHED FOR THE PROPORTIONAL LEUKOCYTE DIFFERENTIAL. 11/05/2021 12:15 AM [facility] SEG NEUTROPHILS 77.8 % 12:15 AM [facility] LYMPHOCYTES 15.6 % 11/05/2021 12:15 AM [facility] MONOCYTES 5.2 % 11/05/2021 12:15 AM [facility] EOSINOPHILS 0.6 % 11/05/2021 12:15 AM [facility] BASOPHILS 0.7 % 11/05/2021 12:15 AM [facility] IMMATURE GRANS % 0.1 % 11/05/19 12:15 AM [facility] NRBC 0.0 % 11/05/2021 12:15 AM [facility] ABS. NEUTROPHILS 5.35 1.60 - 8.30 x10'3/uL 11/05/2021 12:15 AM BUILDING SERVICES TECHNICIAN [facility] ABS. LYMPHOCYTES 1.07 0.80 - 4.70 x10'3/uL 11/05/2021 12:15 AM [facility] ABS. MONOCYTES 0.36 0.00 - 1.50 x10'3/uL 11/05/2021 12:15 AM BUILDING SERVICES TECHNICIAN [facility] ABS. EOSINOPHILS 0.04 0.00 - 0.40 x10'3/uL 11/05/2021 12:15 AM BUILDING SERVICES TECHNICIAN [facility] ABS. BASOPHILS 0.05 0.00 - 0.20 x10'3/uL 11/05/2021 12:15 AM [facility] ABS. IMMATURE GRANULOCYTES 0.01 0.00 - 0.03 x10'3/uL 11/05/2021 12:15 AM [facility] ABS. NUCLEATED RBC'S 0.00 0.00 x10'3/uL 11/05/2021 12:15 AM [facility] 11/05/2021 12:0 6 AM BUILDING SERVICES TECHNICIAN us Ronn Plunkett MD LABORATORY Final Result [facility] [place] [address], * (ABNORMAL) URINALYSIS WI REFLEX TO CULTURE (11/04/2021 11:37 PM BUILDING SERVICES TECHNICIAN) COLOR (U) YELLOW 11/05/2021 12:20 AM [facility] TRANSPARENCY CLEAR 11/05/2021 12:20 AM [facility] SPECIFIC GRAVITY (U) 1.010 1.000 - 1.025 11/05/2021 12:20 AM [facility] U PH 6.5 5.0 - 8.0 11/05/2021 12:20 AM [facility] LEUKOCYTES (U) NEGATIVE NEGATIVE 11/05/2021 12:20 AM [facility] NITRITES NEGATIVE NEGATIVE 11/05/2021 12:20 AM BUILDING SERVICES TECHNICIAN [facility] PROTEIN (U) NEGATIVE NEGATIVE 11/05/2021 12:20 AM BUILDING SERVICES TECHNICIAN [facility] URINE GLUCOSE NEGATIVE NEGATIVE 11/05/2021 12:20 AM [facility] KETONES MG/DL (U) NEGATIVE NEGATIVE 11/05/2021 12:20 AM [facility] UROBILINOGEN 0.2 <1.0 EU/DL 11/05/2021 12:20 AM BUILDING SERVICES TECHNICIAN [facility] BILIRUBIN (U) NEGATIVE NEGATIVE 11/05/2021 12:20 AM BUILDING SERVICES TECHNICIAN [facility] BLOOD (U) TRACE(A) NEGATIVE 11/05/2021 12:20 AM BUILDING SERVICES TECHNICIAN [facility] WBC/HPF 0-5 0 - 5 /HPF 11/05/2021 12:20 AM BUILDING SERVICES TECHNICIAN [facility] EPI/HPF RARE /LPF 11/05/2021 12:20 AM BUILDING SERVICES TECHNICIAN [facility] BACTERIA (U) TRACE /HPF 11/05/2021 12:20 AM BUILDING SERVICES TECHNICIAN [facility] CULTURE & SENSITIVITY INDICATED? NOT INDICATED 11/05/2021 12:20 AM BUILDING SERVICES TECHNICIAN [facility] URINE SPECIMEN FROM URETHRA / Unknown 11/04/2021 11:37 PM BUILDING SERVICES TECHNICIAN Ronn Plunkett MD URINE ORDERABLES Final Result [facility] [phone] * TEST URINE (11/04/2021 11:37 PM BUILDING SERVICES TECHNICIAN) PREG TEST NEGATIVE 11/05/2021 12:16 AM BUILDING SERVICES TECHNICIAN [facility] SPECIFIC GRAVITY (U) 1.010 11/05/2021 12:16 AM BUILDING SERVICES TECHNICIAN [facility] URINE SPECIMEN FROM URETHRA / Unknown 11/04/2021 11:37 PM BUILDING SERVICES TECHNICIAN us Ronn Plunkett MD URINE ORDERABLES Final Result [facility] [address] [place] [address], documented in this encounter Visit Diagnoses Diagnosis Allergic reaction- Primary Allergy, unspecified not elsewhere classified Dysuria documented in this encounter Active and Recently Administered Medications Times are shown in BUILDING SERVICES TECHNICIAN. Scheduled Medication Order 11/03/2021 11/04/2021 11/05/2021 hydrOXYzine (ATARAX) tablet 50 mg 50 mg, Oral, Once, 1 dose, On Marcy 11/05/21 at 0045 0045 (Canceled Entry - Provider: Automatic Discharge Provider - Comment: Automatically canceled at discontinue of medication order) documented in this encounter Care Teams Drapery Head Former Relationship Specialty Start Date End Date None, Provider, PCP - General 11/05/21 04/27/22 documented as of this encounter
--- OUTSIDE RECORDS SUMMARY | 2024-10-13 22:41 | XMS_ITS | Encounter Summary ---
Author Organization [facility] Address [address] [place] [address]. [place] [address] [place] [address] Care Team Providers Care Psychology Instructor Name Role Phone Unavailable Primary Care Provider Unavailabl e Encounter Details Date Type Department Care Team (Late Contact Info) Description 03/01/2014 Abstract [place] [address] [place] [address] [place] [address] Social History Tobacco Use Types Packs/Day Years Used Date Smoking Tobacco: Never Assessed Comments Unknown Sex and Gender Information Value Date Recorded Sex Assigned at Not on file Legal Sex Female 5:53 PM STOCK PITCHER Gender Identity Not on file Sexual Orientation Not on file documented as of this encounter Plan of Treatment Upcoming Encounters Date Type Department Care Team (Late Contact Info) Description 11/02/2024 8:00 AM STOCK PITCHER Office Visit [facility] Multispecialty Care [place] [address] [address] [place] [address] Oscar Edwards MD [address] [place] [address] 06/25/2025 9:00 AM CDT Office Visit [place] [place] [facility] [address] [place] [address] Elisha iKm PA [address] [facility] [address] [place], [place] [phone] documented as of this encounter Visit Diagnoses Diagnosis Pain in joint, shoulder region documented in this encounter
--- OUTSIDE RECORDS SUMMARY | 2024-10-13 22:41 | XMS_ITS | Encounter Summary ---
Author Organization [facility] Address [address] [place] [address]. [place], [place] [address] [place] [address] Care Team Providers Care Melting Furnace Skimmer Name Role Phone Oscar Edwards MD Primary Care Provider Encounter Details Date Type Department Care Team (Latest Contact Info) Description 05/28/2022 - 05/28/2022 11:59 PM CDT Hospital Encounter [facility] [address] [place] [address] Oscar Edwards MD [address] [facility] [address] [place] [id number] Discharge Disposition: Home or Self Care [...] on file Legal Sex Female 5:53 PM OCEAN EXPORT COORDINATOR Gender Identity Not on file Sexual Orientation Not on file COVID-19 Exposure Response Date Recorded In the last 10 days, have yo u been in contact with someone who was confirmed or suspected to have Coronavirus/COVID-19? No / Unsure 05/28/2022 7:50 AM CDT documented as of this encounter Medications at Time of Discharge clonazePAM (KLONOPIN) 0.5 MG tabletIndications :CHARLA (generalized anxiety disorder) Take 1 tablet (0.5 mg total) by mouth daily as needed for Anxiety. FOR ANXIETY 20 tablet 05/28/2022 06/25/2022 FLUoxetine (PROZAC) 10 MG capsuleIndication s:Severe episode of recurrent major depressive disorder, without psychotic features ([facility] HHS/HCC),CHARLA (generalized anxiety disorder) Take 1 capsule (10 mg total) by mouth daily. 90 capsule 1 05/28/2022 06/25/2022 FLUoxetine (PROZAC) 20 MG capsuleIndication s:Severe episode of recurrent major depressive disorder, without psychotic features (CMS/HCC HHS/HCC),CHARLA (generalized anxiety disorder) Take 1 capsule (20 mg total) by mouth daily. 90 capsule 1 05/28/2022 06/25/2022 documented as of this encounter Plan of Treatment Upcoming Encounters Date Type Department Care Team (Late st Contact Info) Description 11/02/2024 8:00 AM OCEAN EXPORT COORDINATOR Office Visit [facility] Multispecialty Care [place] [address] [address] [place] [address] Oscar Edwards MD [address] [place] [address] 06/25/2025 9:00 AM CDT Office Visit [place]iel [place] [facility] [place] [place] [address] Elisha Kim PA 3 [facility] [address] [place] [address] documented as of this encounter Visit Diagnoses Not on filedocumented in this encounter Additional Health Concerns Assessment Noted Time PHQ-9 Depression Total Score: 20 022 2:50 PM CDT documented as of this encounter Care Teams Melting Furnace Skimmer Relationship Specialty Start Date End Date Oscar Edwards MD [address] [place] [address] [place] [address] PCP - General INTERNAL MEDICINE 04/28/22 documented as of this encounter
--- OUTSIDE RECORDS SUMMARY | 2024-10-13 22:41 | XMS_ITS | Encounter Summary ---
Author Organization [facility] Address [address] [place] [address]. [place], [place] [id number] [place] [id number] Care Team Providers Care Is Architect Name Role Phone None, Provider Primary Care Provider Unavaila ble Reason for Visit * Reason Comments Suspected Coronavirus (Covid-19) Flu Like Symptoms Encounter Details Date Type Department Care Team (Late st Contact Info) Description 03/26/2022 6:57 PM CDT - 03/26/2022 9:06 PM CDT Emergency [facility] [place] [address] Elvi Pena, CODY [address] [place], [place] [id number] Suspected Coronavirus (Covid-19); Flu Like Symptoms Discharge Disposition: Home or Self Care (Routine Discharge) Social History Tobacco Use Types Packs/Day Years Used Date Smoking Tobacco: Never Smokeless Tobacco: Never Alcohol Use Standard Drinks/Week Comments Yes 0 (1 standard drink = 0.6 oz pur e alcohol) Comments Unknown Sex and Gender Information Value Date Recorded Sex Assigned at Not on file 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 No / Unsure 03/26/2022 6:11 PM CDT documented as of this encounter Last Filed Vital Signs Vital Sign Reading Time Taken Comments Blood Pressure 111/73 03/26/2022 6:49 PM CDT Pulse 88 03/26/2022 6:49 PM CDT Temperature 36.9 ??C (98.5 ??F) 03/26/2022 6:49 PM CD T Respiratory Rate 18 03/26/2022 6:49 PM CDT Oxygen Saturation 97% 03/26/2022 6:49 PM CDT Inhaled Oxygen Concentration - - Weight 58.8 kg (129 lb 10.1 oz) 03/26/2022 6:51 PM CDT Height 167.6 cm (5' 6 ) 03/26/2022 6:49 PM CDT Body Mass Index 20.92 03/26/2022 6:49 PM CDT documented in this encounter Discharge Instructions * Discharge Instructions* CODY Goodman - 03/26/2022 8:35 PM CDT Take medications as directed for symptom relief. Stay very hydrated. Get plenty of rest. Follow-up closely with your doctor or the referred doctor in the next 2-3 days to ensure that you are improving. This is very important for your health. Use Tylenol and Motrin per package instructions for pain relief and fever reduction. Return to the emergency room for any new worsening symptoms especially for chest pain, shortness of breath, uncontrollable vomiting, fever greater than 100.4 not relieved with Tylenol Motrin, severe weakness, uncontrollable headache/pain, confusion or other new emergent concerns. Thank you for giving us the opportunity to care for you today. If at any point you are becoming more ill, your condition worsens or have concern, please call your doctor or return here. You are always welcome back. If you have any questions about this visit, concerns about your symptoms, questions about your medications or other concerns, please give us a call... Our practice is committed to providing you the exceptional care. We want to hear from you! Please fill out the survey you get from us. Your feedback is anonymous & helps us improve the patient experience for you and others in the community we serve. - Elvi Pena PA-C - Emergency Medicine Provider ADDITIONAL DISCHARGE INSTRUCTIONS: --Please follow all the instructions that we have discussed or are provided here. Take all medications as directed. --Emergency Departments (ED) provide medical screening exams and initial stabilizing treatment of emergency medical conditions. Medicine is an inexact science and many conditions cannot be diagnosed or completely treated during a single ED visit. Your treating healthcare provider(s) today feel yourcondition has been stabilized so further care as an outpatient is reasonable. Emergency care does not substitute for complete, ongoing, or follow-up care by your primary care physician or senior financial consultant.Please mention to your follow-up physician that you were in the emergency department and request that they review your labs and/or imaging to ensure all findings are followed up on. --Your medication list was reviewed prior to treatment, and at discharge, by the treating provider for the purpose of this outpatient visit only. Please review this entire medication list with your pharmacist, primary care physician, and specialist(s). It is your responsibility to share any new medication instructions you received this visit with your doctor(s). Although no medicine is without risk, your healthcare provider today feels reasonable decisions were made concerning starting new medications and stopping or changing the dosages of your usual medications until you receive follow-up care. Take medications only as directed. Many medications can cause drowsiness, especially those for pain, anxiety, muscle spasms, nausea, and allergies. DO NOT drive, drink alcohol, operate power machinery, or participate in potentially dangerous activities if taking medicines that make you tired. Chronic pain is best managed by pain specialists or primary care physicians, so narcotic refills are not routinely dispensed in the ED. DO NOT take multiple medications containing acetaminophen (Tylenol), such as many narcotic drug combinations and [id number] cold medicines. --Again, it was a pleasure taking care of you. * Attachments The following attachments cannot be sent through Care Everywhere. * Viral Syndrome Discharge Instructions (French) documented in this encounter Medications at Time of Discharge albuterol sulfate HFA 108 (90 Base) MCG/ACT inhaler Inhale 2 puffs into the lungs every 6 (six) hours as needed for Wheezing. 8 g 03/26/2022 04/28/2022 benzonatate (TESSALON PERLES) 100 MG capsule Take 1 capsule (100 mg total) by mouth 3 (three) times daily as needed. 15 capsule 03/26/2022 04/28/2022 cetirizine 10 MG tablet Take 10 mg by mouth daily. 04/28/2022 clonazePAM 0.5 MG tablet Take 0.5 mg by mouth 2 (two) times daily as needed. FOR ANXIETY 01/25/2022 04/28/2022 dextromethorphan- guaiFENesin ER (MUCINEX DM) 30-600 MG TABLET SR 12 HR 12 hr tablet Take 1 tablet by mouth every 12 (twelve) hours as needed. 28 tablet 01/22/2022 04/28/2022 methylPREDNISolon e, RONALD, 4 MG tablet Take 1 tablet (4 mg total) by mouth daily. 6 TABLETS ON DAY ONE, 5 TABLETS DAY TWO, 4 TABLETS DAY THREE, 3 TABLETS DAY FOUR, 2 TABLETS DAY FIVE, AND 1 TABLET DAY SIX 1 each 01/22/2022 04/28/2022 Spacer/Aero-Holdi ng Chambers (PRO COMFORT SPACER ADULT) Misc Use with inhaler as needed 1 each 03/26/2022 04/28/2022 documented as of this encounter ED Notes * Yesenia Villalobos RN - 03/26/2022 9:06 PM CDT Provider discussed today's findings with the patient/family. The patient has been given informationregarding their treatment, follow up and concerning symptoms for which they should seek urgent or emergent attention. I have expressed the the importance of seeking attention should there be any new,or worsening symptoms or persistence of their condition. Patient verbalized understanding of the discharge instructions. * Yesenia Villalobos RN - 03/26/2022 7:17 PM CDT Walking pulse ox 97% * CODY Goodman - 03/26/2022 6:55 PM CDT ED NOTE Chief Complaint Chief Complaint Patient presents with ??? Suspected Coronavirus (Covid-19) ??? Flu Like Symptoms History of Present Illness 27-year-old female with a history of anxiety and UTI presents to the emergency room for evaluation of cough, generalized body aches, chills, dizziness, headache, shortness of breath that started thismorning. 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 Is not COVID vaccinated. Denies any formal temperatures, chest pain, edema, periods of immobilization/recent surgery/trauma, use of exogenous hormone, known history of hypercoagulable state, hemoptysis, urinary symptoms, vaginal complaints, changes in bowel, concern for . Medical History ALLERGIES: Allergies Allergen Reactions ??? Macrobid [Nitrofurantoin] Shortness of Breath bruising ??? Z-Ronald [Azithromycin] Other (see comment) Itchy hands, dizzy, generalized not feeling well ??? Ibuprofen Hives ? ? Dexamethasone Eyes Water & Itch and Itching MEDICATIONS: Prior to Admission medications Medication Sig Start Date End Date Taking? Authorizing Provider albuterol sulfate HFA 108 (90 Base) MCG/ACT inhaler Inhale 2 puffs into the lungs every 6 (six) hours as needed for Wheezing. 03/26/22 Yes CODY Goodman benzonatate (TESSALON PERLES) 100 MG capsule Take 1 capsule (100 mg total) by mouth 3 (three) timesdaily as needed. 03/26/22 Yes CODY Goodman Spacer/Aero-Holding Chambers (PRO COMFORT SPACER ADULT) Misc Use with inhaler as needed 03/26/22 YesCODY Goodman cetirizine 10 MG tablet Take 10 mg by mouth daily. Doc Abstract dextromethorphan-guaiFENesin ER (MUCINEX DM) 30-600 MG TABLET SR 12 HR 12 hr tablet Take 1 tablet by mouth every 12 (twelve) hours as needed. 01/22/22 Rome Mateus, MD methylPREDNISolone, RONALD, 4 MG tablet Take 1 tablet (4 mg total) by mouth daily. 6 TABLETS ON DAY ONE, 5 TABLETS DAY TWO, 4 TABLETS DAY THREE, 3 TABLETS DAY FOUR, 2 TABLETS DAY FIVE, AND 1 TABLET DAY SIX 01/22/22 Rome Ignacio MD PAST MEDICAL HISTORY: Past Medical History: Diagnosis Date ??? Anxiety ??? UTI (urinary tract infection) PAST SURGICAL HISTORY: Past Surgical History: Procedure Laterality Date ??? SECTION FAMILY HISTORY: Family History Problem Relation Name Age of Onset ??? No Known Problems Mother ??? No Known Problems Father SOCIAL HISTORY: Social History Tobacco Use ??? Smoking status: Never Smoker ??? Smokeless tobacco: Never Used Vaping Use ??? Vaping Use: Never used Substance Use Topics ??? Alcohol use: Yes ??? Drug use: Never Review of Systems Review of Systems Constitutional: Positive for chills. Negative for fever. HENT: Positive for congestion and rhinorrhea. Negative for ear pain, sinus pain and sore throat. Eyes: Negative for pain and visual disturbance. Respiratory: Positive for cough and shortness of breath. Cardiovascular: Negative for chest pain and palpitations. Gastrointestinal: Negative for abdominal pain, diarrhea, nausea and vomiting. Genitourinary: Negative for dysuria, hematuria and urgency. Musculoskeletal: Positive for myalgias. Negative for neck stiffness. Skin: Negative for rash and wound. Allergic/Immunologic: Negative for food allergies. Neurological: Positive for dizziness and headaches. Negative for tremors, seizures and numbness. Psychiatric/Behavioral: Negative. Physical Exam Filed Vitals: 03/26/22 1849 03/26/22 1851 BP: 111/73 Pulse: 88 Resp: 18 Temp: 98.5 ??F (36.9 ??C) TempSrc: Oral SpO2: 97% Weight: 58.8 kg (129 lb 10.1 oz) 58.8 kg (129 lb 10.1 oz) Height: 5' 6 (1.676 m) Physical Exam Vitals and nursing note reviewed. Constitutional: Appearance: Normal appearance. She is well-developed. Comments: Nontoxic appearing HENT: Head: Normocephalic and atraumatic. Right Ear: Tympanic membrane, ear canal and external ear normal. Left Ear: Tympanic membrane, ear canal and external ear normal. Nose: Nose normal. Mouth/Throat: Mouth: Mucous membranes are moist. Pharynx: Oropharynx is clear. Eyes: Extraocular Movements: Extraocular movements intact. Conjunctiva/sclera: Conjunctivae normal. Pupils: Pupils are equal, round, and reactive to light. Cardiovascular: Rate and Rhythm: Normal rate and regular rhythm. Pulses: Normal pulses. Heart sounds: Normal heart sounds. Pulmonary: Effort: Pulmonary effort is normal. No respiratory distress. Breath sounds: Normal breath sounds. No stridor. No wheezing or rhonchi. Abdominal: General: Bowel sounds are normal. There is no distension. Palpations: Abdomen is soft. Tenderness: There is no abdominal tenderness. Musculoskeletal: General: Normal range of motion. Cervical back: Normal range of motion and neck supple. No rigidity. Right lower leg: No edema. Left lower leg: No edema. Lymphadenopathy: Cervical: No cervical adenopathy. Skin: General: Skin is warm and dry. Capillary Refill: Capillary refill takes less than 2 seconds. Findings: No rash. Neurological: General: No focal deficit present. Mental Status: She is alert and oriented to person, place, and time. Comments: Cranial nerves III through XII intact UE and LE distal pulses, sensation, CR, temp and strength intact. No focal deficit. Finger to nose intact and equal bilaterally. Negative Romberg. Ambulatory with steady gait. Psychiatric: Mood and Affect: Mood normal. Behavior: Behavior normal. Diagnostic Studies / Procedures ELECTROCARDIOGRAMS: No results found for this visit on 03/26/22. LABORATORY STUDIES: Results for orders placed or performed during the hospital encounter of 03/26/22 CORONAVIRUS (COVID-19) INFLUENZA A & B ANTIGEN IA PANEL Specimen: NASAL Result Value Ref Range CORONAVIRUS ANTIGEN IA NEGATIVE NEGATIVE INFLUENZA A NEGATIVE NEGATIVE INFLUENZA B NEGATIVE NEGATIVE Specimen Type NASAL FIRST TEST NO EMPLOYED IN HEALTHCARE NO SYMPTOMATIC DEFINED BY CDC YES DATE OF SYMPTOM ONSET 20220326 HOSPITALIZATION STATUS UNKNOWN RESIDENT OF CONGREGATE CARE NO UNKNOWN IMAGING STUDIES XR CHEST PORTABLE Final Result by User, [id number] (03/26 1926) Examination: Chest 1 view portable History: Shortness of breath and cough DATE/TIME: 03/26/2022 6:55 PM Comparison: None Technique: AP upright portable view of the chest was obtained. Findings: Heart size, mediastinal contours and pulmonary vasculature are within normal limits. No pulmonary consolidation, pleural effusion or pneumothorax. No acute osseous abnormality. Impression: No acute chest findings. Referred By: Interpreted By: Celio Newell MD, 03/26/2022 7:25 PM ED Course / Medical Decision Making MDM Number of Diagnoses or Management Options Amount and/or Complexity of Data Reviewed Clinical lab tests: ordered Tests in the radiology section of CPT??: reviewed and ordered ED Course as of 03/26/222113Mar 26, 20221930 XR CHEST PORTABLE Per rad read: No acute chest findings. [AD] 2033 SpO2: 97 % [AD] 2033 Pulse: 88 PERC neg [AD] 2102 Nontoxic-appearing patient presents for flulike/cold-like symptoms. No signs of toxicity. No signs of respiratory distress or hypoxia. CXR neg. No desaturation with ambulation. Neg covid and flu. Physical exam is benign. Given duration of symptoms, suspect viral etiology. Given well appearanceof patient, plan for conservative measures and close f/u with PCP. Strict verbal return precautions reviewed. Patient expresses verbal understanding and agreement with plan. All questions answered to the best of my ability. Teachback performed by patient. Nontoxic exit exam. Patient discharged home in stable condition. [AD] 2113 After discharge, pt was given information for [facility] in [facility] to f/u as she does not have a PCP [AD] ED Course User Index [AD] CODY Goodman Medications acetaminophen (TYLENOL) tablet 1,000 mg (1,000 mg Oral Given 03/26/22 190) Clinical Impression Viral syndrome (Primary) Discharge Medication List as of 03/26/2022 9:02 PM START taking these medications Details albuterol sulfate HFA 108 (90 Base) MCG/ACT inhaler Inhale 2 puffs into the lungs every 6 (six) hours as needed for Wheezing., Starting Tue03/26/2022, Eprescribe Class: Eprescribe Pharmacy: [facility]/pharmacy #[id number] - [place], [place] - [address] [facility] ( #: [phone]) benzonatate (TESSALON PERLES) 100 MG capsule Take 1 capsule (100 mg total) by mouth 3 (three) timesdaily as needed., Starting Tue03/26/2022, Eprescribe Class: Eprescribe Pharmacy: [facility]/pharmacy #[id number] - [place], [place] - [address] [facility] (Ph #: [phone]) Spacer/Aero-Holding Chambers (PRO COMFORT SPACER ADULT) Misc Use with inhaler as needed, Eprescribe Class: Eprescribe Pharmacy: [facility]/pharmacy #[id number] - [place], [place] - [address] [facility] (Ph #: [phone]) Disposition: Discharge Follow-Up: [address], [address], [place] [address] CODY GOODMAN 03/26/2022 CODY Goodman 03/26/222114 Cosigned by Gilles White MD,PHD at 03/27/2022 6:36 AM CDT * Merna Mcgovern RN - 03/26/2022 6:47 PM CDT Pt presents to triage with c/o shortness of breath, dizziness, cough, bosy aches, chills, feeling bad starting this morning and cough. 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 97% on RA in triage. 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 Visit [facility] - [address] [place], [place] [id number] Oscar Edwards MD [address] [place] [address] [address] [place] [address] 06/25/2025 9:00 AM CDT Office Visit Jasiel Meehan-Ramer [facility], [address] [place] [address] Elisha Kim PA [address] [facility] [address] [place] [address] documented as of this encounter Procedures Procedure Name Priority Date/Time Associated Diagnosis Comments XR CHEST PORTABLE STAT 03/26/2022 7:0 9 PM CDT CORONAVIRUS (COVID-19) INFLUENZA A & B ANTIGEN IA PANEL STAT 03/26/2022 6:59 PM CDT documented in this encounter Results * XR CHEST PORTABLE (03/26/2022 7:09 PM CDT) Anatomical Region Laterality Modality Chest Radiographic Vanessa ging 03/26/2022 7:25 PM CDT Impressions 03/26/2022 7:25 PM CDT Impression: No acute chest findings. Referred By: ?? Interpreted By: Celio Newell MD, 03/26/2022 7:25 PM Narrative 03/26/2022 7:25 PM CDT Examination: Chest 1 view portable History: Shortness of breath and cough DATE/TIME: 03/26/2022 6:55 PM Comparison: None Technique: AP upright portable view of the chest was obtained. Findings: Heart size, mediastinal contours and pulmonary vasculature are within normal limits. ??No pulmonary consolidation, pleural effusion or pneumothorax. ??No acute osseous abnormality. Procedure Note Celio Newell MD - 03/26/2022 Examination: Chest 1 view portable History: Shortness of breath and cough DATE/TIME: 03/26/2022 6:55 PM Comparison: None Technique: AP upright portable view of the chest was obtained. Findings: Heart size, mediastinal contours and pulmonary vasculature arewithin normal limits. No pulmonary consolidation, pleural effusion orpneumothorax. No acute osseous abnormality. Impression: No acute chest findings. Referred By: Interpreted By: Celio Newell MD, 03/26/2022 7:25 PM Elvi Pena ID GENERAL IMAGING Final Result * CORONAVIRUS (COVID-19) INFLUENZA A & B ANTIGEN IA PANEL (03/26/2022 6:59 PM CDT) CORONAVIRUS ANTIGEN IA NEGATIVE NEGATIVE 03/26/2022 8:32 PM CDT [facility] Comment: NEGATIVE RESULTS SHOULD BE TREATED PRESUMPTIVE AND CONFIRMED WITH A MOLECULAR ASSAY IF NECESSARY FOR PATIENT MANAGEMENT. NEGATIVE RESULTS DO NOT RULE OUT COVID 19 AND SHOULD NOT BE USED THE SOLE BASIS FOR TREATMENT OR PATIENT MANAGEMENT DECISIONS, INCLUDING INFECTION CONTROL DECISIONS. NEGATIVE RESULTS SHOULD BE CONSIDERED IN THE CONTEXT OF A PATIENT'S RECENT EXPOSURES, HISTORY AND THE PRESENCE OF CLINICAL SIGNS AND SYMPTOMS CONSISTENT WITH COVID 19. THIS TEST HAS BEEN AUTHORIZED BY THE FDA UNDER AN EMERGENCY USE AUTHORIZATION (EUA) FOR USE BY AUTHORIZED LABORATORIES. INFLUENZA A NEGATIVE NEGATIVE 03/26/2022 8:32 PM CDT [facility] INFLUENZA B NEGATIVE NEGATIVE 03/26/2022 8:32 PM CDT [facility] Comment: Interpretation: Negative for Influenza A and B. A negative result does not exclude influenza virus infection. If influenza is circulating in your community, a diagnosis of influenza should be considered based on a patient's clinical presentation and empiric antiviral treatment should be considered, if indicated. If more conclusive testing is needed for hospitalized inpatients, follow-up confirmatory testing with RT-PCR requires a separate order. SPECIMEN TYPE NASAL 03/26/2022 7:00 PM CDT [facility] FIRST TEST NO 03/26/2022 7:00 PM CDT [facility] EMPLOYED IN HEALTHCARE NO 03/26/2022 7:00 PM CDT [facility] SYMPTOMATIC DEFINED BY CDC YES 03/26/2022 7:00 PM CDT [facility] DATE OF SYMPTOM ONSET 2022032603/26/2022 7:00 PM CDT [facility] HOSPITALIZATION STATUS UNKNOWN 03/26/2022 7:00 PM CDT [facility] RESIDENT OF [facility] NO 03/26/2022 7:00 PM CDT [facility] UNKNOWN 03/26/2022 7:00 PM CDT [facility] NASAL STRUCTURE / Unknown 03/26/2022 6:59 PM CDT us Elvi ROSS MICROBIOLOGY - GENERAL ORDERA BLES Final Result [facility] [address] [place] [address], documented in this encounter Visit Diagnoses Diagnosis Viral syndrome- Primary Unspecified viral infection, in conditions classified elsewhere and of unspecified site documented in this encounter Administered Medications Inactive Administered Medications - up to 3 most recent administrations Medication Order MAR Action Action Date Dose Rate Site acetaminophen (TYLENOL) tablet 1,000 mg 1,000 mg, Oral, Once, 1 dose, On Tue03/26/22 at 1900, Maximum dose of acetaminophen is 4000 mg from all sources in 24 hours. Given 03/26/2022 7:01 PM CDT 1,000 mg documented in this encounter Active and Recently Administered Medications Times are shown in CDT. Scheduled Medication Order 03/24/2022 03/25/2022 03/26/2022 acetaminophen (TYLENOL) tablet 1,000 mg (COMPLETED) 1,000 mg, Oral, Once, 1 dose, On Tue03/26/22 at 1900, Maximum dose of acetaminophen is 4000 mg from all sources in 24 hours. 190 (Given - Provid er: Yesenia Villalobos RN) documented in this encounter Additional Health Concerns Infection Onset Date Last Indicated Resolved Time COVID-19 Rule Out 03/26/2022 03/26/2022 03/26/2022 8:32 PM CDT documented as of this encounter Care Teams Is Architect Relationship Specialty Start Date End Date None, Provider, PCP - General 11/05/21 04/27/22 documented as of this encounter
--- OUTSIDE RECORDS SUMMARY | 2024-10-13 22:41 | XMS_ITS | Encounter Summary ---
Author Organization [facility] Address [address] [place] [address]. [place], [place] [address] [place] [address] Care Team Providers Care Senior Electrical Designer Name Role Phone Oscar Edwards MD Primary Care Provider [phone] Reason for Visit * Reason Comments Meet and Greet Provider Anxiety Depression Encounter Details Date Type Department Care Team (Latest Contact Info) Description 04/28/2022 1:50 PM CDT Office Visit [facility] Multispecialty Care - [place] [address] [address] [address] [place] [address] Oscar Edwards MD [address] [place] [address] Meet and Greet Provider; Anxiety; Depression Social History Tobacco Use Types [...] on file Legal Sex Female 5:53 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 No / Unsure 04/28/2022 1:23 PM CDT documented as of this encounter Last Filed Vital Signs Vital Sign Reading Time Taken Comments Blood Pressure 116/67 04/28/2022 1:58 PM CDT Pulse 80 04/28/2022 1:58 PM CDT Temperature 37.1 ??C (98.8 ??F) 04/28/2022 1:58 PM CD T Respiratory Rate 18 04/28/2022 1:58 PM CDT Oxygen Saturation 99% 04/28/2022 1:58 PM CDT Inhaled Oxygen Concentration - - Weight 57.9 kg (127 lb 9.6 oz) 04/28/2022 1:58 P M CDT Height 167.6 cm (5' 6 ) 04/28/2022 1:58 PM CDT Body Mass Index 20.6 04/28/2022 1:58 PM CDT documented in this encounter Patient Instructions * Patient Instructions* Oscar Edwards MD - 04/28/2022 2:47 PM CDT Follow up in 4 weeks. * Attachments The following attachments cannot be sent through Care Everywhere. * Anxiety Discharge Instructions, Adult (Bangladeshi) * Depression (Bangladeshi) documented in this encounter Progress Notes * Oscar Edwards MD - 04/28/2022 1:50 PM CDTSummary: New patient notes Images from the original note were not included. Internal Medicine Outpatient Progress Note CC: Meet and Greet Provider, Anxiety, and Depression HPI: Opal Swenson is a 27-year-old female who presents for today for concerns about uncontrolled anxiety and depression. According to patient, she has had symptoms since she was in her younger years. Reports severe uncontrolled anxiety with depression. Notes prior history of posttraumatic experiences. Currently has been experiencing intermittent episodes of panic attacks. Denies any concerns forpast admissions to the hospital as a result of her depression and anxiety. Has never contemplated suicide but no obvious plan to execute. Recently got enrolled with therapy and has since had 2 sessions of therapy. She follows with therapist at [facility]. Patient tells me she currently has been compliant with her therapy sessions. Thinks it is helping some but not completely. Denies any recreational substance use. She recently relocated from [facility] about 3 months ago. Patient is a mother of a toddler infant. Not currently breast-feeding. Not contemplating soon. Patient concerned and would like this addressed at today's visit. Currently does not follow with psychiatry. Problem List There is no problem list [...] Outpatient Medications Marked as Taking for the 04/28/22 encounter (Office Visit) with Oscar Edwards MD Medication Sig Dispense Refill ??? clonazePAM 0.5 MG tablet Take 1 tablet (0.5 mg total) by mouth daily as needed. FOR ANXIETY 5 tablet 0 ??? FLUoxetine 10 MG tablet Take 1 tablet (10 mg total) by mouth daily. 14 tablet 0 ??? [START ON 05/19/2022] FLUoxetine 20 MG capsule Take 1 capsule (20 mg total) by mouth daily. 30 capsule 1 Allergies: Allergies Allergen Reactions ??? Macrobid [...] does not have insomnia. Objective: Filed Vitals: 04/28/22 1358 BP: 116/67 Pulse: 80 Resp: 18 Temp: 98.8 ??F (37.1 ??C) TempSrc: Temporal SpO2: 99% Weight: 57.9 kg (127 lb 9.6 oz) Height: 5' 6 (1.676 m) Body mass index is 20.6 kg/m??. General alert, cooperative, no distress HEENT [...] is grossly normal and symmetric Psych Anxious and depressed MSK No synovitis, no bony tenderness, no joint effusions Lymph No cervical or supraclavicular adenopathy Assessment and Plan: Encounter Diagnose(s) ICD-10-CM ICD-9-CM SNOMED CT(R) 1. CHARLA (generalized anxiety disorder) F41.1 300.02 GENERALIZED ANXIETY DISORDER FLUoxetine 10 MG tablet FLUoxetine 20 MG capsule clonazePAM 0.5 MG tablet 2. Encounter for medical examination to establish care Z00.00 V70.9 PATIENT ENCOUNTER STATUS ALBUMIN URINE RANDOM URINALYSIS, AUTO, COMPLETE 3. General medical exam Z00.00 V70.9 PATIENT ENCOUNTER STATUS ALBUMIN URINE RANDOM URINALYSIS, AUTO, COMPLETE 4. Severe episode of recurrent major depressive disorder, without psychotic features (CMS/HCC) F33.2 296.33 SEVERE RECURRENT MAJOR DEPRESSION WITHOUT PSYCHOTIC FEATURES FLUoxetine 10 MG tablet FLUoxetine 20 MG capsule 5. Panic attack F41.0 300.01 PANIC ATTACK clonazePAM 0.5 MG tablet 1. Encounter for medical examination to establish care - ALBUMIN URINE RANDOM - URINALYSIS, AUTO, COMPLETE -We will get patient's most recent Pap records at today's visit. She will follow-up in 4 weeks for her annual physical. At today's visit, patient's complaint is that of uncontrolled depression and anxiety. Management as below. Recently relocated from [place] and will have to get her vaccination dates updated. 2. General medical exam - ALBUMIN URINE RANDOM - URINALYSIS, AUTO, COMPLETE 3. CHARLA (generalized anxiety disorder) -Currently symptoms uncontrolled. Having intermittent episodes of panic attack. Has contemplated suicide by with no plans of cutting out at the moment -start FLUoxetine 10 MG tablet; Take 1 tablet (10 mg total) by mouth daily. Dispense: 14 tablet; Refill: 0 -Start FLUoxetine 20 MG capsule; Take 1 capsule (20 mg total) by mouth daily. Dispense: 30 capsule;Refill: 1 -Add clonazePAM 0.5 MG tablet; Take 1 tablet (0.5 mg total) by mouth daily as needed. FOR ANXIETY Dispense: 5 tablet; Refill: 0 for panic attacks - I personally reviewed PHQ-9 and CHARLA-7 [...] discussed with patient the plan as outlined above. -Follow-up in 4 weeks 4. Severe episode of recurrent major depressive disorder, without psychotic features (CMS/HCC) -Uncontrolled - I personally reviewed PHQ-9 and CHARLA-7 [...] discussed with patient the plan as outlined above. -Follow-up in 4 weeks -Start FLUoxetine 10 MG tablet; Take 1 tablet (10 mg total) by mouth daily. Dispense: 14 tablet; Refill: 0 -Start FLUoxetine 20 MG capsule; Take 1 capsule (20 mg total) by mouth daily. Dispense: 30 capsule;Refill: 1 -Follow-up in 4 weeks 5. Panic attack - clonazePAM 0.5 MG tablet; Take 1 tablet (0.5 mg total) by mouth daily as needed. FOR ANXIETY Dispense: 5 tablet; Refill: 0 Counseling given: Yes Comment: counseled by Dr Edwards I spent 45 minutes today reviewing the patient's medical record, [...] was at least in part performed using [facility] and there may be some inherent flaws in this legislative correspondent due to the nature of this program. Oscar Edwards MD Internal Medicine [facility], [facility]. documented in this encounter Plan of Treatment Upcoming Encounters Date Type Department Care Team (Late st Contact Info) Description 11/02/2024 8:00 AM BUTADIENE CONVERTER OPERATOR Office Visit [facility] Medical [facility] Multispecialty Care - [place] [address] [address] [address] [place] [address] Oscar Edwards MD [address] [place] [address] [address] [place] [address] 06/25/2025 9:00 AM CDT Office Visit [facility] [address] Elisha Kim PA 3 [facility] [address] [place] [id number] documented as of this encounter Procedures Procedure Name Priority Date/Time Associated Diagnosis Comments URINALYSIS, AUTO, COMPLETE Routine 04/28/2022 Encounter for medical examination to establish care General medical exam ALBUMIN URINE RANDOM W/CREATININE Routine 04/28/2022 Encounter for medical examination to establish care General medical exam documented in this encounter Results * URINALYSIS, AUTO, COMPLETE (04/28/2022) COLOR (U) YELLOW MG[address], [place] TRANSPARENCY CLEAR [address], [place] GLUCOSE (U) NEGATIVE NEGATIVE MG/DL MG[address], [place] BILIRUBIN (U) NEGATIVE NEGATIVE MG-[address], [place] KETONES MG/DL (U) NEGATIVE NEGATIVE MG/DL MG-[address], [place] SPECIFIC GRAVITY (U) 1.025 1.001 - 1.035 MG[address], [place] BLOOD (U) TRACE (Non Hemolyzed, Intact) NEGATIVE MG-[address], [place] U PH 5.5 5.0 - 9.0 MG[address], [place] PROTEIN (U) NEGATIVE NEGATIVE mg/dL MG-[address], [place] UROBILINOGEN 0.2 0.2 - 1.0 EU/dL = mg/dL MG-[address], [place] NITRITES NEGATIVE NEGATIVE MG/DL MG-[address], [place] LEUKOCYTES (U) NEGATIVE NEGATIVE MG-[address], [place] URINE SPECIMEN OBTAINED BY CLEAN CATCH PROCEDURE / Unknown 04/28/2022 Oscar Edwards MD URINE ORDERABLES Final Result MG[address], [place] [address] [place] [address], * ALBUMIN URINE RANDOM (04/28/2022) MICROALBUMIN (U) 10 MG- [address], [place] CREATININE RANDOM (U) 300 MG[address], [place] MICROALB/CREAT <30 MG-[address], [place] URINE SPECIMEN / Unknown 04/28/2022 Impressions MG-[address], [place] - 04/28/2022 normal us Oscar Edwards MD URINE ORDERABLES Final Result MG-[address], [place] [address] [facility] [address] [place] [address], documented in this encounter Visit Diagnoses Diagnosis CHARLA (generalized anxiety disorder)- Primary Generalized anxiety disorder Encounter for medical examination to establish care General medical exam Unspecified general medical examination Severe episode of recurrent major depressive disorder, without psychotic features ([facility]) Panic attack Panic disorder without agoraphobia documented in this encounter Additional Health Concerns Assessment Noted Time PHQ-9 Depression Total Score: 20 022 2:50 PM CDT documented as of this encounter Care Teams Senior Electrical Designer Relationship Specialty Start Date End Date Oscar Edwards MD [address] [facility] [address] [place] [address] PCP - General INTERNAL MEDICINE 04/28/22 documented as of this encounter
--- OUTSIDE RECORDS SUMMARY | 2024-10-13 22:41 | XMS_ITS | Encounter Summary ---
Author Organization [facility] Address [address] [place] [address]. 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:53 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 Gender Identity Not on file Sexual Orientation Not on file documented as of this encounter Plan of Treatment Upcoming Encounters Date Type Department Care Team (Late Contact Info) Description 11/02/2024 8:00 AM VISUAL MERCHANDISING MANAGER Office Visit [facility] Medical Group Multispecialty Care - [place] [address] [address] [address] [place] [address] Oscar Edwards MD [address] [place] [address] [address] [place] [address] 06/25/2025 9:00 AM CDT Office Visit [facility], [address] [address] Elisha Kim PA 3 [facility] [address] [place] [address] documented as of this encounter Visit Diagnoses Not on filedocumented in this encounter Additional Health Concerns Infection Onset Date Last Indicated Resolved Time COVID-19 Rule Out 01/22/2022 01/22/2022 01/22/2022 1:27 PM CDT COVID-19 Rule Out 03/26/2022 03/26/2022 03/26/2022 8:32 PM CDT COVID-19 Rule Out 07/29/2022 07/29/2022 07/29/2022 9:34 PM CDT COVID-19 Rule Out 06/10/2024 06/10/2024 06/10/2024 11:58 AM CDT COVID-19 Confirmed 06/10/2024 06/10/2024 12:32 AM CDT documented as of this encounter Care Teams Wooden Tank Erector Relationship Specialty Start Date End Date None, Provider, PCP - General 11/05/21 04/27/22 Oscar Edwards MD [address] [address] PCP - General INTERNAL MEDICINE 04/28/22 documented as of this encounter
--- OUTSIDE RECORDS SUMMARY | 2024-10-13 22:41 | XMS_ITS | Encounter Summary ---
Author Organization [facility] - [facility] Address [address] [place] [address]. 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 Gender Identity Not on file Sexual Orientation [...] st Contact Info) Description 11/02/2024 8:00 AM SHEET METAL SHOP HELPER Office Visit [facility] Multispecialty Care - [place] [address] [address] [place] [address] Oscar Edwards MD [address] [facility] [address] [place] [address] 06/25/2025 9:00 AM CDT Office Visit [facility], [place] [address] [place], [place] [id number] Elisha Kim PA 3 [facility] [address] [place] [address] documented as of this encounter Visit Diagnoses [...] as of this encounter Care Teams Supervisor Slitting And Shipping Relationship Specialty Start Date End Date Oscar Edwards MD [address] [facility] [address] [place] [address] PCP - General INTERNAL MEDICINE 04/28/22 documented as of this encounter
--- OUTSIDE RECORDS SUMMARY | 2024-10-13 22:41 | XMS_ITS | Encounter Summary ---
Author Organization [facility] Address [address] [place] [address]. 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 Gender Identity Not on file Sexual Orientation [...] st Contact Info) Description 11/02/2024 8:00 AM JUNIOR ACCOUNTANT Office Visit [facility] Medical [facility] Multispecialty Care - [place] [address] [address] [place] [address] Oscar Edwards MD [address] [place] [address] [address] [place] [address] 06/25/2025 9:00 AM CDT [facility] [place] [address] [place] [address] Elisha Kim PA 3 [facility] [address] [place] [address] documented as of this encounter Visit Diagnoses Not on filedocumented in this encounter Additional Health Concerns Infection Onset Date Last Indicated Resolved Time COVID-19 Rule Out 03/26/2022 03/26/2022 03/26/2022 8:32 PM CDT documented as of this encounter Care Teams Cytogenetic Technician Relationship Specialty Start Date End Date None, Provider, PCP - General 11/05/21 04/27/22 documented as of this encounter
--- OUTSIDE RECORDS SUMMARY | 2024-10-13 22:41 | XMS_ITS | Encounter Summary ---
Author Organization [facility] Address [address] [place] [address]. 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 No / Unsure 01/22/2022 8:34 AM CDT documented as of this encounter Plan of Treatment Upcoming Encounters Date Type Department Care Team (Late st Contact Info) Description 11/02/2024 8:00 AM MOTION PICTURE PHOTOGRAPHER Office Visit [facility] Medical Group Multispecialty Care - [place] [address] [address] [address] [place] [address] Oscar Edwards MD [address] [place] [address] [address] [place] [address] 06/25/2025 9:00 AM CDT [facility] [place] [address] [place] [address] Elisha Kim PA 3 [facility] [address] [place] [address] documented as of this encounter Visit Diagnoses Not on filedocumented in this encounter Additional Health Concerns Infection Onset Date Last Indicated Resolved Time COVID-19 Rule Out 01/22/2022 01/22/2022 01/22/2022 1:27 PM CDT documented as of this encounter Care Teams Summer Law Clerk Relationship Specialty Start Date End Date None, Provider, PCP - General 11/05/21 04/27/22 documented as of this encounter
--- OUTSIDE RECORDS SUMMARY | 2024-10-13 22:41 | XMS_ITS | Encounter Summary ---
Author Organization [facility] Address [address] [place] [address]. [place] [address] [place] [address] Care Team Providers Care White Metal Corrosion Proofer Name Role Phone None, Provider MD Primary Care Provider Unavaila ble Reason for Visit * Reason Comments Cough Encounter Details Date Type Department Care Team (Late st Contact Info) Description 01/22/2022 8:44 AM CDT - 01/22/2022 9:20 AM CDT Hospital Encounter [facility] [address] Rome Dunn MD [facility] [address] [place], [place] [id number] Cough Discharge Disposition: Home or Self Care (Routine Discharge) Social History Tobacco Use Types Packs/Day Years Used Date Smoking Tobacco: Never Smokeless Tobacco: Never Alcohol Use Standard Drinks/Week Comments Yes 0 (1 standard drink = 0.6 oz pur e alcohol) Comments No Sex and Gender Information Value Date Recorded Sex Assigned at Not on file Legal Sex Female 5:53 PM INCOMING INSPECTOR Gender Identity Not on file Sexual Orientation Not on file COVID-19 Exposure Response Date Recorded In the last 10 days, have yo u been in contact with someone who was confirmed or suspected to have Coronavirus/COVID-19? No / Unsure 01/22/2022 8:34 AM CDT documented as of this encounter Last Filed Vital Signs Vital Sign Reading Time Taken Comments Blood Pressure 96/73 01/22/2022 8:52 AM CDT Pulse 100 01/22/2022 8:52 AM CDT Temperature 37.4 ??C (99.3 ??F) 01/22/2022 8:52 AM CD T Respiratory Rate 18 01/22/2022 8:52 AM CDT Oxygen Saturation 100% 01/22/2022 8:52 AM CDT Inhaled Oxygen Concentration - - Weight - - Height - - Body Mass Index - - documented in this encounter Discharge Instructions * Attachments The following attachments cannot be sent through Care Everywhere. * Cough, Runny Nose, and the Common Cold (Mauritian) documented in this encounter Medications at Time of Discharge cetirizine 10 MG tablet Take 10 mg by mouth daily. 04/28/2022 documented as of this encounter ED Notes * Jose Roe RN - 01/22/2022 8:52 AM CDT Pt c/o cough, congestion, fatigue bodyaches and intermittent fever onset 1 week ago. Pt reports intermittent SOB with exertion. Pt currently in no respiratory distress and is able to speak in full sentences with no difficulty. * Rome Dunn MD - 01/22/2022 8:36 AM CDT [facility] Urgent Care- [place], [place] HISTORICAL INFORMATION Primary Care Doctor: Provider MD Katerina Patient information was obtained primarily from the patient, nursing notes. History/Exam limitations: None Provider at Bedside Date/Time Event User Comments 01/22/22 0813 Provider at Bedside Assessing Patient ROME DUNN CHIEF COMPLAINT Cough Chief Complaint Patient presents with ??? Cough HPI Opal Swenson is a 27-year-old female who presents with a 7 day history of cough, fever, fatigue, myalgias. Pt denies N/V/D. Pt has been taking OTC. Pt is not covid vaccinated. PAST MEDICAL HISTORY Past Medical History: Diagnosis Date ??? Anxiety SURGICAL HISTORY Past Surgical History: Procedure Laterality Date ??? SECTION CURRENT MEDICATIONS No current facility-administered medications for this encounter. Current Outpatient Medications: ??? carbamide peroxide 6.5 % otic solution, Place 5 drops into both ears 2 (two) times daily for 10days., Disp: 15 mL, Rfl: 0 ??? cetirizine 10 MG tablet, Take 10 mg by mouth daily., Disp: , Rfl: ??? dextromethorphan-guaiFENesin ER (MUCINEX DM) 30-600 MG TABLET SR 12 HR 12 hr tablet, Take 1 tablet by mouth every 12 (twelve) hours as needed., Disp: 28 tablet, Rfl: 0 ??? methylPREDNISolone, TARAS, 4 MG tablet, Take 1 tablet (4 mg total) by mouth daily. 6 TABLETS ON DAY ONE, 5 TABLETS DAY TWO, 4 TABLETS DAY THREE, 3 TABLETS DAY FOUR, 2 TABLETS DAY FIVE, AND 1 TABLETDAY SIX, Disp: 1 each, Rfl: 0 ALLERGIES Allergies Allergen Reactions ??? Macrobid [Nitrofurantoin] Shortness of Breath bruising ??? Z-Taras [Azithromycin] Other (see comment) Itchy hands, dizzy, generalized not feeling well ??? Ibuprofen Hives FAMILY HISTORY Family History Problem Relation Name Age of Onset ??? No Known Problems Mother ??? No Known Problems Father SOCIAL HISTORY Social History Socioeconomic History ??? [...] Substance and Sexual Activity ??? Alcohol use: Yes ??? Drug use: Never ??? Sexual activity: Not on file Other Topics Concern ??? Not on file Social History Narrative ??? Not on file Social Determinants of Health Financial Resource Strain: Not on file Food Insecurity: Not on file Transportation Needs: Not on file Physical Activity: Not on file Stress: Not on file Social Connections: Not on file Intimate Partner Violence: Not on file Review of Systems Constitutional: Positive for fatigue and fever. Negative for chills. HENT: Positive for congestion. Negative for sore throat. Eyes: Negative for pain and discharge. Respiratory: Positive for cough. Negative for shortness of breath and wheezing. Cardiovascular: Negative for chest pain and palpitations. Gastrointestinal: Negative for abdominal pain, diarrhea, nausea and vomiting. Genitourinary: Negative for dysuria and hematuria. Musculoskeletal: Positive for myalgias. Negative for neck pain and neck stiffness. Skin: Negative for rash. Neurological: Negative for seizures, syncope and headaches. Psychiatric/Behavioral: Negative for agitation and confusion. Physical Exam VITAL SIGNS: Filed Vitals: 01/22/22 0852 BP: 96/73 Pulse: 100 Resp: 18 Temp: 99.3 ??F (37.4 ??C) TempSrc: Temporal SpO2: 100% Physical Exam Vitals and nursing note reviewed. Constitutional: General: She is not in acute distress. Appearance: Normal appearance. She is not ill-appearing, toxic-appearing or diaphoretic. HENT: Head: Normocephalic and atraumatic. Right Ear: External ear normal. There is impacted cerumen. Left Ear: External ear normal. There is impacted cerumen. Eyes: General: No scleral icterus. Right eye: No discharge. Left eye: No discharge. Extraocular Movements: Extraocular movements intact. Conjunctiva/sclera: Conjunctivae normal. Cardiovascular: Rate and Rhythm: Normal rate and regular rhythm. Heart sounds: No murmur heard. Pulmonary: Effort: Pulmonary effort is normal. No respiratory distress. Breath sounds: Normal breath sounds. No stridor. No wheezing, rhonchi or rales. Abdominal: General: Bowel sounds are normal. Palpations: Abdomen is soft. Tenderness: There is no abdominal tenderness. Musculoskeletal: General: No deformity or signs of injury. Normal range of motion. Cervical back: Normal range of motion and neck supple. Skin: General: Skin is warm and dry. Neurological: General: No focal deficit present. Mental Status: She is alert and oriented to person, place, and time. Psychiatric: Mood and Affect: Mood normal. Behavior: Behavior normal. EKG (interpreted by ED provider) No results found for this visit on 01/22/22. LABORATORY Labs Reviewed CORONAVIRUS (COVID-19) INFLUENZA A & B ANTIGEN IA PANEL RADIOLOGY No orders to display PROCEDURES Procedures MDM Pt noted to have bilateral cerumen impaction and counseled would benefit from debrox. Pt counseled likely viral bronchitis and will obtain COVID/Influenza swab. Counseled would benefit from medrol dose pack and mucinex dm. I have discussed today's findings with the patient and provided information regarding the likely diagnosis. The patient has been given information regarding their treatment, follow up and concerning symptoms for which they should seek urgent or emergent attention. I have expressed the the importance of seeking attention should there be any new, or worsening symptoms or persistence of their condition. The patient is stable at discharge and has verbalized understanding of these instructions. Impression/Disposition SNOMED CT(R) 1. Viral URI with cough VIRAL UPPER RESPIRATORY TRACT INFECTION 2. Bilateral impacted cerumen IMPACTED CERUMEN OF BILATERAL EARS 3. Acute viral bronchitis ACUTE VIRAL BRONCHITIS Disposition: Discharge Medications - No data to display Current Discharge Medication List START taking these medications Details carbamide peroxide 6.5 % otic solution Place 5 drops into both ears 2 (two) times daily for 10 days. Qty: 15 mL, Refills: 0 Class: Eprescribe Pharmacy: [facility]/pharmacy #[id number] (Ph #: [phone]) dextromethorphan-guaiFENesin ER (MUCINEX DM) 30-600 MG TABLET SR 12 HR 12 hr tablet Take 1 tablet by mouth every 12 (twelve) hours as needed. Qty: 28 tablet, Refills: 0 Class: Eprescribe Pharmacy: [facility]/pharmacy #[id number] (Ph #: [phone]) methylPREDNISolone, TARAS, 4 MG tablet Take 1 tablet (4 mg total) by mouth daily. 6 TABLETS ON DAY ONE, 5 TABLETS DAY TWO, 4 TABLETS DAY THREE, 3 TABLETS DAY FOUR, 2 TABLETS DAY FIVE, AND 1 TABLET DAY SIX Qty: 1 each, Refills: 0 Class: Eprescribe Pharmacy: [facility]/pharmacy #[id number] (Ph #: [phone]) MD Rome Bond MD 01/22/22 0914 documented in this encounter Plan of Treatment Upcoming Encounters Date Type Department Care Team ([facility] st Contact Info) Description 11/02/2024 8:00 AM INCOMING INSPECTOR Office Visit [facility] - [address] [place] [address] Oscar Edwards MD [address] [facility] [address] [place] [address] 06/25/2025 9:00 AM CDT Office Visit [facility] [address] [place] [address] Elisha Kim PA [address] [facility] [address] [place] [address] documented as of this encounter Procedures Procedure Name Priority Date/Time Associated Diagnosis Comments CORONAVIRUS (COVID-19) INFLUENZA A & B ANTIGEN IA PANEL STAT 01/22/2022 9:17 AM CDT documented in this encounter Results * CORONAVIRUS (COVID-19) INFLUENZA A & B ANTIGEN IA PANEL (01/22/2022 9:17 AM CDT) CORONAVIRUS ANTIGEN IA NEGATIVE NEGATIVE 01/22/2022 1:26 PM CDT [facility] Comment: NEGATIVE RESULTS SHOULD BE [...] BY AUTHORIZED LABORATORIES. INFLUENZA A NEGATIVE NEGATIVE 01/22/2022 1:26 PM CDT [facility] INFLUENZA B NEGATIVE NEGATIVE 01/22/2022 1:26 PM CDT [facility] Comment: Interpretation: Negative for Influenza [...] requires a separate order. SPECIMEN TYPE NASAL 01/22/2022 9:18 AM CDT [facility] FIRST TEST NO 01/22/2022 9:18 AM CDT [facility] EMPLOYED IN HEALTHCARE NO 01/22/2022 9:18 AM CDT [facility] SYMPTOMATIC DEFINED BY CDC NO 01/22/2022 9:18 AM CDT [facility] HOSPITALIZATION STATUS NO 01/22/2022 9:18 AM CDT [facility] RESIDENT OF CONGREGATE CARE NO 01/22/2022 9:18 AM CDT [facility] UNKNOWN 01/22/2022 9:18 AM CDT [facility] NASAL STRUCTURE / Unknown 01/22/2022 9:17 AM CDT Rome Dunn MD MICROBIOLOGY - GENERAL ORDER JUNIE Final Result [facility] [address] [place] [address], [facility] [address] [place] [address], documented in this encounter Visit Diagnoses Diagnosis Viral URI with cough- Primary Acute upper respiratory infections of unspecified site Bilateral impacted cerumen Impacted cerumen Acute viral bronchitis Acute bronchitis documented in this encounter Additional Health Concerns Infection Onset Date Last Indicated Resolved Time COVID-19 Rule Out 01/22/2022 01/22/2022 01/22/2022 1:27 PM CDT documented as of this encounter Care Teams White Metal Corrosion Proofer Relationship Specialty Start Date End Date None, Provider, PCP - General 11/05/21 04/27/22 documented as of this encounter
--- OUTSIDE RECORDS SUMMARY | 2024-10-13 22:56 | XMS_ITS | Clinical Summary ---
Author Organization [facility] Address [address] [place] [address] Care Team Providers Care Echocardiograph Technician Name Role Phone Oscar Edwards MD Primary Care Provider [phone] Allergies Active Allergy Reactions Criticality Noted Date Comments Dexamethasone Itching,Eye irritation Low 01/25/2022 Ibuprofen Hives Medium 01/25/2022 Nitrofurantoin Sweating Low 01/25/2022 Medications clonazePAM (KlonoPIN) 0.5 mg tablet Take 1 tablet (0.5 mg total) by mouth 2 (two) times a day as needed for anxiety 20 tablet 01/25/2022 Active amoxicillin-cla vulanate (AUGMENTIN) 875-125 mg per tablet Take 1 tablet by mouth every 12 (twelve) hours 14 tablet 08/04/2022 Active traMADoL (ULTRAM) 50 mg tablet Take 1 tablet (50 mg total) by mouth every 6 (six) hours 10 tablet 09/11/2022 Active Social History Tobacco Use Types Packs/Day Years Used Date Smoking Tobacco: Never Assessed Comments No Sex and Gender Information Value Date Recorded Sex Assigned at Not on file Legal Sex Female 7:29 AM CDT Gender Identity Not on file Sexual Orientation Not on file Obstetrics History Last Filed Vital Signs Vital Sign Reading Time Taken Comments Blood Pressure 111/68 09/11/2022 4:55 AM PHYSICIAN EXTENDER Pulse 75 09/11/2022 4:55 AM PHYSICIAN EXTENDER Temperature 36.6 ??C (97.9 ??F) 09/11/2022 4:55 AM CS T Respiratory Rate 18 09/11/2022 4:55 AM PHYSICIAN EXTENDER Oxygen Saturation 99% 09/11/2022 4:55 AM PHYSICIAN EXTENDER Inhaled Oxygen Concentration - - Weight 56.2 kg (123 lb 14.4 oz) 09/11/2022 4:55 AM PHYSICIAN EXTENDER Height 167.6 cm (5' 6 ) 09/11/2022 4:55 AM PHYSICIAN EXTENDER Body Mass Index 20 09/11/2022 4:55 AM PHYSICIAN EXTENDER Plan of Treatment Health Maintenance Due Date Last Done Comments Depression Screening 1993 Hepatitis C Screening 1993 Varicella Vaccines (1 of 2 - 13+ 2-dose series) 2006 Regular Well Visit/Exam 18-64 2011 Cervical Cancer Screening 06/25/2023 06/25/2022 Influenza Vaccine (#1) 2024 08/24/2022 DTaP/Tdap/Td Vaccine (8 - Td or Tdap) 11/06/2030 11/06/2020, 05/10/2007, 03/21/1998, Additional history exists HPV Vaccines Completed 01/06/2011, 05/2010, 05/18/2010 Pneumococcal vaccine <65 Aged Out No longer eligible based on patient's age to complete this topic Insurance [facility] Care Teams Echocardiograph Technician Relationship Specialty Start Date End Date Oscar Edwards MD [address] [place] [id number] PCP - General Internal Medicine 08/04/22
--- OUTSIDE RECORDS SUMMARY | 2024-10-13 22:56 | XMS_ITS | Data Portability ---
Author Organization [facility] Address [address] [place] [address] Assessment No assessment recorded. Plan of Treatment Reminders Order Date Submit Date Provider Last Modified By Organization Details Last Modified Time Details Appointments None recorded. Lab beta-HCG, quantitativ e, serum or plasma 2023 [employer], [address] [place], [address], 11:53:04 pap, LB 2023 [employer], [address] [facility], [place], [address], 4 09:35:22 HPV E6+E7 mRNA, qualitative PCR, cervix 2023 [employer], [address] [place], [address], 4 08:55:52 Referral None recorded. Procedures None recorded. Surgeries None recorded. Imaging US, transvagina l 2023 JOSELO Not available 22:55:28 Medication Orders None recorded. Patient TargetsNo targets recorded. Patient Instructions Encounter Date Encounter Id Patient Instructions Last Modified By Organization Details Last Modified Time 05/02/2024 [id number] body mass index: care instructions [email or web address] Not available 05/02/2024 11:24:20 Reason for Referral None Reported. Results Created Date Observation Date Name Description Value Unit Range Abnormal Flag Note LastModifiedBy Organization Detail LastModifiedTime 04/25/2004/26/2024 HCG, TOTAL , QUANT HCG, total, quant < 2 mIU/m L <5 normal Refer ence Range s are for femal es aged 18 years - Adult Nonpr egnan t or preme nopau scott <5 Postm enopa usal <10 Value s from diffe rent assay metho ds may vary. The use of this assay to monit or or to diagn ose patie nts with cance r or any other condi tion unrel ated to pregn yannick has not been valid ated by the [facility] actur er of this assay . Not Available [facility] [address] [place], [address], 04/26/2024 11:53:04 05/02/2005/03/2024 HPV HIGH RISK HPV high risk Negati ve negati ve normal The HPV High Risk assay is inten ded for use as co-te sting with cytol ogy and not as a subst itute for regul ar cervi marlin cytol ogy scree edil. This assay is not inten ded for use as a scree edil devic e for women under age 30 with varsha l cervi marlin cytol ogy. Not Available [facility] [address] [place], [address], 05/04/2024 08:55:52 05/02/20 24 05/06/2024 THINP REP TIS PAP clinical information: normal None given Not Available [facility] [place] [address] [place], [address], 05/06/2024 09:35:22 05/02/20 24 05/06/2024 THINP REP TIS PAP LMP: normal NONE GIVEN Not Available [facility] [address] [address] [place], [address], 05/06/2024 09:35:22 05/02/20 24 05/06/2024 THINP REP TIS PAP prev. Pap: normal NONE GIVEN Not Available [facility] [address] [address] [place], [address], 05/06/2024 09:35:22 07/17/05/06/2024 THINP REP TIS PAP prev. BX: normal NONE GIVEN Not Available [address] [address] [place], [address], 05/06/2024 09:35:22 05/02/20 24 05/06/2024 THINP REP TIS PAP source: normal Cervi x Not Available [address] [address] [place], [address], 05/06/2024 09:35:22 05/02/20 24 05/06/2024 THINP REP TIS PAP statement of adequacy: normal Satis facto ry for evalu ation . Endoc ervic al/tr ansfo rmati on zone compo nent prese nt. Age and/o r menst rual statu s not provi ded Not Available [address] [address] [place], [address], 05/06/2024 09:35:22 05/02/20 24 05/06/2024 THINP REP TIS PAP interpretati on/result: normal Cytol ogy Resul ts: Negat skye for intra epith elial lesio n or malig kavin . Not Available [address] [address] [place], [address], 05/06/2024 09:35:22 05/02/20 24 05/06/2024 THINP REP TIS PAP comment: normal This Pap test has been evalu ated with compu ter sanket gladis techn ology . Not Available [address] [address] [place], [address], 05/06/2024 09:35:22 05/02/20 24 05/06/2024 THINP REP TIS PAP cytotechnolo gist: normal PCM, CT( CP) CT Scree edil Locat ion: [place] [address] [place] [address] Not Available [address] [address] [place], [address], 05/06/2024 09:35:22 05/02/20 24 05/06/2024 THINP REP TIS PAP comment EXPLA NATOR Y NOTE: The Pap is a scree edil test for cervi marlin cance r. It is not a diagn ostic test and is subje ct to false negat skye and false posit skye resul ts. It is most relia ble when a satis facto ry sampl e, regul jaylene obtai joycelyn, is submi tted with relev ant clini marlin findi ngs and histo ry, and when the Pap resul t is evalu ated along with histo dawn and curre nt clini marlin infor matio n. Not Available [facility] [address], [place], [address], 05/06/2024 09:35:22 04/25/20 24 04/25/2024 US, trans vagin al No observ ation record ed. [email or web address] [address], [place], [address], 04/26/2024 09:46:42 Result Notes None recorded. Procedures Surgical History Date Name Laterality Status Provider Name and Address Organization Details Recorded Time 05/02/20 24 Date of Last Pap Smear completed Luz Fuentes [facility] 05/02/2024 10:56:45 01/17/20 delivery completed Alma Ruby [facility] 04/03/2024 15:53:11 Imaging Results Imaging Date Name Status LastModified by Organization Details LastModified Time 04/25/2024 US, transvaginal completed [email or web address] [address], [place], [address], 04/26/2024 09:46:42 Procedure Notes None recorded. Medical Equipment None Reported. Allergies Allergen ID Allergen Name Allergen Category Reaction Reaction Severity Criticality Documentation Date Start Date Code Code System Note Provider Name and Address Organization Details Recorded Time 160076 Macrobid medicatio n wheezing Not available high 04/03/2024 86550 1 RxNorm Alma bansal [facility] IV 15:46:59 166077 Zithromax medicatio n itching Not available Not available 04/03/202419637 4 RxNorm Alma bansal [employer] IV 4 15:44:54 472853 ibuprofen medicatio n hives Not available [facility] 04/03/2024 5640 RxNorm Alma bansal [employer] IV 4 15:45:31 069501 dexametha sone medicatio n itching other Not available Not available Not available 04/03/2024 3264 RxNorm Alma bansal [employer] IV 4 15:45:15 Medications Name Sig Start Date Stop Date Status Note LastModified by Organization Details LastModified Time amoxicillin 875 mg-potassium clavulanate 125 mg tablet TAKE 1 TABLET BY MOUTH TWICE A DAY FOR 10 DAYS 04/03 completed Not Available Not Available Not Available active Not Available Not Avai lable Not Available Vitals Date Recorded Body height Body mass index (BMI) Body weight Body temperature Systolic blood pressure Diastolic blood pressure Provider Name and Address Organization Details Last Updated DateTime 4 167.64 cm 24 kg/m2 57839.8 3 g 97.7 [degF] 116 mm[Hg] 72 mm[Hg] Alma Ruby [facility] [employer] [facility] 4 15:43:22 Date Recorded Body height Body mass index (BMI) Body weight Systolic blood pressure Diastolic blood pressure Provider Name and Address Organization Details Last Updated DateTime 04/25/2024 167.64 cm 23.7 kg/m2 82817.0 8 g 110 mm[Hg] 70 mm[Hg] Luz Fuentes [facility] IV 4 13:55:19 Date Recorded Body height Provider Name an d Address Organization Details Last Updated DateTime 05/02/2024 167.64 cm Luz Funesmary kaygera [facility] [employer] 05/02/2024 10:57:36 Date Recorded Body mass index (BMI) Body weight Body temperature Systolic blood pressure Diastolic blood pressure Provider Name and Address Organization Details Last Updated DateTime 05/02/2024 24.3 kg/m2 56340.6 5 g 97.8 [degF] 100 mm[Hg] 68 mm[Hg] Iman Ladd [employer] IV 11:05:10 Social History Question Answer Notes LastModified by Organizat ion Details LastModified Time Tobacco Smoking Status Never Smoker Alma bansal, [employer] [facility] 04/03/2024 15:52:52 What Is Your Level Of Alcohol Consumption? None Information not available 04/03/2024 If You Are , What Was Your Level Of Alcohol Consumption Prior To ? None Information not available 04/03/2024 Are You Blind Or Do You Have Difficulty Seeing? No Information not available 04/03/2024 Are You Deaf Or Do You Have Serious Difficulty Hearing? No Information not available 04/03/2024 What Type Of Diet Are You Following? REGULAR Information not available 04/03/2024 How Many Children Do You Have? 1 Information not available 04/03/2024 What Is Your Relationship Status? Information not available 04/03/2024 Are You Sexually Active? Yes Information not available 04/03/2024 Do You Use Any Illicit Or Recreational Drugs? No Information not available 04/03/2024 Do You Or Have You Ever Used Any Other Forms Of Tobacco Or Nicotine? No Information not available 04/03/2024 Sex: Unknown Functional Status Question Answer Note LastModified by Organization D etails LastModified Time What is your exercise level? Moderate Information not available 04/03/2024 Mental Status None recorded. Family History Nothing Reported. Medical History Condition Response High Blood Pressure N Cytomegalovirus N Hyperthyroidism N MRSA N Blood Transfusion N Depression N Incontinence N Anxiety Disorder N Autoimmune disease N Arthritis N Polycystic Ovarian Syndrome N Hematuria N Varicosities N Stroke N Seasonal allergies Y Crohn's Disease N Alzheimer's/Dementia N COPD/Emphysema N History of Abnormal Pap N Fibromyalgia N Kidney Infection N Kidney Disease N Gallbladder disease N Von Willebrand disease N Eating Disorder N Diabetes Mellitus (non-insulin dependent ) N Ovarian Problems N Frequent Urinary Tract infections N Osteopenia N GERD (reflux) N Diabetes (insulin dependent) N Heart Attack N Asthma N Endometrial Cancer N Hepatitis N Pulmonary Embolism N Chicken Pox N Other Cancer N Colon Cancer N Herpes (HSV) N Breast Cancer N Lung Cancer N Hypothyroidism N Panic Attacks N Neurological Disorder N Deep Vein Thrombosis N Shingles N Tuberculosis/Positive PPD N Cervical Cancer N Chlamydia N Endometriosis N HPV/Genital Warts N IBS (Irritable Bowel Syndrome) N High Cholesterol N Liver Disease N Ulcer N HIV N Sickle Cell Disease/Trait N ADD/ADHD N Anemia Y Multiple Sclerosis N Gonorrhea N Headaches/migraines N Ovarian Cancer N Seizures/Epilepsy N Fibroids N Lupus N Rubella N Blood Clotting Disorder N Bipolar Disorder N Ulcerative Colitis N Heart Disease N Osteoporosis N Gynecological History Statement/Question Response Flow Moderate Date of last HPV 05/02/2024 Date of LMP 01/16/2024 HPV Vaccine Y Duration of Flow (days) 7 Most Recent Mammogram Current Control Method None Age at Menarche 13 Date of Last Colonoscopy Most Recent Bone Density Date of Last Pap Smear 05/02/2024 Obstetrics History GPAL:G 2 P 1 0 1 1 Type Value Full Term 1 Spontaneous 1 Living 1 Total 2 Past Encounters Encounter ID Performer Location Encounter Start Date Encounter Closed Date Diagnosis/Indication Diagnosis SNOMED-CT Code Diagnosis ICD10 Code [id number] CORY WU, DO [facility] h [address] [place] [address] 04/03/2024 15:12:17 04/03/2024 16:54:29 Threatened miscarriage 01100261 O20.0 [id number] BRYCE YOUNG, OSTEOLOGY TEACHER [facility] h [address] [place] [address] 04/25/2024 13:30:00 04/25/2024 15:34:59 Threatened miscarriage [id number] O20.0 [id number] STANISLAW MCKEON, RAHEEM [facility] [address] [place] [address] 05/02/2024 10:46:43 05/02/2024 15:03:32 Gynecologic examination 73688588 Z01.419 Screening for malignant neoplasm of cervix 038327075 Z12.4 Depression screening 171 440711 Z13.31 Health Concerns Section Related Observation LastModified by Organization Detai ls LastModified Time None Recorded Concern Status LastModified by Organization Details LastModified Time None Recorded Advance Directives Directive None Recorded Payers Encounter Date Sequence Insurance Name Policy Number Policy Yanes Covered Member ID Yanes Member ID Guarantor Name 04/03/2024 1 [facility] (MEDICAID HMO) [id number] Opal Swenson [id number] Opal Swenson 04/25/2024 1 [facility] (MEDICAID HMO) [id number] Opal Swenson [id number] Opal Swenson 05/02/2024 1 [facility] (MEDICAID HMO) [id number] Opal Swenson [id number] Opal Swenson Notes Date Note Type Note Provider Name and Address Organization Details Recorded Time 04/03/2024 text/html Opal in offic e for ER followup for threatened miscarriagept had US in ERpt c/o of bleeding with clots and some abdominal cramping CORY WU, DO [address] [facility], [place], [address], [facility] IV 04/03/2024 16:28:45 04/25/2024 text/html Patient presents for possible miscarriage follow up. Last seen in office 04/03/2024 and was noted to have GS, but no yolk sac or pole. Patient states she has not had any bleeding since last visit. Had very heavy bleeding and believed she passed tissues on 03/28/24. Patient does desire . BRYCE YOUNG, OSTEOLOGY TEACHER [address] [facility], [place], [address], [facility] IV 04/25/2024 15:09:26 05/02/2024 text/html Annual GYNReport ed bypatient.History:n o gynecologic complaints; planning in the near future; actively trying to conceive Menstrual cycle:Normal menses Urinary symptoms:No hematuria; No incontinence Vulva:No genital lesion Vagina:Normal vaginal discharge Breast:No breast pain; No breast lump; No nipple discharge Current Contraception: control not practiced Sexual complaints:No sexual complaints; No pain during intercourse; Normal libido Menopausal Symptoms:No menopausal symptoms; Normal vaginal lubrication Psychological symptoms:No depression; No anxiety; No PMDD Preventive measures:Encourage self breast examination; Encourage regular exercise; Encourage regular mammograms starting age 40 Pt states she is doing well. Last pap: last year sometime elsewhere unsure exact date. Pt reports having regular monthly cycles that are not heavy or painful. LMP: 01/16/24. Pt is currently TTC . Pt (declines) STD screening via culture and serum testing. Pt has no other concerns. STANISLAW MCKEON NP [address] [facility], [place], [address], [facility] 05/02/2024 11:27:18 OBGyn Episode Ob Episode Information Episode Created Date Number of Fetuses Patient Bloodtype Patient rh Status Prepregnancy Weight lbs Domestic Partner Domestic Partner Phone Father Name Income Tax Manager Status 04/25/20 24 1 CLOSED Fetus Data First Name Last Name Admitted to NICU Weight (g) Sex Living Outcome Pediatric Complications Fetus ID Race Codes Race Delivery Type , Spontane ous [id number] Momo Calculation MOMO Calculation Method Initial Momo Date Initial Exam Date Initial Exam Provider Initial Ultrasound Date Last Menstrual Period Date Ultra Sound Weeks Gestation Conception by IVF Embryo Age at Transfer Date of Transfer 0 Eighteen To Twenty Week Momo Update Ultra Sound Date Fundal Height At Umbil Quickening Date Ultra Sound Latest Weeks Gestation Final Momo Confirmed By Final Momo Confirmed Date Final Momo Date Ultra Sound Latest Days Gestation 0 0 Menstrual History Last Menstrual Date Menses Monthly On Bcp Conception Prior Menses Frequency Hcg Plus Date Menarche Onset Age Delivery Information Delivery Date Delivery Type Labor Anesthesia Weeks Gestation Incision Type Labor Labor Length Hrs Delivered By Post Complications Tubal Sterilization Discharge Date Comments 4 Discharge Information Feeding Method Contraceptive Method Maternal HG B and HCT Levels Ob Episode Information Episode Created Date Number of Fetuses Patient Bloodtype Patient rh Status Prepregnancy Weight lbs Domestic Partner Domestic Partner Phone Father Name Income Tax Manager Status 04/03/20 24 1 CLOSED Fetus Data First Name Last Name Admitted to NICU Weight (g) Sex Living Outcome Pediatric Complications Fetus ID Race Codes Race Delivery Type 3770.25 6704 M Full Term [id number] Primary Momo Calculation MOMO Calculation Method Initial Momo Date Initial Exam Date Initial Exam Provider Initial Ultrasound Date Last Menstrual Period Date Ultra Sound Weeks Gestation Conception by IVF Embryo Age at Transfer Date of Transfer 0 Eighteen To Twenty Week Momo Update Ultra Sound Date Fundal Height At Umbil Quickening Date Ultra Sound Latest Weeks Gestation Final Momo Confirmed By Final Momo Confirmed Date Final Momo Date Ultra Sound Latest Days Gestation 0 0 Menstrual History Last Menstrual Date Menses Monthly On Bcp Conception Prior Menses Frequency Hcg Plus Date Menarche Onset Age Delivery Information Delivery Date Delivery Type Labor Anesthesia Weeks Gestation Incision Type Labor Labor Length Hrs Delivered By Post Complications Tubal Sterilization Discharge Date Comments 1 Regional-Sp inal 40 false Discharge Information Feeding Method Contraceptive Method Maternal HG B and HCT Levels
--- OUTSIDE RECORDS SUMMARY | 2024-10-13 22:56 | XMS_ITS | Referral Summary ---
Author Organization [facility] Address [address] [place] [address] Care Team Providers Care Regulatory Affairs Analyst Name Role Phone Oscar Edwards MD Primary Care Provider [phone] Allergies Active Allergy Reactions Criticality Noted Date [...] Comments Blood Pressure 111/68 09/11/2022 4:55 AM FIRE MANAGEMENT OFFICER Pulse 75 09/11/2022 4:55 AM FIRE MANAGEMENT OFFICER Temperature 36.6 ??C (97.9 ??F) 09/11/2022 4:55 AM CS T Respiratory Rate 18 09/11/2022 4:55 AM FIRE MANAGEMENT OFFICER Oxygen Saturation 99% 09/11/2022 4:55 AM FIRE MANAGEMENT OFFICER Inhaled Oxygen Concentration - - Weight 56.2 kg (123 lb 14.4 oz) 09/11/2022 4:55 AM FIRE MANAGEMENT OFFICER Height 167.6 cm (5' 6 ) 09/11/2022 4:55 AM FIRE MANAGEMENT OFFICER Body Mass Index 20 09/11/2022 4:55 AM FIRE MANAGEMENT OFFICER Plan of Treatment Not on file Insurance IDMI [facility] Care Teams Regulatory Affairs Analyst Relationship Specialty Start Date End Date Oscar Edwards MD [address] [place] [address] PCP - General Internal Medicine 08/04/22
--- OUTSIDE RECORDS SUMMARY | 2024-10-13 22:57 | XMS_ITS | Encounter Summary ---
Author Organization [facility] Healthcare Address [address] [place] [address] Care Team Providers Care Salesperson Stereo Equipment Name Role Phone Oscar Edwards MD Primary Care Provider [phone] Reason for Visit * Reason Comments Earache Encounter Details Date Type Department Care Team (Late st Contact Info) Description 08/04/2022 12:14 PM CDT - 08/04/2022 1:49 PM CDT Emergency [facility] Emergency Department [facility] [place] [address] Tod Mohan MD [address] [place] [address] [place] [address] RSV bronchitis (Primary Dx); Left otitis media, unspecified otitis media type; Bilateral impacted cerumen Discharge Disposition: Discharge to home or self care Social History Tobacco Use Types Packs/Day Years Used Date Smoking Tobacco: Never Assessed Comments Unknown Sex and Gender Information Value Date Recorded Sex Assigned at Not on file Legal Sex Female 7:29 AM CDT Gender Identity Not on file Sexual Orientation Not on file documented as of this encounter Last Filed Vital Signs Vital Sign Reading Time Taken Comments Blood Pressure 107/74 08/04/2022 1:39 PM CDT Pulse 82 08/04/2022 1:39 PM CDT Temperature 36.7 ??C (98 ??F) 08/04/2022 10:53 AM CDT Respiratory Rate 18 08/04/2022 10:53 AM CDT Oxygen Saturation 98% 08/04/2022 1:39 PM CDT Inhaled Oxygen Concentration - - Weight - - Height - - Body Mass Index - - documented in this encounter Discharge Instructions * Discharge Instructions* Adriana Mendoza PA - 08/04/2022 1:42 PM CDT Take medication [id number] medication for treatment of your cough and congestion. Take antibiotic as prescribed for treatment of your ear infection. Return to the ER for any new or worsening symptoms. Follow up with her primary care physician in 1 week. * Attachments The following attachments cannot be sent through Care Everywhere. * Cerumen Impaction (AfterCare(R) Instructions(ER/ED)) ([place] Citizen) * Ear Infection (AfterCare(R) Instructions(ER/ED)) ([place] Citizen) * Acute Bronchitis (AfterCare(R) Instructions(ER/ED)) ([place] Citizen) documented in this encounter Medications at Time of Discharge amoxicillin-clavu lanate (AUGMENTIN) 875-125 mg per tablet Take 1 tablet by mouth every 12 (twelve) hours 14 tablet 08/04/2022 clonazePAM (KlonoPIN) 0.5 mg tablet Take 1 tablet (0.5 mg total) by mouth 2 (two) times a day as needed for anxiety 20 tablet 01/25/2022 documented as of this encounter Ordered Prescriptions Prescription Sig Dispense Quantity Refills Last Filled Start Date End Date amoxicillin-clavula mayelin (AUGMENTIN) 875-125 mg per tablet Take 1 tablet by mouth every 12 (twelve) hours 14 tablet 08/04/2022 documented in this encounter Discharge Disposition Disposition Code Departure Means Destination Discharge to home or self care documented in this encounter ED Notes * Adriana Mendoza PA - 08/04/2022 1:39 PM CDT HPI Chief Complaint Patient presents with Earache Patient is a 27-year-old female who presented to the ER for evaluation of left ear pain. Patient states she was diagnosed with an ear infection and last week took a round of amoxicillin which helped some but then her ear pain returned. She is complaining of left ear pain, fever, cough, and nasal congestion that started approximately 2 weeks ago. She denies any chest pain or shortness of breath. History provided by: Patient Patient History: There are no problems to display for this patient. No past medical history on file. No past surgical history on file. No family history on file. Social History Tobacco Use Smoking status: Not on file Smokeless tobacco: Not on file Substance and Sexual Activity Alcohol use: Not on file Drug use: Not on file Sexual activity: Not on file Social History Social History Narrative Not on file Review of Systems Review of Systems All other systems reviewed and are negative. Physical Exam ED Triage Vitals Temp Pulse Resp BP SpO2 08/04/22 1053 08/04/22 1053 08/04/22 1053 08/04/22 1053 08/04/22 1053 36.7 ??C (98 ??F) 83 18 122/77 100 % Temp src Heart Rate Source Patient Position BP Location FiO2 (%) 08/04/22 1053 08/04/22 1339 08/04/22 1339 08/04/22 1339 -- Oral Monitor Sitting Left arm Height Height Method Weight Weight Method -- -- -- -- Labs Reviewed INFLUENZA A/B, RSV, AND COVID-19 PCR - Abnormal Result Value COVID-19 RNA Negative Influenza A RNA Negative Influenza B RNA Negative RSV RNA Positive (*) Narrative: Is the Patient experiencing symptoms consistent with COVID?->Yes Date of Symptom Onset->07/21/22 Reason for testing?->Symptomatic STREPTOCOCCUS GROUP A PCR Strep A DNA Not Detected Physical Exam Vitals and nursing note reviewed. Constitutional: General: She is not in acute distress. Appearance: She is well-developed. HENT: Head: Normocephalic and atraumatic. Right Ear: External ear normal. There is impacted cerumen. Left Ear: External ear normal. There is impacted cerumen. Nose: Nose normal. Mouth/Throat: Mouth: Mucous membranes are moist. Eyes: Conjunctiva/sclera: Conjunctivae normal. Cardiovascular: Rate and Rhythm: Normal rate and regular rhythm. Pulmonary: Effort: Pulmonary effort is normal. No respiratory distress. Breath sounds: Normal breath sounds. Abdominal: Palpations: Abdomen is soft. Tenderness: There is no abdominal tenderness. Musculoskeletal: General: Normal range of motion. Cervical back: Neck supple. Skin: General: Skin is warm and dry. Neurological: General: No focal deficit present. Mental Status: She is alert. Psychiatric: Mood and Affect: Mood normal. Behavior: Behavior normal. MDM Medical Decision Making Differential Diagnosis or Management Options: Patient appears nontoxic and her vital signs are stable. Will discharge patient with prescription for Augmentin for treatment of her otitis media. Patient tested positive for RSV. I discussed symptomatic treatment, indications for return to the ER, the importance of follow-up. All questions answered. This examination was transcribed using the Iotum voice recognition system without human supervisor type photography. In an effort to expedite patient care, this report has not been adjusted for typographical, grammatical, and syntax by a trained biomedical instrument technician. Close outpatient follow-up with a low threshold to return has been mandated , concerning symptoms have been emphasized in detail, and this patient expresses understanding. ED Course as of 08/04/226 Time: 08/04 1330 Value: XR Chest 1 Vw Portable Comment: IMPRESSION: No acute cardiopulmonary disease By: Adriana Mendoza PA Time: 08/04 1340 Comment: After patient's ears were irrigated. Her ear canals are clear bilaterally. Her left TM is erythematous. Right TM is normal. By: Adriana Mendoza PA Time: 08/04 1341 Value: RSV RNA(!): Positive Comment: (Reviewed) By: Adriana Mendoza PA Final diagnoses: RSV bronchitis Left otitis media, unspecified otitis media type Bilateral impacted cerumen Adriana Mendoza PA 08/04/221835 Adriana Mendoza PA 08/04/221836 Cosigned by Tod Mohan MD at 08/14/2022 8:53 AM CDT Associated attestation - Tod Mohan MD - 08/14/2022 8:53 AM CDT ED Attestation This patient was independently evaluated by the APC. I was available for immediate consultation andin-person evaluation if required but was not asked to do so. * Tati Craig RN - 08/04/2022 10:51 AM CDT Pt states I think I might have an ear infection. I took amoxicillin last week, finished but it hasnt helped. Pt A&Ox4. Skin PWD. Left ear pain 12/24. Pt feels as if shes sitting at the bottom of the pool documented in this encounter Plan of Treatment Not on file documented as of this encounter Procedures Procedure Name Priority Date/Time Associated Diagnosis Comments INFLUENZA A/B, RSV, AND COVID-19 PCR Routine 08/04/2022 12:32 PM CDT STREPTOCOCCUS GROUP A PCR STAT 08/04/2022 12:32 PM CDT XR CHEST 1 VIEW ED 08/04/2022 12:26 PM CDT documented in this encounter Results * Streptococcus Group A PCR (08/04/2022 12:32 PM CDT) Strep A DNA Not Detected Not Detected YADIRA ANDERSON Comment: This test is performed using the Cepheid Xpert Group A Streptococcal Assay. This is a qualitative, real-time PCR assay that detects Group A Strep using throat specimens from patients suspected of having streptococcal pharyngitis. This assay does not detect other beta-hemolytic streptococci including Group C or Group G. ??Group C and G have been associated with pharyngitis and, occasionally, acute nephritis but do not cause rheumatic fever. If suspected, order Throat Culture, Routine. This assay has been cleared by the [place] Food and Drug Administration, and its performance characteristics have been verified by the performing laboratory. Testing performed by: [address] [address] Throat 08/04/2022 12:3 2 PM CDT 08/04/2022 12:41 PM CDT Adriana ROSS LAB MICROBIOLOGY - GENERA L ORDERABLES Final Result YADIRA [address] [facility] Department [place] [address] * (ABNORMAL) Influenza A/B, RSV, and COVID-19 PCR Nasopharyngeal (08/04/2022 12:32 PM CDT) Pathologist [facility] [place] COVID-19 RNA Negative Negative YADIRA Comment:Testing performed by : [address] [address] Influenza A RNA Negative Negative YADIRA Comment:Testing performed by : [address] [address] Influenza B RNA Negative Negative YADIRA Comment:Testing performed by : [address] [address] RSV RNA Positive(A) Negative YADIRA Comment: Interpretive data: This test is performed using the [employer] Xpert Xpress CoV-2/Flu/RSV plus assay. This is a multiplex, real-time reverse transcriptase PCR assay intended for the qualitative detection of nucleic acid from SARS-CoV-2, influenza A, influenza B, and respiratory syncytial virus. This assay has been reviewed by the FDA for Emergency Use Authorization (EUA). The performance characteristics have been verified by the performing laboratory. Results must be considered in the clinical context, and a negative result does not rule out infection. Interpretive Data last revised 2021. Testing performed by: [facility], [address] [place] [address], [place]., [address] Nasopharyngeal 08/04/2022 12 :32 PM CDT 08/04/2022 12:41 PM CDT Narrative YADIRA - 08/04/2022 1:21 PM CDT Is the Patient experiencing symptoms consistent with COVID?->Yes Date of Symptom Onset->07/21/22 Reason for testing?->Symptomatic us Adriana ROSS LAB MICROBIOLOGY - GENERA L ORDERABLES Final Result YADIRA [address] [facility] Department [place] [address] * XR Chest 1 Vw Portable (08/04/2022 12:26 PM CDT) Anatomical Region Laterality Modality Body, Chest N/A Computed Radiogr aphy 08/04/2022 1:04 PM CDT Narrative 08/04/2022 1:04 PM CDT EXAM DESCRIPTION: ?? XR CHEST 1 VIEW REASON FOR STUDY: ?? sob, cough ?? sob, cough Pt states I think I might have an ear infection. I took amoxicillin last week, finished but it hasnt helped. Pt A. Skin PWD. Left ear pain 3/10. Pt feels as if shes sitting at the bottom of the pool ?? TECHNIQUE: ?? One ??radiographic view of the chest acquired. COMPARISON: None. FINDINGS: LUNGS/PLEURA: ?? No focal consolidation or pneumothorax. No pleural effusion. HEART/MEDIASTINUM: ?? Heart size is normal. Normal mediastinal and hilar contours. HARDWARE/LINES/TUBES: ?? None. BONES: ?? No acute findings. OTHER: ?? No other significant finding. IMPRESSION: ?? No acute cardiopulmonary disease. THIS IS AN ELECTRONICALLY VERIFIED FINAL REPORT 08/04/2022 1:04 PM - Electronically signed by ??Hugo Sy M.D. CH: D: ??08/04/2022 1:04 PM T: ??08/04/2022 1:04 PM Report ID: [id number] Reading Location: ??[id number] Procedure Note Hugo Sy Jr., MD - 08/04/2022 EXAM DESCRIPTION: XR CHEST 1 VIEW REASON FOR STUDY: sob, cough sob, cough Pt states I think I might have an ear infection. I took amoxicillin last week, finished but it hasnt helped. Pt A. Skin PWD. Leftear pain 12/24. Pt feels as if shes sitting at the bottom of the pool TECHNIQUE: One radiographic view of the chest acquired. COMPARISON: None. FINDINGS: LUNGS/PLEURA: No focal consolidation or pneumothorax. Nopleural effusion. HEART/MEDIASTINUM: Heart size is normal. Normal mediastinal and hilar contours. HARDWARE/LINES/TUBES: None. BONES: No acute findings. OTHER: No other significant finding. IMPRESSION: No acute cardiopulmonary disease. THIS IS AN ELECTRONICALLY VERIFIED FINAL REPORT 08/04/2022 1:04 PM - Electronically signed by Hugo Sy M.D. CH: Report ID: [id number] Reading Location: [id number] Adriana ROSS IMG XR PROCEDURES Final R esult documented in this encounter Visit Diagnoses Diagnosis RSV bronchitis- Primary Left otitis media, unspecified otitis media type Bilateral impacted cerumen Impacted cerumen documented in this encounter Additional Health Concerns Infection Onset Date Last Indicated Resolved Time COVID: Suspected 08/04/2022 08/04/2022 08/04/2022 1:22 PM CDT RSV, droplet 08/04/2022 08/04/2022 08/11/2022 3:05 AM CDT documented as of this encounter Care Teams Salesperson Stereo Equipment Relationship Specialty Start Date End Date Oscar Edwards MD [address] [place] [address] PCP - General Internal Medicine 08/04/22 documented as of this encounter
--- OUTSIDE RECORDS SUMMARY | 2024-10-13 22:57 | XMS_ITS | Encounter Summary ---
Author Organization [facility] Healthcare Address [address] [place] [address] Care Team Providers Care Lapidary Apprentice Name Role Phone Oscar Edwards MD Primary Care Provider [phone] Reason for Visit * Reason Comments Knee Pain Encounter Details Date Type Department Care Team (Late st Contact Info) Description 09/11/2022 5:03 AM TITRATOR - 09/11/2022 5:[address] [facility] Emergency [facility] Emergency Department [facility] [place] [address] Baljeet Diaz, DO [address] [facility] [place] [address] Sprain of medial collateral ligament of right knee, initial encounter (Primary Dx) Discharge Disposition: Discharge to home or self [...] Comments Blood Pressure 111/68 09/11/2022 4:55 AM TITRATOR Pulse 75 09/11/2022 4:55 AM TITRATOR Temperature 36.6 ??C (97.9 ??F) 09/11/2022 4:55 AM CS T Respiratory Rate 18 09/11/2022 4:55 AM TITRATOR Oxygen Saturation 99% 09/11/2022 4:55 AM TITRATOR Inhaled Oxygen Concentration - - Weight 56.2 kg (123 lb 14.4 oz) 09/11/2022 4:55 AM TITRATOR Height 167.6 cm (5' 6 ) 09/11/2022 4:55 AM TITRATOR Body Mass Index 20 09/11/2022 4:55 AM TITRATOR documented in this encounter Discharge Instructions * Attachments The following attachments cannot be sent through Care Everywhere. * Knee Sprain (AfterCare(R) Instructions(ER/ED)) ([place]) documented in this encounter Medications at Time of Discharge amoxicillin-clavu lanate (AUGMENTIN) 875-125 mg per tablet Take 1 tablet by mouth every 12 (twelve) hours 14 tablet 08/04/2022 clonazePAM (KlonoPIN) 0.5 mg tablet Take 1 tablet (0.5 mg total) by mouth 2 (two) times a day as needed for anxiety 20 tablet 01/25/2022 traMADoL (ULTRAM) 50 mg tablet Take 1 tablet (50 mg total) by mouth every 6 (six) hours 10 tablet 09/11/2022 documented as of this encounter Ordered Prescriptions Prescription Sig Dispense Quantity Refills Last Filled Start Date End Date traMADoL (ULTRAM) 50 mg tablet Take 1 tablet (50 mg total) by mouth every 6 (six) hours 10 tablet 09/11/2022 documented in this encounter Discharge Disposition Disposition Code Departure Means Destination Discharge to home or self care documented in this encounter ED Notes * Baljeet Diaz, - 09/11/2022 5:28 AM CST HPI Chief Complaint Patient presents with Knee Pain 27-year-old female who comes in with right knee pain that started last night when she was lifting weights. She said that she lifted away and then twisted her knee that she had pain medially and mild swelling and then this morning she woke up and there was more pains she came in for evaluation. She has limping gait and she does not have any other injuries Patient History: There are no problems to [...] are negative. Physical Exam ED Triage Vitals [09/11/22 2965] Temp Pulse Resp BP SpO2 36.6 ??C (97.9 ??F) 75 18 111/68 99 % Temp src Heart Rate Source Patient Position BP Location FiO2 (%) -- -- -- -- -- Height Height Method Weight Weight Method 1.676 m (5' 6 ) Stated 56.2 kg (123 lb 14.4 oz) Standing scale Physical Exam Vitals and nursing note reviewed. Constitutional: General: She is not in acute distress. Appearance: She is well-developed. HENT: Head: Normocephalic and atraumatic. Eyes: Conjunctiva/sclera: Conjunctivae normal. Cardiovascular: Rate and Rhythm: Normal rate and regular rhythm. Heart sounds: No murmur heard. Pulmonary: Effort: Pulmonary effort is normal. No respiratory distress. Breath sounds: Normal breath sounds. Abdominal: Palpations: Abdomen is soft. Tenderness: There is no abdominal tenderness. Musculoskeletal: General: Tenderness present. No swelling, deformity or signs of injury. Cervical back: Neck supple. Skin: General: Skin is warm and dry. Capillary Refill: Capillary refill takes less than 2 seconds. Neurological: Mental Status: She is alert. Psychiatric: Mood and Affect: Mood normal. MDM MDM Final diagnoses: Sprain of medial collateral ligament of right knee, initial encounter Baljeet Diaz DO 09/11/22 0529 ATOR * Yris Red RN - 09/11/2022 4:54 AM CST Pt reports hurting R knee while lifting weights yesterday. ATOR documented in this encounter Plan of Treatment Not on file documented as of this encounter Procedures Procedure Name Priority Date/Time Associated Diagnosis Comments XR KNEE RIGHT 1 OR 2 VIEWS ED 09/11/2022 5:14 AM TITRATOR documented in this encounter Results * XR Knee Right 1 or 2 Views (09/11/2022 5:14 AM TITRATOR) Anatomical Region Laterality Modality Lower Extremities, Knee Right Computed Radiography 09/11/2022 5:17 AM TITRATOR Narrative 09/11/2022 5:18 AM TITRATOR EXAM DESCRIPTION: ?XR KNEE RIGHT 1 OR 2 VIEWS REASON FOR STUDY: ?? pain ?? Pt reports hurting R knee while lifting weights yesterday. ?Pt has unable to bend knee well ?? TECHNIQUE: ?? 2 ??radiographic views acquired of the right knee. COMPARISON: ?? None FINDINGS: BONES/JOINTS: ?? No acute fracture, malalignment or osseous abnormalities. ?? Joint spaces are maintained. SOFT TISSUES: ?? Unremarkable. OTHER: ?? No other significant finding. IMPRESSION: ?? No acute osseous abnormality. THIS IS AN ELECTRONICALLY VERIFIED FINAL REPORT 09/11/2022 5:18 AM - Electronically signed by ??Tim James M.D. RW: ALY D: ??09/11/2022 5:18 AM T: ??09/11/2022 5:18 AM Report ID: [id number] Reading Location: ??[id number] Procedure Note Tim James MD - 09/11/2022 EXAM DESCRIPTION: XR KNEE RIGHT 1 OR 2 VIEWS REASON FOR STUDY: pain Pt reports hurting R knee while lifting weights yesterday. Pt hasunable to bend knee well TECHNIQUE: 2 radiographic views acquired of the right knee. COMPARISON: None FINDINGS: BONES/JOINTS: No acute fracture, malalignment or osseous abnormalities. Joint spaces are maintained. SOFT TISSUES: Unremarkable. OTHER: No other significant finding. IMPRESSION: No acute osseous abnormality. THIS IS AN ELECTRONICALLY VERIFIED FINAL REPORT 09/11/2022 5:18 AM - Electronically signed by Tim James M.D. RW: ALY Report ID: [id number] Reading Location: [id number] us Baljeet Diaz DO IMG XR PROCEDURES Kimberly l Result documented in this encounter Visit Diagnoses Diagnosis Sprain of medial collateral ligament of right knee, initial encounter- Primary documented in this encounter Orders Nursing Count Last Ordered Date First Orde red Date BRACE APPLICATION 1 09/11/2022 ED SUPPLY 1 09/11/2022 documented in this encounter Care Teams Lapidary Apprentice Relationship Specialty Start Date End Date Oscar Edwards MD [address] [place] [address] PCP - General Internal Medicine 08/04/22 documented as of this encounter
--- OUTSIDE RECORDS SUMMARY | 2024-10-13 22:57 | XMS_ITS | Encounter Summary ---
Author Organization [facility] Healthcare Address [address] [place] [address] Care Team Providers Care Project Design Engineer Name Role Phone Unknown, Notinfile Primary Care Provider Unavail able Reason for Visit * Reason Comments Anxiety Allergic Reaction Encounter Details Date Type Department Care Team (Late st Contact Info) Description 01/25/2022 7:37 AM CDT - 01/25/2022 9:08 AM CDT Emergency [facility] Emergency Department [facility] [place] [address] Rika Myrick MD [facility] [place] [address] Anxiety attack (Primary Dx); Adverse effect of drug, initial encounter Discharge Disposition: Discharge to home or self [...] Sign Reading Time Taken Comments Blood Pressure 99/66 01/25/2022 9:03 AM CDT Pulse 82 01/25/2022 9:03 AM CDT Temperature 36.7 ??C (98 ??F) 01/25/2022 7:33 AM CDT Respiratory Rate 16 01/25/2022 9:03 AM CDT Oxygen Saturation 100% 01/25/2022 9:03 AM CDT Inhaled Oxygen Concentration - - Weight 58 kg (127 lb 13.9 oz) 01/25/2022 7:33 AM CDT Height 167.6 cm (5' 6 ) 01/25/2022 7:33 AM CDT Body Mass Index 20.64 01/25/2022 7:33 AM CDT documented in this encounter Discharge Instructions * Attachments The following attachments cannot be sent through Care Everywhere. * Anxiety (AfterCare(R) Instructions(ER/ED)) (Croatian) documented in this encounter Medications at Time of Discharge clonazePAM (KlonoPIN) 0.5 mg tablet Take 1 tablet (0.5 mg total) by mouth 2 (two) times a day as needed for anxiety 20 tablet 01/25/2022 documented as of this encounter Ordered Prescriptions Prescription Sig Dispense Quantity Refills Last Filled Start Date End Date clonazePAM (KlonoPIN) 0.5 mg tablet Take 1 tablet (0.5 mg total) by mouth 2 (two) times a day as needed for anxiety 20 tablet 01/25/2022 documented in this encounter Discharge Disposition Disposition Code Departure Means Destination Discharge to home or self care documented in this encounter ED Notes * Rika Myrick MD - 01/25/2022 8:46 AM CDT HPI Chief Complaint Patient presents with ??? Anxiety ??? Allergic Reaction HPI 8:46 AM Opal Swenson is a 27 y.o. female presenting to the ED c/o shortness of breath, hands cramping and feeling lightheaded just prior to arrival. Pt started on steroids two days ago. Has history of feeling anxious at times. She had an upper respiratory infection Patient History: No past medical history on file. No past surgical history on file. No family history on file. No current facility-administered medications for this encounter. Current Outpatient Medications: ??? clonazePAM (KlonoPIN) 0.5 mg tablet Review of Systems Review of Systems All systems reviewed and are neg or non contributory for this patients presentation today other than as stated in the HPI . Physical Exam ED Triage Vitals [01/25/22 0733] Temp Pulse Resp BP SpO2 36.7 ??C (98 ??F) 79 22 110/72 99 % Temp src Heart Rate Source Patient Position BP Location FiO2 (%) -- -- -- -- -- Physical Exam Vitals and nursing note reviewed. Constitutional: General: She is not in acute distress. Appearance: Normal appearance. Comments: anxious HENT: Head: Normocephalic and atraumatic. Nose: Nose normal. Eyes: General: Right eye: No discharge. Left eye: No discharge. Conjunctiva/sclera: Conjunctivae normal. Cardiovascular: Rate and Rhythm: Normal rate and regular rhythm. Pulmonary: Effort: Pulmonary effort is normal. No respiratory distress. Breath sounds: Normal breath sounds. No wheezing. Abdominal: General: There is no distension. Palpations: Abdomen is soft. Tenderness: There is no abdominal tenderness. Musculoskeletal: General: No swelling, tenderness or deformity. Normal range of motion. Cervical back: Normal range of motion. No rigidity. Skin: General: Skin is warm and dry. Neurological: General: No focal deficit present. Mental Status: She is alert and oriented to person, place, and time. Psychiatric: Mood and Affect: Mood normal. Behavior: Behavior normal. Procedures MDM Labs Reviewed - No data to display No orders to display BP 110/72 Pulse 86 Temp 36.7 ??C (98 ??F) Resp 14 Ht 167.6 cm (5' 6 ) Wt 58 kg (127 lb 13.9 oz) SpO2 98% BMI 20.64 kg/m?? MDM This examination was transcribed using the [employer] voice recognition system without human lyft driver. In an effort to expedite patient care, this report has not been adjusted for typographical, grammatical, and syntax by a trained medical facilities section director. Clinical Impression: Anxiety attack Adverse effect of drug, initial encounter Rika Myrikc MD 01/25/22 4079 * Deejay Paul RN - 01/25/2022 7:30 AM CDT Pt brought to ER by EMS with c/o possible allergic reaction to steroids. Pt has been taking steroids for about 1 week d/t cold symptoms, switched to another one 2 days ago d/t having tingling in hands, heavy chest, and SOB. Pt had same symptoms today while driving and called EMS. Pt AOx4, up ad carl. documented in this encounter Plan of Treatment Not on file documented as of this encounter Visit Diagnoses Diagnosis Anxiety attack- Primary Panic disorder without agoraphobia Adverse effect of drug, initial encounter documented in this encounter Administered Medications Inactive Administered Medications - up to 3 most recent administrations Medication Order MAR Action Action Date Dose Rate Site LORazepam (ATIVAN) injection 0.5 mg 0.5 mg, intravenous, Once, On Tue01/25/22 at 0736, For 1 dose, For IV administration, dilute with equal volume of 0.9% sodium chloride to a final concentration of 1 mg/mL. Do not exceed a rate of 2 mg/minute Given 01/25/2022 7:38 AM CDT 0.5 mg documented in this encounter Active and Recently Administered Medications Times are shown in CDT. Scheduled Medication Order 01/23/2022 01/24/2022 01/25/2022 LORazepam (ATIVAN) injection 0.5 mg (COMPLETED) 0.5 mg, intravenous, Once, On Tue01/25/22 at 0736, For 1 dose, For IV administration, dilute with equal volume of 0.9% sodium chloride to a final concentration of 1 mg/mL. Do not exceed a rate of 2 mg/minute 0738 (Given - Provid er: Deejay Paul RN) documented in this encounter Orders Medications Ordered That Will ht Not Have Been Administered Count Last Ordered Date First Ordered Date LORazepam (ATIVAN) injection 0.5 mg 1 01/25 documented in this encounter Care Teams Project Design Engineer Relationship Specialty Start Date End Date Unknown, Notinfile PCP - General 01/25/22 08/03/22 documented as of this encounter
== END 2024-10-06 15:29 | disposition home or self-care (01) ==
PROVIDERS: Emergency Provider Emergency Medicine; PCP Internal Medicine
DX: F41.9 Anxiety disorder, unspecified (principal); Z79.899 Other long term (current) drug therapy
CPT/HCPCS: 82948; 99283; A9270